=== PATIENT | female | born 1935 | race Caucasian/White ===

== ENCOUNTER 2019-07-31 10:50 | Inpatient (IN) | payer OTHER ==
[2019-07-31] MEDS ORDERED: NA CHLORIDE 0.9% 2,000 ML ONE (11:13)
[2019-07-31] MEDS ORDERED: CEFTRIAXONE/SWI 1gm 1 GM/10 ML SYR ONE (11:13)
[2019-07-31] MEDS ORDERED: ACETAMINOPHEN 500 MG TAB ONE (11:18)
[2019-07-31 11:27] LABS: Absolute Lymphocytes (CBC) 0.8 K/uL (0.7-4.9); Basophils % 0.4 % (0-1.3); Hematocrit 33.8 % (36.0-45.0); Lymphocytes % 4.2 % (15.3-44.8); MPV 9.3 fL (7.6-11.3); RBC Red Blood Cell Count 5.05 M/uL (3.86-4.86)
[2019-07-31 11:29] LABS: Protime INR 1.59
--- NOTE | 2019-07-31 11:42 | RAD REPORT ---
EXAM DESCRIPTION: Tonny Single View07/31/2019 11:34 am CLINICAL HISTORY: Fever COMPARISON: July 2018 FINDINGS: Lungs are hyperaerated The lungs appear clear of acute infiltrate. The heart is normal size IMPRESSION: COPD without visualization acute abnormality
[2019-07-31 11:43] LABS: ALT/SGPT 63 U/L (12-78); AST/SGOT 51 U/L (15-37); Albumin 3.4 g/dL (3.4-5.0); Alkaline Phosphatase 74 U/L (45-117); BUN Blood Urea Nitrogen 33 mg/dL (7-18); Bicarbonate 29 mmol/L (21-32); Bilirubin Direct 0.2 mg/dL (0-0.2); Bilirubin Total 0.6 mg/dL (0.2-1.0); Creatine Phosphokinase 246 U/L (26-192); Glucose Level 189 mg/dL (74-106); Lipase 81 U/L (73-393); Potassium 3.9 mmol/L (3.5-5.1); Protein, Total 8.7 g/dL (6.4-8.2); Sodium Level 138 mmol/L (136-145); Troponin (Emerg Dept Use Only) < 0.02 ng/mL (0.0-0.045)
--- OUTSIDE RECORDS SUMMARY | 2019-07-31 11:45 | XMS REPORT ---
:1935 Author Organization e[employer] Care Team Providers Name Role Phone Baca, Na Provider Role Unavailable Allergies No Known Allergies Problems Problem Type Condition Code Onset Dates Condition Status Problem GERD (gastroesophageal reflux K21.9 Active disease) Problem COPD (chronic obstructive J44.9 Active pulmonary disease) Problem Hypothyroidism E03.9 Active Problem Edema of left lower extremity R60.0 Active Problem Peripheral vascular insufficiency I73.9 Active Problem Senile cataract of right eye, H25.9 Active unspecified age-related cataract type Problem Supplemental oxygen dependent Z99.81 Active Problem Displaced fracture of left femoral S72.002A Active neck Problem 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 Active infection Problem Age related osteoporosis, M81.0 Active unspecified pathological fracture presence Assessment Anemia D64.9 Active Assessment Chronic a-fib I48.2 Active Problem Unsteady gait R26.81 Active Problem Chronic a-fib I48.2 Active Assessment Hypothyroidism E03.9 Active Problem Family history of breast cancer Z80.3 Active Problem Anemia D64.9 Active Medications No Known Medications Results No Known Results Summary Purpose eClinicalWorks Submission
[2019-07-31 12:18] LABS: Blood Morphology Comment NOTED (NOT SEEN); Platelet Estimate ADEQ
[2019-07-31 12:19] LABS: Anisocytosis 1+; Elliptocytes 1+; Hypochromasia 2+; Poikilocytosis 1+; Target Cells FEW; Teardrop Cell 1+
--- NOTE | 2019-07-31 13:05 | ER ---
Nurse's Notes [facility] Name: Demetrice Bedolla Age: 83 yrs Sex: Female : 1935 Arrival Date: 07/31/2019 Time: 10:53 Bed 19 Private MD: Nidhi Baca Diagnosis: Urosepsis, Fever, weakness Presentation: 07/31 10:57 Presenting complaint: Child states: generalized weakness, decreased appetite, fever sv Tmax 99.1, urinary symptoms started last week. Transition of care: patient was not received from another setting of care. Onset of symptoms was June 2019. Care prior to arrival: None. 10:57 Method Of Arrival: Wheelchair sv 10:57 Acuity: CHRIS 2 sv 11:01 Initial Sepsis Screen: Does the patient meet any 2 criteria? RR > 20 per min. Temp sv <36.0*C (96.8*F)) or > 38.3*C (100.9*F). HR > 90 bpm. Yes Does the patient have a suspected source of infection? Yes: Dysuria/Frequency/Urgency/UTI. 11:05 Risk Assessment: Do you want to hurt yourself or someone else? Patient reports no rb1 desire to harm self or others. Historical: - Allergies: 10:59 No Known Allergies; sv - Home Meds: 11:05 Hemocyte-Plus 106 mg iron- 1 mg Oral cap 1 cap once daily [Active]; levothyroxine 50 rb1 mcg tab 1 tab once daily [Active]; Symbicort 160-4.5 mcg/actuation inhalation HFAA 2 puffs 2 times per day [Active]; Vitamin D Oral [Active]; - PMHx: 10:59 COPD; Hypothyroidism; thalassemia; sv - PSHx: 11:05 None; rb1 - Immunization history:: Adult Immunizations up to date. - Social history:: Smoking status: Patient/guardian denies using tobacco. - Ebola Screening: : Patient negative for fever greater than or equal to 101.5 degrees Fahrenheit, and additional compatible Ebola Virus Disease symptoms. Screenin:05 Abuse screen: Denies threats or abuse. Nutritional screening: decreased appetite . rb1 Tuberculosis screening: No symptoms or risk factors identified. Fall Risk None identified. Assessment: 11:05 Reassessment: CODE SEPSIS CALLED. hb 11:05 General: Appears in no apparent distress. comfortable, unkempt, Behavior is calm, rb1 cooperative, Reports chills for fever for. Pain: Denies pain. Neuro: Level of Consciousness is awake, alert, obeys commands, Oriented to person, place, time, situation. Neuro: Reports weakness in generalized. Cardiovascular: Capillary refill < 3 seconds is brisk in bilateral fingers. Respiratory: Reports cough that is Airway is patent Respiratory effort is even, unlabored, Respiratory pattern is regular, symmetrical. GI: Reports diarrhea. : Reports burning with urination. EENT: Poor dentition noted. Derm: Skin is pink, warm \T\ dry. Musculoskeletal: Range of motion: intact in all extremities. 12:30 Reassessment: Patient appears in no apparent distress at this time. Patient and/or rb1 family updated on plan of care and expected duration. Pain level reassessed. Patient is alert, oriented x 3, equal unlabored respirations, skin warm/dry/pink. 13:30 Reassessment: Patient appears in no apparent distress at this time. No changes from [facility] previously documented assessment. 14:30 Reassessment: Patient appears in no apparent distress at this time. Patient and/or rb1 family updated on plan of care and expected duration. Pain level reassessed. Patient is alert, oriented x 3, equal unlabored respirations, skin warm/dry/pink. 15:30 Reassessment: Patient appears in no apparent distress at this time. Patient and/or rb1 family updated on plan of care and expected duration. Pain level reassessed. Patient is alert, oriented x 3, equal unlabored respirations, skin warm/dry/pink. 15:40 Reassessment: Tried to call report but the nurse was off the unit taking a pt. to the rb1 floor. 16:04 Reassessment: Called report to SANDOR Avalos. Information from the SBAR was given. All [facility] questions asked and answered. 16:30 Reassessment: Patient appears in no apparent distress at this time. No changes from [facility] previously documented assessment. 16:42 Reassessment: Dr. Youssef is at the pt. bedside. [facility] Vital Signs: 10:59 BP 131 / 61; Pulse 114; Resp 22; Temp 101.1(O); Pulse Ox 88% on 2 lpm NC; Weight 44.45 sv kg; Height 5 ft. 2 in. (157.48 cm); 12:32 BP 111 / 60; Pulse 128; Resp 26; Temp 99.0(O); Pulse Ox 96% on 2 lpm NC; Pain 0/10; rb1 13:30 BP 109 / 69; Pulse 130; Resp 23; Pulse Ox 94% on 2 lpm NC; Pain 0/10; rb1 14:30 BP 94 / 80; Pulse 98; Resp 21; Pulse Ox 97% on 2 lpm NC; rb1 15:30 BP 98 / 56; Pulse 110; Resp 20; Temp 98.6(TE); Pulse Ox 97% on 2 lpm NC; Pain 0/10; rb1 16:06 BP 100 / 67; Pulse 125; Resp 20; Temp 98.6(TE); Pulse Ox 97% on 2 lpm NC; Pain 0/10; rb1 10:59 Body Mass Index 17.92 (44.45 kg, 157.48 cm) sv Mark Coma Score: 11:30 Eye Response: spontaneous(4). Verbal Response: oriented(5). Motor Response: obeys rb1 commands(6). Total: 15. ED Course: 10:53 Patient arrived in ED. ag5 10:54 Nidhi Baca MD is Private Physician. ag5 10:58 Triage completed. sv 10:59 Arm band placed on. sv 11:04 Clif Naranjo MD is Attending Physician. kdr 11:05 Patient has correct armband on for positive identification. Placed in gown. Bed in low rb1 position. Call light in reach. Side rails up X 1. radiation monitor on. Pulse ox on. NIBP on. sheet. 11:10 Inserted saline lock: 18 gauge in right antecubital area, using aseptic technique. rb1 ,using aseptic technique. IV inserted by SANDOR Edouard Blood collected. 11:33 Chest Single View XRAY In Process Unspecified. EDMS 11:44 EKG done, by facility environmental technician. reviewed by Clif Naranjo MD. at1 11:56 Sybil Diamond, RN is Primary Nurse. rb1 13:02 Ilya Youssef DO is Hospitalizing Provider. kdr 13:26 Raul Colunga PA is PHCP. jr8 14:36 Urine Dipstick--Ancillary (enter results) Sent. mh5 14:36 Urine Culture Sent. mh5 16:53 No provider procedures requiring assistance completed. Patient admitted, IV remains in rb1 place. Administered Medications: 11:20 Drug: NS 0.9% (30 ml/kg) 30 ml/kg Route: IV; Rate: bolus; Site: right antecubital; rb1 12:42 Follow up: IV Status: Completed infusion [facility] 11:25 Drug: Rocephin - (cefTRIAXone) 1 grams Route: IVPB; Infused Over: 30 mins; Site: right rb1 antecubital; 11:55 Follow up: Response: No adverse reaction; IV Status: Completed infusion [facility] Point of Care Testing: Blood Glucose: 11:14 Blood Glucose: 184 mg/dL; [facility] Ranges: Outcome: 13:03 Decision to Hospitalize by Provider. [facility] 16:53 Admitted to ICU accompanied by nurse, accompanied by devin, family with patient, via [facility] stretcher, room 3, with oxygen, with chart, Report called to SANDOR Avalos 16:53 Condition: stable 16:53 Instructed on the need for admit. 16:56 Patient left the ED. [facility] Signatures: Dispatcher [employer] Kaylee Marie RN RN Clif Naranjo MD MD [facility] Raul Colunga PA PA jr8 Louise Cooley, telecommunications network planner EKG Tat1 Sybil Diamond RN RN [facility] Samantha Almonte RN RN hb Martinez, Maria 5 Caryl, Samuel 5 Corrections: (The following items were deleted from the chart) 10:59 10:57 Presenting complaint: Child states: generalized weakness, fever Tmax 99.1, sv urinary symptoms started last week. sv 11:01 10:57 Acuity: CHRIS 3 sv sv 11:01 10:59 44.45 kg; Height 5 ft. 2 in.; BMI: 17.9; sv sv 16:12 12:32 BP 111 / 60; Pulse 128bpm; Resp 26bpm; Pulse Ox 96% 2 lpm Nasal Cannula; Pain rb1 0; rb1
--- NOTE | 2019-07-31 13:05 | EDPHYS ---
Physician Documentation [facility] Name: Demetrice Bedolla Age: 83 yrs Sex: Female : 1935 Arrival Date: 07/31/2019 Time: 10:53 Bed 19 Private MD: Nidhi Baca ED Physician Clif Naranjo HPI: 07/31 13:48 This 83 yrs old Female presents to ER via Wheelchair with complaints of kdr General Weakness, Cough. 13:49 The patient has been generally weak and not feeling well for the past week. She has kdr also had mild discomfort with urination and slight cough but denies fever. Onset: The symptoms/episode began/occurred gradually, 1 week(s) ago. Severity of symptoms: At their worst the symptoms were mild moderate just prior to arrival, this morning, in the emergency department the symptoms are unchanged. The patient has not experienced similar symptoms in the past. The patient has not recently seen a physician. Historical: - Allergies: 10:59 No Known Allergies; sv - Home Meds: 11:05 Hemocyte-Plus 106 mg iron- 1 mg Oral cap 1 cap once daily [Active]; levothyroxine 50 rb1 mcg tab 1 tab once daily [Active]; Symbicort 160-4.5 mcg/actuation inhalation HFAA 2 puffs 2 times per day [Active]; Vitamin D Oral [Active]; - PMHx: 10:59 COPD; Hypothyroidism; thalassemia; sv - PSHx: 11:05 None; rb1 - Immunization history:: Adult Immunizations up to date. - Social history:: Smoking status: Patient/guardian denies using tobacco. - Ebola Screening: : Patient negative for fever greater than or equal to 101.5 degrees Fahrenheit, and additional compatible Ebola Virus Disease symptoms. ROS: 13:49 Constitutional: Negative for fever, chills, and weight loss, Eyes: Negative for injury, kdr pain, redness, and discharge, ENT: Negative for injury, pain, and discharge, Neck: Negative for injury, pain, and swelling, Cardiovascular: Negative for chest pain, palpitations, and edema, Respiratory: Negative for shortness of breath, cough, wheezing, and pleuritic chest pain, Abdomen/GI: Negative for abdominal pain, nausea, vomiting, diarrhea, and constipation, Back: Negative for injury and pain, : Negative for injury, bleeding, discharge, and swelling, MS/Extremity: Negative for injury and deformity, Skin: Negative for injury, rash, and discoloration, Neuro: Negative for headache, weakness, numbness, tingling, and seizure activity. Psych: Negative for depression, anxiety, suicide ideation, homicidal ideation, and hallucinations, Allergy/Immunology: Negative for hives, rash, and allergies, Endocrine: Negative for neck swelling, polydipsia, polyuria, polyphagia, and marked weight changes, Hematologic/Lymphatic: Negative for swollen nodes, abnormal bleeding, and unusual bruising. Exam: 13:49 Constitutional: This is a well developed, well nourished patient who is awake, alert, kdr and in no acute distress. Head/Face: Normocephalic, atraumatic. Eyes: Pupils equal round and reactive to light, extra-ocular motions intact. Lids and lashes normal. Conjunctiva and sclera are non-icteric and not injected. Cornea within normal limits. Periorbital areas with no swelling, redness, or edema. Neck: Trachea midline, no thyromegaly or masses palpated, and no cervical lymphadenopathy. Supple, full range of motion without nuchal rigidity, or vertebral point tenderness. No Meningismus. Chest/axilla: Normal chest wall appearance and motion. Nontender with no deformity. No lesions are appreciated. Cardiovascular: Regular rate and rhythm with a normal S1 and S2. No gallops, murmurs, or rubs. Normal PMI, no JVD. No pulse deficits. Respiratory: Lungs have equal breath sounds bilaterally, clear to auscultation and percussion. No rales, rhonchi or wheezes noted. No increased work of breathing, no retractions or nasal flaring. Abdomen/GI: Soft, non-tender, with normal bowel sounds. No distension or tympany. No guarding or rebound. No evidence of tenderness throughout. Back: No spinal tenderness. No costovertebral tenderness. Full range of motion. Skin: Warm, dry with normal turgor. Normal color with no rashes, no lesions, and no evidence of cellulitis. MS/ Extremity: Pulses equal, no cyanosis. Neurovascular intact. Full, normal range of motion. Neuro: Awake and alert, GCS 15, oriented to person, place, time, and situation. Cranial nerves II-XII grossly intact. Motor strength 5/5 in all extremities. Sensory grossly intact. Cerebellar exam normal. Normal gait. Psych: Awake, alert, with orientation to person, place and time. Behavior, mood, and affect are within normal limits. 13:49 ENT: External ear(s): are unremarkable, Ear canal(s): are normal, TM's: are normal, Nose: is normal. Vital Signs: 10:59 BP 131 / 61; Pulse 114; Resp 22; Temp 101.1(O); Pulse Ox 88% on 2 lpm NC; Weight 44.45 sv kg; Height 5 ft. 2 in. (157.48 cm); 12:32 BP 111 / 60; Pulse 128; Resp 26; Temp 99.0(O); Pulse Ox 96% on 2 lpm NC; Pain 0/10; rb1 13:30 BP 109 / 69; Pulse 130; Resp 23; Pulse Ox 94% on 2 lpm NC; Pain 0/10; rb1 14:30 BP 94 / 80; Pulse 98; Resp 21; Pulse Ox 97% on 2 lpm NC; rb1 15:30 BP 98 / 56; Pulse 110; Resp 20; Temp 98.6(TE); Pulse Ox 97% on 2 lpm NC; Pain 0/10; rb1 16:06 BP 100 / 67; Pulse 125; Resp 20; Temp 98.6(TE); Pulse Ox 97% on 2 lpm NC; Pain 0/10; rb1 10:59 Body Mass Index 17.92 (44.45 kg, 157.48 cm) sv Mark Coma Score: 11:30 Eye Response: spontaneous(4). Verbal Response: oriented(5). Motor Response: obeys rb1 commands(6). Total: 15. MDM: 13:03 Patient medically screened. kdr 13:49 Data reviewed: vital signs, nurses notes, old medical records, radiologic studies. kdr Counseling: I had a detailed discussion with the patient and/or guardian regarding: the historical points, exam findings, and any diagnostic results supporting the discharge/admit diagnosis, lab results, radiology results, the need for further work-up and treatment in the hospital. 07/31 10:54 Order name: Flu; Complete Time: 13:14 sv 07/31 10:54 Order name: Strep; Complete Time: 13:14 sv 07/31 11:05 Order name: Basic Metabolic Panel; Complete Time: 11:50 kdr 07/31 11:05 Order name: Blood Culture Adult (2) kdr 07/31 11:05 Order name: CBC with Diff; Complete Time: 12:35 kdr 07/31 11:05 Order name: Ckmb; Complete Time: 11:50 kdr 07/31 11:05 Order name: CPK; Complete Time: 11:50 kdr 07/31 11:05 Order name: Lactate; Complete Time: 11:50 kdr 07/31 11:05 Order name: LFT's; Complete Time: 11:50 kdr 07/31 11:05 Order name: Lipase; Complete Time: 11:50 kdr 07/31 11:05 Order name: Procalcitonin; Complete Time: 12:35 kdr 07/31 11:05 Order name: Protime (+inr); Complete Time: 11:50 kdr 07/31 11:05 Order name: Ptt, Activated; Complete Time: 11:50 kdr 07/31 11:05 Order name: Troponin (emerg Dept Use Only); Complete Time: 11:50 kdr 07/31 11:05 Order name: Urine Microscopic Only; Complete Time: 16:28 kdr 07/31 11:05 Order name: Chest Single View XRAY; Complete Time: 11:50 kdr 07/31 11:05 Order name: Accucheck; Complete Time: 11:19 kdr 07/31 11:05 Order name: Cardiac monitoring; Complete Time: 11:19 kdr 07/31 11:05 Order name: EKG - Nurse/Tech; Complete Time: 12:31 kdr 07/31 11:05 Order name: IV Saline Lock - Large Bore; Complete Time: 11:19 kdr 07/31 11:32 Order name: Glucose, Ancillary Testing; Complete Time: 11:50 EDMS 07/31 12:20 Order name: Manual Differential; Complete Time: 12:35 EDMS 07/31 12:47 Order name: Throat Culture EDMS 07/31 13:23 Order name: CT Abd/Pelvis - IV Contrast Only jr8 07/31 14:02 Order name: Urine Culture jr8 07/31 14:10 Order name: Urine Dipstick--Ancillary (enter results) em1 07/31 14:24 Order name: Urine Dipstick-Ancillary; Complete Time: 14:43 EDMS 07/31 14:38 Order name: CT; Complete Time: 14:43 [facility] 07/31 11:05 Order name: Labs collected and sent; Complete Time: 11:20 [facility] 07/31 11:05 Order name: O2 Per Protocol; Complete Time: 11:20 [facility] 07/31 11:05 Order name: O2 Sat Monitoring; Complete Time: 11:20 [facility] 07/31 11:05 Order name: Urine Dipstick-Ancillary (obtain specimen); Complete Time: 14:07 kdr Administered Medications: 11:20 Drug: NS 0.9% (30 ml/kg) 30 ml/kg Route: IV; Rate: bolus; Site: right antecubital; rb1 12:42 Follow up: IV Status: Completed infusion rb1 11:25 Drug: Rocephin - (cefTRIAXone) 1 grams Route: IVPB; Infused Over: 30 mins; Site: right rb1 antecubital; 11:55 Follow up: Response: No adverse reaction; IV Status: Completed infusion rb1 Point of Care Testing: Blood Glucose: 11:14 Blood Glucose: 184 mg/dL; rb1 Ranges: Critical Glucose Levels:Adult <50 mg/dl or >400 mg/dl <40 mg/dl or >180 mg/dl Disposition: 07/31/19 13:03 Hospitalization ordered by Ilya Youssef for Inpatient Admission. Preliminary diagnosis is Urosepsis, Fever, weakness. - Bed requested for Intensive Care Unit. - Status is Inpatient Admission. rb1 - Condition is Fair. - Problem is new. - Symptoms are unchanged. UTI on Admission? Yes Signatures: Dispatcher [employer] [facility] Kaylee Stewart RN RN sv Woody, Diana, RN RN dw Rittger, Kevin, MD MD [facility] Raul Colunga PA PA jr8 Sybil Diamond RN RN rb1 Corrections: (The following items were deleted from the chart) 14:49 13:03 Hospitalization Ordered by Ilya Youssef DO for Inpatient Admission. Preliminary diagnosis is Urosepsis, Fever, weakness. Bed requested for Telemetry/MedSurg (Inpatient). Status is Inpatient Admission. Condition is Fair. Problem is new. Symptoms are unchanged. UTI on Admission? Yes. kdr 14:49 14:49 07/31/2019 13:03 Hospitalization Ordered by Ilya Youssef DO for Inpatient dw Admission. Preliminary diagnosis is Urosepsis, Fever, weakness. Bed requested for Intensive Care Unit. Status is Inpatient Admission. Condition is Fair. Problem is new. Symptoms are unchanged. UTI on Admission? Yes. dw 15:21 13:22 Morin ordered. jr8 rb1 16:56 14:49 07/31/2019 13:03 Hospitalization Ordered by Ilya Youssef DO for Inpatient rb1 Admission. Preliminary diagnosis is Urosepsis, Fever, weakness. Bed requested for Intensive Care Unit. Status is Inpatient Admission. Condition is Fair. Problem is new. Symptoms are unchanged. UTI on Admission? Yes.
--- NOTE | 2019-07-31 13:37 | P.HP ---
Addendum entered and electronically signed by Eligio Colunga PA 07/31/19 14:44 : CT reports bilateral pyelonephritis which is most likely cause of her sepsis Original Note: Certification for Inpatient Patient admitted to: Inpatient With expected LOS: >2 Midnights Patient will require the following post-hospital care: Home Health Services Practitioner: I am a practitioner with admitting privileges, knowledge of patient current condition, hospital course, and medical plan of care. Services: Services provided to patient in accordance with Admission requirements found in Title 42 Section 412.3 of the Code of Federal Regulations <Eligio Colunga - Last Filed: 07/31/19 13:32> Patient History Date of Service: 07/31/19 Primary Care Provider: Dr. Baca Reason for admission: Severe Sepsis, COPD exacerbation, Dehydration History of Present Illness: This is a 83 y/o F patient that came to the ED today for evaluation of Dyspnea and fever. Patient with history of COPD. Did not know if she was getting pneumonia. Patient was evaluated in ED and found to have urosepsis. No pneumonia on CXR at this time. Patient after being evaluated by myself does have some lower abdominal pain. CT abd/pelvis with contrast has been ordered. Results pending at this time. Otherwise patient was started on sepsis protocol and has completed abx, blood cultures, and fluids. Patient has continued elevation in HR. Will be admitted to ICU overnight Home medications list reviewed: Yes - Past Medical/Surgical History Diabetic: No -: hypothyroidism -: COPD -: Thalassemia - Family History Mother -: Heart disease Sister -: Cancer - Social History Smoking Status: Former smoker Smoking therapy provided: No Alcohol use: No CD- Drugs: No Caffeine use: Yes Place of Residence: Home <Eligio Colunga - Last Filed: 07/31/19 13:32> Date of Service: 07/31/19 - Past Medical/Surgical History -: Hypothyroidism -: COPD -: Atrial fibrillation/chronic anti coagulation therapy -: Anemia of chronic disease -: Former smoker -: History of recurrent UTI Past Surgical History: Patient denies surgical history Psychosocial/ Personal History: Patient has a supporting family. Lives at home <Ilya Youssef - Last Filed: 07/31/19 17:53> Allergies No Known Allergies Allergy (Verified 01/02/20 17:19) Home Medications: Iron/FA/Vit B-Com W/C [Hemocyte Plus*] 1 tab PO DAILY 09/07/17 Levothyroxine Sodium 50 mcg PO DAILY 09/07/17 Cholecalciferol (Vitamin D3) [Vitamin D3] 1,000 unit PO DAILY 09/10/17 Albuterol Neb [Proventil 0.083% Neb Soln] 2.5 mg NEB [id number] PRN #60 amp Apixaban [Eliquis] 2.5 mg PO BID #60 tablet 09/17/17 Docusate [Colace Cap*] 100 mg PO BID #60 cap 09/17/17 Ipratropium Neb [Atrovent*] 0.5 mg NEB [id number] PRN #60 amp 09/17/17 Sotalol HCl [Betapace*] 40 mg PO BID 6AM 6PM #30 tab 09/17/17 Fluticasone/Umeclidin/Vilanter [Trelegy Ellipta 100-62.5-25] 1 puff IH DAILY 09/18 Review of Systems General: Fever, Chills Eyes: Unremarkable ENT: Unremarkable Respiratory: Cough, Shortness of Breath Cardiovascular: Palpitations Gastrointestinal: Abdominal Pain Genitourinary: As per HPI Musculoskeletal: Unremarkable Integumentary: Unremarkable Neurological: Unremarkable Lymphatics: Unremarkable <Eligio Colunga - Last Filed: 07/31/19 13:32> Physical Examination - Vital Signs Temperature: 101.1 F Blood Pressure: 131/61 Pulse: 130 Respirations: 26 Pulse Ox (%): 93 (NC 3lpm ) - Physical Exam General: Alert, In no apparent distress, Oriented x3 HEENT: PERRLA, Mucous membr. moist/pink, EOMI Neck: Supple, 2+ carotid pulse no bruit, JVD not distended, No Thyromegaly Respiratory: Crackles/rales (mild tachypnea present ), Expiratory wheezes Cardiovascular: Normal S1 S2, No gallops, No rubs, No murmurs, Irregular heart rate/rhythm (Tachycardic ) Capillary refill: <2 Seconds Gastrointestinal: Normal bowel sounds, Non-distended, No masses, No rebound, No guarding, Tenderness (lower abdomen ) Musculoskeletal: No swelling, No contractures, No erythema, No tenderness, No warmth Integumentary: No rashes, No breakdown, No significant lesion, No tenderness/ swelling, No erythema, No warmth, No cyanosis Neurological: Normal speech, Normal strength at 5/5 x4 extr, Sensation intact, Cranial nerves 3-12 intact, Normal reflexes 2+, Normal affect - Studies Laboratory Data (last 24 hrs) 07/31/19 11:11: PT 18.4 H, INR 1.59, APTT 32.4 07/31/19 11:11: WBC 20.3 H*, Hgb 10.6 L, Hct 33.8 L, Plt Count 212 07/31/19 11:11: Sodium 138, Potassium 3.9, BUN 33 H, Creatinine 1.03, Glucose 189 H, Total Bilirubin 0.6, AST 51 H, ALT 63, Alkaline Phosphatase 74, Lipase 81 Microbiology Data (last 24 hrs): 07/31/19 12:27 Nasopharnyx Influenza Type A Antigen Screen - Final 07/31/19 12:27 Nasopharnyx Influenza Type B Antigen Screen - Final 07/31/19 12:27 Throat Group A Streptococcus Rapid Screen - Final <Eligio Colunga - Last Filed: 07/31/19 13:32> - Studies Laboratory Data (last 24 hrs) 07/31/19 11:11: PT 18.4 H, INR 1.59, APTT 32.4 07/31/19 11:11: WBC 20.3 H*, Hgb 10.6 L, Hct 33.8 L, Plt Count 212 07/31/19 11:11: Sodium 138, Potassium 3.9, BUN 33 H, Creatinine 1.03, Glucose 189 H, Total Bilirubin 0.6, AST 51 H, ALT 63, Alkaline Phosphatase 74, Lipase 81 Microbiology Data (last 24 hrs): 07/31/19 12:27 Nasopharnyx Influenza Type A Antigen Screen - Final 07/31/19 12:27 Nasopharnyx Influenza Type B Antigen Screen - Final 07/31/19 12:27 Throat Group A Streptococcus Rapid Screen - Final <Ilya Youssef - Last Filed: 07/31/19 17:53> Assessment and Plan - Problems (Diagnosis) (1) Severe sepsis Current Visit: Yes Status: Acute (2) Dehydration fever Current Visit: Yes Status: Acute (3) COPD (chronic obstructive pulmonary disease) Onset Date: 09/10/17 Current Visit: No Status: Chronic Qualifiers: COPD type: chronic bronchitis Chronic bronchitis type: unspecified Qualified Code(s): J42 - Unspecified chronic bronchitis - Plan Patient will be admitted for sepsis. Patient will have continued breathing treatments for COPD along with steroids. Will remain on continuous oxygen as well. Patient had sepsis protocol initiated in ED. Will continue fluids and antibiotics. Labs will be monitored and trended for improvement. At this time when asked, patient does not want to be resuscitated if she were to stop breathing or her heart were to stop. Discharge Plan: Home Plan to discharge in: Greater than 2 days - Advance Directives Does patient have a Living Will: No Does patient have a Durable POA for Healthcare: No - Code Status/Comfort Care Code Status: Do Not Attempt Resuscitat Critical Care: No Time Spent Managing Pts Care (In Minutes): 45 <Eligio Colunga - Last Filed: 07/31/19 13:32> - Plan Impression: Fever secondary to bilateral pyelonephritis with sepsis Acute renal injury likely from dehydration COPD Atrial fibrillation on chronic anti coagulation therapy Anemia likely of chronic disease Hypothyroidism Plan: Fever secondary to bilateral pyelonephritis with sepsis: Patient admitted for further evaluation and treatment. Will continue with IV antibiotic therapy. Pharmacy to monitor and adjust. Await blood and urine culture results. Continue IV fluids. Will monitor closely. Patient will be kept in ICU for close monitoring. Will continue to reassess and check. If blood pressure remains low patient may require vasopressors. Continue sepsis protocol. Advanced directives address. Patient is do not resuscitate. Acute renal injury likely from dehydration: Continue IV fluids. COPD: Continue COPD medication. Maintain sats above 93%. Atrial fibrillation on chronic anti coagulation therapy: Restart home medications of sotalol and anti coagulation therapy Anemia likely of chronic disease: Will check iron B12 studies. Will monitor hemoglobin. Hypothyroidism: Check tsh. Will continue home medication - Code Status/Comfort Care Code Status Assessed: Yes Time Spent Managing Pts Care (In Minutes): 55 <Ilya Youssef - Last Filed: 07/31/19 17:53>
[2019-07-31 14:23] LABS: Urine Blood 2+ (NEG); Urine Glucose NEGATIVE (NEG); Urine Protein 2+ (NEG); Urine pH 5.5 (5.0-7.0)
--- NOTE | 2019-07-31 14:36 | RAD REPORT ---
EXAM DESCRIPTION: CT - Abdomen Pelvis W Contrast - 07/31/2019 2:11 pm CLINICAL HISTORY: sepsis;Abd painabdominal pain, sepsis COMPARISON: No comparisons TECHNIQUE: Biphasic, helical CT imaging of the abdomen and pelvis was performed following 100 ml non -ionic IV contrast. No oral contrast. All CT scans are performed using dose optimization technique as appropriate and may include automated exposure control or mA/KV adjustment according to patient size. FINDINGS: No suspicious findings in the lung bases. Prominent heterogeneity of enhanced is present in the right renal parenchyma. No abscess identified. Minimal areas of diminished or heterogeneous enhancement seen in the left renal parenchyma. Bladder i s mostly contracted which precludes accurate assessment. Assessment is further limited by left hip pr osthesis spray artifact. No hydronephrosis. No asymmetric or significantly delayed function is obstru cting calculus. The liver, spleen, pancreas and biliary tree show no suspicious findings. Multiple gallstones are pre sent. Gallbladder is partially contracted. No pericholecystic fluid. Duct stones can be occult on CT imaging. No adrenal abnormalities. No dilated bowel loops or bowel wall thickening. No uterine abnormality. No ovarian abnormality. No f ree air or pneumatosis. Trace free fluid in the cul de sac. No hernia, mass or bulky lymphadenopathy . Prominent bony degenerative changes are present. No pathologic bone process. No vascular acute finding. IMPRESSION: Prominent right-sided pyelonephritis and minimal left-sided pyelonephritis. No abscess o r surgically emergent finding. Bladder is contracted and limited in assessment due to spray artifact from left hip prosthesis. Cysti tis cannot be excluded. Multi stone cholelithiasis. Acute gallbladder process is doubtful.
[2019-07-31 14:44] LABS: Urine Bacteria <20 /HPF (<20); Urine Culture Reflex Order NOT NEEDED
[2019-07-31] MEDS ORDERED: ALBUTEROL 2.5 MG/3 ML NEB SOL NEB PRN (16:03)
[2019-07-31] MEDS ORDERED: ONDANSETRON 4 MG/2 ML VIAL IV PRN (16:03)
[2019-07-31] MEDS ORDERED: ACETAMINOPHEN 500 MG TAB PO PRN (16:03)
[2019-07-31] MEDS ORDERED: METHYLPREDNISOLONE 40 MG INJ IV SCH (17:00)
[2019-07-31] MEDS ORDERED: ENOXAPARIN 40 MG/0.4 ML SQ SCH (17:00)
[2019-07-31] MEDS: NA CHLORIDE 0.9% 1,000 ML IV SCH (17:01)
--- NOTE | 2019-07-31 17:56 | P.INFCA ---
Sepsis Focused Assessment - Focused Assessment Complete? Sepsis Focused Assessment Completed?: Yes - Sepsis Screen Result Severe Sepsis: Positive Septic Shock: Negative - Evaluation Current stage of sepsis: Severe sepsis - Vital Signs Reviewed: Yes Temperature: 98.6 F Heart rate: 125 Blood Pressure: 100/67 Respiratory Rate: 20 - Examination Date exam was performed: 07/31/19 Time exam was performed: 17:55 Heart: Tachycardia Lungs: Wheezes Peripheral pulses: 3+ Normal Peripheral pulse location: Radial Capillary refill: >2 Seconds Skin examination: Other (Dry skin)
[2019-07-31] MEDS: SOTALOL HCL 80 MG TAB PO SCH (18:00)
[2019-07-31] MEDS: FORMOTEROL FUMARATE 20 MCG/2 ML VIAL.NEB NEB SCH (20:00)
[2019-07-31] MEDS: CEFTRIAXONE/SWI 1gm 1 GM/10 ML SYR IVP SCH (20:49)
[2019-07-31] MEDS: predniSONE 10 MG TAB PO SCH (20:49)
[2019-07-31] MEDS: DOCUSATE NA 100 MG CAP PO SCH (20:49)
[2019-07-31] MEDS: APIXABAN 2.5 MG TABLET PO SCH (20:49)
[2019-08-01] MEDS: NA CHLORIDE 0.9% 1,000 ML IV SCH (02:57)
[2019-08-01] MEDS: LEVOTHYROXINE SOD 0.05 MG TABLET PO SCH (05:29)
[2019-08-01] MEDS: SOTALOL HCL 80 MG TAB PO SCH ×2 (05:29→18:03)
[2019-08-01 06:29] LABS: Absolute Lymphocytes (CBC) 0.3 K/uL (0.7-4.9); Basophils % 0.2 % (0-1.3); Hematocrit 28.1 % (36.0-45.0); Lymphocytes % 2.5 % (15.3-44.8); MPV 9.4 fL (7.6-11.3); RBC Red Blood Cell Count 4.14 M/uL (3.86-4.86)
[2019-08-01 06:54] LABS: BUN Blood Urea Nitrogen 23 mg/dL (7-18); Bicarbonate 27 mmol/L (21-32); Ferritin 6602.2 ng/mL (8-388); Glucose Level 144 mg/dL (74-106); NT PRO-BNP 2792 pg/mL (<450); Potassium 3.8 mmol/L (3.5-5.1); Sodium Level 145 mmol/L (136-145); Transferrin 103 mg/dL (200-360)
[2019-08-01] MEDS ORDERED: VANCOMYCIN 1.25 GM in NA CHLORIDE 0.9% 250 ML IVPB ONE ×2 (07:00→08:00)
[2019-08-01] MEDS: FORMOTEROL FUMARATE 20 MCG/2 ML VIAL.NEB NEB SCH (08:00)
[2019-08-01] MEDS: predniSONE 10 MG TAB PO SCH ×2 (08:27→21:25)
[2019-08-01] MEDS: DOCUSATE NA 100 MG CAP PO SCH ×2 (08:27→21:25)
[2019-08-01] MEDS: ASPIRIN EC 81 MG TAB PO SCH (08:27)
[2019-08-01] MEDS: FE SULF/FA/VIT B COMP & C TAB PO SCH (08:27)
[2019-08-01] MEDS: APIXABAN 2.5 MG TABLET PO SCH ×2 (08:27→21:25)
[2019-08-01] MEDS: VITAMIN D 1000 UNIT TAB PO SCH (08:50)
[2019-08-01] MEDS: CEFTRIAXONE/SWI 1gm 1 GM/10 ML SYR IVP SCH ×2 (08:50→21:25)
[2019-08-01] MEDS ORDERED: HOME MED 1 EA UNK (Cholecalciferol (Vitamin D3) [Vitamin D3] 1,000 UNIT) PO SCH (09:00)
[2019-08-01] MEDS: IPRATROPIUM BROM 0.5MG/2.5ML NEB PRN (09:05)
[2019-08-01] MEDS: ARFORMOTEROL TARTRATE 15 MCG/2 ML VIAL.NEB IH SCH ×2 (09:05→20:25)
--- NOTE | 2019-08-01 09:22 | P.PN ---
Subjective Date of Service: 08/01/19 Primary Care Provider: Dr. Baca Chief Complaint: Severe Sepsis, COPD exacerbation, Dehydration Subjective: Other (Patient stable this time. Patient still tachycardic. Blood pressure stable. Patient alert. Slightly improved.) Physical Examination - Vital Signs Temperature: 97.4 F Blood Pressure: 91/53 Pulse: 121 Respirations: 20 Pulse Ox (%): 98 - Physical Exam General: Alert, In no apparent distress, Oriented x3, Cooperative HEENT: Atraumatic Neck: Supple Respiratory: Clear to auscultation bilaterally, Normal air movement Cardiovascular: Other (Sinus tachycardia) Gastrointestinal: Normal bowel sounds, Soft and benign, Non-distended Musculoskeletal: No erythema, No tenderness, No warmth Integumentary: No tenderness/swelling, No erythema, No warmth, No cyanosis Neurological: Normal speech, Normal strength at 5/5 x4 extr, Normal tone - Studies Laboratory Data (last 24 hrs) 07/31/19 11:11: PT 18.4 H, INR 1.59, APTT 32.4 07/31/19 11:11: WBC 20.3 H*, Hgb 10.6 L, Hct 33.8 L, Plt Count 212 07/31/19 11:11: Sodium 138, Potassium 3.9, BUN 33 H, Creatinine 1.03, Glucose 189 H, Total Bilirubin 0.6, AST 51 H, ALT 63, Alkaline Phosphatase 74, Lipase 81 Microbiology Data (last 24 hrs): 07/31/19 11:11 Blood - Blood Gram Stain - Final 07/31/19 12:27 Nasopharnyx Influenza Type A Antigen Screen - Final 07/31/19 12:27 Nasopharnyx Influenza Type B Antigen Screen - Final 07/31/19 12:27 Throat Group A Streptococcus Rapid Screen - Final Medications List Reviewed: Yes Assessment & Plan Discharge Plan: Home Plan to discharge in: Greater than 2 days - Code Status/Comfort Care Code Status Assessed: Yes (Patient is DNR) Physician Review Additional Text: Impression: Fever secondary to bilateral pyelonephritis with sepsis and bacteremia Acute renal injury likely from dehydration COPD Atrial fibrillation on chronic anti coagulation therapy Anemia likely of chronic disease Hypothyroidism Plan: Fever secondary to bilateral pyelonephritis with sepsis and bacteremia: Patient stable this time. Blood cultures positive for gram-negative rods. Continue IV antibiotic therapy. Pharmacy to monitor and adjust. Still slightly hypotensive and tachycardic. Will increase IV fluids and make adjustments. Will check echocardiogram and chest x-ray today. Advanced directives were addressed yesterday. Patient is do not resuscitate. Continue to monitor closely. Acute renal injury likely from dehydration: IV fluids adjusted. Electrolyte protocol in place. Renal function improved. COPD: Continue COPD medication. Maintain sats above 93%. Atrial fibrillation on chronic anti coagulation therapy: Home medications of sotalol and chronic anti coagulation therapy restarted. Hold sotalol if blood pressure less than 110 systolic Anemia likely of chronic disease: Continue to monitor closely. Recheck hemoglobin later today. Patient may require transfusion if hemoglobin continues to drop. Hypothyroidism: Continue medication. Time Spent Managing Pts Care (In Minutes): 55
[2019-08-01] MEDS: NACHLORIDE 0.45% 1,000 ML IV SCH ×2 (09:34→18:06)
[2019-08-01] MEDS ORDERED: NACHLORIDE 0.45% 1,000 ML IV SCH (10:00)
--- NOTE | 2019-08-01 10:57 | RAD REPORT ---
EXAM DESCRIPTION: [place] Single View08/01/2019 10:35 am CLINICAL HISTORY: Chest pain COMPARISON: July 31, 2019 FINDINGS: The lungs appear clear of acute infiltrate. The heart is mildly enlarged. Upper lobe vessels are prominent indicative of pulmonary venous hypertension
--- NOTE | 2019-08-01 13:50 | EKG ---
Test Date: 2019-07-31 Test Time: 11:35:48 [employer] Management Keyholder: DORITA MEASUREMENT RESULTS: Intervals: Rate: 97 VA: 124 QRSD: 86 QT: 348 QTc: 441 [place]: P: 93 VA: 124 QRS: 81 T: 79 INTERPRETIVE STATEMENTS: Normal sinus rhythm Normal ECG Compared to ECG 09/12/2017 06:58:02 Atrial fibrillation no longer present Electronically Signed On 08-01-19 13:47:17 ELECT[employer]IC [employer]LE [employer] OPERATOR by Daniel Pollock
--- NOTE | 2019-08-01 14:21 | ECHO ---
HEIGHT: 5 ft 2 in WEIGHT: 106 lb 6 oz DATE OF STUDY: 08/01/[address]: Celine Wei MD 2-DIMENSIONAL: YES M.MODE: YES DOPPLER: YES COLOR FLOW: YES TDS: PORTABLE: DEFINITY: BUBBLE STUDY: DIAGNOSIS: TACHYCARDIA/ ARRHYTHMIA CARDIAC HISTORY: CATHERIZATION: NO SURGERY: NO PROSTHETIC VALVE: NO PACEMAKER: NO MEASUREMENTS (cm) DIASTOLIC (NORMALS) SYSTOLIC (NORMALS) IVSd 0.8 (0.6-1.2) LA Diam 3.5 (1.9-4.0) LVEF 72% LVIDd 4.1 (3.5-5.7) LVIDs 2.4 (2.0-3.5) %FS 41% LVPWd 1.0 (0.6-1.2) Ao Diam 2.8 (2.0-3.7) 2 DIMENSIONAL ASSESSMENT: RIGHT ATRIUM: NORMAL LEFT ATRIUM: NORMAL RIGHT VENTRICLE: NORMAL LEFT VENTRICLE: NORMAL TRICUSPID VALVE: NORMAL MITRAL VALVE: NORMAL PULMONIC VALVE: NORMAL AORTIC VALVE: SCLEROSIS PERICARDIAL EFFUSION: NONE AORTIC ROOT: NORMAL LEFT VENTRICULAR WALL MOTION: NORMAL DOPPLER/COLOR FLOW: MILD TRICUSPID REGURGITATION MODERATE PULMONARY HYPERTENSION. MILD MITRAL REGURGITATION. COMMENTS: NORMAL LEFT VENTRICULAR AND FUNCTION. MODERATE PULMONARY HYPERTENSION RIGHT VENTRICULAR SYSTOLIC PRESSURE 51 mmHg. AORTIC SCLEROSIS NO STENOSIS. TECHNOLOGIST: KEITH GALLEGO
[2019-08-02] MEDS: NACHLORIDE 0.45% 1,000 ML IV SCH (02:46)
[2019-08-02 05:18] LABS: Absolute Lymphocytes (CBC) 1.3 K/uL (0.7-4.9); Basophils % 0.1 % (0-1.3); Hematocrit 29.4 % (36.0-45.0); Lymphocytes % 9.5 % (15.3-44.8); MPV 9.2 fL (7.6-11.3)
[2019-08-02] MEDS: SOTALOL HCL 80 MG TAB PO SCH ×2 (06:06→17:57)
[2019-08-02] MEDS: LEVOTHYROXINE SOD 0.05 MG TABLET PO SCH (06:06)
[2019-08-02 06:08] LABS: BUN Blood Urea Nitrogen 23 mg/dL (7-18); Bicarbonate 26 mmol/L (21-32); Glucose Level 144 mg/dL (74-106); Potassium 4.4 mmol/L (3.5-5.1); Sodium Level 141 mmol/L (136-145)
[2019-08-02] MEDS ORDERED: NACHLORIDE 0.45% 1,000 ML IV SCH (08:00)
[2019-08-02] MEDS: IPRATROPIUM BROM 0.5MG/2.5ML NEB PRN ×2 (09:05→22:10)
[2019-08-02] MEDS: ARFORMOTEROL TARTRATE 15 MCG/2 ML VIAL.NEB IH SCH ×2 (09:05→22:10)
[2019-08-02] MEDS: predniSONE 10 MG TAB PO SCH ×2 (09:17→20:12)
[2019-08-02] MEDS: FE SULF/FA/VIT B COMP & C TAB PO SCH (09:17)
[2019-08-02] MEDS: VITAMIN D 1000 UNIT TAB PO SCH (09:17)
[2019-08-02] MEDS: APIXABAN 2.5 MG TABLET PO SCH ×2 (09:17→20:12)
[2019-08-02] MEDS: ASPIRIN EC 81 MG TAB PO SCH (09:17)
[2019-08-02] MEDS: CEFTRIAXONE/SWI 1gm 1 GM/10 ML SYR IVP SCH (09:17)
[2019-08-02] MEDS: DOCUSATE NA 100 MG CAP PO SCH ×2 (09:17→20:12)
[2019-08-02] MEDS: FUROSEMIDE 40 MG/4 ML VIAL IV SCH ×2 (09:40→17:56)
[2019-08-02] MEDS ORDERED: LORAZEPAM 0.5 MG TABLET PO PRN (09:41)
--- NOTE | 2019-08-02 10:42 | RAD REPORT ---
EXAM DESCRIPTION: RAD - Chest Single View - 08/02/2019 10:19 am CLINICAL HISTORY: Hypoxia, wheezing, shortness of breath COMPARISON: August 01 TECHNIQUE: AP portable chest image was obtained 1016 hours . FINDINGS: Chronic interstitial lung disease is present. No focal mass or consolidation. Lung marking s are more prominent in the right base. Right base pneumonia would be a consideration. This is not a dense consolidation. Heart and vasculature are normal. No pneumothorax. Minimal right pleural effusion is suspected. No a cute bony abnormality seen. No acute aortic findings suspected. IMPRESSION: Minimal right pleural effusion and right base interstitial infiltrate superimposed on ch ronic interstitial lung disease.
[2019-08-02 10:56] LABS: Arterial Blood Carboxyhemoglob 1.8 % (0-1.5); Blood Gas Oxyhemoglobin 96.5 % (94-97); Blood O2 Saturation 99.2 % (92-98.5)
--- NOTE | 2019-08-02 13:34 | P.PN ---
Subjective Date of Service: 08/02/19 Primary Care Provider: Dr. Baca Chief Complaint: Severe Sepsis, COPD exacerbation, Dehydration Subjective: Other (Patient with slight confusion today. Slight overload with fluid noted.) Physical Examination - Vital Signs Temperature: 97.1 F Blood Pressure: 110/58 Pulse: 121 Respirations: 26 Pulse Ox (%): 97 - Physical Exam General: Alert, Confused HEENT: Atraumatic Neck: Supple Respiratory: Diminished (Bilateral) Cardiovascular: Abnormal pulses (Sinus tachycardia) Gastrointestinal: Normal bowel sounds, Soft and benign, Non-distended, No masses , No rebound, No guarding Musculoskeletal: No tenderness, No warmth - Studies Microbiology Data (last 24 hrs): 07/31/19 11:11 Blood - Blood Gram Stain - Final 07/31/19 12:27 Throat Culture & Sensitivity - Final NORMAL UPPER RESPIRATORY OMAYRA GROWN. Medications List Reviewed: Yes Assessment & Plan Discharge Plan: Home Plan to discharge in: 72 Hours Physician Review Additional Text: Impression: Fever secondary to bilateral pyelonephritis with sepsis and bacteremia with culture positive for Klebsiella Shortness of breast secondary to acute on chronic diastolic CHF with pulmonary hypertension Acute renal injury likely from dehydration COPD Atrial fibrillation on chronic anti coagulation therapy Anemia likely of chronic disease Hypothyroidism Plan: Fever secondary to bilateral pyelonephritis with sepsis and bacteremia with culture positive for Klebsiella: Will change IV antibiotic therapy to Zosyn. Possible pleural effusion with pneumonia suspected. Continue IV antibiotic therapy. Also suspect underlying acute on chronic diastolic CHF with noted pulmonary hypertension. Will discontinue IV fluids. IV Lasix given. Will consult pulmonology to further evaluate. Shortness of breath secondary to acute on chronic diastolic CHF with pulmonary hypertension: Echocardiogram reviewed. Dc IV fluids. Lasix IV given, continue diuresis. Recheck ABG later today. Consult pulmonology to further evaluate. Acute renal injury likely from dehydration: Discontinue IV fluids. COPD: Continue COPD medication. Maintain sats above 93%. Atrial fibrillation on chronic anti coagulation therapy: Home medications of sotalol and chronic anti coagulation therapy restarted. Hold sotalol if blood pressure less than 110 systolic Anemia likely of chronic disease: Continue to monitor closely. Recheck hemoglobin later today. Patient may require transfusion if hemoglobin continues to drop. Hypothyroidism: Continue medication. Time Spent Managing Pts Care (In Minutes): 55
[2019-08-02] MEDS: PIPER/TAZO/NS 3.375gm 3.375 GM/100 ML BAG IVPB SCH (15:57)
[2019-08-02] MEDS ORDERED: VANCOMYCIN/NS 1 gm 1 GM/250 ML BAG IVPB SCH (19:00)
[2019-08-03] MEDS: PIPER/TAZO/NS 3.375gm 3.375 GM/100 ML BAG IVPB SCH ×4 (00:23→16:30)
[2019-08-03 05:29] LABS: Absolute Lymphocytes (CBC) 0.5 K/uL (0.7-4.9); Basophils % 0.2 % (0-1.3); Hematocrit 29.9 % (36.0-45.0); Lymphocytes % 3.2 % (15.3-44.8); RBC Red Blood Cell Count 4.52 M/uL (3.86-4.86)
[2019-08-03] MEDS: LEVOTHYROXINE SOD 0.05 MG TABLET PO SCH (05:54)
[2019-08-03] MEDS: SOTALOL HCL 80 MG TAB PO SCH ×2 (05:54→17:03)
[2019-08-03 06:04] LABS: Magnesium 1.8 mg/dL (1.8-2.4)
[2019-08-03 06:08] VITALS: BMI 19.2
[2019-08-03 06:09] LABS: Potassium 2.9 mmol/L (3.5-5.1)
[2019-08-03] MEDS ORDERED: VANCOMYCIN 750 MG in NA CHLORIDE 0.9% 150 ML IVPB ONE (07:30)
[2019-08-03] MEDS ORDERED: NA CHLORIDE 0.9% 250 ML ONE (07:54)
[2019-08-03] MEDS: KCL 20 MEQ/100 mL IVPB 20 MEQ/100 ML BAG IV SCH ×2 (07:58→09:30)
[2019-08-03] MEDS ORDERED: MAGNESIUM SULFATE 1 gm IVPB 1 GM/100 ML BAG IV ONE (08:00)
[2019-08-03] MEDS: ARFORMOTEROL TARTRATE 15 MCG/2 ML VIAL.NEB IH SCH ×2 (08:33→19:45)
[2019-08-03] MEDS: IPRATROPIUM BROM 0.5MG/2.5ML NEB PRN (08:33)
[2019-08-03] MEDS: predniSONE 10 MG TAB PO SCH ×2 (09:02→22:03)
[2019-08-03] MEDS: DOCUSATE NA 100 MG CAP PO SCH ×2 (09:02→22:03)
[2019-08-03] MEDS: ASPIRIN EC 81 MG TAB PO SCH (09:02)
[2019-08-03] MEDS: VITAMIN D 1000 UNIT TAB PO SCH (09:02)
[2019-08-03] MEDS: FUROSEMIDE 40 MG/4 ML VIAL IV SCH (09:03)
[2019-08-03] MEDS: APIXABAN 2.5 MG TABLET PO SCH ×2 (09:03→22:03)
[2019-08-03] MEDS: FE SULF/FA/VIT B COMP & C TAB PO SCH (09:03)
--- NOTE | 2019-08-03 10:09 | P.CNS ---
Date of Consult: 08/03/19 Primary Care Provider: Dr. Baca Chief Complaint: Severe Sepsis, COPD exacerbation, Dehydration History of Present Illness: Patient is 83 years of age with a history of COPD poor historian has been sick for about 3 weeks more short of breath has some little fever history of anemia urinary tract symptoms admitted with hypoxic hypercapnic respiratory failure is doing much better blood cultures positive for Klebsiella is very hypercapnic abnormal x-ray doing much better as on oxygen compliant with it inhalers Allergies No Known Allergies Allergy (Verified 07/31/19 17:19) Home Medications: Iron/FA/Vit B-Com W/C [Hemocyte Plus*] 1 tab PO DAILY 09/07/17 Levothyroxine Sodium 50 mcg PO DAILY 09/07/17 Cholecalciferol (Vitamin D3) [Vitamin D3] 1,000 unit PO DAILY 09/10/17 Albuterol Neb [Proventil 0.083% Neb Soln] 2.5 mg NEB [id number] PRN #60 amp Apixaban [Eliquis] 2.5 mg PO BID #60 tablet 09/17/17 Docusate [Colace Cap*] 100 mg PO BID #60 cap 09/17/17 Ipratropium Neb [Atrovent*] 0.5 mg NEB [id number] PRN #60 amp 09/17/17 Sotalol HCl [Betapace*] 40 mg PO BID 6AM 6PM #30 tab 09/17/17 Alendronate Sodium 70 mg PO EVERY 7TH DAY 07/31/19 Fluticasone/Umeclidin/Vilanter [Trelegy Ellipta 100-62.5-25] 1 puff IH DAILY 09/18 - Past Medical/Surgical History Diabetic: No -: Hypothyroidism -: COPD -: Thalassemia -: Atrial fibrillation/chronic anti coagulation therapy -: Anemia of chronic disease -: Former smoker -: History of recurrent UTI Psychosocial/ Personal History: Patient has a supporting family. Lives at home - Family History Mother Medical History: Heart disease Sister Medical History: Cancer - Social History Alcohol use: No CD- Drugs: No Caffeine use: Yes Place of Residence: Home Review of Systems 10-point ROS is otherwise unremarkable General: Weakness Respiratory: Shortness of Breath Genitourinary: As per HPI Physical Examination Temp Pulse Resp BP Pulse Ox 97.9 F 115 H 24 H 110/97 H 100 08/03/19 08:00 08/03/19 09:03 08/03/19 08:00 08/03/19 09:03 08/03/19 08:00 General: Alert, In no apparent distress, Oriented x3 HEENT: Atraumatic Neck: Supple Respiratory: Diminished Cardiovascular: No edema, Regular rate/rhythm, Normal S1 S2 Gastrointestinal: Normal bowel sounds, Soft and benign Musculoskeletal: No clubbing, No swelling - Problems (1) Respiratory failure Current Visit: Yes Status: Acute Plan: Patient is [age] years of age with a history of severe COPD admitted with hypoxemia hypercapnia possible pneumonia on the right side blood cultures positive for Klebsiella possible urinary tract infection white count is declining she has been sick for about 3 weeks continue with IV antibiotics and did pro calcitonin is normal then can change to p.o. last echocardiogram was normal Dc Lasix patient has AFib on anticoagulants oxygenation are satisfactory when scheduled q.6 albuterol p.r.n. rate control transfer to the floor Qualifiers: Respiratory failure complication: hypoxia and hypercapnia
[2019-08-03] MEDS ORDERED: NA CHLORIDE 0.9% 500 ML with POTASSIUM CL 40 MEQ IV SCH ×2 (11:00)
--- NOTE | 2019-08-03 11:08 | P.PN ---
Subjective Date of Service: 08/03/19 Primary Care Provider: Dr. Baca Chief Complaint: Severe Sepsis, COPD exacerbation, Dehydration Subjective: Other (Patient much better today.) Physical Examination - Vital Signs Temperature: 97.9 F Blood Pressure: 110/97 Pulse: 115 Respirations: 24 Pulse Ox (%): 100 - Physical Exam General: Alert, In no apparent distress, Oriented x3, Cooperative HEENT: Atraumatic Neck: Supple Respiratory: Crackles/rales, Other (Better air movement bilateral) Cardiovascular: Other (Sinus tachycardia) Gastrointestinal: Normal bowel sounds, Soft and benign, Non-distended Integumentary: No tenderness/swelling, No erythema, No warmth, No cyanosis Neurological: Normal speech, Normal strength at 5/5 x4 extr, Normal tone - Studies Microbiology Data (last 24 hrs): 07/31/19 11:11 Blood - Blood Aerobic Blood Culture - Final Klebsiella Pneumoniae 07/31/19 11:11 Blood - Blood Gram Stain - Final 07/31/19 11:11 Blood - Blood Anaerobic Blood Culture - Final Klebsiella Pneumoniae 07/31/19 11:11 Blood - Blood Gram Stain - Final 07/31/19 12:27 Throat Culture & Sensitivity - Final NORMAL UPPER RESPIRATORY OMAYRA GROWN. Medications List Reviewed: Yes Assessment & Plan Discharge Plan: Care Home Plan to discharge in: 48 Hours Physician Review Additional Text: Impression: Fever secondary to bilateral pyelonephritis with sepsis and bacteremia with culture positive for Klebsiella Acute on chronic respiratory failure with hypoxia secondary to acute on chronic diastolic CHF with pulmonary hypertension complicated with possible right-sided pneumonia and COPD exacerbation Acute renal injury likely from dehydration Atrial fibrillation on chronic anti coagulation therapy Anemia likely of chronic disease Hypothyroidism Plan: Fever secondary to bilateral pyelonephritis with sepsis and bacteremia with culture positive for Klebsiella: Patient now on IV Zosyn. Patient received IV Lasix and IV Zosyn yesterday due to acute on chronic respiratory failure related to acute on chronic diastolic CHF with pulmonary hypertension and possible pneumonia. Patient has improved. Continue monitor closely. Will get physical therapy to assess ambulation once on the floor. Patient will require 2 weeks of antibiotic therapy at discharge. Anticipate possible discharge in the next 1-2 days back to the retirement once clinically improved. I will turn the service over to the hospitalist team tomorrow. I will go the plan of care with him. Acute on chronic respiratory failure with hypoxia secondary to acute on chronic diastolic CHF with pulmonary hypertension complicated with possible right-sided pneumonia and COPD exacerbation: Echocardiogram reviewed. Patient received IV Lasix yesterday. This has improved. Will hold IV Lasix today. Continue antibiotic therapy. Await further recommendations from pulmonology. Continue to treat COPD. Acute renal injury likely from dehydration: Discontinue IV fluids. COPD: Continue COPD medication. Maintain sats above 93%. Atrial fibrillation on chronic anti coagulation therapy: Home medications of sotalol and chronic anti coagulation therapy have been restarted. Hold sotalol if blood pressure less than 110 systolic Anemia likely of chronic disease: Continue to monitor closely. Recheck hemoglobin later today. Patient may require transfusion if hemoglobin continues to drop. Hypothyroidism: Continue medication. Time Spent Managing Pts Care (In Minutes): 55
[2019-08-03] MEDS ORDERED: POTASSIUM 25 MEQ EFFERV TAB PO ONE ×2 (12:00→14:00)
--- NOTE | 2019-08-03 12:46 | EKG ---
Test Date: 2019-08-03 Test Time: 05:23:48 Explosion Welder: RT Jerome MEASUREMENT RESULTS: Intervals: Rate: 134 ND: QRSD: 86 QT: 308 QTc: 459 [place]: P: ND: QRS: 85 T: 73 INTERPRETIVE STATEMENTS: Atrial fibrillation with rapid ventricular response Nonspecific ST abnormality, probably digitalis effect Abnormal ECG Compared to ECG 07/31/2019 11:35:48 ST (T wave) deviation now present Sinus rhythm no longer present Electronically Signed On 08-03-19 12:46:08 AGRIBUSINESS PROFESSOR by Daniel Pollock
[2019-08-03] MEDS: IPRATROPIUM BROM 0.5MG/2.5ML NEB SCH ×2 (14:10→19:45)
[2019-08-04] MEDS: PIPER/TAZO/NS 3.375gm 3.375 GM/100 ML BAG IVPB SCH ×2 (00:55→10:12)
[2019-08-04] MEDS: IPRATROPIUM BROM 0.5MG/2.5ML NEB SCH ×2 (02:00→07:48)
[2019-08-04 04:36] LABS: Magnesium 1.9 mg/dL (1.8-2.4)
[2019-08-04 04:40] LABS: Potassium 2.9 mmol/L (3.5-5.1)
[2019-08-04] MEDS ORDERED: NA CHLORIDE 0.9% 500 ML ONE (06:00)
[2019-08-04] MEDS: SOTALOL HCL 80 MG TAB PO SCH ×2 (06:03→18:27)
[2019-08-04] MEDS: KCL 20 MEQ/100 mL IVPB 20 MEQ/100 ML BAG IV SCH ×3 (06:03→10:15)
[2019-08-04] MEDS: LEVOTHYROXINE SOD 0.05 MG TABLET PO SCH (06:03)
[2019-08-04] MEDS: ARFORMOTEROL TARTRATE 15 MCG/2 ML VIAL.NEB IH SCH (07:48)
[2019-08-04 08:32] VITALS: TEMP 97.6
[2019-08-04] MEDS: ASPIRIN EC 81 MG TAB PO SCH (10:13)
[2019-08-04] MEDS: predniSONE 10 MG TAB PO SCH (10:13)
[2019-08-04] MEDS: VITAMIN D 1000 UNIT TAB PO SCH (10:13)
[2019-08-04] MEDS: APIXABAN 2.5 MG TABLET PO SCH (10:13)
[2019-08-04] MEDS: DOCUSATE NA 100 MG CAP PO SCH (10:13)
[2019-08-04] MEDS: FE SULF/FA/VIT B COMP & C TAB PO SCH (10:13)
[2019-08-04] MEDS ORDERED: LEVALBUTEROL 0.63 MG/3 ML NEB NEB PRN (12:16)
[2019-08-04 12:19] VITALS: BP 108/62
[2019-08-04] MEDS ORDERED: IPRATROPIUM BROM 0.5MG/2.5ML NEB PRN (12:20)
--- NOTE | 2019-08-04 12:24 | P.PN ---
Subjective Date of Service: 08/04/19 Primary Care Provider: Dr. Baca Chief Complaint: Severe Sepsis, COPD exacerbation, Dehydration Subjective: Other (Patient feels improved.) Physical Examination - Vital Signs Temperature: 97.6 F Blood Pressure: 108/62 Pulse: 90 Respirations: 20 Pulse Ox (%): 92 - Physical Exam General: Alert, In no apparent distress HEENT: Atraumatic Neck: Supple Respiratory: Clear to auscultation bilaterally Cardiovascular: Regular rate/rhythm Gastrointestinal: Normal bowel sounds, Soft and benign, Non-distended Integumentary: No tenderness/swelling, No erythema, No warmth, No cyanosis Neurological: Normal speech, Normal strength at 5/5 x4 extr, Normal tone, Normal affect - Studies Microbiology Data (last 24 hrs): 07/31/19 11:11 Blood - Blood Aerobic Blood Culture - Final Klebsiella Pneumoniae 07/31/19 11:11 Blood - Blood Gram Stain - Final 07/31/19 11:11 Blood - Blood Anaerobic Blood Culture - Final Klebsiella Pneumoniae 07/31/19 11:11 Blood - Blood Gram Stain - Final Medications List Reviewed: Yes Assessment & Plan Discharge Plan: Home (With home health/physical therapy) Plan to discharge in: 24 Hours Physician Review Additional Text: Impression: Fever secondary to bilateral pyelonephritis with sepsis and bacteremia with culture positive for Klebsiella Acute on chronic respiratory failure with hypoxia secondary to acute on chronic diastolic CHF with pulmonary hypertension complicated with possible right-sided pneumonia and COPD exacerbation Acute renal injury likely from dehydration Atrial fibrillation on chronic anti coagulation therapy Anemia likely of chronic disease Hypothyroidism Plan: Fever secondary to bilateral pyelonephritis with sepsis and bacteremia with culture positive for Klebsiella: Patient remains on IV Zosyn. Patient appears improved. Acute on chronic diastolic CHF with pulmonary hypertension and possible pneumonia stable. Patient has home oxygen. Patient desires to go home. Will have physical therapy assess ambulation 1st today. If clinically stable will consider discharge as early as today. If physical therapy recommends skilled placement then will need to consider this. Patient will require 2 weeks of antibiotic therapy at discharge. I will turn the service over to the hospitalist team tomorrow. I will go the plan of care with him. Acute on chronic respiratory failure with hypoxia secondary to acute on chronic diastolic CHF with pulmonary hypertension complicated with possible right-sided pneumonia and COPD exacerbation: Echocardiogram reviewed. Will continue to monitor closely. Pulmonology on board. Patient received IV Lasix the other day. Acute renal injury likely from dehydration: Encourage oral intake.. COPD: Continue COPD medication. Maintain sats above 93%. Atrial fibrillation on chronic anti coagulation therapy: Home medications of sotalol and chronic anti coagulation therapy have been restarted. Hold sotalol if blood pressure less than 110 systolic Anemia likely of chronic disease: Continue to monitor closely. Recheck hemoglobin later today. Patient may require transfusion if hemoglobin continues to drop. Hypothyroidism: Continue medication. Time Spent Managing Pts Care (In Minutes): 55
[2019-08-04 12:26] VITALS: O2SAT 95
--- NOTE | 2019-08-04 13:16 | RAD REPORT ---
EXAM DESCRIPTION: RAD - Chest Pa And Lat (2 Views) - 08/04/2019 1:09 pm CLINICAL HISTORY: follow up CHF, evaluate for pneumonia Chest pain. COMPARISON: Chest Single View dated 08/02/2019; Chest Single View dated 08/01/2019; Chest Single View da jessica 07/31/2019; Chest Pa And Lat (2 Views) dated 08/20/2018 FINDINGS: COPD is present. Poorly defined right basilar lung opacity with small right pleural effusi on appears improved since the comparative study. The heart is mildly enlarged. No displaced fractures . IMPRESSION: COPD with improvement in right basilar lung aeration since comparative study.
--- NOTE | 2019-08-04 14:45 | P.DS ---
Admission Date: 07/31/19 Discharge Date: 08/04/19 Primary Care Provider: Dr. Baca Disposition: ROUTINE DISCHARGE Discharge Condition: GOOD Reason for Admission: Severe Sepsis, COPD exacerbation, Dehydration Consultations: Pulmonary-Dr. Madrigal Procedures: CT scan: Bilateral pyelonephritis, no abscess. ECHO: Normal EF. Moderate pulmonary HTN. Medical problem list: Fever secondary to bilateral pyelonephritis with sepsis and bacteremia with culture positive for klebsiella Acute on chronic respiratory failure with hypoxia secondary to acute on chronic diastolic CHF with moderate pulmomary HTN Acute renal injury related to dehydration COPD Atrial fibrillation on chronic anticoagulation Anemia of chronic disease Hypothyroidism Brief History of Present Illness: 83 yo CF with multiple medical issues presented with fever. She was found to have pyelonephritis and sepsis. She was admitted for treatment. Hospital Course: Patient presented with fever secondary bilateral pyelonephritis and sepsis. She was admitted for treatment. She received IV fluids and antibiotic with improvement. She had positive blood cultures for klebsiella. At discharge she is much better. She will need Augmentin 500 mg one pill twice daily for 14 days. Recommend follow up with her PCP in 1-2 weeks to follow up this hospitalization. Recommend recheck urine culture after treatment to monitor resolution. Recommend to follow up with Urology to further address. Patient declined home health with PT. Patient developed acute respiratory failure with hypoxia related to acute on chronic diastolif CHF. ECHO showed normal EF with moderate pulmonary HTN. Fluids were stopped and she required diuretics. Patient improved. She will continue with 1500 cc per day fluid restriction at home. Continue with Lasix 20 mg daily as needed for edema/SOB. Recommend to monitor weight daily. Recommend follow up with Pulmonary to further address in 1-2 weeks. Patient with COPD. She may continue with her COPD medication-Trelegy/Atrovent/ Albuterol and home oxygen at discharge. She will need to follow up with Pulmonary to further monitor and address. Pulmonary recommend Prednisone 10 mg daily for 5 days. Patient with atrial fibrillation on chronic anticoagulation. This has been stable. Will continue with her home meds-Sotalol 40 mg one pill BID and Eliquis 2.5 mg one pill BID. Recommend follow up with Cardiology as directed. Patient with Hypothyroidism. She will continue with her med-Levothyrozine daily. Patient with anemia of chronic disease. She may follow up with her PCP to monitor. She may continue with iron supplementation. Vital Signs/Physical Exam: Temp Pulse Resp BP Pulse Ox 97.6 F 90 20 108/62 92 08/04/19 12:24 08/04/19 12:24 08/04/19 12:24 08/04/19 12:24 08/04/19 12:24 General: Alert, In no apparent distress, Oriented x3, Cooperative HEENT: Atraumatic Neck: Supple Respiratory: Clear to auscultation bilaterally, Normal air movement Cardiovascular: Normal pulses, Regular rate/rhythm Gastrointestinal: Normal bowel sounds, Soft and benign, Non-distended, No tenderness, No masses, No rebound, No guarding Integumentary: No tenderness/swelling, No erythema, No warmth Neurological: Normal speech, Normal strength at 5/5 x4 extr, Normal tone, Normal affect Laboratory Data at Discharge: WBC 14.9 K/uL (4.3-10.9) H 08/03/19 05:00 Hgb 9.2 g/dL (12.0-15.0) L 08/03/19 05:00 Hct 29.9 % (36.0-45.0) L 08/03/19 05:00 Plt Count 244 K/uL (152-406) 08/03/19 05:00 PT 18.4 SECONDS (9.5-12.5) H 07/31/19 11:11 INR 1.59 07/31/19 11:11 APTT 32.4 SECONDS (24.3-36.9) 07/31/19 11:11 Sodium 141 mmol/L (136-145) 08/04/19 03:38 Potassium 2.9 mmol/L (3.5-5.1) L* 08/04/19 03:38 BUN 19 mg/dL (7-18) H 08/04/19 03:38 Creatinine 0.66 mg/dL (0.55-1.3) 08/04/19 03:38 Glucose 140 mg/dL (74-106) H 08/04/19 03:38 Magnesium 1.9 mg/dL (1.8-2.4) 08/04/19 03:38 Total Bilirubin 0.6 mg/dL (0.2-1.0) 07/31/19 11:11 AST 51 U/L (15-37) H 07/31/19 11:11 ALT 63 U/L (12-78) 07/31/19 11:11 Alkaline Phosphatase 74 U/L (45-117) 07/31/19 11:11 Lipase 81 U/L (73-393) 07/31/19 11:11 Home Medications: Iron/FA/Vit B-Com W/C [Hemocyte Plus*] 1 tab PO DAILY 09/07/17 Levothyroxine Sodium 50 mcg PO DAILY 09/07/17 Cholecalciferol (Vitamin D3) [Vitamin D3] 1,000 unit PO DAILY 09/10/17 Albuterol Neb [Proventil 0.083% Neb Soln] 2.5 mg NEB [id number] PRN #60 amp Apixaban [Eliquis *] 2.5 mg PO BID #60 tablet 09/17/17 Docusate [Colace Cap*] 100 mg PO BID #60 cap 09/17/17 Ipratropium Neb [Atrovent*] 0.5 mg NEB [id number] PRN #60 amp 09/17/17 Sotalol HCl [Betapace*] 40 mg PO BID 6AM 6PM #30 tab 09/17/17 Alendronate Sodium 70 mg PO EVERY 7TH DAY 07/31/19 Fluticasone/Umeclidin/Vilanter [Trelegy Ellipta 100-62.5-25] 1 puff IH DAILY 09/18 Amoxicillin/Potassium Clav [Augmentin 500-125 Tablet] 1 each PO BID #28 tablet 08/04/19 Furosemide [Lasix] 20 mg PO DAILY PRN #30 tab 08/04/19 predniSONE [Deltasone*] 10 mg PO DAILY #5 tab 08/04/19 New Medications: Amoxicillin/Potassium Clav [Augmentin 500-125 Tablet] 1 each PO BID #28 tablet Furosemide [Lasix] 20 mg PO DAILY PRN #30 tab PRN Reason: Shortness Of Breath predniSONE [Deltasone*] 10 mg PO DAILY #5 tab Patient Discharge Instructions: Patient presented with fever secondary bilateral pyelonephritis and sepsis. She was admitted for treatment. She received IV fluids and antibiotic with improvement. She had positive blood cultures for klebsiella. At discharge she is much better. She will need Augmentin 500 mg one pill twice daily for 14 days. Recommend follow up with her PCP in 1-2 weeks to follow up this hospitalization. Recommend recheck urine culture after treatment to monitor resolution. Recommend to follow up with Urology to further address. Patient developed acute respiratory failure with hypoxia related to acute on chronic diastolif CHF. ECHO showed normal EF with moderate pulmonary HTN. Fluids were stopped and she required diuretics. Patient improved. She will continue with 1500 cc per day fluid restriction at home. Continue with Lasix 20 mg daily as needed for SOB/edema. Recommend follow up with Pulmonary to further address in 1-2 weeks. Patient with COPD. She may continue with her COPD medication-Trelegy/Albuterol/Atrovent and home oxygen at discharge. She will need to follow up with Pulmonary to further monitor and address. Pulmonary also recommended Prednisone 10 mg for 5 days. Patient with atrial fibrillation on chronic anticoagulation. This has been stable. Will continue with her home meds Sotalol 40 mg one pill twice daily and Eliquis 2.5 one pill twice daily. Patient with Hypothyroidism. She will continue with her med. Patient with anemia of chronic disease. She may follow up with her PCP to monitor. She may continue with Iron supplementation. Diet: AHA Activity: Fall precautions Time spent managing pt's care (in minutes): 55
[2019-08-04] MEDS ORDERED: ENSURE ENLIVE 237 ML CAN PO SCH (21:00)
== END 2019-08-04 18:49 | disposition home health service (06) | DRG 871 ==
LOC: ER 10:50 → ERHOLD 13:24 → 3RD-ICU 16:05 → 4TH 08-03 16:07
PROVIDERS: ADMIT Family Medicine; ATTEND Internal Medicine
DX: A41.59 Other Gram-negative sepsis (principal); J96.21 Acute and chronic respiratory failure with hypoxia; I50.33 Acute on chronic diastolic (congestive) heart failure; N10 Acute pyelonephritis; N17.9 Acute kidney failure, unspecified; I48.20 Chronic atrial fibrillation, unspecified; J44.1 Chronic obstructive pulmonary disease with (acute) exacerbation; R65.20 Severe sepsis without septic shock; I27.20 Pulmonary hypertension, unspecified; E03.9 Hypothyroidism, unspecified; D63.8 Anemia in other chronic diseases classified elsewhere; Z79.01 Long term (current) use of anticoagulants
CPT/HCPCS: 36415; 71045; 71046; 74177; 80048; 80076; 81003; 81015; 82550; 82553; 82607; 82728; 82805; 82947; 83540; 83605; 83690; 83735; 83880; 84132; 84145; 84439; 84443; 84466; 84484; 85025; 85610; 85730; 87040; 87070; 87077; 87081; 87086; 87088; 87186; 87205; 87804; 93005; 93306; 94640; 94660; 94760; 96365; 97116; 97161; 97530; 99285; J0696; J1650; J1940; J2543; J2920; J3475; J7030; J7040; J7512; J7605; Q9967

== ENCOUNTER 2019-12-12 11:42 | Inpatient (IN) | payer OTHER ==
--- OUTSIDE RECORDS SUMMARY | 2019-12-12 12:35 | XMS REPORT ---
:1935 Author Organization [facility] t Address [address] [place] [address] Care Team Providers Name Role Phone Unavailable Unavailable Unavailable Problems Condition Condition Condition Status Onset Resolution Last Treating Co mments Source Name Details Category Date Date Treatment Clinician Date Displaced Displaced Problem Active [facility] fracture fracture [facility] of left of left [facility] femoral femoral [facility] Age Age Problem Active [facility] related related [facility] - osteoporos osteoporos Me moria is, is, l unspecifie unspecifie Ou tpati d d ent pathologic pathologic Cl inics al al fracture fracture presence presence Supplement Supplement Problem Active [facility] al oxygen al oxygen [facility] - dependent dependent Rasta samuel l [facility] Hypothyroi Hypothyroi Problem Active [facility] dism dism [facility] GERD GERD Problem Active [facility] (gastroeso (gastroeso Teresa kes - phageal phageal Memoria reflux reflux l disease) disease) Outpat i ent Clinics COPD COPD Problem Active [facility] (chronic (chronic [facility] - obstructiv obstructiv Me moria e e l pulmonary pulmonary Outp ati disease) disease) ent Clinics Chronic Chronic Problem Active [facility] a-fib a-fib [facility] Unsteady Unsteady Problem Active [facility] Anemia Anemia Problem Active [facility] Family Family Problem Active [facility] history of history of Teresa kes - breast breast Memoria cancer cancer l [facility] Peripheral Peripheral Problem Active [facility] vascular vascular [facility] - insufficie insufficie Me moria ncy ncy l [facility] Edema of Edema of Problem Active [facility] left lower left lower Teresa kes - extremity extremity Rasta samuel l [facility] COPD with COPD with Problem Active [facility] lower lower [facility] - respirator respirator Me moria y y l infection infection Outp ati ent Clinics Senile Senile Problem Active [facility] cataract cataract [facility] - of right of right Memori a eye, eye, l unspecifie unspecifie Ou tpati d d ent age-relate age-relate Cl inics d cataract d cataract type type Chronic Chronic Problem Active [facility] diastolic diastolic [facility] - heart heart Memoria failure failure l [facility] Allergies, Adverse Reactions, Alerts This patient has no known allergies or adverse reactions. Medications Ordered Filled Start Stop Current Ordering Indication Dosage Frequency Signature Comments Components Source Medication Medication Date Date Medication? Clinician (SIG) Name Name Oxygen Oxygen 2031- Yes Na Baca [address] [facility] concentrato concentrato 3-24 03-21 [facility] - r r 00:00: 00:00 Memoria 00 :00 l [facility] Tobramycin Tobramycin Yes Na Baca [address] [facility] 3-19 into [facility] - 00:00: affected [facility]oria 00 eye l [facility] Levothyroxi Levothyroxi Yes Na Baca [address] [facility] ne Sodium ne Sodium on an [facility] s - empty [facility]oria stomach [facility] Levaquin Levaquin Yes Na Baca [address] [facility] Vitamin D3 Vitamin D3 Yes Na Baca [address] [facility] Fosamax Fosamax Yes Na Baca [address] [facility] Sotalol HCl Sotalol HCl Yes Na Baca 0.[address] [facility] Eliquis Eliquis Yes Na Baca TAKE [address] [facility] TABLET BY [facility] - MOUTH Memoria TWICE A l DAY [facility] Hemocyte Hemocyte Yes Na Baca TAKE ONE [facility] Plus Plus CAPSULE BY [facility] - MOUTH Memoria DAILY l [facility] Hemocyte Hemocyte Yes Na Baca [address] [facility] Plus Plus [facility] Furosemide Furosemide Yes Na Baca [address] [facility] Immunizations Ordered Filled Immunization Date Status Comments [facility] e Immunization Name Name FluAD FluAD 2019-05-[address] [facility] - 00:[facility]00 [facility] FluAD FluAD 2018-04-[address] [facility] kes - 00:00:00 [facility] Outpatient Clin[facility] Procedures This patient has no known procedures. Encounters Start End Encounter Admission Attending Care Care Encounter Source Date/Time Date/Time Type Type Clinicians Facility Department ID 2019-12-11 2019-12-11 [facility] [id number] [facility] 11[facility]52[facility]00 11[facility]52[facility] Medicine l Medicine Outpati ent Clinics 2019-11-17 2019-11-17 [facility] [id number] [facility] 10:30:00 10:30:[address] [facility] Medicine l Medicine Outpati ent Clinics 2019-11-13 2019-11-13 [facility] [id number] 14:34:00 14:34:[address] [facility] l Medicine Outpati ent Clinics 2019-10-15 2019-10-15 [facility] [id number] [address] 09:31:00 09:31:[address] [facility] Medicine l Medicine Outpati ent Clinics 2019-10-07 2019-10-07 [facility] [id number] [facility] 16:53:00 16:53:[address] [facility] l Medicine Outpati ent Clinics 2019-09-24 2019-09-24 [facility] [id number] [address] 10:55:00 10:55:[address] [facility] Medicine l Medicine Outpati ent Clinics 2019-09-10 2019-09-10 [facility] [id number] [address] 10:20:00 10:20:[address] [facility] Medicine l Medicine Outpati ent Clinics 2019-09-05 2019-09-05 [facility] [id number] [address] 06:36:00 06:36:[address] [facility] Medicine l Medicine Outpati ent Clinics 2019-08-26 2019-08-26 [facility] [id number] 17:28:00 17:28:00 t OFERTALDIA [facility] l Medicine Outpati ent Clinics 2019-08-20 2019-08-20 [facility] [id number] [address] 11:20:00 11:20:[address] Luke s - Drive [facility] Medicine l Medicine Outpati ent Clinics 2019-08-05 2019-08-05 [facility] [id number] [address] 10:32:00 10:32:00 t [place] Ell[place] [employer] - Drive [facility] Medicine l Medicine Outpati ent Clinics 2019-08-04 2019-08-04 [facility] [id number] 08[facility]48:00 08:48:00 t [place] [employer] - Drive [facility] l Medicine Outpati ent Clinics 2019-07-31 2019-07-31 [facility] [id number] 08:37:00 08:37:00 t [place] Ell[place] [employer] - Drive [facility] l Medicine Outpati ent Clinics 2019-05-22 2019-05-22 [facility] [id number] [address] 16:07:00 16:07:00 t [place] Ell[employer]lie [employer] s - Drive [facility] Medicine l Medicine Outpati ent Clinics 2019-05-02 2019-05-02 [facility] [id number] [address] 15:00:00 15:00:00 t [place] [employer] - Drive [facility] Medicine l Medicine Outpati ent Clinics 2019-02-11 2019-02-11 [facility] [id number] 14:00:00 14:00:00 t [place] [employer] - Drive [facility] Medicine l Medicine Outpati ent Clinics 2019-01-14 2019-01-14 [facility] [id number] 13:20:00 13:20:00 t [place] [employer] - Drive [facility] Medicine l Medicine Outpati ent Clinics 2018-10-15 2018-10-15 [facility] [id number] 11:15:00 11:15:00 t [place] Ell[place] [employer] - Drive [facility] Medicine l Medicine Outpati ent Clinics 2018-10-10 2018-10-10 [facility] [id number] 10:28:00 10:28:00 t [place] [employer] Luke s - Drive [facility] Medicine l Medicine Outpati ent Clinics 2018-09-17 2018-09-17 [facility] [id number] 10:32:00 10:32:[address] [employer] - Drive [facility] Medicine l Medicine Outpati ent Clinics 2018-08-20 2018-08-20 [facility] [id number] 14:00:00 14:00:00 t [place] Ell[place] [employer] - Drive [facility] Medicine l Medicine Outpati ent Clinics 2018-08-14 2018-08-14 [facility] [id number] 10:31:00 10:31:00 t [place] Ell[employer] [employer] s - Drive [facility] l Medicine Outpati ent Clinics 2018-07-29 2018-07-29 [facility] [id number] 09:56:00 09:56:00 t [place] Ell[place] [employer] - Drive [facility] Medicine Medicine Outpati ent Clinics 2018-07-18 2018-07-18 [facility] [id number] [facility] 17:01:00 17:01:00 t [place] Ell[employer] [employer] - Drive [facility] Medicine l Medicine Outpati ent Clinics 2018-07-16 2018-07-16 [facility] [id number] [facility] 15:43:00 15:43:00 t [place] Ell[employer] [employer] - Drive [facility] Medicine Medicine Outpati ent Clinics 2018-07-16 2018-07-16 [facility] [id number] 12:00:00 12:00:00 t [place] [employer] [employer] - Drive [facility] Medicine l Medicine Outpati ent Clinics 2018-07-16 2018-07-16 [facility] [id number] 11:10:00 11:10:00 t [place] Ell[employer] [employer] - Drive [facility] l Medicine Outpati ent Clinics 2018-04-30 2018-04-30 [facility] [id number] 14[facility]45:00 14:45:00 t [place] Ell[employer] [employer] - Drive [facility] Medicine Medicine Outpati ent Clinics 2018-01-16 2018-01-16 [facility] [id number] [facility] 15:00:00 15:00:00 t [employer] [facility] Family Medicine Medicine Outpati ent Clinics Results This patient has no known results.
--- OUTSIDE RECORDS SUMMARY | 2019-12-12 12:36 | XMS REPORT ---
:1935 Author Organization [employer] Care Team Providers Name Role Phone Baca, Na Provider Role Unavailable Allergies No Known Allergies Problems Problem Type Condition Code Onset Dates Condition Statu s Problem GERD (gastroesophageal reflux K21.9 Active disease) Problem COPD (chronic obstructive J44.9 Ac tive pulmonary disease) Problem Hypothyroidism E03.9 Active Problem Unsteady gait R26.81 Active Problem Chronic a-fib I48.2 Active Problem Family history of breast cancer Z80.3 Active Problem Anemia D64.9 Active Problem Edema of left lower extremity R60.0 Active Problem Peripheral vascular insufficiency I73.9 Active Problem Senile cataract of right eye, H25.9 Active unspecified age-related cataract type Problem Supplemental oxygen dependent Z99.81 Active Problem Displaced fracture of left femoral S72.002A Active neck Problem 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 Active infection Problem Age related osteoporosis, M81.0 Ac tive unspecified pathological fracture presence Medications No Known Medications Results No Known Results Summary Purpose eClinicalWorks Submission
--- OUTSIDE RECORDS SUMMARY | 2019-12-12 12:36 | XMS REPORT ---
:1935 Author Organization [employer] Care Team Providers Name Role Phone Baca, Na Provider Role Unavailable Allergies No Known Allergies Problems Problem Type Condition Code Onset Dates Condition Statu s Problem Hypothyroidism E03.9 Active Problem Age related osteoporosis, M81.0 Ac tive unspecified pathological fracture presence Problem COPD (chronic obstructive J44.9 Ac tive pulmonary disease) Problem Senile cataract of right eye, H25.9 Active unspecified age-related cataract type Problem Edema of left lower extremity R60.0 Active Problem Chronic diastolic heart failure I50.32 Active Problem Supplemental oxygen dependent Z99.81 Active Problem Displaced fracture of left femoral S72.002A Active neck Problem Peripheral vascular insufficiency I73.9 Active Problem 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
--- OUTSIDE RECORDS SUMMARY | 2019-12-12 12:36 | XMS REPORT ---
[...] Medications Medication Code System Code Instructions Start Date End Date Status Dosage Bactrim DS [facility] 16261837221 800-160 MG Orally Sep 05, Sep 15, Active 1 tablet Twice a day 2019 2019 Results No Known Results Summary Purpose eClinicalWorks Submission
--- OUTSIDE RECORDS SUMMARY | 2019-12-12 12:36 | XMS REPORT ---
[...] M81.0 Ac tive unspecified pathological fracture presence Assessment Anemia D64.9 Active Assessment Chronic a-fib I48.2 Active Problem Unsteady gait R26.81 Active Problem Chronic a-fib I48.2 Active Assessment Hypothyroidism E03.9 Active Problem Family history of breast cancer Z80.3 Active Problem Anemia D64.9 Active Medications No Known Medications Results No Known Results Summary Purpose eClinicalWorks Submission
--- OUTSIDE RECORDS SUMMARY | 2019-12-12 12:37 | XMS REPORT ---
[...] GERD (gastroesophageal reflux K21.9 Active disease) Medications No Known Medications Results No Known Results Summary Purpose eClinicalWorks Submission
--- OUTSIDE RECORDS SUMMARY | 2019-12-12 12:37 | XMS REPORT ---
:1935 Author Organization [employer]Works Care Team Providers Name Role Phone Baca, Na Provider Role Unavailable Allergies, Adverse Reactions, Alerts Substance Reaction Event Type N.K.D.A. Info Not Available Non Drug Allergy Problems Problem Type Condition Code Onset Dates Condition Statu s Assessment Chronic diastolic heart failure I50.32 Active Assessment Pyelonephritis N12 Active Problem Anemia D64.9 Active Assessment Recurrent UTI N39.0 Active Problem GERD (gastroesophageal reflux K21.9 Active disease) Assessment Unsteady gait R26.81 Active Problem Hypothyroidism E03.9 Active Problem Age related osteoporosis, M81.0 Ac tive unspecified pathological fracture presence Problem COPD (chronic obstructive J44.9 Ac tive pulmonary disease) Problem Senile cataract of right eye, H25.9 Active unspecified age-related cataract type Problem Edema of left lower extremity R60.0 Active Assessment Chronic a-fib I48.2 Active Assessment Edema of left lower extremity R60.0 Active Problem Chronic diastolic heart failure I50.32 Active Assessment Supplemental oxygen dependent Z99.81 Active Problem Supplemental oxygen dependent Z99.81 Active Problem Displaced fracture of left femoral S72.002A Active neck Problem Peripheral vascular insufficiency I73.9 Active Problem 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 Active infection Assessment Blood bacterial culture positive R78.81 Active Assessment Age related osteoporosis, M81.0 Ac tive unspecified pathological fracture presence Assessment Anemia D64.9 Active Assessment Hypothyroidism E03.9 Active Problem Chronic a-fib I48.2 Active Problem Family history of breast cancer Z80.3 Active Problem Unsteady gait R26.81 Active Medications Medication Code Code Instructions Start End Status Dosage System Date Date Hemocyte Plus [facility] [address]-97 - Orally once a Acti ve 1 tablet day Sotalol HCl [facility] 24964484754 80 MG Oral twice Active 0.5 tablet a day Levothyroxine [facility] 47736895774 88 MCG Orally Active 1 tablet Sodium Once a day on an empty stomach in the morning Vitamin D3 [facility] 16953590659 1000 UNIT Orally Active 1 capsule Once a day Fosamax ND 06965845161 70 MG Orally Active 1 table t once a week Eliquis ND 41034928621 2.5 MG Active TAKE 1 TABLET BY MOUTH TWICE A DAY Levaquin NDC 91939762566 500 MG Orally Aug 20Jul Active 1 tab let Once a day 2019 Fosamax ND 89686067258 70 MG Orally Active 1 table t once a week Eliquis 2.5 mg NDC 68029321728 2.5 mg by mouth Activ e one twice daily Furosemide NDC 21948743987 20 MG Orally Active 1 ta blet Once a day and may increase to twice daily x approiximatly 3-7 days if increased swelling Tobramycin ND 05667383608 0.3 % Ophthalmic March Active 1 drop every 4 hrs , into 2018 affected eye Levaquin NDC 69223541248 500 MG Orally Active 1 tab let Once a day Hemocyte Plus [facility] 61997225368 106-1 MG Active TAKE ONE CAPSULE BY MOUTH DAILY Levothyroxine ND 75270065872 88 MCG Orally Active 1 tablet Sodium Once a day on an empty stomach in the morning Results Name Result Date Reference Range Unit Abnormali ty Flag URINALYSIS AUTO W/O SCOPE (89906) ----ARGELIA 1+ 20190820 ----NIT neg [id number] ----PROTEIN 1+ 20190820 ----pH 6.0 20190820 ----GLUCOSE neg [id number] ----KETONES neg [id number] ----SPECIFIC 1.020 20190820 GRAVITY ----BLO 2+ [id number] Urine Culture,Comprehen josse ----Result 1 Staphylococcus aureus [id number] A ----Urine Final report [id number] A Culture,Comprehen eunice Summary Purpose eClinicalWorks Submission
--- OUTSIDE RECORDS SUMMARY | 2019-12-12 12:37 | XMS REPORT ---
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 Active infection Assessment Anemia D64.9 Active Assessment Hypothyroidism E03.9 Active Assessment Unsteady gait R26.81 Active Assessment Supplemental oxygen dependent Z99.81 Active Problem Chronic a-fib I48.2 Active Problem Family history of breast cancer Z80.3 Active Problem Anemia D64.9 Active Assessment Abnormal urine R82.90 Active Problem Unsteady gait R26.81 Active Problem GERD (gastroesophageal reflux K21.9 Active disease) Medications Medication Code Code Instructions Start End Status Dosage System Date Date Fosamax [facility] 29771340335 70 MG Orally Active 1 table t once a week Levothyroxine [facility] 66777220469 88 MCG Orally Active 1 tablet Sodium Once a day on an empty stomach in the morning Levaquin [facility] 62708083390 500 MG Orally Active 1 tab let Once a day Vitamin D3 [facility] 91519646543 1000 UNIT Orally Active 1 capsule Once a day Fosamax [facility] 01658610088 70 MG Orally Active 1 table t once a week Sotalol HCl [facility] 48225004079 80 MG Oral twice Active 0.5 tablet a day Eliquis 2.5 mg ND 85139961490 2.5 mg by mouth Activ e one twice daily Eliquis [facility] 45671440158 2.5 MG Active TAKE 1 TABLET BY MOUTH TWICE A DAY Furosemide ND 51167800024 20 MG Orally Active 1 ta blet Once a day and may increase to twice daily x approiximatly 3-7 days if increased swelling Bactrim DS [facility] 45115926059 800-160 MG Sep 05, Aug Active 1 tabl et Orally Twice a 2019, day 2019 Levothyroxine [facility] 99731819041 88 MCG Orally Active 1 tablet Sodium Once a day on an empty stomach in the morning Hemocyte Plus [facility] 18977425801 106-1 MG Active TAKE ONE CAPSULE BY MOUTH DAILY Tobramycin [facility] 37630226675 0.3 % Ophthalmic March Active 1 drop every 4 hrs , into 2018 affected eye Hemocyte Plus [facility] [address]-30 - Orally once a Acti ve 1 tablet day Results Name Result Date Reference Range Unit Abnormali ty Flag URINALYSIS AUTO W/O SCOPE (77023) ----ARGELIA trace [id number] ----NIT neg [id number] ----PROTEIN neg [id number] ----pH 7.0 20190910 ----GLUCOSE neg 20190910 ----KETONES neg [id number] ----SPECIFIC GRAVITY 1.015 [id number] ----BLO trace-lysed [id number] Urine Culture,Comprehensive ----Urine Final report [id number] Culture,Comprehensive Summary Purpose eClinicalWorks Submission
--- OUTSIDE RECORDS SUMMARY | 2019-12-12 12:37 | XMS REPORT ---
[...] Instructions Start Date End Date Status Dosage Oxygen NDC 0 n/s nasal cannula October 20, October 17, Active 2 LMP concentrator daily as needed 2019 2031 Results No Known Results Summary Purpose eClinicalWorks Submission
--- OUTSIDE RECORDS SUMMARY | 2019-12-12 12:38 | XMS REPORT ---
[...] Active infection Assessment Anemia D64.9 Active Assessment COPD (chronic obstructive J44.9 Ac tive pulmonary disease) Assessment Supplemental oxygen dependent Z99.81 Active Assessment Chronic a-fib I48.2 Active Problem Chronic a-fib I48.2 Active Problem Family history of breast cancer Z80.3 Active Problem Anemia D64.9 Active Problem Unsteady gait R26.81 Active Problem GERD (gastroesophageal reflux K21.9 Active disease) Medications Medication Code Code Instructions Start End Status Dosage System Date Date Eliquis 2.5 mg ND 03681865711 2.5 mg by mouth Activ e one twice daily Hemocyte Plus [facility] [address]-66 - Orally once a Acti ve 1 tablet day Oxygen NDC 0 n/s nasal September Active 2 LMP concentrator cannula daily , as needed 2019 2031 Sotalol HCl ND 34121977685 80 MG Oral Active 0.5 t ablet twice a day Hemocyte Plus ND 92879690649 106-1 MG Active TAKE ONE CAPSULE BY MOUTH DAILY Furosemide NDC 73513056585 20 MG Orally Active 1 ta blet Once a day and may increase to twice daily x approiximatly 3-7 days if increased swelling Vitamin D3 [facility] 82623404371 1000 UNIT Active 1 capsu le Orally Once a day Fosamax [facility] 90704013173 70 MG Orally Active 1 table t once a week Eliquis [facility] 46133271435 2.5 MG Active TAKE 1 TABLET BY MOUTH TWICE A DAY Levothyroxine [facility] 97296180523 88 MCG Orally Active 1 tablet Sodium Once a day on an empty stomach in the morning Tobramycin [facility] 49721507194 0.3 % September Active 1 drop Ophthalmic 19, into every 4 hrs 2019 affected eye Levaquin [facility] 51861069058 500 MG Orally Active 1 tab let Once a day Results No Known Results Summary Purpose eClinicalWorks Submission
[2019-12-12 12:59] LABS: Absolute Lymphocytes (CBC) 1.3 K/uL (0.7-4.9); Basophils % 0.5 % (0-1.3); Hematocrit 29.8 % (36.0-45.0); Lymphocytes % 10.4 % (15.3-44.8); MPV 8.6 fL (7.6-11.3); RBC Red Blood Cell Count 4.52 M/uL (3.86-4.86)
[2019-12-12] MEDS ORDERED: CEFTRIAXONE/SWI 1gm 1 GM/10 ML SYR ONE (13:00)
[2019-12-12] MEDS ORDERED: NA CHLORIDE 0.9% 1,000 ML ONE ×2 (13:00→14:48)
[2019-12-12 13:12] LABS: ALT/SGPT 31 U/L (12-78); AST/SGOT 24 U/L (15-37); Albumin 3.3 g/dL (3.4-5.0); Alkaline Phosphatase 55 U/L (45-117); BUN Blood Urea Nitrogen 17 mg/dL (7-18); Bicarbonate 29 mmol/L (21-32); Bilirubin Direct 0.2 mg/dL (0-0.2); Bilirubin Total 0.6 mg/dL (0.2-1.0); Glucose Level 115 mg/dL (74-106); Lipase 81 U/L (73-393); Potassium 3.8 mmol/L (3.5-5.1); Protein, Total 8.4 g/dL (6.4-8.2); Sodium Level 135 mmol/L (136-145)
[2019-12-12] MEDS ORDERED: ONDANSETRON 4 MG/2 ML VIAL ONE (13:15)
[2019-12-12] MEDS ORDERED: LORazepam 2 MG/ML VIAL ONE (13:15)
[2019-12-12] MEDS ORDERED: MORPHINE 2 MG/ML SYR ONE (13:15)
[2019-12-12 13:24] LABS: Anisocytosis 1+; Blood Morphology Comment NOTED (NOT SEEN); Platelet Estimate ADEQ; Poikilocytosis 1+; Urine White Blood Cell Casts OK
[2019-12-12 13:29] LABS: Urine Appearance TURBID; Urine Bilirubin NEGATIVE (NEG); Urine Blood 3+ (NEG); Urine Color DK YELLOW; Urine Glucose NEGATIVE (NEG); Urine Protein 2+ (NEG)
[2019-12-12 13:59] LABS: Urine Microscopic Reflex ORDER UMIC
[2019-12-12 14:00] LABS: Urine Bacteria LOADED /HPF (<20); Urine Culture Reflex Order NOT NEEDED
--- NOTE | 2019-12-12 14:24 | RAD REPORT ---
EXAM DESCRIPTION: RAD - Chest Single View - 12/12/2019 2:18 pm CLINICAL HISTORY: CONGESTION Chest pain. COMPARISON: Chest Pa And Lat (2 Views) dated 08/04/2019; Chest Single View dated 08/02/2019; Chest Singl e View dated 08/01/2019; Chest Single View dated 07/31/2019 FINDINGS: Portable technique limits examination quality. Emphysematous changes are present throughout the lungs. Linear opacities in both lung bases are noted likely representing atelectasis. The heart is mildly prominent in size. No displaced fractures.
--- NOTE | 2019-12-12 15:50 | ER ---
Nurse's Notes [facility] Name: Demetrice Bedolla Age: 84 yrs Sex: Female : 1935 Arrival Date: 12/12/2019 Time: 11:46 Bed 6 Private MD: Diagnosis: Cystitis, unspecified without hematuria;Sepsis due to other Gram-negative organisms Presentation: 12/11 12:07 Chief complaint: Patient states: Urinary frequency/urgency x 2 days, went to PCP and jl7 they tested her urine and sent her here. Pt wears home O2, 2 lpm NC. PCP also tested for COVID-19, pt denies any symptoms and reports that PCP said she doesn't have COVID but they had to test her. Coronavirus screen: Proceed with normal triage. Patient denies a cough. Patient denies shortness of breath or difficulty breathing. Patient denies measured and/or subjective temperature greater than 100.4F prior to today's visit. Patient denies travel on a cruise ship or to a country the [facility] currently lists as an affected area. Patient denies contact with known and/or suspected case of COVID-19. Ebola Screen: No symptoms or risks identified at this time. Initial Sepsis Screen: Does the patient meet any 2 criteria? RR > 20 per min. HR > 90 bpm. No. Patient's initial sepsis screen is negative. Does the patient have a suspected source of infection? Yes: Dysuria/Frequency/Urgency/UTI. Risk Assessment: Do you want to hurt yourself or someone else? Patient reports no desire to harm self or others. Onset of symptoms was December 10, 2019. Care prior to arrival: None. 12:07 Method Of Arrival: Ambulatory jl7 12:07 Acuity: CHRIS 3 jl7 Triage Assessment: 12:15 General: Appears in no apparent distress. uncomfortable, Behavior is calm, cooperative, jl7 appropriate for age. Pain: Denies pain. Neuro: Level of Consciousness is awake, alert, obeys commands, Oriented to person, place, time, situation. Cardiovascular: Patient's skin is warm and dry. Rhythm is sinus tachycardia. Respiratory: Airway is patent Respiratory effort is even, labored, Respiratory pattern is symmetrical, tachypnea. : Reports urgency, urinary frequency, Denies burning with urination, pain with urination. Derm: Skin is pink, warm \\T\\ dry. Historical: - Allergies: 12:15 No Known Allergies; jl7 - Home Meds: 12:15 Hemocyte-Plus 106 mg iron- 1 mg Oral cap 1 cap once daily [Active]; levothyroxine 50 jl7 mcg tab 1 tab once daily [Active]; Symbicort 160-4.5 mcg/actuation inhalation HFAA 2 puffs 2 times per day [Active]; Vitamin D Oral [Active]; - PMHx: 12:15 COPD; Hypothyroidism; thalassemia; jl7 - PSHx: 12:15 None; jl7 - Immunization history:: Adult Immunizations up to date. - Social history:: Smoking status: Patient denies any tobacco usage or history of. Patient/guardian denies using alcohol, street drugs, The patient lives with family. - Family history:: not pertinent. Screenin:50 Abuse screen: Denies threats or abuse. Denies injuries from another. Nutritional jl7 screening: No deficits noted. Tuberculosis screening: No symptoms or risk factors identified. Fall Risk IV access (20 points). Total Martin Fall Scale indicates No Risk (0-24 pts). Assessment: 12:15 General: See triage assessment. jl7 12:30 Reassessment: Pt's HR 147, pt denies shortness of breath, denies chest pain, EKG done a jl7 showed to ERD. 13:15 Reassessment: Transported pt to bathroom via wheelchair without oxygen, pt states "I jl7 can go without oxygen for 3-4 hours normally." Transported pt back to room, pt appeared short of breath and O2 sats were 74%, placed O2 back on pt and notified ERD. O2 sats back up to 99%. Pt states "I'm just anxious from all this having to come to the ER." VO to administer 1 mg Ativan IVP. 14:15 Reassessment: Pt laying in bed with eyes closed, respirations even and unlabored, HR jl7 93, O2 100%, no distress noted. 15:30 Reassessment: ERD at bedside discussing results and POC, pt verbalizes understanding. jl7 15:30 Reassessment: Assisted patient to bedside commode. Pt denies shortness of breath. ss Voided x 1. Pt now back in bed on monitor. HR remains at 147. Dr. Rodriguez notified and is now at bedside reassessing patient. Vital Signs: 12:07 BP 115 / 68; Pulse 140; Resp 23; Temp 99.4; Pulse Ox 100% ; Pain 0/10; jl7 12:15 Weight 43.09 kg (R); jl7 12:30 BP 116 / 91; Pulse 124; Resp 26 S; Pulse Ox 99% on 2 lpm NC; jl7 13:00 BP 127 / 78; Pulse 136; Resp 28 S; Pulse Ox 74% on R/A; jl7 13:30 BP 100 / 58; Pulse 102; Resp 24 S; Pulse Ox 100% on 2 lpm NC; jl7 14:00 BP 90 / 52; Pulse 91; Resp 22; Pulse Ox 100% ; jl7 14:30 BP 95 / 52; Pulse 93; Resp 22; Pulse Ox 97% ; jl7 15:00 BP 114 / 59; Pulse 145; Resp 27 S; Pulse Ox 100% on 2 lpm NC; jl7 15:35 BP 109 / 72; Pulse 100; Resp 22; Pulse Ox 100% ; jl7 ED Course: 11:46 Patient arrived in ED. as 11:47 Emily Sarah, SANDOR is Primary Nurse. jl7 11:49 Celine Rodriguez MD is Attending Physician. ma2 11:50 Patient has correct armband on for positive identification. Placed in gown. Bed in low jl7 position. Call light in reach. Side rails up X2. awake overnight monitor on. Pulse ox on. NIBP on. Warm blanket given. 12:14 Triage completed. jl7 12:15 Arm band placed on right wrist. jl7 12:43 Inserted saline lock: 20 gauge in right hand, using aseptic technique. Blood collected. jl7 12:50 Initial lab(s) drawn, by va, sent to lab. First set of blood cultures drawn by me. jl7 12:50 Second set of blood cultures drawn by va, Urine collected: clean catch specimen, cloudy.jl7 14:18 Chest Single View XRAY In Process Unspecified. EDMS 15:48 Prince Berman MD is Hospitalizing Provider. ma2 16:57 No provider procedures requiring assistance completed. Patient admitted, IV remains in jl7 place. intact, No redness/swelling at site. Administered Medications: 13:18 Drug: Zofran (Ondansetron) 4 mg Route: IVP; Site: right hand; jl7 15:48 Follow up: Response: No adverse reaction jl7 13:20 Drug: morphine 2 mg Route: IVP; Site: right hand; jl7 13:40 Follow up: Response: No adverse reaction jl7 13:28 Drug: Ativan 1 mg Route: IVP; Site: right hand; jl7 13:45 Follow up: Response: No adverse reaction; Anxiety decreased jl7 13:30 Drug: NS 0.9% 1000 ml Route: IV; Rate: 1 bolus; Site: right hand; jl7 14:30 Follow up: Response: No adverse reaction; IV Status: Completed infusion; IV Intake: jl7 1000ml 13:30 Drug: Rocephin 1 grams Route: IV; Rate: calculated rate; Site: right hand; jl7 13:33 Follow up: Response: No adverse reaction; IV Status: Completed infusion jl7 14:45 Drug: NS 0.9% 1000 ml Route: IV; Rate: 1 bolus; Site: right hand; jl7 15:19 Not Given (Physician Discretion): morphine 4 mg IVP once; RASS on ADMIN: Combtv4, Very jl7 Agttd3, Agttd2, Rstlss1, AlertClm0, Drwsy-1, Lt Sdtn-2, Mod Sdtn-3, Dp Sdtn-4, UnArsble-5 Intake: 14:30 IV: 1000ml; Total: 1000ml. jl7 Outcome: 15:49 Decision to Hospitalize by Provider. ma2 16:57 Admitted to Tele accompanied by tech, via stretcher, room 225, with oxygen, with chart, jl7 Report called to DONNE[address] Lane 16:57 Condition: stable 16:57 Discharge instructions given to patient, Instructed on the need for admit, Demonstrated understanding of instructions. 17:32 Patient left the ED. bp Signatures: Dispatcher [employer] Lauren Tellez Shelby, RN RN Emily Colby RN RN jl7 Steven Shaffer RN RN bp Alzahri, Mohammad, MD MD ma2
--- NOTE | 2019-12-12 15:50 | EDPHYS ---
Physician Documentation [facility] Name: Demetrice Bedolla Age: 84 yrs Sex: Female : 1935 Arrival Date: 12/12/2019 Time: 11:46 Bed 6 Private MD: ED Physician Celine Rodriguez HPI: 12/11 12:39 This 84 yrs old Female presents to ER via Ambulatory with complaints of ma2 Urinary Problem. 12:39 Onset: The symptoms/episode began/occurred gradually, 1 day(s) ago. Associated signs ma2 and symptoms: Pertinent positives: dysuria, Pertinent negatives: diarrhea, dysuria, hematuria, nausea, urinary frequency, vaginal bleeding. Severity of symptoms: At their worst the symptoms were moderate, in the emergency department the symptoms are unchanged. The patient has not experienced similar symptoms in the past. Historical: - Allergies: 12:15 No Known Allergies; jl7 - Home Meds: 12:15 Hemocyte-Plus 106 mg iron- 1 mg Oral cap 1 cap once daily [Active]; levothyroxine 50 jl7 mcg tab 1 tab once daily [Active]; Symbicort 160-4.5 mcg/actuation inhalation HFAA 2 puffs 2 times per day [Active]; Vitamin D Oral [Active]; - PMHx: 12:15 COPD; Hypothyroidism; thalassemia; jl7 - PSHx: 12:15 None; jl7 - Immunization history:: Adult Immunizations up to date. - Social history:: Smoking status: Patient denies any tobacco usage or history of. Patient/guardian denies using alcohol, street drugs, The patient lives with family. - Family history:: not pertinent. ROS: 12:39 Negative for urinary frequency, hematuria, burning with urination. ma2 12:39 Constitutional: Negative for fever, chills, and weight loss. 12:39 All other systems are negative. Exam: 12:39 Constitutional: This is a well developed, well nourished patient who is awake, alert, ma2 and in no acute distress. Head/Face: Normocephalic, atraumatic. Eyes: Pupils equal round and reactive to light, extra-ocular motions intact. Lids and lashes normal. Conjunctiva and sclera are non-icteric and not injected. Cornea within normal limits. Periorbital areas with no swelling, redness, or edema. ENT: Nares patent. No nasal discharge, no septal abnormalities noted. Tympanic membranes are normal and external auditory canals are clear. Oropharynx with no redness, swelling, or masses, exudates, or evidence of obstruction, uvula midline. Mucous membranes moist. Neck: Trachea midline, no thyromegaly or masses palpated, and no cervical lymphadenopathy. Supple, full range of motion without nuchal rigidity, or vertebral point tenderness. No Meningismus. Chest/axilla: Normal chest wall appearance and motion. Nontender with no deformity. No lesions are appreciated. Cardiovascular: Regular rate and rhythm with a normal S1 and S2. No gallops, murmurs, or rubs. Normal PMI, no JVD. No pulse deficits. Respiratory: Lungs have equal breath sounds bilaterally, clear to auscultation and percussion. No rales, rhonchi or wheezes noted. No increased work of breathing, no retractions or nasal flaring. Abdomen/GI: Soft, non-tender, with normal bowel sounds. No distension or tympany. No guarding or rebound. No evidence of tenderness throughout. Back: No spinal tenderness. No costovertebral tenderness. Full range of motion. Skin: Warm, dry with normal turgor. Normal color with no rashes, no lesions, and no evidence of cellulitis. MS/ Extremity: Pulses equal, no cyanosis. Neurovascular intact. Full, normal range of motion. Neuro: Awake and alert, GCS 15, oriented to person, place, time, and situation. Cranial nerves II-XII grossly intact. Motor strength 5/5 in all extremities. Sensory grossly intact. Cerebellar exam normal. Normal gait. Psych: Awake, alert, with orientation to person, place and time. Behavior, mood, and affect are within normal limits. Vital Signs: 12:07 BP 115 / 68; Pulse 140; Resp 23; Temp 99.4; Pulse Ox 100% ; Pain 0/10; jl7 12:15 Weight 43.09 kg (R); 7 12:30 BP 116 / 91; Pulse 124; Resp 26 S; Pulse Ox 99% on 2 lpm NC; 7 13:00 BP 127 / 78; Pulse 136; Resp 28 S; Pulse Ox 74% on R/A; 13:30 BP 100 / 58; Pulse 102; Resp 24 S; Pulse Ox 100% on 2 lpm NC; 7 14:00 BP 90 / 52; Pulse 91; Resp 22; Pulse Ox 100% ; 7 14:30 BP 95 / 52; Pulse 93; Resp 22; Pulse Ox 97% ; jl7 15:00 BP 114 / 59; Pulse 145; Resp 27 S; Pulse Ox 100% on 2 lpm NC; 7 15:35 BP 109 / 72; Pulse 100; Resp 22; Pulse Ox 100% ; 7 MDM: 11:49 Patient medically screened. ms2 12:39 Data reviewed: vital signs, nurses notes. Counseling: I had a detailed discussion with ma the patient and/or guardian regarding: the historical points, exam findings, and any diagnostic results supporting the discharge/admit diagnosis, the presence of at least one elevated blood pressure reading (>120/80) during this emergency department visit, the need for outpatient follow up. Response to treatment: the patient's symptoms have markedly improved after treatment. 15:46 Differential diagnosis: uterine fibroids, urinary tract infection, vaginosis. [facility] 15:46 Post IV fluid administration reassessment for Sepsis: Sepsis focused reassessment [facility] complete. Focused assessment performed: December 12, 2019 at 15:47 Heart: Regular rate/rhythm. Capillary refill examination performed. Capillary refill noted to be brisk. Peripheral pulse evaluation performed. Radial Peripheral pulses noted to be 3+ normal. Skin examination performed. Current patient vital signs reviewed: Yes. Passive leg raise examination performed. Neuro: Patient's neurological exam has improved from previous exam. Cardio: Cardiovascular exam improved from previous exam. Heart rate and blood pressure have improved. Respiratory: Respiratory exam improved from previous exam. 12/11 12:27 Order name: Basic Metabolic Panel; Complete Time: 14:32 [facility] 12/11 12:27 Order name: CBC with Diff; Complete Time: 14:32 [facility] 12/11 12:27 Order name: Hepatic Function; Complete Time: 14:32 [facility] 12/11 12:27 Order name: Lipase; Complete Time: 14:32 [facility] 12/11 12:27 Order name: Blood Culture Adult (2) [facility] 12/11 12:28 Order name: Lactate; Complete Time: 14:32 [facility] 12/11 13:05 Order name: Chest Single View XRAY; Complete Time: 14:32 [facility] 12/11 13:10 Order name: UA; Complete Time: 14:32 jl7 12/11 13:10 Order name: Urine Microscopic Only; Complete Time: 14:32 jl7 12/11 13:24 Order name: CBC Smear Scan; Complete Time: 14:32 EDMS 12/11 12:27 Order name: IV Saline Lock; Complete Time: 15:18 ma2 12/11 12:27 Order name: Labs collected and sent; Complete Time: 15:18 ma2 12/11 12:27 Order name: Urine Dipstick-Ancillary (obtain specimen); Complete Time: 15:18 ma2 Administered Medications: 13:18 Drug: Zofran (Ondansetron) 4 mg Route: IVP; Site: right hand; jl7 15:48 Follow up: Response: No adverse reaction jl7 13:20 Drug: morphine 2 mg Route: IVP; Site: right hand; jl7 13:40 Follow up: Response: No adverse reaction jl7 13:28 Drug: Ativan 1 mg Route: IVP; Site: right hand; jl7 13:45 Follow up: Response: No adverse reaction; Anxiety decreased jl7 13:30 Drug: NS 0.9% 1000 ml Route: IV; Rate: 1 bolus; Site: right hand; jl7 14:30 Follow up: Response: No adverse reaction; IV Status: Completed infusion; IV Intake: [facility] 1000ml 13:30 Drug: Rocephin 1 grams Route: IV; Rate: calculated rate; Site: right hand; jl7 13:33 Follow up: Response: No adverse reaction; IV Status: Completed infusion jl7 14:45 Drug: NS 0.9% 1000 ml Route: IV; Rate: 1 bolus; Site: right hand; jl7 15:19 Not Given (Physician Discretion): morphine 4 mg IVP once; RASS on ADMIN: Combtv4, Very jl7 Agttd3, Agttd2, Rstlss1, AlertClm0, Drwsy-1, Lt Sdtn-2, Mod Sdtn-3, Dp Sdtn-4, UnArsble-5 Disposition: 12/12/19 15:49 Hospitalization ordered by Prince Antonella for Inpatient Admission. Preliminary diagnosis are Cystitis, unspecified without hematuria, Sepsis due to other Gram-negative organisms. - Bed requested for Telemetry/MedSurg (Inpatient). - Status is Inpatient Admission. bp - Condition is Stable. - Problem is new. - Symptoms have improved. Critical care time excluding procedures: 16:26 Critical care time: Bedside Care: 20 minutes, Consultation: 10 minutes, Family ma2 Intervention: 5 minutes. Total time: 35 minutes Signatures: Dispatcher [employer] EDMS Emily Sarah RN RN jl7 Steven Shaffer RN RN bp Celine Rodriguez MD MD ma2 Jeff Abraham tt3 Corrections: (The following items were deleted from the chart) 14:07 14:01 Urine Microscopic Only ordered. EDMI EDMI 16:03 15:49 Hospitalization Ordered by Prince Antonella ELIZABETH for Inpatient Admission. Preliminary tt3 diagnosis is Cystitis, unspecified without hematuria; Sepsis due to other Gram-negative organisms. Bed requested for Telemetry/MedSurg (Inpatient). Status is Inpatient Admission. Condition is Stable. Problem is new. Symptoms have improved. ma2 17:32 16:03 12/12/2019 15:49 Hospitalization Ordered by Prince Antonella ELIZABETH for Inpatient bp Admission. Preliminary diagnosis is Cystitis, unspecified without hematuria; Sepsis due to other Gram-negative organisms. Bed requested for Telemetry/MedSurg (Inpatient). Status is Inpatient Admission. Condition is Stable. Problem is new. Symptoms have improved. tt3
--- NOTE | 2019-12-12 16:19 | P.HP ---
Certification for Inpatient Patient admitted to: Inpatient With expected LOS: >2 Midnights Practitioner: I am a practitioner with admitting privileges, knowledge of patient current condition, hospital course, and medical plan of care. Services: Services provided to patient in accordance with Admission requirements found in Title 42 Section 412.3 of the Code of Federal Regulations Patient History Date of Service: 12/14/19 Reason for admission: UTI History of Present Illness: Patient is a 84-year-old female with a past medical history of vitamin-D deficiency it and emphysema who present to the ER complaining of dysuria for some time. Patient is a poor historian by was able to status symptoms above. She denies any recent fever but endorses chills. She has been having poor oral intake. Denies any vomiting. Other negative symptoms include lack of GI bleeding. Allergies No Known Allergies Allergy (Verified 12/12/19 16:49) Home Medications: Iron/FA/Vit B-Com W/C [Hemocyte Plus*] 1 tab PO DAILY 09/07/17 Levothyroxine Sodium 88 mcg PO DAILY 09/07/17 Apixaban [Eliquis *] 2.5 mg PO BID #60 tablet 09/17/17 Sotalol HCl [Betapace*] 40 mg PO BID 6AM 6PM #30 tab 09/17/17 Alendronate Sodium 70 mg PO EVERY 7TH DAY 07/31/19 Fluticasone/Umeclidin/Vilanter [Trelegy Ellipta 100-62.5-25] 1 puff IH DAILY 0 07/31/19 Furosemide [Lasix] 20 mg PO DAILY PRN #30 tab 08/04/19 - Past Medical/Surgical History Diabetic: No -: Hypothyroidism -: COPD -: Thalassemia -: Atrial fibrillation/chronic anti coagulation therapy -: Anemia of chronic disease -: Former smoker -: History of recurrent UTI Psychosocial/ Personal History: Patient has a supporting family. Lives at home - Family History Mother -: Heart disease Sister -: Cancer - Social History Alcohol use: No CD- Drugs: No Caffeine use: Yes Physical Examination - Physical Exam General: Alert, In no apparent distress, Cachectic HEENT: Atraumatic, Normocephalic, EOMI Neck: Supple, JVD not distended Respiratory: Clear to auscultation bilaterally, Normal air movement Cardiovascular: No edema, Normal pulses, Other (Tachycardic) Gastrointestinal: Normal bowel sounds, Soft and benign, Non-distended Musculoskeletal: No clubbing, No swelling, No contractures, No erythema, No tenderness, No warmth Integumentary: No rashes, No breakdown, Other (pale) - Studies Laboratory Data (last 24 hrs) 12/12/19 12:50: WBC 12.2 H, Hgb 9.4 L, Hct 29.8 L, Plt Count 184 12/12/19 12:50: Sodium 135 L, Potassium 3.8, BUN 17, Creatinine 0.62, Glucose 115 H, Total Bilirubin 0.6, AST 24, ALT 31, Alkaline Phosphatase 55, Lipase 81 Assessment and Plan - Problems (Diagnosis) (1) UTI (urinary tract infection) Current Visit: Yes Status: Acute (2) Atrial fibrillation Current Visit: Yes Status: Acute (3) Narrow complex tachycardia Current Visit: Yes Status: Acute (4) COPD (chronic obstructive pulmonary disease) Onset Date: 09/10/17 Current Visit: No Status: Chronic Qualifiers: (5) Hypothyroidism Onset Date: 09/10/17 Current Visit: No Status: Chronic Qualifiers: - Plan Assessment Patient is a 84-year-old female with possible dementia, hypothyroidism, atrial fibrillation and COPD who presented the ER with ongoing symptoms of dysuria. Was found to have UTI as per UA and received 1 dose of ceftriaxone. Her ER course was marked by seaview narrow complex tachycardia. She has been given 2 L of fluid. Sepsis UTI Narrow complex tachycardia COPD Atrial fibrillation Possible dementia Plan: Admit to ICU Start lactated Ringer infusion at 100 cc/hour Will place patient on digoxin injections if tachycardia persists Follow-up blood and urine cultures Continue ceftriaxone. Will check for TSH, ORDER an ECHO - Advance Directives Does patient have a Living Will: No Does patient have a Durable POA for Healthcare: No
[2019-12-12] MEDS: Ringers Lactate 1,000 ML IV SCH (17:25)
[2019-12-12] MEDS: ACETAMINOPHEN 325 MG TABLET PO PRN (23:17)
[2019-12-13] MEDS: Ringers Lactate 1,000 ML IV SCH ×4 (01:59→23:03)
[2019-12-13 05:08] LABS: Absolute Lymphocytes (CBC) 1.3 K/uL (0.7-4.9); Basophils % 0.3 % (0-1.3); Hematocrit 25.4 % (36.0-45.0); Lymphocytes % 11.3 % (15.3-44.8); MPV 8.7 fL (7.6-11.3); RBC Red Blood Cell Count 3.75 M/uL (3.86-4.86)
[2019-12-13 05:22] LABS: BUN Blood Urea Nitrogen 16 mg/dL (7-18); Bicarbonate 30 mmol/L (21-32); Glucose Level 110 mg/dL (74-106); Potassium 3.8 mmol/L (3.5-5.1); Sodium Level 142 mmol/L (136-145)
[2019-12-13] MEDS ORDERED: Ringers Lactate 1,000 ML IV ONE (07:13)
[2019-12-13] MEDS: SOTALOL HCL 80 MG TAB PO SCH ×2 (08:36→17:02)
[2019-12-13] MEDS: FE SULF/FA/VIT B COMP & C TAB PO SCH (08:36)
[2019-12-13] MEDS: APIXABAN 2.5 MG TABLET PO SCH ×2 (08:36→20:48)
[2019-12-13] MEDS: HOME MED 1 EA UNK (Fluticasone/Umeclidin/Vilanter [Trelegy Ellipta 100-62.5-25] 1 PUFF) IH SCH (08:52)
[2019-12-13] MEDS ORDERED: CEFTRIAXONE/SWI 1gm 1 GM/10 ML SYR IVP SCH (09:00)
--- NOTE | 2019-12-13 11:23 | P.PN ---
Subjective Date of Service: 12/13/19 Chief Complaint: UTI Subjective: Improving (Patient is doing better but she is still tachycardic. EKG is showing sinus tachycardic. She received a 1 L bolus of LR.) Physical Examination - Vital Signs Temperature: 98.2 F Blood Pressure: 103/65 Pulse: 123 Respirations: 92 Pulse Ox (%): 21 - Physical Exam General: Alert, Cooperative, Demented, Confused HEENT: Atraumatic, Normocephalic, EOMI Neck: Supple Respiratory: Clear to auscultation bilaterally, Normal air movement Cardiovascular: No edema, Normal pulses, Normal S1 S2, Other (TACHYCARDIC) Gastrointestinal: Normal bowel sounds, Soft and benign, Non-distended Musculoskeletal: No clubbing, No swelling, No contractures, No erythema, No tenderness, No warmth Integumentary: No rashes, No breakdown, No significant lesion, No tenderness/swelling, No erythema, No warmth, No cyanosis Neurological: Normal speech, Sensation intact, Normal affect, Dementia - Studies Laboratory Data (last 24 hrs) 12/12/19 12:50: WBC 12.2 H, Hgb 9.4 L, Hct 29.8 L, Plt Count 184 12/12/19 12:50: Sodium 135 L, Potassium 3.8, BUN 17, Creatinine 0.62, Glucose 115 H, Total Bilirubin 0.6, AST 24, ALT 31, Alkaline Phosphatase 55, Lipase 81 Assessment & Plan - Problems (Diagnosis) (1) UTI (urinary tract infection) Current Visit: Yes Status: Acute (2) Atrial fibrillation Current Visit: Yes Status: Acute (3) Narrow complex tachycardia Current Visit: Yes Status: Acute (4) COPD (chronic obstructive pulmonary disease) Onset Date: 09/10/17 Current Visit: No Status: Chronic Qualifiers: (5) Hypothyroidism Onset Date: 09/10/17 Current Visit: No Status: Chronic Qualifiers: Physician Review Additional Text: Assessment Patient is a 84 year old female currently admitted with sepsis secondary to UTI. She was transferred to the ICU for severe tachycardia that persisted despite IVF challenge. EKG showing sinus tachycardia. TSH WNL Sepsis UTI Sinus tachycardia Anemia Dementia PLAN: Continue ICU stay Monitor H/H and transfuse if Hb < 7 Trend troponin Follow up ECHO Continue ceftriaxone Follow up urine
[2019-12-13] MEDS ORDERED: Meropenem 1000 MG/VIAL IV SCH (11:26)
[2019-12-13] MEDS: Meropenem 1,000 MG in NA CHLORIDE 0.9% 100 ML IV SCH (13:08)
[2019-12-13] MEDS: PHENAZOPYRIDINE 100MG TAB PO SCH ×3 (13:08→20:48)
[2019-12-13] MEDS: METOPROLOL TARTRATE 5 MG/5 ML INJ IV PRN (15:15)
[2019-12-13 15:22] LABS: Magnesium 1.6 mg/dL (1.8-2.4)
[2019-12-13] MEDS ORDERED: DIGOXIN 0.25 MG/ML AMP IV ONE (16:23)
[2019-12-13] MEDS ORDERED: Ringers Lactate 500 ML IV ONE (16:24)
[2019-12-13] MEDS ORDERED: METOPROLOL TARTRATE 5 MG/5 ML INJ IV STA (17:45)
--- NOTE | 2019-12-13 18:59 | RAD REPORT ---
EXAM DESCRIPTION: CT - Chest For Pe Angio - 12/13/2019 6:41 pm CLINICAL HISTORY: continued hypoxia, worsening leukocytosis COMPARISON: Chest For Pe Angio dated 09/12/2017; Chest Single View dated 12/12/2019 Villareal of the esophagus appear prominent in the mid and distal portions. TECHNIQUE: Dynamically enhanced 3 mm thick images of the chest were obtained during administration o f approximately 150mL Isovue 370 IV contrast. Coronal and oblique MIP reconstruction images were gene rated and reviewed. Exam utilizes a protocol to evaluate the pulmonary arterial tree. All CT scans are performed using dose optimization technique as appropriate and may include automated exposure control or mA/KV adjustment according to patient size. FINDINGS: No pulmonary emboli are identified. Pulmonary arteries are borderline enlarged. The aorta as imaged shows no acute or suspicious finding. No pericardial thickening or effusion. Partial atelectasis present in each lower lobe with small bilateral pleural effusions. Interstitial p attern is prominent. This could be baseline fibrosis, edema, infiltrate or a combination. Pattern is only slightly more prominent than 2018. No pneumothorax. No pleural based mass. No mediastinal or hilar suspicious masses. No chest wall masses or abnormal axillary lymphadenopathy. Mid and distal esophagus shows prominent circumferential villareal. No focal or asymmetric mass identifi ed. IMPRESSION: No pulmonary emboli identified. Small bilateral pleural effusions with bilateral partial atelectasis of each lower lobe. Prominent interstitial pattern similar or slightly worse than the 2018 CT study. This could be progre ssive fibrosis, interstitial edema/infiltrate or a combination. Prominent circumferential villareal of the mid and distal thoracic esophagus. No focal mass is evident. E sophagitis is possible. CT sensitivity is limited.
[2019-12-13] MEDS ORDERED: METOPROLOL TARTRATE 5 MG/5 ML INJ IV ONE (19:00)
[2019-12-14] MEDS: Meropenem 1,000 MG in NA CHLORIDE 0.9% 100 ML IV SCH ×3 (00:14→18:18)
[2019-12-14 05:05] LABS: Absolute Lymphocytes (CBC) 1.6 K/uL (0.7-4.9); Basophils % 0.1 % (0-1.3); Hematocrit 29.1 % (36.0-45.0); Lymphocytes % 8.6 % (15.3-44.8); MPV 8.5 fL (7.6-11.3); RBC Red Blood Cell Count 4.21 M/uL (3.86-4.86)
[2019-12-14 05:19] LABS: BUN Blood Urea Nitrogen 21 mg/dL (7-18); Bicarbonate 30 mmol/L (21-32); Glucose Level 136 mg/dL (74-106); Magnesium 1.9 mg/dL (1.8-2.4); Potassium 4.4 mmol/L (3.5-5.1); Sodium Level 141 mmol/L (136-145)
[2019-12-14] MEDS: SOTALOL HCL 80 MG TAB PO SCH (05:24)
[2019-12-14] MEDS: LEVOTHYROXINE SOD 0.088 MG TAB PO SCH (05:24)
[2019-12-14] MEDS ORDERED: propofoL 1,000 MG/100 ML VIAL IV ONE (07:10)
[2019-12-14] MEDS ORDERED: MIDAZOLAM HCL 2 MG/2 ML INJ ONE (07:10)
[2019-12-14] MEDS ORDERED: NA CHLORIDE 0.9% 1,000 ML ONE (07:12)
--- NOTE | 2019-12-14 07:13 | EKG ---
Test Date: 2019-12-12 Test Time: 12:29:41 Assistant Purchasing Manager: HALI MEASUREMENT RESULTS: Intervals: Rate: 145 AR: 94 QRSD: 96 QT: 314 QTc: 487 [place]: P: 82 AR: 94 QRS: 83 T: 78 INTERPRETIVE STATEMENTS: Sinus tachycardia with short AR with fusion complexes Otherwise normal ECG Compared to ECG 12/12/2019 12:22:43 Fusion complex(es) now present Short AR interval now present Ventricular premature complex(es) no longer present Electronically Signed On 12-14-19 07:11:22 CDT by Daniel Pollock
--- NOTE | 2019-12-14 07:13 | EKG ---
Test Date: 2019-12-12 Test Time: 12:22:43 Teacher Ballet: HALI MEASUREMENT RESULTS: Intervals: Rate: 108 VA: 124 QRSD: 68 QT: 316 QTc: 423 [place]: P: 78 VA: 124 QRS: 81 T: 72 INTERPRETIVE STATEMENTS: Sinus tachycardia with frequent premature ventricular complexes Otherwise normal ECG Compared to ECG 08/03/2019 05:23:48 Ventricular premature complex(es) now present Atrial fibrillation no longer present ST (T wave) deviation no longer present Electronically Signed On 12-14-19 07:11:24 CDT by Daniel Pollock
[2019-12-14] MEDS ORDERED: propofoL 1,000 MG/100 ML VIAL IV PRN (07:20)
[2019-12-14] MEDS ORDERED: Ringers Lactate 500 ML IV ONE (07:35)
[2019-12-14 07:51] LABS: Platelet Estimate ADEQ
[2019-12-14 07:52] LABS: Anisocytosis 1+; Basophilic Stippling 1+; Blood Morphology Comment NOTED (NOT SEEN); Hypochromasia 1+; Ovalocytes 1+; Teardrop Cell 1+
[2019-12-14] MEDS ORDERED: NOREPINEPHRINE 4 MG in D5W 250 ML IV PRN (07:57)
[2019-12-14] MEDS ORDERED: NA CHLORIDE 0.9% 500 ML ONE (08:02)
[2019-12-14 08:04] LABS: Absolute Lymphocytes (CBC) 1.8 K/uL (0.7-4.9); Basophils % 0.1 % (0-1.3); Lymphocytes % 8.7 % (15.3-44.8); MPV 8.8 fL (7.6-11.3); Protime INR 1.3; RBC Red Blood Cell Count 4.11 M/uL (3.86-4.86)
[2019-12-14 08:09] LABS: Phosphorus 5.4 mg/dL (2.5-4.9); Potassium 4.2 mmol/L (3.5-5.1)
[2019-12-14] MEDS ORDERED: ALBUMIN HUM 5% 500 ML IV SCH (09:00)
[2019-12-14] MEDS: Ringers Lactate 1,000 ML IV SCH ×2 (09:00→17:00)
[2019-12-14] MEDS ORDERED: FAMOTIDINE 20 MG/2 ML VIAL IV SCH (09:00)
[2019-12-14] MEDS: HOME MED 1 EA UNK (Fluticasone/Umeclidin/Vilanter [Trelegy Ellipta 100-62.5-25] 1 PUFF) IH SCH (09:00)
[2019-12-14] MEDS: FE SULF/FA/VIT B COMP & C TAB PO SCH (09:00)
[2019-12-14] MEDS: PHENAZOPYRIDINE 100MG TAB PO SCH ×2 (09:00→13:15)
[2019-12-14] MEDS ORDERED: ALBUMIN HUM 5% 250 ML IV PRN (09:10)
[2019-12-14 09:25] LABS: Arterial Blood Carboxyhemoglob 1.5 % (0-1.5); Blood Gas Oxyhemoglobin 79.8 % (94-97); Blood O2 Saturation 82.2 % (92-98.5)
--- NOTE | 2019-12-14 09:25 | RAD REPORT ---
EXAM DESCRIPTION: Tonny Single View12/14/2019 8:37 am CLINICAL HISTORY: Shortness of breath. Device placement. Endotracheal tube placement COMPARISON: October 12 FINDINGS: Endotracheal tube is been inserted with its tip 4 centimeters above the ollie. Nasogastr ic tube has been placed into the stomach. Small bilateral pleural effusions. Left basilar infiltrate Mild to moderate bilateral interstitial lung opacities. Lungs are hyperaerated. Heart remains enlarge d IMPRESSION: Endotracheal tube with its tip 4 centimeters above the ollie Left basilar opacity pneumonia or atelectasis Mild to moderate bilateral interstitial opacities probably interstitial pulmonary edema superimposed over chronic changes
[2019-12-14] MEDS: LORazepam 2 MG/ML VIAL IV PRN ×2 (09:52→18:18)
--- NOTE | 2019-12-14 10:24 | P.PN ---
Subjective Date of Service: 12/14/19 Chief Complaint: UTI Subjective: Other (Patient went into cardiac arrest. PEA was the suspected underlying rhythm. As per RN, she had just received her dose of am sotalol when she suddently became bradycardic into the 40's. Her vitals were stable prior to medication administration. She received 2 doses of epinephrine during CPR before ROSC was achieved. She is currently intubated and on norepinephrine for persistent hypotension.) Physical Examination - Vital Signs Temperature: 99.8 F Blood Pressure: 115/61 Pulse: 112 Respirations: 22 Pulse Ox (%): 92 - Physical Exam General: Cachectic, Other (intubated) HEENT: Atraumatic, Normocephalic, PERRLA Respiratory: Clear to auscultation bilaterally, Normal air movement Cardiovascular: Normal S1 S2, Other (tachycardic), Irregular heart rate/rhythm Gastrointestinal: Normal bowel sounds, Soft and benign, Non-distended Musculoskeletal: No clubbing, No swelling, No contractures, No erythema, No tenderness, No warmth Integumentary: No rashes, No breakdown, No significant lesion, No tenderness/swelling, No erythema, No warmth, No cyanosis Neurological: Other (intubated) Urinary: Morin catheter Assessment & Plan - Problems (Diagnosis) (1) UTI (urinary tract infection) Current Visit: Yes Status: Acute (2) Atrial fibrillation Current Visit: Yes Status: Acute (3) Narrow complex tachycardia Current Visit: Yes Status: Acute (4) COPD (chronic obstructive pulmonary disease) Onset Date: 09/10/17 Current Visit: No Status: Chronic Qualifiers: (5) Hypothyroidism Onset Date: 09/10/17 Current Visit: No Status: Chronic Qualifiers: (6) Cardiac arrest Current Visit: Yes Status: Acute (7) Septic shock Current Visit: Yes Status: Acute Physician Review Additional Text: Assessment Patient is a 84 year old female currently admitted with sepsis secondary to UTI. She was transferred to the ICU for severe tachycardia that persisted despite IVF challenge. EKG showing sinus tachycardia. TSH WNL. She went into cardiac arrest secondary to PEA on 12/13. ROSC achieved after CPR, 2 epi given. She is currently intubated. She is also getting fluid challenge for lactic acidosis, LA: 4.1. Beside echo w/o signs of pericardial effusion. Received volume challenge with 500 cc of LR this morning. Post intubation ABG with evidence of severe hypoxemic and hypercapneic respiratory failure. Cardiac arrest Septic shock Lactic acidosis UTI Sinus tachycardia Anemia Dementia PLAN: Initiate target temperature mgmt with goal of 36 degrees celsium. OK to use cooling blanket or ice pack Check temperature at least q2 hours PRN tylenol for fever Continue ICU stay while on mechanical ventilator PPI for stress ppx ABG and CXR reviewed Use albumin IV for volume challenge due to pulmonary edema on CXR Improved blood gas post vent setting modifications: 7.25/56/68/24 . Wean off FiO2 as tolerated Cardiology consulted Monitor H/H and transfuse if Hb < 8 Follow up formal 2-D ECHO, which will be performed tomorrow Add vancomycin Continue meropenem Follow up urine and blood cultures
[2019-12-14 11:27] LABS: Arterial Blood Carboxyhemoglob 1.3 % (0-1.5); Blood Gas Oxyhemoglobin 91.3 % (94-97); Blood O2 Saturation 93.8 % (92-98.5)
[2019-12-14] MEDS: SODIUM CHLORIDE 0.9% 10ML INJ IV PRN (11:47)
[2019-12-14] MEDS: PANTOPRAZOLE 40 MG INJ IVP SCH (11:47)
[2019-12-14] MEDS: VANCOMYCIN/NS 1 gm 1 GM/250 ML BAG IV SCH (11:48)
[2019-12-14 11:51] LABS: Absolute Lymphocytes (CBC) 0.7 K/uL (0.7-4.9); Basophils % 0.2 % (0-1.3); Lymphocytes % 3.6 % (15.3-44.8); MPV 8.7 fL (7.6-11.3); RBC Red Blood Cell Count 3.37 M/uL (3.86-4.86)
--- NOTE | 2019-12-14 12:09 | CON ---
Date of Consultation: 12/14/2019 Patient was admitted to Dr. Berman on 12/12/2019. I saw the patient on 12/14/2019. Reason For Consultation: Cardiac arrest. History Of Present Illness: Ms. Bedolla is an 84-year-old woman, has had a history of chronic atria l fibrillation that is paroxysmal, for which she takes sotalol and Eliquis. She has a history of [employer] D, on Symbicort. She takes Lasix and Synthroid for hypothyroidism. Also has a history of thalassemi a, came in with UTI, sepsis on 12/12/2019. Has been having sinus tachycardia all along, but yesterda y she had an episode of the atrial fibrillation, received 1 dose of digoxin. This morning, she recei kierra the sotalol. Slightly after that, she became bradycardic, asystolic, requiring CPR, intubation. She is back in sinus tachycardia and hypertensive. No chest pain reported prior to the episode. Past Medical History: As stated above. Allergies: NONE. Review of Systems: Negative. Social History: Negative. Family History: Negative. Medications: Listed earlier. Physical Examination: General: She is now intubated, slightly hypertensive, sinus tachycardia. Afebrile. HEENT: Negative. Neck: Supple with no bruit. Chest: Clear. Cardiac: Revealed sinus tachycardia. No murmurs, gallops, or rubs. Abdomen: Benign. Extremities: Revealed no clubbing, cyanosis, or edema. Diagnostic Data: Her hemoglobin was 8.8, white count was 18,000. CT angiogram of the chest was nega tive for pulmonary embolus, but she has chronic interstitial lung disease. Echocardiogram in 2019 in July showed a moderate pulmonary hypertension with normal ejection fraction. Impression And Plan: Status post cardiac arrest secondary to asystole and bradycardia. I would defi nitely stop the sotalol, stop digoxin and put her on Lovenox. Continue her antibiotics, get an echoc ardiogram in the morning. We can treat her sinus tachycardia with p.r.n. beta blockers intravenous, but I would definitely not put her on amiodarone for now. Using amiodarone after sotalol, the same d ay may put her at risk of prolonging her QT syndrome and making her go into torsade. If she does go back into atrial fibrillation, I would stick with digoxin intravenous as well as beta august as need ed. The case was discussed with Dr. Berman. I will continue to follow the patient along. KIRILL/YVETTE Voice ID: [id number] Report ID: [id number]
[2019-12-14] MEDS: APIXABAN 2.5 MG TABLET PO SCH ×2 (12:20→20:54)
[2019-12-14] MEDS ORDERED: NA CHLORIDE 0.9% 250 ML ONE (13:36)
[2019-12-14 14:25] LABS: C.diff Antigen/Toxin Ag neg : Tox neg (NEG : NEG)
[2019-12-14] MEDS: MIDAZOLAM HCL 2 MG/2 ML INJ IV PRN (14:58)
--- NOTE | 2019-12-14 19:23 | RAD REPORT ---
EXAM DESCRIPTION: Tonny Single View12/14/2019 7:05 pm CLINICAL HISTORY: Shortness of breath COMPARISON: December 13 FINDINGS: Since an earlier film on the same date there has been mild improvement in the bilateral p ulmonary opacities probably pulmonary edema No other change noted
[2019-12-14 20:07] LABS: Hematocrit 26.6 % (36.0-45.0)
[2019-12-14] MEDS: FENTANYL CITR 100 MCG/2 ML IV PRN (21:15)
[2019-12-15] MEDS: Meropenem 1,000 MG in NA CHLORIDE 0.9% 100 ML IV SCH ×2 (00:05→09:00)
[2019-12-15] MEDS: METHYLPREDNISOLONE 125 MG INJ IV SCH ×5 (00:05→23:54)
[2019-12-15] MEDS: LORazepam 2 MG/ML VIAL IV PRN ×5 (00:05→15:02)
[2019-12-15] MEDS: Ringers Lactate 1,000 ML IV SCH (01:00)
[2019-12-15] MEDS: IPRATROPIUM BROM 0.5MG/2.5ML NEB SCH ×4 (01:50→20:00)
[2019-12-15] MEDS: ALBUTEROL 2.5 MG/3 ML NEB SOL NEB SCH ×4 (01:50→20:00)
[2019-12-15] MEDS: FENTANYL CITR 100 MCG/2 ML IV PRN ×5 (05:11→23:54)
[2019-12-15] MEDS: LEVOTHYROXINE SOD 0.088 MG TAB PO SCH (05:34)
[2019-12-15 05:41] LABS: Arterial Blood Carboxyhemoglob 1.4 % (0-1.5); Blood Gas Oxyhemoglobin 91.2 % (94-97); Blood O2 Saturation 93.7 % (92-98.5)
[2019-12-15 05:53] LABS: BUN Blood Urea Nitrogen 17 mg/dL (7-18); Bicarbonate 25 mmol/L (21-32); Glucose Level 122 mg/dL (74-106); Magnesium 1.7 mg/dL (1.8-2.4); Phosphorus 1.4 mg/dL (2.5-4.9); Potassium 3.4 mmol/L (3.5-5.1); Sodium Level 144 mmol/L (136-145)
[2019-12-15 06:10] LABS: Absolute Lymphocytes (CBC) 0.8 K/uL (0.7-4.9); Hematocrit 28.1 % (36.0-45.0); Lymphocytes % 6.5 % (15.3-44.8); MPV 8.8 fL (7.6-11.3); RBC Red Blood Cell Count 3.92 M/uL (3.86-4.86)
[2019-12-15] MEDS ORDERED: MAGNESIUM SULFATE 1 gm IVPB 1 GM/100 ML BAG IV ONE (07:00)
--- NOTE | 2019-12-15 07:29 | RAD REPORT ---
EXAM DESCRIPTION: RAD - Chest Single View - 12/15/2019 5:18 am CLINICAL HISTORY: follow up intubation, cardiac arrest COMPARISON: Portable December 13, CT chest December 12 TECHNIQUE: AP portable chest image was obtained 12/15/2019 5:18 am . FINDINGS: Endotracheal tube remains in place with tip top of the aortic arch well above the ollie. NG tube extends below the diaphragm. No new tube or line identified. Extensive interstitial fibrotic pattern again noted. Bilateral pleural effusions present. Respiratory motion limits lung base assessment. No gross change from the prior study. Heart size remains normal range. No change in the central pulmonary vasculature. No pneumothorax. No acute bony abnormality seen. No acute aortic findings suspected. IMPRESSION: Stable appearance to the lung parenchyma. Bilateral pleural effusions are still evident. Extensive baseline interstitial lung disease.
[2019-12-15] MEDS ORDERED: POTASSIUM PHOS IN 0.9 % NACL 15 MMOL/250 ML BAG IV ONE (08:00)
[2019-12-15] MEDS ORDERED: POTASSIUM 25 MEQ EFFERV TAB PO ONE (08:00)
[2019-12-15] MEDS: PANTOPRAZOLE 40 MG INJ IVP SCH (09:03)
--- NOTE | 2019-12-15 09:20 | PN ---
Date of Progress Note: 12/15/2019 Subjective: Ms. Bedolla was admitted for sepsis. Yesterday, she had a cardiac arrest secondary to bradycardia and asystole. She had been on sotalol. This was discontinued. treating inte rmittently with IV beta-august when her blood pressure tolerates it, but she remains in sinus rhythm now. No PVCs. No atrial fibrillation. No ventricular tachycardia atrial fibrillation. She has COPD. She has thalassemia. She has hypothyroidism. She remains on antibiotics for sepsis. She should be on Lovenox. Echocardiogram is pending today to see what that shows before making any further decisions. I would definitely avoid sotalol and/or amiodarone at this point. KIRILL/YVETTE Voice ID: [id number] Report ID: [id number]
[2019-12-15] MEDS: FE SULF/FA/VIT B COMP & C TAB PO SCH (09:21)
--- NOTE | 2019-12-15 11:47 | P.PN ---
Subjective Date of Service: 12/15/19 Chief Complaint: UTI Subjective: No new changes (Patient is intubated) <JaidenLogan Last Filed: 12/15/19 11:38> Date of Service: 12/15/19 Subjective: Other (Patient currently intubated at this time.) <Khoa Youssefand - Last Filed: 12/15/19 15:40> Review of Systems is unable to be obtained (Patient is intubated) <JaidenLogan Last Filed: 12/15/19 11:38> Physical Examination - Vital Signs Temperature: 97.3 F Blood Pressure: 138/57 Pulse: 109 Respirations: 20 Pulse Ox (%): 100 - Physical Exam General: Unresponsive HEENT: Atraumatic, Normocephalic Neck: JVD not distended Respiratory: Clear to auscultation bilaterally, Normal air movement Cardiovascular: No edema Capillary refill: <2 Seconds Gastrointestinal: Normal bowel sounds Musculoskeletal: No clubbing Integumentary: No rashes <JaidenLogan Last Filed: 12/15/19 11:38> - Physical Exam General: Other (Patient intubated. Minimal response to pain. Patient had been given medication for sedation.) Cardiovascular: Normal pulses, Regular rate/rhythm Gastrointestinal: No guarding Neurological: Other (Patient intubated. Patient seen and examined with nurse practitioner.) <Khoa Youssefand - Last Filed: 12/15/19 15:40> Assessment & Plan Discharge Plan: [facility] (long term facility) Plan to discharge in: 48 Hours - Code Status/Comfort Care Code Status Assessed: Yes (Patient is full code) Physician Review Additional Text: Assessment Cardiac arrest likely secondary to bradycardia Septic shock secondary to urinary tract infection Sinus tachycardia Anemia Dementia PLAN: Cardiac arrest likely secondary to bradycardia- patient remains intubated on mechanical ventilation at this time. Patient on mild sedation but is responsive to pain. Blood pressure now stable without the use of pressors. Will continue to monitor patient closely, appreciate input from cardiology and pulmonology. Anticipate transfer to half-way facility for further management. Septic shock secondary to urinary tract infection- await final report from blood cultures. Repeat CBC tomorrow morning. Continue IV antibiotics at this time. Lactic acidosis improved after fluid challenge yesterday. Will continue to monitor blood pressure closely. Sinus tachycardia- patient now at a rate around 109. Blood pressure stable. Will continue to monitor. Appreciate cardiology input, will provide IV p.r.n. beta-blockers as needed and keep patient on telemetry. Anemia- patient has received blood transfusion. Hemoglobin has improved. Will continue to monitor H&H. Dementia- will evaluate for the use of any daily medications and continue when appropriate. Critical Care: Yes Time Spent Managing Pts Care (In Minutes): 55 <Logan Hwang - Last Filed: 12/15/19 11:38> Discharge Plan: Other (long term facility) Plan to discharge in: Greater than 2 days Physician Review Additional Text: Patient has done well. Case discussed with pulmonology. Pulmonology has made adjustments to his antibiotics. Pulmonology plans to wean off ventilator over the next day. Await urine and blood cultures. Patient had cardiac arrest with bradycardia and PA. This may be related to medication-sotalol. Case discussed with cardiology. No plan to restart sotalol or amiodarone as an option. Blood pressure stable off Levophed. IV fluids adjusted by pulmonology. Continue to monitor closely. Await progress. Case discussed with brother. Impression: Acute respiratory failure status post CPR related to PEA/bradycardia likely related to medication-sotalol, suspect underlying acute on chronic diastolic CHF Septic shock secondary to UTI Acute on chronic anemia Dementia <Ilya Youssef - Last Filed: 12/15/19 15:40>
[2019-12-15] MEDS: VANCOMYCIN/NS 1 gm 1 GM/250 ML BAG IV SCH (12:00)
[2019-12-15] MEDS: FUROSEMIDE 20 MG/ 2ML VIAL IV SCH ×2 (12:48→18:05)
--- NOTE | 2019-12-15 12:48 | P.CNS ---
Date of Consult: 12/15/19 Reason for Consult: Respiratory failure Chief Complaint: UTI History of Present Illness: Patient is 84 years of age admitted with a urinary tract infection then developed cardiac arrest is currently on a ventilator he does respond to pain and high concentrations of oxygen that will be weaned is no evidence of thromboembolism no evidence of any sepsis Allergies No Known Allergies Allergy (Verified 12/12/19 16:49) Home Medications: Iron/FA/Vit B-Com W/C [Hemocyte Plus*] 1 tab PO DAILY 09/07/17 Levothyroxine Sodium 88 mcg PO DAILY 09/07/17 Apixaban [Eliquis *] 2.5 mg PO BID #60 tablet 09/17/17 Sotalol HCl [Betapace*] 40 mg PO BID 6AM 6PM #30 tab 09/17/17 Alendronate Sodium 70 mg PO EVERY 7TH DAY 07/31/19 Fluticasone/Umeclidin/Vilanter [Trelegy Ellipta 100-62.5-25] 1 puff IH DAILY 07/31/19 Furosemide [Lasix] 20 mg PO DAILY PRN #30 tab 08/04/19 - Past Medical/Surgical History Diabetic: No -: Hypothyroidism -: COPD -: Thalassemia -: Atrial fibrillation/chronic anti coagulation therapy -: Anemia of chronic disease -: Former smoker -: History of recurrent UTI Psychosocial/ Personal History: Patient has a supporting family. Lives at home - Family History Mother Medical History: Heart disease Sister Medical History: Cancer - Social History Alcohol use: No CD- Drugs: No Caffeine use: Yes Review of Systems is unable to be obtained Physical Examination Temp Pulse Resp BP Pulse Ox 97.3 F 109 H 20 138/57 L 100 12/15/19 11:47 12/15/19 11:47 12/15/19 11:47 12/15/19 11:47 12/15/19 11:47 General: Unresponsive Respiratory: Clear to auscultation bilaterally Cardiovascular: No edema, Normal S1 S2 - Problems (1) Respiratory failure Current Visit: Yes Status: Acute Plan: Patient is 84 years of age admitted with possible urosepsis altered mental status and slight fever developed cardiac arrest here in the hospital currently stable white count is declining cultures are negative she has some mild microcytic anemia an history of thalassemia chest x-ray shows some patchy infiltrate will trying to wean her oxygen level down she does respond to deep pain painful stimulus vital signs stable afebrile patient probably developed pulmonary edema and BNP is elevated CT angiogram does not show any evidence of pulmonary embolism she has COPD changes given some Lasix Dc vancomycin and meropenem sputum cultures patient was on Eliquis patient is on trilogy at home Qualifiers: Chronicity: acute
[2019-12-15 12:51] LABS: Hematocrit 27.6 % (36.0-45.0)
[2019-12-15] MEDS: HALOPERIDOL LACT 5 MG/ML INJ IV PRN ×2 (14:16→18:14)
[2019-12-15] MEDS: APIXABAN 2.5 MG TABLET PO SCH ×2 (14:51→22:02)
[2019-12-15] MEDS: MIDAZOLAM HCL 2 MG/2 ML INJ IV PRN (15:16)
[2019-12-15] MEDS: METOPROLOL TARTRATE 5 MG/5 ML INJ IV PRN ×2 (15:27→19:59)
[2019-12-15] MEDS ORDERED: NA CHLORIDE 0.9% 500 ML ONE (19:27)
[2019-12-15] MEDS ORDERED: METOPROLOL TARTRATE 5 MG/5 ML INJ IV STA (20:20)
[2019-12-15] MEDS ORDERED: DIGOXIN 0.25 MG/ML AMP IV ONE (21:25)
[2019-12-15] MEDS ORDERED: NA CHLORIDE 0.9% 250 ML IV ONE (21:25)
[2019-12-16] MEDS: METOPROLOL TARTRATE 5 MG/5 ML INJ IV PRN (01:46)
[2019-12-16] MEDS: LORazepam 2 MG/ML VIAL IV PRN ×4 (01:56→18:01)
[2019-12-16] MEDS: ALBUTEROL 2.5 MG/3 ML NEB SOL NEB SCH ×4 (02:00→19:32)
[2019-12-16] MEDS: IPRATROPIUM BROM 0.5MG/2.5ML NEB SCH ×4 (02:00→19:32)
[2019-12-16] MEDS: FENTANYL CITR 100 MCG/2 ML IV PRN ×4 (05:17→19:00)
[2019-12-16 05:22] LABS: Absolute Lymphocytes (CBC) 0.6 K/uL (0.7-4.9); Lymphocytes % 6.4 % (15.3-44.8); MPV 8.7 fL (7.6-11.3); RBC Red Blood Cell Count 4.09 M/uL (3.86-4.86)
[2019-12-16 05:42] LABS: Arterial Blood Carboxyhemoglob 1.5 % (0-1.5); Blood Gas Oxyhemoglobin 89.9 % (94-97); Blood O2 Saturation 92.3 % (92-98.5)
[2019-12-16 05:49] LABS: Magnesium 1.7 mg/dL (1.8-2.4)
[2019-12-16] MEDS: LEVOTHYROXINE SOD 0.088 MG TAB PO SCH (06:39)
[2019-12-16] MEDS: METHYLPREDNISOLONE 125 MG INJ IV SCH (06:40)
[2019-12-16] MEDS ORDERED: MAGNESIUM SULFATE 1 gm IVPB 1 GM/100 ML BAG IV ONE (07:14)
[2019-12-16] MEDS ORDERED: POTASSIUM PHOS IN 0.9 % NACL 15 MMOL/250 ML BAG IV ONE ×2 (07:17→18:00)
--- NOTE | 2019-12-16 07:34 | RAD REPORT ---
EXAM DESCRIPTION: ISABELRafaelat Single View12/16/2019 7:08 am CLINICAL HISTORY: Shortness of breath COMPARISON: December 14 FINDINGS: Overall no significant change in the bilateral pulmonary opacities and small pleural effus ions. Endotracheal nasogastric tubes remain in good position
--- NOTE | 2019-12-16 08:22 | P.PN ---
Subjective Date of Service: 12/16/19 Chief Complaint: Respiratory failure Subjective: Improving (Patient is currently stable minimally responsive) Review of Systems is unable to be obtained Physical Examination - Vital Signs Temperature: 98.2 F Blood Pressure: 133/63 Pulse: 124 Respirations: 17 Pulse Ox (%): 98 - Physical Exam General: Unresponsive Respiratory: Clear to auscultation bilaterally Cardiovascular: No edema, Regular rate/rhythm Assessment & Plan - Problems (Diagnosis) (1) Respiratory failure Current Visit: Yes Status: Acute Plan: Patient is currently stable will plan to wean and extubate today chest x-ray seems to have improved patient has significant diuresis yesterday his no evidence of sepsis she is a little alkalotic and hypokalemic reduce the dose of Solu-Medrol evidence of sepsis chest x-ray shows interstitial changes patient has a history of severe COPD Qualifiers: Chronicity: acute Physician Review Additional Text: Patient has done well. Case discussed with pulmonology. Pulmonology has made adjustments to his antibiotics. Pulmonology plans to wean off ventilator over the next day. Await urine and blood cultures. Patient had cardiac arrest with bradycardia and PA. This may be related to medication-sotalol. Case discussed with cardiology. No plan to restart sotalol or amiodarone as an option. Blood pressure stable off Levophed. IV fluids adjusted by pulmonology. Continue to monitor closely. Await progress. Case discussed with brother. Impression: Acute respiratory failure status post CPR related to PEA/bradycardia likely related to medication-sotalol, suspect underlying acute on chronic diastolic CHF Septic shock secondary to UTI Acute on chronic anemia Dementia
[2019-12-16] MEDS ORDERED: POTASSIUM 25 MEQ EFFERV TAB PO ONE (09:01)
--- NOTE | 2019-12-16 09:02 | ECHO ---
HEIGHT: 5 ft 2 in WEIGHT: 113 lb 4.8 oz DATE OF STUDY: 12/15/[address]: Prince Amol Berman MD 2-DIMENSIONAL: YES M.MODE: YES DOPPLER: YES COLOR FLOW: YES TDS: PORTABLE: YES DEFINITY: BUBBLE STUDY: DIAGNOSIS: TACHYCARDIA CARDIAC HISTORY: CATHERIZATION: NO SURGERY: NO PROSTHETIC VALVE: NO PACEMAKER: NO MEASUREMENTS (cm) DIASTOLIC (NORMALS) SYSTOLIC (NORMALS) IVSd 0.8 (0.6-1.2) LA Diam 2.9 (1.9-4.0) LVEF 63% LVIDd 3.9 (3.5-5.7) LVIDs 2.6 (2.0-3.5) %FS 33% LVPWd 1.0 (0.6-1.2) Ao Diam 2.7 (2.0-3.7) 2 DIMENSIONAL ASSESSMENT: RIGHT ATRIUM: NORMAL LEFT ATRIUM: NORMAL RIGHT VENTRICLE: NORMAL LEFT VENTRICLE: NORMAL TRICUSPID VALVE: NORMAL MITRAL VALVE: MITRAL ANNULAR CALCIFICATION PULMONIC VALVE: NORMAL AORTIC VALVE: SCLEROSIS PERICARDIAL EFFUSION: NONE AORTIC ROOT: NORMAL LEFT VENTRICULAR WALL MOTION: DOPPLER/COLOR FLOW: NORMAL COMMENTS: NORMAL LEFT VENTRICULAR SIZE AND FUNCTION. MITRAL ANNULAR CALCIFICATION. AORTIC SCLEROSIS. NO EFFUSION. TECHNOLOGIST: LILA SPRAGUE
[2019-12-16] MEDS: FUROSEMIDE 20 MG/ 2ML VIAL IV SCH (09:45)
[2019-12-16] MEDS: FE SULF/FA/VIT B COMP & C TAB PO SCH (10:00)
[2019-12-16] MEDS: METHYLPREDNISOLONE 40 MG INJ IV SCH ×2 (10:00→17:00)
--- NOTE | 2019-12-16 10:48 | EKG ---
Test Date: 2019-12-14 Test Time: 07:40:50 Nailhead Puncher: ELVIS MEASUREMENT RESULTS: Intervals: Rate: 96 LA: 132 QRSD: 74 QT: 360 QTc: 454 [place]: P: 100 LA: 132 QRS: 88 T: 82 INTERPRETIVE STATEMENTS: Sinus rhythm with occasional premature ventricular complexes Low voltage QRS Nonspecific ST abnormality Abnormal ECG Compared to ECG 12/13/2019 16:07:06 Ventricular premature complex(es) now present Low QRS voltage now present Atrial fibrillation no longer present ST (T wave) deviation still present Electronically Signed On 12-16-19 10:47:23 CDT by Daniel Pollock
--- NOTE | 2019-12-16 10:48 | EKG ---
Test Date: 2019-12-13 Test Time: 16:07:06 Supervisor Residential: EC MEASUREMENT RESULTS: Intervals: Rate: 148 IN: QRSD: 74 QT: 296 QTc: 464 [place]: P: IN: QRS: 80 T: 41 INTERPRETIVE STATEMENTS: Atrial fibrillation with rapid ventricular response Nonspecific ST abnormality, probably digitalis effect Abnormal ECG Compared to ECG 12/13/2019 10:29:15 ST (T wave) deviation now present Sinus tachycardia no longer present Fusion complex(es) no longer present Ventricular premature complex(es) no longer present Electronically Signed On 12-16-19 10:47:25 CDT by Daniel Pollock
--- NOTE | 2019-12-16 10:48 | EKG ---
Test Date: 2019-12-13 Test Time: 10:29:15 Drug And Alcohol Counselor: ELVIS MEASUREMENT RESULTS: Intervals: Rate: 109 CO: 122 QRSD: 76 QT: 332 QTc: 447 [place]: P: 84 CO: 122 QRS: 82 T: 61 INTERPRETIVE STATEMENTS: Sinus tachycardia with occasional premature ventricular complexes and fusion complexes Otherwise normal ECG Compared to ECG 12/12/2019 12:29:41 Ventricular premature complex(es) now present Short CO interval no longer present Electronically Signed On 12-16-19 10:47:28 CDT by Daneil Pollock
[2019-12-16] MEDS: APIXABAN 2.5 MG TABLET PO SCH ×2 (11:16→21:11)
[2019-12-16] MEDS: MIDAZOLAM HCL 2 MG/2 ML INJ IV PRN ×2 (11:31→22:42)
[2019-12-16] MEDS ORDERED: NA CHLORIDE 0.9% 1,000 ML ONE (14:31)
[2019-12-16 15:45] LABS: Phosphorus 1.7 mg/dL (2.5-4.9); Potassium 3.1 mmol/L (3.5-5.1)
--- NOTE | 2019-12-16 16:08 | P.PN ---
Subjective Date of Service: 12/16/19 Chief Complaint: Respiratory failure Subjective: Other (Patient remains intubated.) Physical Examination - Vital Signs Temperature: 99.3 F Blood Pressure: 157/75 Pulse: 134 Respirations: 28 Pulse Ox (%): 92 - Physical Exam General: Other (Patient intubated. Some response to pain) Respiratory: Clear to auscultation bilaterally, Normal air movement Cardiovascular: Normal pulses, Regular rate/rhythm Integumentary: No warmth, No cyanosis - Studies Medications List Reviewed: Yes Assessment & Plan Discharge Plan: Other (senior living facility) Plan to discharge in: Greater than 2 days Physician Review Additional Text: Impression: Acute respiratory failure status post CPR related to PEA/bradycardia likely related to medication-sotalol, suspect underlying acute on chronic diastolic CHF Septic shock secondary to UTI Acute on chronic anemia Dementia Plan: Case discussed with pulmonology. Will continue to wean off ventilator. Pulmonology plans to wean off today. Will continue to monitor closely. Case discussed with family. Will continue antibiotic therapy. Await further recommendations from pulmonology. Patient with underlying dementia. Continue to replace electrolytes. Will monitor hemoglobin. Time Spent Managing Pts Care (In Minutes): 55
[2019-12-16] MEDS: CEFTRIAXONE/SWI 1gm 1 GM/10 ML SYR IVP SCH (17:59)
[2019-12-16] MEDS: KCL 20 MEQ/100 mL IVPB 20 MEQ/100 ML BAG IV SCH ×2 (18:01→21:10)
[2019-12-16] MEDS ORDERED: EPINEPHrine 1 MG/10 ML SYR IV ONE (18:20)
--- NOTE | 2019-12-16 23:24 | PN ---
Date of Progress Note: 12/16/2019 Ms. Bedolla has been in the hospital for a few days. She got admitted on 12/12/2019 with urosepsis. Had a cardiac arrest when she was on sotalol. This was stopped. She has since been intubated. Clovis kwong continues to have paroxysmal atrial fibrillation that has been treated intermittently with IV beta- blockers. When I saw her, she was in sinus tachycardia. Her temperature today is 99.3. Her blood p ressure is 157/55. Pulmonology is following. We are trying to continue to wean her off the ventilat or. Her case was discussed with the family. Antibiotics have been continued. [facility]12/2019, showed normal ejection fraction with aortic sclerosis and no effusion. Her CT angiogram did not show any evidence of pulmonary embolism. Although, I think she should be ba ck on Eliquis once she is extubated. I will continue to follow her. KIRILL/YVETTE Voice ID: [id number] Report ID: [id number]
[2019-12-17] MEDS: METHYLPREDNISOLONE 40 MG INJ IV SCH ×3 (00:20→16:01)
[2019-12-17] MEDS: ALBUTEROL 2.5 MG/3 ML NEB SOL NEB SCH ×4 (01:35→20:15)
[2019-12-17] MEDS: IPRATROPIUM BROM 0.5MG/2.5ML NEB SCH ×4 (01:35→20:15)
[2019-12-17] MEDS: FENTANYL CITR 100 MCG/2 ML IV PRN ×2 (05:14→20:56)
[2019-12-17 05:44] LABS: Absolute Lymphocytes (CBC) 0.4 K/uL (0.7-4.9); Basophils % 0.1 % (0-1.3); Hematocrit 24.9 % (36.0-45.0); Lymphocytes % 3.9 % (15.3-44.8); MPV 8.4 fL (7.6-11.3); RBC Red Blood Cell Count 3.59 M/uL (3.86-4.86)
[2019-12-17 06:06] LABS: BUN Blood Urea Nitrogen 15 mg/dL (7-18); Bicarbonate 36 mmol/L (21-32); Glucose Level 161 mg/dL (74-106); Magnesium 1.9 mg/dL (1.8-2.4); Potassium 3.4 mmol/L (3.5-5.1); Sodium Level 143 mmol/L (136-145)
[2019-12-17] MEDS ORDERED: POTASSIUM PHOS IN 0.9 % NACL 15 MMOL/250 ML BAG IV ONE (06:33)
[2019-12-17] MEDS: LEVOTHYROXINE SOD 0.088 MG TAB PO SCH (06:42)
--- NOTE | 2019-12-17 08:31 | RAD REPORT ---
EXAM DESCRIPTION: RAD - Chest Single View - 12/17/2019 6:21 am CLINICAL HISTORY: follow up SOB Chest pain. COMPARISON: Chest Single View dated 12/16/2019; Chest Single View dated 12/15/2019; Chest Single View dated 12/14/2019; Chest Single View dated 12/14/2019 FINDINGS: Portable technique limits examination quality. Tip of the endotracheal tube is above the ollie. Enteric tube descends in the stomach. Bilateral pul monary opacities are noted with trace pleural effusions, slightly worse than on the comparative study . Heart size is upper limit of normal. IMPRESSION: Mild worsening in lung aeration seen since the comparative examination.
[2019-12-17 08:54] LABS: Anisocytosis 1+; Blood Morphology Comment NOTED (NOT SEEN); Hypochromasia 1+; Ovalocytes 1+; Platelet Estimate ADEQ; Teardrop Cell 1+
[2019-12-17] MEDS: LORazepam 2 MG/ML VIAL IV PRN ×4 (09:01→22:33)
[2019-12-17] MEDS: FUROSEMIDE 20 MG/ 2ML VIAL IV SCH (09:43)
[2019-12-17] MEDS: CEFTRIAXONE/SWI 1gm 1 GM/10 ML SYR IVP SCH (09:49)
[2019-12-17] MEDS: MIDAZOLAM HCL 2 MG/2 ML INJ IV PRN ×2 (09:54→23:30)
[2019-12-17] MEDS: KCL 20 MEQ/100 mL IVPB 20 MEQ/100 ML BAG IV SCH ×2 (11:08→13:28)
[2019-12-17] MEDS: FE SULF/FA/VIT B COMP & C TAB PO SCH (11:08)
[2019-12-17] MEDS: APIXABAN 2.5 MG TABLET PO SCH ×2 (11:08→20:56)
--- NOTE | 2019-12-17 13:43 | P.PN ---
Subjective Date of Service: 12/17/19 Chief Complaint: Respiratory failure Subjective: Other (patient is intubated) Physical Examination - Vital Signs Temperature: 98.1 F Blood Pressure: 151/66 Pulse: 104 Respirations: 23 Pulse Ox (%): 96 - Physical Exam General: Other (patient is intubated. Some agitation with pain) Neck: Supple Respiratory: Crackles/rales (Some crackles to the bases) Cardiovascular: Abnormal pulses (Mild sinus tachycardia) Gastrointestinal: Normal bowel sounds, Soft and benign, Non-distended Neurological: Other (Patient intubated) - Studies Microbiology Data (last 24 hrs): 12/12/19 12:50 Blood - Blood Aerobic Blood Culture - Final No growth in 5 days. 12/12/19 12:50 Blood - Blood Anaerobic Blood Culture - Final No growth in 5 days. 12/12/19 12:43 Blood - Blood Aerobic Blood Culture - Final No growth in 5 days. 12/12/19 12:43 Blood - Blood Anaerobic Blood Culture - Final No growth in 5 days. Medications List Reviewed: Yes Assessment & Plan Discharge Plan: Other (Suspect will need skilled placement) Plan to discharge in: Greater than 2 days Physician Review Additional Text: Impression: Acute respiratory failure status post CPR related to PEA/bradycardia likely related to medication-sotalol, suspect underlying acute on chronic diastolic CHF Septic shock secondary to UTI Acute on chronic anemia Dementia Plan: Acute respiratory failure status post CPR related to PEA/bradycardia likely related to medication-sotalol, suspect underlying acute on chronic diastolic CHF: Patient remains intubated at this time. Pulmonology to further wean off. Continue diuresis. Will monitor chest x-ray. Sotalol has been discontinued as recommended by Cardiology. Continue with metoprolol IV as needed. Patient on chronic anti coagulation therapy-Eliquis. Spoke with family concerning medical issues. Await further recommendations from pulmonology. Patient will likely require skilled placement at discharge. If her condition continues to be unchanged will need to consider long-term acute care facility placement. Septic shock secondary to UTI: Overall this is improved. Will recheck urine culture at this time. Continue Rocephin. Original urine culture from the ER was abnormal but unfortunately was not collected for culture. Acute on chronic anemia: Will continue to monitor closely. Dementia: Overall stable. Will monitor closely. Time Spent Managing Pts Care (In Minutes): 55
[2019-12-17] MEDS: ARFORMOTEROL TARTRATE 15 MCG/2 ML VIAL.NEB NEB SCH ×2 (16:39→20:15)
--- NOTE | 2019-12-17 16:40 | P.PN ---
Subjective Date of Service: 12/17/19 (Hospitalist) Chief Complaint: Respiratory failure No change patient did not tolerate weaning trial today became very agitated Review of Systems is unable to be obtained Physical Examination - Vital Signs Temperature: 97.8 F Blood Pressure: 137/62 Pulse: 95 Respirations: 15 Pulse Ox (%): 94 - Physical Exam General: Unresponsive Respiratory: Clear to auscultation bilaterally, Diminished Cardiovascular: No edema, Regular rate/rhythm - Studies Microbiology Data (last 24 hrs): 12/12/19 12:50 Blood - Blood Aerobic Blood Culture - Final No growth in 5 days. 12/12/19 12:50 Blood - Blood Anaerobic Blood Culture - Final No growth in 5 days. 12/12/19 12:43 Blood - Blood Aerobic Blood Culture - Final No growth in 5 days. 12/12/19 12:43 Blood - Blood Anaerobic Blood Culture - Final No growth in 5 days. Medications List Reviewed: Yes Assessment & Plan - Problems (Diagnosis) (1) Respiratory failure Current Visit: Yes Status: Acute Plan: Patient admitted with respiratory failure failed spontaneous breathing trial will had nebulize Brovana continue with ipratropium chemistries reviewed echocardiogram is normal patient has a mild microcytic anemia chest x-rays clear Dc daily EKG patient's cultures all negative patient is in negative fluid balance no evidence of sepsis Qualifiers: Chronicity: acute on chronic
--- NOTE | 2019-12-17 17:18 | PN ---
Date of Progress Note: 12/17/2019 Ms. Bedolla remains intubated. Her heart rhythm today is sinus rhythm with occasional PACs, rate of about 90. The patient has still been treated with urosepsis. She has COPD, which is making it diff icult to extubate. Yesterday during extubation at 10, she got tachycardic and dyspneic. She was giv en Lasix IV by Dr. Madrigal's, which I agree on. She is known to have a normal ejection fraction, bu t I am sure she has some diastolic dysfunction. Not a good candidate for amiodarone. She had a leroy re reaction to sotalol with cardiac arrest from it. I would continue beta-blockers IV on an as-neede d basis, maybe digoxin as well on an as-needed basis. She used to be on Eliquis. We need to restart that when she is extubated. Continue present regimen. Continue to follow along with Dr. Madrigal. KIRILL/YVETTE Voice ID: [id number] Report ID: [id number]
[2019-12-17] MEDS ORDERED: KCL 20 MEQ/100 mL IVPB 20 MEQ/100 ML BAG IV SCH (23:00)
[2019-12-18] MEDS: METHYLPREDNISOLONE 40 MG INJ IV SCH ×3 (00:32→17:03)
[2019-12-18] MEDS: ALBUTEROL 2.5 MG/3 ML NEB SOL NEB SCH ×4 (01:15→20:05)
[2019-12-18] MEDS: IPRATROPIUM BROM 0.5MG/2.5ML NEB SCH ×4 (01:15→20:05)
[2019-12-18] MEDS: LORazepam 2 MG/ML VIAL IV PRN (03:38)
[2019-12-18] MEDS: FENTANYL CITR 100 MCG/2 ML IV PRN (04:17)
[2019-12-18 05:09] LABS: Hematocrit 25.9 % (36.0-45.0); Lymphocytes % 10.4 % (15.3-44.8); MPV 7.7 fL (7.6-11.3); RBC Red Blood Cell Count 3.73 M/uL (3.86-4.86)
[2019-12-18 05:27] LABS: BUN Blood Urea Nitrogen 16 mg/dL (7-18); Bicarbonate 32 mmol/L (21-32); Glucose Level 181 mg/dL (74-106); Magnesium 1.8 mg/dL (1.8-2.4); Phosphorus 1.9 mg/dL (2.5-4.9); Potassium 3.4 mmol/L (3.5-5.1); Sodium Level 141 mmol/L (136-145)
[2019-12-18] MEDS: LEVOTHYROXINE SOD 0.088 MG TAB PO SCH (06:18)
--- NOTE | 2019-12-18 06:32 | EKG ---
Test Date: 2019-12-15 Test Time: 19:56:05 Packager: RT MEASUREMENT RESULTS: Intervals: Rate: 165 UT: QRSD: 78 QT: 290 QTc: 480 [place]: P: UT: QRS: 76 T: -65 INTERPRETIVE STATEMENTS: Supraventricular tachycardia ST & T wave abnormality, consider inferior ischemia Abnormal ECG Compared to ECG 12/14/2019 07:40:50 Possible ischemia now present Sinus rhythm no longer present Ventricular premature complex(es) no longer present ST (T wave) deviation still present Electronically Signed On 12-18-19 06:30:40 CDT by Daniel Pollock
[2019-12-18] MEDS ORDERED: MAGNESIUM SULFATE 1 gm IVPB 1 GM/100 ML BAG IV ONE (06:34)
[2019-12-18] MEDS: ARFORMOTEROL TARTRATE 15 MCG/2 ML VIAL.NEB NEB SCH ×2 (07:42→20:05)
--- NOTE | 2019-12-18 08:25 | P.PN ---
Subjective Date of Service: 12/18/19 Chief Complaint: Respiratory failure No change failed weaning trial yesterday still little agitated patient has severe COPD Review of Systems is unable to be obtained Physical Examination - Vital Signs Temperature: 98.3 F Blood Pressure: 114/61 Pulse: 88 Respirations: 16 Pulse Ox (%): 96 - Physical Exam General: Unresponsive Respiratory: Clear to auscultation bilaterally, Diminished Cardiovascular: No edema, Regular rate/rhythm, Normal S1 S2 Gastrointestinal: Normal bowel sounds, Soft and benign Musculoskeletal: No clubbing, No swelling Integumentary: No breakdown - Studies Microbiology Data (last 24 hrs): 12/12/19 12:50 Blood - Blood Aerobic Blood Culture - Final No growth in 5 days. 12/12/19 12:50 Blood - Blood Anaerobic Blood Culture - Final No growth in 5 days. 12/12/19 12:43 Blood - Blood Aerobic Blood Culture - Final No growth in 5 days. 12/12/19 12:43 Blood - Blood Anaerobic Blood Culture - Final No growth in 5 days. Medications List Reviewed: Yes Assessment & Plan - Problems (Diagnosis) (1) Respiratory failure Current Visit: Yes Status: Acute Plan: Patient admitted with respiratory failure will plan to wean and extubate today reduce dose of Solu-Medrol may be causing agitation continue with bronchodilators patient is hypokalemic Qualifiers: Chronicity: acute on chronic Physician Review Additional Text: Impression: Acute respiratory failure status post CPR related to PEA/bradycardia likely related to medication-sotalol, suspect underlying acute on chronic diastolic CHF Septic shock secondary to UTI Acute on chronic anemia Dementia Plan: Acute respiratory failure status post CPR related to PEA/bradycardia likely related to medication-sotalol, suspect underlying acute on chronic diastolic CHF: Patient remains intubated at this time. Pulmonology to further wean off. Continue diuresis. Will monitor chest x-ray. Sotalol has been discontinued as recommended by Cardiology. Continue with metoprolol IV as needed. Patient on chronic anti coagulation therapy-Eliquis. Spoke with family concerning medical issues. Await further recommendations from pulmonology. Patient will likely require skilled placement at discharge. If her condition continues to be unchanged will need to consider long-term acute care facility placement. Septic shock secondary to UTI: Overall this is improved. Will recheck urine culture at this time. Continue Rocephin. Original urine culture from the ER was abnormal but unfortunately was not collected for culture. Acute on chronic anemia: Will continue to monitor closely. Dementia: Overall stable. Will monitor closely.
[2019-12-18] MEDS: APIXABAN 2.5 MG TABLET PO SCH ×2 (08:50→20:18)
[2019-12-18] MEDS: POTASSIUM 25 MEQ EFFERV TAB PO SCH (08:50)
[2019-12-18] MEDS: FUROSEMIDE 20 MG/ 2ML VIAL IV SCH (08:50)
[2019-12-18] MEDS: FE SULF/FA/VIT B COMP & C TAB PO SCH (08:50)
[2019-12-18] MEDS: KCL 20 MEQ/100 mL IVPB 20 MEQ/100 ML BAG IV SCH ×2 (09:11→15:30)
[2019-12-18] MEDS ORDERED: POTASSIUM PHOS IN 0.9 % NACL 15 MMOL/250 ML BAG IV ONE (10:00)
--- NOTE | 2019-12-18 12:47 | PN ---
Date of Progress Note: 12/18/2019 I have been following Ms. Bedolla for few days right now for multiple problems. She has chronic atr ial fibrillation. She has thalassemia, hypothyroidism, and COPD. Came in initially with sepsis, yisel dinh her recent blood cultures are negative. She is on steroid. She is receiving IV beta-blockers p.r.n. tachycardia. She is on inhalers, Eliquis, antibiotics, and Lasix. She is actually doing pret ty well from a cardiovascular standpoint. She remains in sinus rhythm. Her blood pressure is 164/61 . Last creatinine is 0.49, hemoglobin 8.5, potassium of 3.4. Her O2 saturation 98%. She remains in tubated. Her biggest issue with her now is altered mental status and failure to extubate because of agitation. She has had a normal echocardiogram recently. I agree with her present regimen from a ca rdiac standpoint as far as Eliquis is concerned and IV beta-blockers as needed. We will continue att empt for sedation. We would be great if we can wean her off some of her sedatives. For now, I will sign off Ms. Bedolla' case and be available for questions if the need arises. I think maybe a trach eostomy should be considered as well as long-term acute care. I will leave that up to the admitting physician and Dr. Madrigal. KIRILL/YVETTE Voice ID: [id number] Report ID: [id number]
[2019-12-18] MEDS: CEFTRIAXONE/SWI 1gm 1 GM/10 ML SYR IVP SCH (13:16)
[2019-12-18 16:32] LABS: Arterial Blood Carboxyhemoglob 1.3 % (0-1.5); Blood Gas Oxyhemoglobin 87.3 % (94-97); Blood O2 Saturation 89.4 % (92-98.5)
--- NOTE | 2019-12-18 16:49 | P.PN ---
Subjective Date of Service: 12/18/19 Chief Complaint: Respiratory failure Subjective: Other (patient is intubated) Physical Examination - Vital Signs Temperature: 98.3 F Blood Pressure: 140/67 Pulse: 126 Respirations: 36 Pulse Ox (%): 96 - Physical Exam General: Other (Patient intubated. She was more alert today.) Neck: Supple Respiratory: Clear to auscultation bilaterally, Normal air movement Cardiovascular: Abnormal pulses (Sinus tachycardia) - Studies Microbiology Data (last 24 hrs): 12/12/19 12:50 Blood - Blood Aerobic Blood Culture - Final No growth in 5 days. 12/12/19 12:50 Blood - Blood Anaerobic Blood Culture - Final No growth in 5 days. 12/12/19 12:43 Blood - Blood Aerobic Blood Culture - Final No growth in 5 days. 12/12/19 12:43 Blood - Blood Anaerobic Blood Culture - Final No growth in 5 days. Medications List Reviewed: Yes Assessment & Plan Discharge Plan: Other (intermediate facility) Plan to discharge in: Greater than 2 days Physician Review Additional Text: Impression: Acute respiratory failure status post CPR related to PEA/bradycardia likely related to medication-sotalol, suspect underlying acute on chronic diastolic CHF with possible COPD exacerbation Septic shock secondary to UTI Acute on chronic anemia Dementia Plan: Acute respiratory failure status post CPR related to PEA/bradycardia likely related to medication-sotalol, suspect underlying acute on chronic diastolic CHF with possible COPD exacerbation: Spoke with pulmonology today. Pulmonology plans to extubate later today. Patient continues with IV steroids. Patient will likely require BiPAP. Continue diuresis with Lasix. Will monitor chest x-ray. Sotalol has been discontinued as recommended by Cardiology. Continue with metoprolol IV as needed. Patient on chronic anti coagulation therapy- Eliquis. Spoke with family concerning medical issues. Patient will likely require skilled placement at discharge. If her condition continues to be unchanged will need to consider long-term acute care facility placement. Spoke with social media sr strategy manager about this. Septic shock secondary to UTI: Overall this is improved. Will recheck urine culture at this time. Continue Rocephin. Original urine culture from the ER was abnormal but unfortunately was not collected for culture. Acute on chronic anemia: Will continue to monitor closely. Dementia: Overall stable. Will monitor closely. Time Spent Managing Pts Care (In Minutes): 55
[2019-12-18] MEDS: HALOPERIDOL LACT 5 MG/ML INJ IV PRN (23:18)
[2019-12-18] MEDS ORDERED: KCL 20 MEQ/100 mL IVPB 20 MEQ/100 ML BAG IV SCH (23:45)
[2019-12-19] MEDS: METHYLPREDNISOLONE 40 MG INJ IV SCH ×3 (00:04→20:28)
[2019-12-19] MEDS: FENTANYL CITR 100 MCG/2 ML IV PRN ×2 (00:29→11:31)
[2019-12-19] MEDS: ALBUTEROL 2.5 MG/3 ML NEB SOL NEB SCH ×4 (01:45→19:50)
[2019-12-19] MEDS: IPRATROPIUM BROM 0.5MG/2.5ML NEB SCH ×4 (01:45→19:50)
[2019-12-19] MEDS: LEVOTHYROXINE SOD 0.088 MG TAB PO SCH (05:51)
[2019-12-19 06:23] LABS: Absolute Lymphocytes (CBC) 1.1 K/uL (0.7-4.9); Basophils % 0.1 % (0-1.3); Hematocrit 28.1 % (36.0-45.0); Lymphocytes % 8.5 % (15.3-44.8); MPV 7.9 fL (7.6-11.3); RBC Red Blood Cell Count 3.99 M/uL (3.86-4.86)
--- NOTE | 2019-12-19 06:27 | EKG ---
Test Date: 2019-12-15 Test Time: 20:09:53 Medical Staff Assistant: RT MEASUREMENT RESULTS: Intervals: Rate: 115 MS: QRSD: 82 QT: 354 QTc: 489 [place]: P: MS: QRS: 75 T: 57 INTERPRETIVE STATEMENTS: Atrial flutter with variable AV block with premature ventricular or aberrantly conducted complexes Abnormal ECG Compared to ECG 12/15/2019 19:56:05 Ventricular premature complex(es) now present Supraventricular tachycardia no longer present ST (T wave) deviation no longer present Possible ischemia no longer present Electronically Signed On 12-19-19 06:24:26 CDT by Daniel Pollock
[2019-12-19 06:46] LABS: BUN Blood Urea Nitrogen 15 mg/dL (7-18); Bicarbonate 33 mmol/L (21-32); Glucose Level 154 mg/dL (74-106); Magnesium 2.2 mg/dL (1.8-2.4); Phosphorus 2.4 mg/dL (2.5-4.9); Potassium 4.2 mmol/L (3.5-5.1); Sodium Level 142 mmol/L (136-145)
[2019-12-19] MEDS: ARFORMOTEROL TARTRATE 15 MCG/2 ML VIAL.NEB NEB SCH ×2 (07:40→19:50)
[2019-12-19] MEDS: APIXABAN 2.5 MG TABLET PO SCH ×2 (08:48→20:28)
[2019-12-19] MEDS: FE SULF/FA/VIT B COMP & C TAB PO SCH (08:48)
[2019-12-19] MEDS: POTASSIUM 25 MEQ EFFERV TAB PO SCH (08:49)
[2019-12-19] MEDS: FUROSEMIDE 20 MG/ 2ML VIAL IV SCH (08:49)
[2019-12-19] MEDS: CEFTRIAXONE/SWI 1gm 1 GM/10 ML SYR IVP SCH (08:49)
[2019-12-19] MEDS: JEVITY 1.5 CAL LIQUID 1,000 ML BOT FT SCH ×2 (08:50→14:10)
--- NOTE | 2019-12-19 11:23 | P.PN ---
Subjective Date of Service: 12/19/19 Chief Complaint: Respiratory failure Patient is still agitated was extubated yesterday requiring BiPAP she is more alert responsive as some diarrhea Review of Systems is unable to be obtained Physical Examination - Vital Signs Temperature: 96.9 F Blood Pressure: 132/67 Pulse: 104 Respirations: 26 Pulse Ox (%): 96 - Physical Exam General: Alert, Mild distress Respiratory: Clear to auscultation bilaterally, Diminished Cardiovascular: No edema, Regular rate/rhythm, Normal S1 S2 Gastrointestinal: Normal bowel sounds, Soft and benign Musculoskeletal: No clubbing, No swelling - Studies Medications List Reviewed: Yes Assessment & Plan - Problems (Diagnosis) (1) Respiratory failure Current Visit: Yes Status: Acute Plan: Patient is 84 years of age with a history of severe COPD admitted with respiratory failure she now has diarrhea requiring BiPAP on tube feeds labs reviewed spironolactone added there is no evidence of sepsis Dc antibiotic Qualifiers: Chronicity: acute on chronic (2) Diarrhea Current Visit: Yes Status: Acute Plan: The be induced by the tube feeds C difficile has been ordered Qualifiers: Diarrhea type: unspecified type Qualified Code(s): R19.7 - Diarrhea, unspecified Physician Review Additional Text: Impression: Acute respiratory failure status post CPR related to PEA/bradycardia likely related to medication-sotalol, suspect underlying acute on chronic diastolic CHF with possible COPD exacerbation Septic shock secondary to UTI Acute on chronic anemia Dementia Plan: Acute respiratory failure status post CPR related to PEA/bradycardia likely related to medication-sotalol, suspect underlying acute on chronic diastolic CHF with possible COPD exacerbation: Spoke with pulmonology today. Pulmonology plans to extubate later today. Patient continues with IV steroids. Patient will likely require BiPAP. Continue diuresis with Lasix. Will monitor chest x-ray. Sotalol has been discontinued as recommended by Cardiology. Continue with metoprolol IV as needed. Patient on chronic anti coagulation therapy- Eliquis. Spoke with family concerning medical issues. Patient will likely require skilled placement at discharge. If her condition continues to be unchanged will need to consider long-term acute care facility placement. Spoke with social welfare administrator about this. Septic shock secondary to UTI: Overall this is improved. Will recheck urine culture at this time. Continue Rocephin. Original urine culture from the ER was abnormal but unfortunately was not collected for culture. Acute on chronic anemia: Will continue to monitor closely. Dementia: Overall stable. Will monitor closely.
[2019-12-19 11:48] LABS: C.diff Antigen/Toxin Ag neg : Tox neg (NEG : NEG)
[2019-12-19] MEDS: SPIRONOLACTONE 25 MG TABLET PO SCH (14:11)
[2019-12-19] MEDS ORDERED: JEVITY 1.5 CAL LIQUID 1,000 ML BOT RTH SCH (15:00)
[2019-12-19] MEDS: ACETAMINOPHEN 325 MG TABLET PO PRN (20:27)
[2019-12-20] MEDS: ALBUTEROL 2.5 MG/3 ML NEB SOL NEB SCH ×2 (02:05→08:00)
[2019-12-20] MEDS: IPRATROPIUM BROM 0.5MG/2.5ML NEB SCH ×2 (02:05→08:00)
[2019-12-20] MEDS: LEVOTHYROXINE SOD 0.088 MG TAB PO SCH (05:46)
[2019-12-20 06:25] LABS: Absolute Lymphocytes (CBC) 0.9 K/uL (0.7-4.9); Basophils % 0.2 % (0-1.3); Hematocrit 30.7 % (36.0-45.0); Lymphocytes % 4.7 % (15.3-44.8); MPV 7.9 fL (7.6-11.3); RBC Red Blood Cell Count 4.31 M/uL (3.86-4.86)
[2019-12-20 06:32] LABS: BUN Blood Urea Nitrogen 26 mg/dL (7-18); Bicarbonate 37 mmol/L (21-32); Glucose Level 167 mg/dL (74-106); Magnesium 2.2 mg/dL (1.8-2.4); Potassium 3.9 mmol/L (3.5-5.1); Sodium Level 144 mmol/L (136-145)
[2019-12-20] MEDS: ARFORMOTEROL TARTRATE 15 MCG/2 ML VIAL.NEB NEB SCH ×2 (08:00→19:50)
[2019-12-20] MEDS: METHYLPREDNISOLONE 40 MG INJ IV SCH (08:32)
[2019-12-20] MEDS: LORazepam 2 MG/ML VIAL IV PRN (08:32)
[2019-12-20] MEDS: FE SULF/FA/VIT B COMP & C TAB PO SCH (08:33)
[2019-12-20] MEDS: APIXABAN 2.5 MG TABLET PO SCH ×2 (08:33→21:54)
[2019-12-20] MEDS: SPIRONOLACTONE 25 MG TABLET PO SCH (08:33)
[2019-12-20] MEDS: POTASSIUM 25 MEQ EFFERV TAB PO SCH (08:36)
[2019-12-20] MEDS ORDERED: IPRATROPIUM BROM 0.5MG/2.5ML NEB PRN (11:13)
--- NOTE | 2019-12-20 11:18 | P.PN ---
Subjective Date of Service: 12/20/19 Primary Care Provider: unknown Chief Complaint: Respiratory failure Subjective: Other (Patient stable this time. Patient on nasal cannula.) Physical Examination - Vital Signs Temperature: 97.6 F Blood Pressure: 120/65 Pulse: 107 Respirations: 20 Pulse Ox (%): 99 - Physical Exam General: Alert, Cooperative HEENT: Atraumatic Neck: Supple Respiratory: Crackles/rales (Crackles to the bases) Cardiovascular: Regular rate/rhythm Gastrointestinal: Normal bowel sounds, Soft and benign, Non-distended, No mass es, No rebound, No guarding Musculoskeletal: No erythema, No tenderness, No warmth Integumentary: No erythema, No warmth, No cyanosis Neurological: Normal speech, Normal strength at 5/5 x4 extr, Normal tone, Normal affect - Studies Medications List Reviewed: Yes Assessment & Plan Discharge Plan: Other (retirement facility) Plan to discharge in: Greater than 2 days Physician Review Additional Text: Impression: Acute respiratory failure status post CPR related to PEA/bradycardia likely related to medication-sotalol, suspect underlying acute on chronic diastolic CHF with possible COPD exacerbation Septic shock secondary to UTI Atrial fibrillation on chronic anti coagulation therapy GERD Hypothyroidism Acute on chronic anemia Dementia Plan: Acute respiratory failure status post CPR related to PEA/bradycardia likely related to medication-sotalol, suspect underlying acute on chronic diastolic CHF with possible COPD exacerbation: Patient continues to improve. Patient now on nasal cannula. If stable on nasal cannula. Will feed patient orally. If taking good oral intake then will discontinue Dobhoff feeds. Will maintain oxygen above 93%. Will change IV steroid to oral prednisone. Continue COPD medication. Will also continue with Lasix. Will check chest x-ray. Will continue with Rocephin as the patient had UTI upon presentation. Will need to verify on what day this will be discontinued. Patient with elevated white count. This may be related to steroids. Will continue to monitor closely. Will check pro calcitonin at this time. Will discuss further with cardiology and pulmonology. Case also discussed with brother who has medical power of deputy county attorney. If the patient is stable will consider transferring the patient to the floor and start physical therapy. Will continue to monitor and assess. Aspiration precaution in place. Will pursue skilled placement on Sunday. Septic shock secondary to UTI: Overall this is improved. Blood and urine cultures so far negative. Will continue with Rocephin. Initial urine culture from the ER was discarded. This was abnormal. Will check pro calcitonin today. Will consider discontinuation of antibiotic therapy. Atrial fibrillation on chronic anti coagulation therapy: Patient remains on beta-august therapy. Continue chronic anti coalition therapy. Patient will no longer take sotalol. GERD: Will start medication. Hypothyroidism: Continue with medication. Acute on chronic anemia: Will continue to monitor closely. Dementia: Overall stable. Will monitor closely. Time Spent Managing Pts Care (In Minutes): 55
--- NOTE | 2019-12-20 11:36 | RAD REPORT ---
EXAM DESCRIPTION: RAD - Chest Single View - 12/20/2019 9:00 am CLINICAL HISTORY: respiratory failure Chest pain. COMPARISON: Chest Single View dated 12/17/2019; Chest Single View dated 12/16/2019; Chest Single View dated 12/15/2019; Chest Single View dated 12/14/2019 FINDINGS: Portable technique limits examination quality. The previously noted endotracheal tube has been removed. Enteric tube descends into the stomach. Smal l bilateral pleural effusions with mild infiltrates in both lung bases appears slightly progressive s derick the comparative study. The heart is upper limit normal in size. No displaced fractures. IMPRESSION: Mild worsening in lung aeration is seen since the comparative study.
[2019-12-20 13:42] LABS: Arterial Blood Carboxyhemoglob 1.7 % (0-1.5); Blood Gas Oxyhemoglobin 89.8 % (94-97); Blood O2 Saturation 92.5 % (92-98.5)
[2019-12-20] MEDS: HALOPERIDOL LACT 5 MG/ML INJ IV PRN ×3 (14:27→21:54)
[2019-12-20] MEDS: CEFTRIAXONE/SWI 1gm 1 GM/10 ML SYR IVP SCH (15:31)
[2019-12-20] MEDS: METOPROLOL TARTRATE 5 MG/5 ML INJ IV PRN (17:57)
[2019-12-20] MEDS: PANTOPRAZOLE 40MG TABLET PO SCH (18:19)
[2019-12-20] MEDS: predniSONE 10 MG TAB PO SCH (21:54)
[2019-12-21] MEDS: FENTANYL CITR 100 MCG/2 ML IV PRN ×2 (02:31→21:13)
[2019-12-21 05:14] LABS: Absolute Lymphocytes (CBC) 1.4 K/uL (0.7-4.9); Basophils % 0.2 % (0-1.3); Hematocrit 27.3 % (36.0-45.0); Lymphocytes % 7.7 % (15.3-44.8); MPV 7.4 fL (7.6-11.3); RBC Red Blood Cell Count 3.81 M/uL (3.86-4.86)
[2019-12-21 05:35] LABS: BUN Blood Urea Nitrogen 26 mg/dL (7-18); Bicarbonate 37 mmol/L (21-32); Glucose Level 134 mg/dL (74-106); Potassium 3.7 mmol/L (3.5-5.1); Sodium Level 146 mmol/L (136-145)
[2019-12-21] MEDS: LEVOTHYROXINE SOD 0.088 MG TAB PO SCH (06:41)
[2019-12-21] MEDS ORDERED: KCL 20 MEQ/100 mL IVPB 20 MEQ/100 ML BAG IV SCH (07:00)
[2019-12-21 07:16] LABS: Platelet Estimate ADEQ
[2019-12-21 07:17] LABS: Anisocytosis 2+; Basophilic Stippling 1+; Blood Morphology Comment NOTED (NOT SEEN); Hypochromasia 1+; Teardrop Cell 1+
[2019-12-21] MEDS: ARFORMOTEROL TARTRATE 15 MCG/2 ML VIAL.NEB NEB SCH ×2 (07:40→20:00)
[2019-12-21] MEDS: FE SULF/FA/VIT B COMP & C TAB PO SCH (09:12)
[2019-12-21] MEDS: APIXABAN 2.5 MG TABLET PO SCH ×2 (09:12→21:08)
[2019-12-21] MEDS: PANTOPRAZOLE 40MG TABLET PO SCH (09:12)
[2019-12-21] MEDS: SPIRONOLACTONE 25 MG TABLET PO SCH (09:13)
[2019-12-21] MEDS: CEFTRIAXONE/SWI 1gm 1 GM/10 ML SYR IVP SCH (09:13)
[2019-12-21] MEDS: predniSONE 10 MG TAB PO SCH ×2 (09:13→21:08)
[2019-12-21] MEDS: POTASSIUM 25 MEQ EFFERV TAB PO SCH (09:13)
--- NOTE | 2019-12-21 12:39 | P.PN ---
Subjective Date of Service: 12/21/19 Primary Care Provider: unknown Chief Complaint: Respiratory failure Patient is still very tachypneic in if again desaturation requiring 5 L very alert responsive the sat on minimal exertion when during eating Review of Systems General: Weakness Respiratory: Shortness of Breath Physical Examination - Vital Signs Temperature: 99.4 F Blood Pressure: 123/52 Pulse: 103 Respirations: 23 Pulse Ox (%): 90 - Physical Exam General: Alert, Oriented x3 Respiratory: Diminished, Expiratory wheezes Cardiovascular: No edema, Regular rate/rhythm, Normal S1 S2 - Studies Medications List Reviewed: Yes Assessment & Plan - Problems (Diagnosis) (1) Respiratory failure Current Visit: Yes Status: Acute Plan: Patient is hypercapnic hypoxic acute on chronic respiratory failure is elevated is short of breath on minimal exertion casino change attendant to p.o. levofloxacin and doxycycline at risk for resistant infections as still 19,000 no pulmonary embolism by CT angio negative cultures negative Patient has baseline chronic respiratory failure secondary to COPD a needs an NIPPV prevent hospital admissions patient will benefit from a trilogy volume ventilator for nocturnal and daytime use an is needed to wound to prevent hospitalization form BiPAP is insufficient due to the severity of her condition he is eating and drinking late some physical therapy cycling no sputum cultures have been Dc Rocephin and is on low-dose prednisone Qualifiers: Chronicity: acute on chronic (2) Diarrhea Current Visit: Yes Status: Acute Qualifiers: Diarrhea type: unspecified type Qualified Code(s): R19.7 - Diarrhea, unspecified Physician Review Additional Text: Impression: Acute respiratory failure status post CPR related to PEA/bradycardia likely related to medication-sotalol, suspect underlying acute on chronic diastolic CHF with possible COPD exacerbation Septic shock secondary to UTI Atrial fibrillation on chronic anti coagulation therapy GERD Hypothyroidism Acute on chronic anemia Dementia Plan: Acute respiratory failure status post CPR related to PEA/bradycardia likely related to medication-sotalol, suspect underlying acute on chronic diastolic CHF with possible COPD exacerbation: Patient continues to improve. Patient now on nasal cannula. If stable on nasal cannula. Will feed patient orally. If taking good oral intake then will discontinue Dobhoff feeds. Will maintain oxygen above 93%. Will change IV steroid to oral prednisone. Continue COPD medication. Will also continue with Lasix. Will check chest x-ray. Will continue with Rocephin as the patient had UTI upon presentation. Will need to verify on what day this will be discontinued. Patient with elevated white count. This may be related to steroids. Will continue to monitor closely. Will check pro calcitonin at this time. Will discuss further with cardiology and pulmonology. Case also discussed with brother who has medical power of att jacklyn. If the patient is stable will consider transferring the patient to the floor and start physical therapy. Will continue to monitor and assess. Aspiration precaution in place. Will pursue skilled placement on Sunday. Septic shock secondary to UTI: Overall this is improved. Blood and urine cultures so far negative. Will continue with Rocephin. Initial urine culture from the ER was discarded. This was abnormal. Will check pro calcitonin today. Will consider discontinuation of antibiotic therapy. Atrial fibrillation on chronic anti coagulation therapy: Patient remains on beta-august therapy. Continue chronic anti coalition therapy. Patient will no longer take sotalol. GERD: Will start medication. Hypothyroidism: Continue with medication. Acute on chronic anemia: Will continue to monitor closely. Dementia: Overall stable. Will monitor closely.
[2019-12-21 13:21] LABS: Arterial Blood Carboxyhemoglob 2.2 % (0-1.5); Blood Gas Oxyhemoglobin 88.3 % (94-97); Blood O2 Saturation 91.2 % (92-98.5)
[2019-12-21] MEDS: IPRATROPIUM BROM 0.5MG/2.5ML NEB SCH ×2 (14:05→20:00)
[2019-12-21] MEDS: ALBUTEROL 2.5 MG/3 ML NEB SOL NEB PRN (14:05)
[2019-12-21] MEDS: levoFLOXacin 500 MG TAB PO SCH (16:00)
[2019-12-21] MEDS: DOXYCYCLINE 100 MG CAP PO SCH ×2 (17:55→21:07)
[2019-12-21] MEDS: SODIUM CHLORIDE 0.9% 10ML INJ IV PRN (21:07)
[2019-12-22] MEDS: IPRATROPIUM BROM 0.5MG/2.5ML NEB SCH ×4 (00:45→19:50)
[2019-12-22] MEDS: LEVOTHYROXINE SOD 0.088 MG TAB PO SCH (05:42)
[2019-12-22 05:51] LABS: BUN Blood Urea Nitrogen 23 mg/dL (7-18); Bicarbonate 37 mmol/L (21-32); Glucose Level 114 mg/dL (74-106); Magnesium 1.9 mg/dL (1.8-2.4); Phosphorus 3.4 mg/dL (2.5-4.9); Sodium Level 143 mmol/L (136-145)
[2019-12-22 05:54] LABS: Absolute Lymphocytes (CBC) 1.4 K/uL (0.7-4.9); Basophils % 0.1 % (0-1.3); Hematocrit 27.9 % (36.0-45.0); Lymphocytes % 8.4 % (15.3-44.8); MPV 7.8 fL (7.6-11.3); RBC Red Blood Cell Count 3.91 M/uL (3.86-4.86)
[2019-12-22] MEDS: ARFORMOTEROL TARTRATE 15 MCG/2 ML VIAL.NEB NEB SCH ×2 (07:40→19:50)
[2019-12-22] MEDS: levoFLOXacin 500 MG TAB PO SCH (09:30)
[2019-12-22] MEDS: predniSONE 10 MG TAB PO SCH ×2 (09:54→20:26)
[2019-12-22] MEDS: SPIRONOLACTONE 25 MG TABLET PO SCH (09:55)
[2019-12-22] MEDS: POTASSIUM 25 MEQ EFFERV TAB PO SCH (09:55)
[2019-12-22] MEDS: FE SULF/FA/VIT B COMP & C TAB PO SCH (09:56)
[2019-12-22] MEDS: APIXABAN 2.5 MG TABLET PO SCH ×2 (09:56→20:26)
[2019-12-22 10:21] LABS: Blood Morphology Comment NOTED (NOT SEEN); Platelet Estimate ADEQ
[2019-12-22 10:22] LABS: Anisocytosis 3+; Basophilic Stippling 2+; Ovalocytes 1+; Teardrop Cell 1+
[2019-12-22] MEDS: HALOPERIDOL LACT 5 MG/ML INJ IV PRN (10:37)
[2019-12-22] MEDS: DOXYCYCLINE 100 MG CAP PO SCH ×2 (11:30→20:26)
--- NOTE | 2019-12-22 14:28 | P.PN ---
Subjective Date of Service: 12/22/19 Primary Care Provider: unknown Chief Complaint: Respiratory failure Subjective: Improving, Doing well (Patient continues to improve. Patient on Venti mask.) Physical Examination - Vital Signs Temperature: 97.8 F Blood Pressure: 146/68 Pulse: 114 Respirations: 36 Pulse Ox (%): 92 - Physical Exam General: Alert, In no apparent distress, Cooperative HEENT: Atraumatic Neck: Supple Respiratory: Expiratory wheezes Cardiovascular: Normal pulses, Regular rate/rhythm Gastrointestinal: Normal bowel sounds, Soft and benign, Non-distended Neurological: Normal speech, Normal strength at 5/5 x4 extr, Normal tone, Normal affect - Studies Medications List Reviewed: Yes Assessment & Plan Discharge Plan: Other (Home with home health/physical therapy versus skilled placement) Plan to discharge in: 48 Hours Physician Review Additional Text: Impression: Acute respiratory failure status post CPR related to PEA/bradycardia likely related to medication-sotalol, suspect underlying acute on chronic diastolic CHF with possible COPD exacerbation Septic shock secondary to UTI Atrial fibrillation on chronic anti coagulation therapy GERD Hypothyroidism Acute on chronic anemia Dementia Plan: Acute respiratory failure status post CPR related to PEA/bradycardia likely related to medication-sotalol, suspect underlying acute on chronic diastolic CHF with possible COPD exacerbation: Patient continues to improve. Will recheck chest x-ray today. Continue with Aldactone. Patient on Venti mass. Pulmonology adjusted antibiotic therapy to doxycycline and Levaquin. Continue COPD medication. Continue steroid medication. Continue oral intake. Will continue to wean off oxygen to maintain sats above 93%. Will have physical therapy assess ambulation. Will need to consider home with home health/physical therapy verses skilled placement, depending on what physical therapy says. Patient in agreement. I will turn the service over to the hospitalist team tomorrow. I will grow nectar with him. Anticipate discharge in the next 48 hr. Septic shock secondary to UTI: Antibiotics adjusted to oral medication Atrial fibrillation on chronic anti coagulation therapy: Patient remains on beta-august therapy. Continue chronic anti coagulation therapy. Patient will no longer take sotalol. GERD: Continue medication. Hypothyroidism: Continue with medication. Acute on chronic anemia: Will continue to monitor closely. Dementia: Overall stable. Will monitor closely. Time Spent Managing Pts Care (In Minutes): 55
--- NOTE | 2019-12-22 14:56 | RAD REPORT ---
EXAM DESCRIPTION: RAD - Chest Single View - 12/22/2019 2:49 pm CLINICAL HISTORY: follow up SOB, CHF Chest pain. COMPARISON: Chest Single View dated 12/20/2019; Chest Single View dated 12/17/2019; Chest Single View dated 12/16/2019; Chest Single View dated 12/15/2019 FINDINGS: Portable technique limits examination quality. Since the comparative examination, the patient has been extubated. Enteric tube has also been removed . Mild bibasilar infiltrate pattern with small pleural effusions appears unchanged. The heart is uppe r limit of normal.
[2019-12-22] MEDS ORDERED: FUROSEMIDE 20 MG/ 2ML VIAL IV ONE (15:22)
[2019-12-22] MEDS: SODIUM CHLORIDE 0.9% 10ML INJ IV PRN (20:26)
[2019-12-23] MEDS: IPRATROPIUM BROM 0.5MG/2.5ML NEB SCH ×4 (01:50→19:50)
[2019-12-23 04:51] LABS: Absolute Lymphocytes (CBC) 1.7 K/uL (0.7-4.9); Basophils % 0.1 % (0-1.3); Hematocrit 29.5 % (36.0-45.0); Lymphocytes % 9.9 % (15.3-44.8); MPV 7.8 fL (7.6-11.3); RBC Red Blood Cell Count 4.11 M/uL (3.86-4.86)
[2019-12-23 05:07] LABS: Magnesium 1.8 mg/dL (1.8-2.4); Potassium 3.8 mmol/L (3.5-5.1)
[2019-12-23] MEDS: LEVOTHYROXINE SOD 0.088 MG TAB PO SCH (05:28)
[2019-12-23] MEDS: POTASSIUM 25 MEQ EFFERV TAB PO SCH (07:55)
[2019-12-23] MEDS: predniSONE 10 MG TAB PO SCH ×2 (07:55→20:28)
[2019-12-23] MEDS: APIXABAN 2.5 MG TABLET PO SCH ×2 (07:55→20:28)
[2019-12-23] MEDS: DOXYCYCLINE 100 MG CAP PO SCH ×2 (07:55→20:27)
[2019-12-23] MEDS: levoFLOXacin 500 MG TAB PO SCH (07:55)
[2019-12-23] MEDS: FE SULF/FA/VIT B COMP & C TAB PO SCH (07:56)
[2019-12-23] MEDS: SPIRONOLACTONE 25 MG TABLET PO SCH (07:56)
[2019-12-23] MEDS: ARFORMOTEROL TARTRATE 15 MCG/2 ML VIAL.NEB NEB SCH ×2 (08:45→19:50)
[2019-12-23] MEDS ORDERED: POTASSIUM CL SA 10 MEQ TAB PO ONE (09:00)
[2019-12-23] MEDS ORDERED: MAGNESIUM SULFATE 1 gm IVPB 1 GM/100 ML BAG IV ONE (09:00)
--- NOTE | 2019-12-23 12:32 | P.PN ---
Subjective Date of Service: 12/23/19 Primary Care Provider: unknown Chief Complaint: Respiratory failure Patient is more alert still requiring a lot of oxygen very weak congested more alert Review of Systems General: Weakness Respiratory: Shortness of Breath Physical Examination - Vital Signs Temperature: 98.7 F Blood Pressure: 140/63 Pulse: 90 Respirations: 19 Pulse Ox (%): 92 - Physical Exam General: Alert, Moderate distress Respiratory: Crackles/rales, Rhonchi/gurgles Cardiovascular: No edema, Regular rate/rhythm, Normal S1 S2 - Studies Medications List Reviewed: Yes Assessment & Plan - Problems (Diagnosis) (1) Respiratory failure Current Visit: Yes Status: Acute Plan: Patient has severe COPD I have added Daliresp/continue with bronchodilators Dc Morin catheter physical therapy continuous BiPAP for arrange for her to have a noninvasive ventilator setup at home continuous pulse ox sputum cultures prognosis is very poor patient is on Eliquis Levaquin and doxycycline vital signs stable to consider an LTAC for her Qualifiers: Chronicity: acute on chronic (2) Diarrhea Current Visit: Yes Status: Acute Qualifiers: Diarrhea type: unspecified type Qualified Code(s): R19.7 - Diarrhea, unspecified Physician Review Additional Text: Impression: Acute respiratory failure status post CPR related to PEA/bradycardia likely related to medication-sotalol, suspect underlying acute on chronic diastolic CHF with possible COPD exacerbation Septic shock secondary to UTI Atrial fibrillation on chronic anti coagulation therapy GERD Hypothyroidism Acute on chronic anemia Dementia Plan: Acute respiratory failure status post CPR related to PEA/bradycardia likely related to medication-sotalol, suspect underlying acute on chronic diastolic CHF with possible COPD exacerbation: Patient continues to improve. Will recheck chest x-ray today. Continue with Aldactone. Patient on Venti mass. Pulmonology adjusted antibiotic therapy to doxycycline and Levaquin. Continue COPD medication. Continue steroid medication. Continue oral intake. Will continue to wean off oxygen to maintain sats above 93%. Will have physical therapy assess ambulation. Will need to consider home with home health/physical therapy verses skilled placement, depending on what physical therapy says. Patient in agreement. I will turn the service over to the hospitalist team tomorrow. I will grow nectar with him. Anticipate discharge in the next 48 hr. Septic shock secondary to UTI: Antibiotics adjusted to oral medication Atrial fibrillation on chronic anti coagulation therapy: Patient remains on beta-august therapy. Continue chronic anti coagulation therapy. Patient will no longer take sotalol. GERD: Continue medication. Hypothyroidism: Continue with medication. Acute on chronic anemia: Will continue to monitor closely. Dementia: Overall stable. Will monitor closely.
[2019-12-23] MEDS: ROFLUMILAST 500 MCG TABLET PO SCH (12:54)
--- NOTE | 2019-12-23 19:43 | PN ---
Date of Progress Note: 12/23/2019 Patient seen and examined. Chart reviewed and case discussed with RN. Family at the bedside. Treatment plan explained. All questions answered. Medications: List reviewed. Code Status: Full. Physical Examination: Vital Signs: Temperature 98.7, heart rate 90, blood pressure 140/63, respirations 19, O2 sat of 92% on . General: Awake, alert, oriented x3. Elderly female, frail, cachectic, ill appearing, in respiratory distress. CV: S1, S2. Regular rhythm. Peripheral pulses weak. Respiratory: Diminished breath sounds. No wheezing or stridor. Gastrointestinal: Abdomen is soft, nontender, nondistended. Positive bowel sounds. Extremities: No clubbing, cyanosis, or edema. Neuro: Cranial nerves 2 through 12 intact grossly. No focal neurological deficits. Speech is normal. Laboratory Data: Sodium 140, potassium 3.8, chloride 95, CO2 of 30, BUN 24, creatinine 0.74, glucose 168, calcium 8.7, magnesium 1.8. WBC 16.7, H and H 9.4 and 29.5, platelets 246, neutrophils 81%. Blood cultures, no growth to date, did 2 different sets. Assessment: An 84-year-old female with: 1. Acute respiratory failure with hypoxia. Patient now extubated, on continuous Bipap. 2. Acute cardiac arrest, status post cardiopulmonary resuscitation, secondary to pulseless electrical activity and bradycardia related to medication, possibly sotalol. Appreciate Cardiology input. Sotalol has been discontinued. 3. Acute on chronic diastolic congestive heart failure. Continue with congestive heart failure guidelines. 4. Acute chronic obstructive pulmonary disease exacerbation. Appreciate Pulmonology input. We will continue nebulizers as needed. Continue with doxycycline and Levaquin. 5. Atrial fibrillation, paroxysmal. Patient to be continued on Eliquis. Patient is on renal dose due to her age and renal function. 6. Septic shock secondary to urinary tract infection. Antibiotics have been adjusted. Blood cultures are negative. 7. acute cystitis. Urinary tract infection. Urine culture from the 16 is negative. 8. Gastroesophageal reflux disease. Continue PPI. 9. Hypothyroidism. Continue supplement. 10. Acute on chronic anemia. Patient has thalassemia. We will continue to monitor H and H closely. Patient is on anticoagulation. 11. Dementia, likely Alzheimer's type, without behavioral disturbance, stable. 12. Deep vein thrombosis prophylaxis. Patient is already on Eliquis. Plan: Patient awaiting placement to rehab versus SNF, possibly LTAC. She will need noninvasive ventilator set up per Pulmonology. Overall, she has a very poor prognosis; however, patient remains full code. Patient is on steroids and likely has steroid-induced leukocytosis. We will continue to monitor CBC and electrolytes. Follow up with Pulmonology recommendations. /YVETTE Voice ID: [id number] Report ID: [id number] [facility], [place]
[2019-12-23] MEDS: SODIUM CHLORIDE 0.9% 10ML INJ IV PRN (20:28)
[2019-12-24] MEDS: IPRATROPIUM BROM 0.5MG/2.5ML NEB SCH ×4 (00:50→20:05)
[2019-12-24 06:33] LABS: Magnesium 2.3 mg/dL (1.8-2.4); Phosphorus 3.7 mg/dL (2.5-4.9); Potassium 4.3 mmol/L (3.5-5.1)
[2019-12-24 07:09] LABS: Absolute Lymphocytes (CBC) 1.3 K/uL (0.7-4.9); Basophils % 0.3 % (0-1.3); Hematocrit 30.1 % (36.0-45.0); Lymphocytes % 7.3 % (15.3-44.8); MPV 8.3 fL (7.6-11.3)
[2019-12-24] MEDS: ARFORMOTEROL TARTRATE 15 MCG/2 ML VIAL.NEB NEB SCH ×2 (07:30→20:05)
[2019-12-24] MEDS: FE SULF/FA/VIT B COMP & C TAB PO SCH (08:42)
[2019-12-24] MEDS: predniSONE 10 MG TAB PO SCH ×2 (08:42→21:25)
[2019-12-24] MEDS: levoFLOXacin 500 MG TAB PO SCH (08:42)
[2019-12-24] MEDS: SPIRONOLACTONE 25 MG TABLET PO SCH (08:42)
[2019-12-24] MEDS: DOXYCYCLINE 100 MG CAP PO SCH ×2 (08:43→21:25)
[2019-12-24] MEDS: ROFLUMILAST 500 MCG TABLET PO SCH (08:43)
[2019-12-24] MEDS: POTASSIUM 25 MEQ EFFERV TAB PO SCH (08:44)
[2019-12-24] MEDS: APIXABAN 2.5 MG TABLET PO SCH ×2 (08:48→21:25)
[2019-12-24] MEDS: ENSURE ENLIVE 237 ML CAN PO SCH (08:50)
[2019-12-24] MEDS: LEVOTHYROXINE SOD 0.088 MG TAB PO SCH (08:50)
[2019-12-24 10:19] LABS: Anisocytosis 2+; Basophilic Stippling 1+; Blood Morphology Comment NOTED (NOT SEEN); Platelet Estimate ADEQ; Poikilocytosis 1+; Urine White Blood Cell Casts OK
--- NOTE | 2019-12-24 12:24 | P.PN ---
Subjective Date of Service: 12/24/19 Primary Care Provider: unknown Chief Complaint: COPD Patient is doing better today much more alert and responsive oxygenation has improved still feeling very weak Review of Systems General: Weakness Respiratory: Shortness of Breath Physical Examination - Vital Signs Temperature: 98.4 F Blood Pressure: 121/65 Pulse: 98 Respirations: 23 Pulse Ox (%): 98 - Physical Exam General: Alert, Oriented x3 HEENT: Atraumatic Neck: Supple Respiratory: Clear to auscultation bilaterally, Diminished Cardiovascular: No edema, Regular rate/rhythm - Studies Medications List Reviewed: Yes Assessment & Plan - Problems (Diagnosis) (1) Respiratory failure Current Visit: Yes Status: Resolved Plan: Patient has severe COPD I have added Daliresp/continue with bronchodilators Dc Morin catheter physical therapy continuous BiPAP for arrange for her to have a noninvasive ventilator setup at home continuous pulse ox sputum cultures pro gnosis is very poor patient is on Eliquis Levaquin and doxycycline vital signs stable to consider an LTAC for her Qualifiers: Chronicity: acute on chronic (2) COPD (chronic obstructive pulmonary disease) Current Visit: Yes Status: Acute Plan: Patient has severe COPD and will qualify for noninvasive ventilator continue with Daliresp Sputum cultures are pending continue with antibiotic physical therapy Physician Review Additional Text: Impression: Acute respiratory failure status post CPR related to PEA/bradycardia likely related to medication-sotalol, suspect underlying acute on chronic diastolic CHF with possible COPD exacerbation Septic shock secondary to UTI Atrial fibrillation on chronic anti coagulation therapy GERD Hypothyroidism Acute on chronic anemia Dementia Plan: Acute respiratory failure status post CPR related to PEA/bradycardia likely related to medication-sotalol, suspect underlying acute on chronic diastolic CHF with possible COPD exacerbation: Patient continues to improve. Will recheck chest x-ray today. Continue with Aldactone. Patient on Venti mass. Pulmonology adjusted antibiotic therapy to doxycycline and Levaquin. Continue COPD medication. Continue steroid medication. Continue oral intake. Will continue to wean off oxygen to maintain sats above 93%. Will have physical therapy assess ambulation. Will need to consider home with home health/physical therapy verses skilled placement, depending on what physical therapy says. Patient in agreement. I will turn the service over to the hospitalist team tomorrow. I will grow nectar with him. Anticipate discharge in the next 48 hr. Septic shock secondary to UTI: Antibiotics adjusted to oral medication Atrial fibrillation on chronic anti coagulation therapy: Patient remains on beta-august therapy. Continue chronic anti coagulation therapy. Patient will no longer take sotalol. GERD: Continue medication. Hypothyroidism: Continue with medication. Acute on chronic anemia: Will continue to monitor closely. Dementia: Overall stable. Will monitor closely.
--- NOTE | 2019-12-24 12:38 | PN ---
Date of Progress Note: 12/24/2019 Subjective: Patient seen and examined. Chart reviewed and case discussed with RN and Dr. Madrigal. Patient's family at the bedside. Treatment plan explained, all questions answered. Patient states s he had some minimal hemoptysis yesterday. Medications: Reviewed. Physical Examination: Vital Signs: Temperature 98.4, heart rate 98, blood pressure 121/65, respirations 22, O2 98% on Vent uri mask. General: Awake, alert, oriented x3. Elderly female, frail, cachectic, ill-appearing. CV: S1, S2. Regular rate and rhythm. Peripheral pulses weak. Respiratory: Somewhat diminished breath sounds. No wheezing or stridor. Patient is tachypneic. Gastr ointestinal:Abdomen is soft, nontender, nondistended. Positive bowel sounds. Extremities: No clubbing, cyanosis, or edema. Neurologic: Nonfocal. Laboratory Data: Sodium 142, potassium 4.3, chloride 98, CO2 of 36, BUN 29, creatinine 0.97, glucose 176, calcium 8.7, phosphorus 3.7, magnesium 3. WBC 17.5, H and H 9.5 and 30, platelets 273, neutrop hils 82%. Blood cultures, no growth to date. Sputum culture is pending. Assessment And Plan: An 84-year-old female with. 1.Acute respiratory failure with hypoxia, now requiring Venturi mask. 2.Acute cardiac arrest status post cardiopulmonary resuscitation secondary to pulseless electrical a ctivity. Bradycardia, possibly secondary to sotalol, which has been discontinued, stable, appreciate Cardiology input. 3.Acute on chronic diastolic congestive heart failure. Continue with congestive heart failure guide lines. Monitor I's and O's, daily weights, DC Morin catheter. 4.Acute chronic obstructive pulmonary disease exacerbation. Continue nebulizers. Continue suppleme ntal oxygen, still requiring Venturi mask. Continue antibiotics, doxycycline, and Levaquin. Pulmono logy on board. 5.Atrial fibrillation paroxysmal, currently in sinus rhythm. Continue Eliquis renally dosed. 6.Septic shock secondary to urinary tract infection. Antibiotics adjusted. Blood culture is negati ve. Sputum culture is pending. 7.Gastroesophageal reflux disease. Continue PPI. 8.Acute cystitis without hematuria. Urine culture negative. 9.Hypothyroidism, continue supplement. 10.Acute on chronic anemia. Patient has history of thalassemia. We will continue to monitor closel y. 11.Dementia, likely Alzheimer's type without behavioral disturbance, stable. 12.Deep venous thrombosis prophylaxis. Patient is on Eliquis. Patient is not a candidate for rehab . We will refer to LTAC with noninvasive ventilator. Patient is currently full code. Overall poor prognosis. SA/MODL Voice ID: [id number] Report ID: [id number]
[2019-12-25] MEDS: IPRATROPIUM BROM 0.5MG/2.5ML NEB SCH ×4 (00:55→19:10)
[2019-12-25] MEDS: LEVOTHYROXINE SOD 0.088 MG TAB PO SCH (05:00)
[2019-12-25 05:33] LABS: Absolute Lymphocytes (CBC) 1.5 K/uL (0.7-4.9); Basophils % 0.2 % (0-1.3)
[2019-12-25 05:37] LABS: Lymphocytes % 9.3 % (15.3-44.8)
[2019-12-25] MEDS: ARFORMOTEROL TARTRATE 15 MCG/2 ML VIAL.NEB NEB SCH ×2 (08:30→19:10)
[2019-12-25] MEDS: ENSURE ENLIVE 237 ML CAN PO SCH (08:56)
[2019-12-25] MEDS: DOXYCYCLINE 100 MG CAP PO SCH ×2 (08:59→21:32)
[2019-12-25] MEDS: POTASSIUM 25 MEQ EFFERV TAB PO SCH (08:59)
[2019-12-25] MEDS: levoFLOXacin 500 MG TAB PO SCH (08:59)
[2019-12-25] MEDS: SPIRONOLACTONE 25 MG TABLET PO SCH (09:01)
[2019-12-25] MEDS: FE SULF/FA/VIT B COMP & C TAB PO SCH (09:01)
[2019-12-25] MEDS: APIXABAN 2.5 MG TABLET PO SCH ×2 (09:01→21:31)
[2019-12-25] MEDS: predniSONE 10 MG TAB PO SCH ×2 (09:02→21:31)
[2019-12-25] MEDS: ROFLUMILAST 500 MCG TABLET PO SCH (09:02)
--- NOTE | 2019-12-25 13:36 | PN ---
Date of Progress Note: 12/25/2019 Subjective: Patient seen and examined, chart reviewed, and case discussed with RN and Dr. Madrigal. Spoke with patient's medical power of medication manager, brother and [id number]. Patient is agreeable to going to LTAC, [facility], referral has been sent. No acute events overnight. Medications: List reviewed. Physical Examination: Vital Signs: Temperature 98.1, heart rate 105, blood pressure 119/57, respirations 16, O2 of 95% on Venturi mask. General: Awake, alert, oriented x3. Elderly female, frail, cachectic, ill-appearing, in some mild r espiratory distress. CV: S1, S2. Peripheral pulses present. Regular rate and rhythm. Respiratory: Somewhat diminished breath sounds. No wheezing or stridor. No use of accessory muscle s. Gastrointestinal: Abdomen is soft, nontender, nondistended. Positive bowel sounds. Extremities: No clubbing, cyanosis, or edema. Neurologic: Nonfocal. Laboratory Data: WBC 15.8, H and H 8.9 and 28, platelets 235, neutrophils 78.8%. Sputum culture pen jas. Assessment: An 84-year-old female with: 1.Acute respiratory failure with hypoxia, currently on Venturi mask, is able to wean down to 3 L at times. 2.Acute cardiac arrest, status post cardiopulmonary resuscitation secondary to pulseless electrical activity, bradycardia. Sotalol discontinued. Currently now stable. Cardiology on board. 3.Acute on chronic diastolic congestive heart failure. We will continue with strict I's and O's. M onitor fluid balance. Patient is on Aldactone and metoprolol as needed. 4.Acute chronic obstructive pulmonary disease exacerbation, improved with nebulizers, currently requ iring supplemental oxygen on Venturi mask. Continue antibiotics, doxycycline and Levaquin. Apprecia te Dr. Madrigal's input. 5.Atrial fibrillation, paroxysmal, currently in sinus rhythm. Rate is controlled. Continue Eliquis . Sotalol was discontinued. 6.Septic shock secondary to urinary tract infection. Continue antibiotics. Cultures negative. 7.Acute cystitis without hematuria. Urine culture is also negative. 8.Gastroesophageal reflux disease. Continue PPI. 9.Hypothyroidism. Continue supplement. 10.Acute on chronic anemia, history of thalassemia. Monitor closely. Transfuse as needed for hemog lobin less than 7. 11.Alzheimer dementia without behavioral disturbance, stable. 12.Deep venous thrombosis prophylaxis. Continue Eliquis. Plan: Discharge to [facility] once accepted. /YVETTE Voice ID: [id number] Report ID: [id number]
[2019-12-25] MEDS: ACETAMINOPHEN 325 MG TABLET PO PRN ×2 (16:20→21:34)
[2019-12-26] MEDS: IPRATROPIUM BROM 0.5MG/2.5ML NEB SCH ×4 (00:40→19:50)
[2019-12-26] MEDS: LEVOTHYROXINE SOD 0.088 MG TAB PO SCH (05:56)
[2019-12-26 06:38] LABS: Absolute Lymphocytes (CBC) 1.8 K/uL (0.7-4.9); Basophils % 0.2 % (0-1.3); Hematocrit 30.6 % (36.0-45.0); Lymphocytes % 11.6 % (15.3-44.8); MPV 8.1 fL (7.6-11.3); RBC Red Blood Cell Count 4.25 M/uL (3.86-4.86)
[2019-12-26 07:11] LABS: Blood Morphology Comment NOTED (NOT SEEN); Urine White Blood Cell Casts OK
[2019-12-26 07:12] LABS: Anisocytosis 2+; Basophilic Stippling 2+; Platelet Estimate ADEQ
[2019-12-26] MEDS: ARFORMOTEROL TARTRATE 15 MCG/2 ML VIAL.NEB NEB SCH ×2 (08:00→19:50)
[2019-12-26] MEDS ORDERED: POLYETHYL GLY 3350 17 GM/DOSE PO PRN (08:27)
[2019-12-26] MEDS: POTASSIUM CL SA 10 MEQ TAB PO SCH (09:01)
[2019-12-26] MEDS: DOCUSATE NA 100 MG CAP PO SCH ×2 (09:01→19:45)
[2019-12-26] MEDS: ROFLUMILAST 500 MCG TABLET PO SCH (09:01)
[2019-12-26] MEDS: levoFLOXacin 500 MG TAB PO SCH (09:01)
[2019-12-26] MEDS: DOXYCYCLINE 100 MG CAP PO SCH ×2 (09:01→19:44)
[2019-12-26] MEDS: SPIRONOLACTONE 25 MG TABLET PO SCH (09:01)
[2019-12-26] MEDS: predniSONE 10 MG TAB PO SCH (09:01)
[2019-12-26] MEDS: APIXABAN 2.5 MG TABLET PO SCH ×2 (09:02→19:44)
[2019-12-26] MEDS: ENSURE ENLIVE 237 ML CAN PO SCH (09:02)
[2019-12-26] MEDS: FE SULF/FA/VIT B COMP & C TAB PO SCH (09:02)
--- NOTE | 2019-12-26 10:08 | PN ---
Date of Progress Note: 12/26/2019 Subjective: Patient seen and examined. Chart reviewed and case discussed with RN. Patient's sputum culture grew out MRSA. Patient is covered on with antibiotics that is sensitive. Denies any specif ic complaints. Medications: List reviewed. Physical Examination: Vital Signs: Temperature 98.6, heart rate 93, blood pressure 125/58, respirations 20, O2 94% on 5 L via nasal cannula. General: Awake, alert, oriented x3. Elderly female, frail, cachectic. CV: S1, S2. Peripheral pulses present. Respiratory: Diminished breath sounds. No wheezing or stri taylor. Patient is slightly tachypneic. No use of accessory muscles Gastrointestinal: Abdomen is soft , nontender, nondistended. Positive bowel sounds. Extremities: No clubbing, cyanosis, or edema. Neurologic: Nonfocal. Laboratory Data: WBC 15.3, H and H 9.6/ 30.6, platelets 216, neutrophils 78%. Assessment: An 84-year-old female with. 1.Acute respiratory failure with hypoxia. Patient is requiring Venturi mask on and off, currently o n 5 L via nasal cannula. 2.Acute cardiac arrest status post cardiopulmonary resuscitation secondary to pulseless electrical a ctivity, bradycardia, stable. Appreciate Cardiology input. Sotalol discontinued. 3.Acute on chronic diastolic congestive heart failure. We will continue to monitor fluid balance. Strict I's and O's. Continue Aldactone. 4.Acute chronic obstructive pulmonary disease exacerbation, stable, improving with nebulizers. Sunitha ent still requiring a significant amount of oxygen through Venturi mask. Patient is on antibiotics w ith doxycycline and Levaquin. 5.Methicillin-resistant Staphylococcus aureus infection. Sputum culture grew out methicillin-resist ant Staphylococcus aureus, is covered with doxycycline. We will place on contact isolation. Appreci ate Dr. Madrigal's input. 6.Atrial fibrillation paroxysmal, currently in sinus rhythm, rate controlled. Continue Eliquis. 7.Septic shock secondary to urinary tract infection, improving. Cultures are negative. 8.Acute cystitis without hematuria, treated with antibiotics. 9.Gastroesophageal reflux disease without esophagitis, continue PPI. 10.Hypothyroidism. Continue supplement. 11.Acute on chronic anemia with history of thalassemia. Monitor hemoglobin levels, transfuse if hem oglobin less than 7. 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 13.Deep vein thrombosis prophylaxis. Patient is on Eliquis. Plan: Discharge to [facility] once accepted. /YVETTE Voice ID: [id number] Report ID: [id number]
--- NOTE | 2019-12-26 12:48 | P.PN ---
Subjective Date of Service: 12/26/19 Primary Care Provider: unknown Chief Complaint: Complaining of nausea and weakness Patient complaining of nausea poor appetite may be side effect of the dial arrest and the antibiotics not as congested feeling very weak Review of Systems General: Weakness Respiratory: Shortness of Breath Gastrointestinal: Nausea, Abdominal Pain Physical Examination - Vital Signs Temperature: 98 F Blood Pressure: 129/60 Pulse: 107 Respirations: 20 Pulse Ox (%): 89 - Physical Exam General: Alert, Oriented x3, Mild distress Respiratory: Clear to auscultation bilaterally, Diminished Cardiovascular: No edema, Regular rate/rhythm - Studies Medications List Reviewed: Yes Assessment & Plan - Problems (Diagnosis) (1) COPD (chronic obstructive pulmonary disease) Current Visit: Yes Status: Acute Plan: P patient has severe COPD complaining of nausea the be side effect of the DAliresp/Dc levofloxacin Dc Dalirep Mr SA isolated in the sputum continue with doxy patient has been improved for noninvasive ventilator agree with an LTAC may have some peptic ulcer disease or reflux added some Pepcid prognosis very poor terminal COPD
[2019-12-26] MEDS: FAMOTIDINE 20 MG TAB PO SCH (19:44)
[2019-12-27] MEDS: MELATONIN 5 MG TABLET PO PRN ×2 (00:55→21:06)
[2019-12-27] MEDS: IPRATROPIUM BROM 0.5MG/2.5ML NEB SCH ×4 (02:30→19:40)
[2019-12-27] MEDS: LEVOTHYROXINE SOD 0.088 MG TAB PO SCH (05:42)
[2019-12-27 05:43] LABS: Bilirubin Total 0.9 mg/dL (0.2-1.0); Potassium 3.6 mmol/L (3.5-5.1); Protein, Total 6.2 g/dL (6.4-8.2)
[2019-12-27 05:52] VITALS: BMI 15.9
[2019-12-27 05:57] LABS: Absolute Lymphocytes (CBC) 1.5 K/uL (0.7-4.9); Basophils % 0.1 % (0-1.3); Hematocrit 27.7 % (36.0-45.0); Lymphocytes % 9.5 % (15.3-44.8); MPV 8.4 fL (7.6-11.3); RBC Red Blood Cell Count 3.88 M/uL (3.86-4.86)
[2019-12-27] MEDS: ARFORMOTEROL TARTRATE 15 MCG/2 ML VIAL.NEB NEB SCH ×2 (08:00→19:40)
[2019-12-27] MEDS ORDERED: POTASSIUM CL SA 10 MEQ TAB PO ONE (09:00)
[2019-12-27] MEDS: POTASSIUM CL SA 10 MEQ TAB PO SCH (09:02)
[2019-12-27] MEDS: DOXYCYCLINE 100 MG CAP PO SCH ×2 (09:03→21:06)
[2019-12-27] MEDS: APIXABAN 2.5 MG TABLET PO SCH ×2 (09:03→21:05)
[2019-12-27] MEDS: FAMOTIDINE 20 MG TAB PO SCH ×2 (09:03→21:05)
[2019-12-27] MEDS: FE SULF/FA/VIT B COMP & C TAB PO SCH (09:03)
[2019-12-27] MEDS: SPIRONOLACTONE 25 MG TABLET PO SCH (09:03)
[2019-12-27] MEDS: ENSURE ENLIVE 237 ML CAN PO SCH (09:03)
[2019-12-27] MEDS: predniSONE 10 MG TAB PO SCH (09:03)
[2019-12-27] MEDS: DOCUSATE NA 100 MG CAP PO SCH ×2 (09:03→21:05)
[2019-12-27 10:22] LABS: Anisocytosis 2+; Basophilic Stippling 2+; Blood Morphology Comment NOTED (NOT SEEN); Ovalocytes 1+; Platelet Estimate ADEQ; Teardrop Cell 1+
--- NOTE | 2019-12-27 10:32 | P.PN ---
Subjective Date of Service: 12/27/19 Primary Care Provider: unknown Chief Complaint: Complaining of nausea and weakness Subjective: No new changes, Improving Review of Systems 10-point ROS is otherwise unremarkable Physical Examination - Vital Signs Temperature: 97.2 F Blood Pressure: 122/72 Pulse: 111 Respirations: 20 Pulse Ox (%): 90 - Physical Exam General: Alert, In no apparent distress, Cooperative, Cachectic HEENT: Atraumatic, Normocephalic Neck: Supple Respiratory: Normal air movement, Crackles/rales Cardiovascular: Normal pulses, Regular rate/rhythm Capillary refill: <2 Seconds Gastrointestinal: Soft and benign, W/out hepatosplenomegaly Musculoskeletal: No clubbing, No swelling Integumentary: No rashes, No breakdown Neurological: Normal speech, Normal strength at 5/5 x4 extr Lymphatics: No axilla or inguinal lymphadenopathy Rectal: Deferred - Studies Laboratory Last Values WBC 12.2 K/uL (4.3-10.9) H 12/12/19 12:50 RBC 4.52 M/uL (3.86-4.86) 12/12/19 12:50 Hgb 9.4 g/dL (12.0-15.0) L 12/12/19 12:50 Hct 29.8 % (36.0-45.0) L 12/12/19 12:50 MCV 66.0 fL (80-100) L 12/12/19 12:50 MCH 20.7 pg (27.0-35.0) L 12/12/19 12:50 MCHC 31.4 g/dL (32.0-36.0) L 12/12/19 12:50 RDW 16.1 % (12.1-15.2) H 12/12/19 12:50 Plt Count 184 K/uL (152-406) 12/12/19 12:50 MPV 8.6 fL (7.6-11.3) 12/12/19 12:50 Neutrophils % 74.0 % (41.7-73.7) H 12/12/19 12:50 Lymphocytes % 10.4 % (15.3-44.8) L 12/12/19 12:50 Monocytes % 14.5 % (3.3-12.3) H 12/12/19 12:50 Eosinophils % 0.6 % (0-4.4) 12/12/19 12:50 Basophils % 0.5 % (0-1.3) 12/12/19 12:50 Absolute Neutrophils 9.0 K/uL (1.8-8.0) H 12/12/19 12:50 Absolute Lymphocytes 1.3 K/uL (0.7-4.9) 12/12/19 12:50 Absolute Monocytes 1.8 K/uL (0.1-1.3) H 12/12/19 12:50 Absolute Eosinophils 0.1 K/uL (0-0.5) 12/12/19 12:50 Absolute Basophils 0.1 K/uL (0-0.5) 12/12/19 12:50 Poikilocytosis 1+ 12/12/19 12:50 Anisocytosis 1+ 12/12/19 12:50 Morphology Comment Noted (NOT SEEN) 12/12/19 12:50 Sodium 135 mmol/L (136-145) L 12/12/19 12:50 Potassium 3.8 mmol/L (3.5-5.1) 12/12/19 12:50 Chloride 101 mmol/L (98-107) 12/12/19 12:50 Carbon Dioxide 29 mmol/L (21-32) 12/12/19 12:50 BUN 17 mg/dL (7-18) 12/12/19 12:50 Creatinine 0.62 mg/dL (0.55-1.3) 12/12/19 12:50 Estimated GFR > 90 mL/min (=/>90) 12/12/19 12:50 Glucose 115 mg/dL (74-106) H 12/12/19 12:50 Lactic Acid 0.8 mmol/L (0.4-2.0) 12/12/19 12:50 Calcium 8.6 mg/dL (8.5-10.1) 12/12/19 12:50 Total Bilirubin 0.6 mg/dL (0.2-1.0) 12/12/19 12:50 Direct Bilirubin 0.2 mg/dL (0-0.2) 12/12/19 12:50 AST 24 U/L (15-37) 12/12/19 12:50 ALT 31 U/L (12-78) 12/12/19 12:50 Alkaline Phosphatase 55 U/L (45-117) 12/12/19 12:50 Serum Total Protein 8.4 g/dL (6.4-8.2) H 12/12/19 12:50 Albumin 3.3 g/dL (3.4-5.0) L 12/12/19 12:50 Globulin 5.1 g/dL (2.3-3.5) H 12/12/19 12:50 Albumin/Globulin Ratio 0.6 (1.1-1.8) L 12/12/19 12:50 Lipase 81 U/L (73-393) 12/12/19 12:50 Urine Color Dk yellow 12/12/19 13:22 Urine Appearance Turbid 12/12/19 13:22 Urine pH 6.0 (5.0-7.0) 12/12/19 13:22 Ur Specific [place] 1.020 (1.005-1.030) 12/12/19 13:22 Glucose (UA)(Auto) Negative (NEG) 12/12/19 13:22 Urine Ketones 2+ (NEG) H 12/12/19 13:22 Urine Blood 3+ (NEG) H 12/12/19 13:22 Urine Nitrite Positive (NEG) H 12/12/19 13:22 Urine Bilirubin Negative (NEG) 12/12/19 13:22 Urine Urobilinogen 1.0 mg/dL (0.2-1.0) 12/12/19 13:22 Ur Leukocyte Esterase 3+ (NEG) H 12/12/19 13:22 Urine RBC 10-20 /HPF (NONE SEEN) H 12/12/19 13:22 Urine RBC Cancelled 12/12/19 13:22 Urine WBC Cancelled 12/12/19 13:22 Urine WBC Tntc /HPF (<5) H 12/12/19 13:22 Ur Squamous Epith Cells <5 /HPF (NONE SEEN) 12/12/19 13:22 Ur Squamous Epith Cells Cancelled 12/12/19 13:22 Ur Urothelial Cells Cancelled 12/12/19 13:22 Calcium Oxalate Crystal Cancelled 12/12/19 13:22 Uric Acid Crystals Cancelled 12/12/19 13:22 Triple Phos Crystals Cancelled 12/12/19 13:22 Other Crystals Cancelled 12/12/19 13:22 Amorphous Sediment Cancelled 12/12/19 13:22 Glitter Cells Cancelled 12/12/19 13:22 Urine Bacteria Cancelled 12/12/19 13:22 Urine Bacteria Loaded /HPF (<20) H 12/12/19 13:22 Hyaline Casts Cancelled 12/12/19 13:22 Fine Granular Casts Cancelled 12/12/19 13:22 Coarse Granular Casts Cancelled 12/12/19 13:22 Waxy Casts Cancelled 12/12/19 13:22 RBC Casts Cancelled 12/12/19 13:22 WBC Casts Cancelled 12/12/19 13:22 Urine Mucus Cancelled 12/12/19 13:22 Urine Other Cancelled 12/12/19 13:22 Urine Trichomonas Cancelled 12/12/19 13:22 Urine Yeast Cancelled 12/12/19 13:22 Ur Yeast w Hyphae Cancelled 12/12/19 13:22 Urine Yeast (Budding) Cancelled 12/12/19 13:22 Urine Sperm Cancelled 12/12/19 13:22 Urine Culture Reflexed Cancelled 12/12/19 13:22 Urine Culture Reflexed Not needed 12/12/19 13:22 Urine Total Volume Cancelled 12/12/19 13:22 Urine Total Protein 2+ (NEG) H 12/12/19 13:22 Medications List Reviewed: Yes Assessment & Plan - Problems (Diagnosis) (1) Atrial fibrillation Current Visit: Yes Status: Acute (2) COPD (chronic obstructive pulmonary disease) Current Visit: Yes Status: Acute (3) Cardiac arrest Current Visit: Yes Status: Acute (4) Narrow complex tachycardia Current Visit: Yes Status: Acute (5) Atrial fibrillation with RVR Current Visit: No Status: Acute Physician Review Additional Text: 1. Acute respiratory failure with hypoxia. Oxygen supplementation Monitor closely Appreciate help from pulmonology 2. Acute cardiac arrest status post cardiopulmonary resuscitation secondary to PEA, bradycardia, Appreciate Cardiology input. Sotalol discontinued. 3. Acute on chronic diastolic congestive heart failure. continue to monitor fluid balance. Strict I's and O's. Continue Aldactone. 4. Acute chronic obstructive pulmonary disease exacerbation, improving with nebulizers. Patient still requiring a significant amount of oxygen through Venturi mask. Continue antibiotics with doxycycline and Levaquin. 5. Methicillin-resistant Staphylococcus aureus infection. Sputum culture grew out methicillin-resistant Staphylococcus aureus, is covered with doxycycline. We will place on contact isolation. Appreciate Dr. Madrigal's input. 6. Atrial fibrillation paroxysmal, currently in sinus rhythm, Rate controlled. Continue Eliquis. 7. Septic shock secondary to urinary tract infection, resolved 8. Acute cystitis without hematuria, treated with antibiotics. 9. Gastroesophageal reflux disease without esophagitis, continue PPI. 10. Hypothyroidism. Continue supplement. 11. Acute on chronic anemia with history of thalassemia. Monitor hemoglobin levels, transfuse prn 12. 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 13. Deep vein thrombosis prophylaxis. Patient is on Eliquis. Plan: Awaiting placement to [place] Time Spent Managing Pts Care (In Minutes): 35
--- NOTE | 2019-12-27 12:58 | EKG ---
Test Date: 2019-12-26 Test Time: 09:38:33 Ict Sales Representative: KAYLEN MEASUREMENT RESULTS: Intervals: Rate: 103 UT: 114 QRSD: 66 QT: 374 QTc: 489 [place]: P: 70 UT: 114 QRS: 84 T: 74 INTERPRETIVE STATEMENTS: Sinus tachycardia Nonspecific T wave abnormality Abnormal ECG Electronically Signed On 12-27-19 12:58:08 CDT by Daniel Pollock
[2019-12-28] MEDS: IPRATROPIUM BROM 0.5MG/2.5ML NEB SCH ×5 (01:05→19:55)
[2019-12-28] MEDS: ACETAMINOPHEN 325 MG TABLET PO PRN (04:44)
[2019-12-28] MEDS: LEVOTHYROXINE SOD 0.088 MG TAB PO SCH (05:33)
[2019-12-28] MEDS: ARFORMOTEROL TARTRATE 15 MCG/2 ML VIAL.NEB NEB SCH ×2 (08:00→09:24)
[2019-12-28] MEDS: POTASSIUM CL SA 10 MEQ TAB PO SCH (08:18)
[2019-12-28] MEDS: FAMOTIDINE 20 MG TAB PO SCH ×2 (08:18→20:32)
[2019-12-28] MEDS: ENSURE ENLIVE 237 ML CAN PO SCH (08:18)
[2019-12-28] MEDS: DOXYCYCLINE 100 MG CAP PO SCH ×2 (08:18→20:32)
[2019-12-28] MEDS: predniSONE 10 MG TAB PO SCH (08:18)
[2019-12-28] MEDS: SPIRONOLACTONE 25 MG TABLET PO SCH (08:19)
[2019-12-28] MEDS: FE SULF/FA/VIT B COMP & C TAB PO SCH (08:19)
[2019-12-28] MEDS: APIXABAN 2.5 MG TABLET PO SCH ×2 (08:19→20:32)
[2019-12-28] MEDS: DOCUSATE NA 100 MG CAP PO SCH ×2 (08:19→20:32)
[2019-12-28] MEDS: HYDROCODONE/APAP 5/325 MG TAB PO PRN (16:30)
[2019-12-28] MEDS: MELATONIN 5 MG TABLET PO PRN (20:32)
[2019-12-29] MEDS: IPRATROPIUM BROM 0.5MG/2.5ML NEB SCH ×4 (01:39→19:55)
[2019-12-29] MEDS: LEVOTHYROXINE SOD 0.088 MG TAB PO SCH (05:41)
[2019-12-29 05:57] LABS: Absolute Lymphocytes (CBC) 1.9 K/uL (0.7-4.9); Basophils % 0.1 % (0-1.3); Hematocrit 29.4 % (36.0-45.0); Lymphocytes % 10.2 % (15.3-44.8); MPV 8.1 fL (7.6-11.3); RBC Red Blood Cell Count 4.08 M/uL (3.86-4.86)
[2019-12-29 06:10] LABS: Potassium 4.2 mmol/L (3.5-5.1)
[2019-12-29] MEDS: SPIRONOLACTONE 25 MG TABLET PO SCH (08:45)
[2019-12-29] MEDS: APIXABAN 2.5 MG TABLET PO SCH ×2 (08:45→22:38)
[2019-12-29] MEDS: DOXYCYCLINE 100 MG CAP PO SCH ×2 (08:45→22:38)
[2019-12-29] MEDS: POTASSIUM CL SA 10 MEQ TAB PO SCH (08:45)
[2019-12-29] MEDS: FAMOTIDINE 20 MG TAB PO SCH ×2 (08:46→22:38)
[2019-12-29] MEDS: FE SULF/FA/VIT B COMP & C TAB PO SCH (08:46)
[2019-12-29] MEDS: ENSURE ENLIVE 237 ML CAN PO SCH (08:46)
[2019-12-29] MEDS: DOCUSATE NA 100 MG CAP PO SCH ×2 (08:46→22:38)
[2019-12-29] MEDS: predniSONE 10 MG TAB PO SCH (08:46)
[2019-12-29] MEDS: HYDROCODONE/APAP 5/325 MG TAB PO PRN (08:49)
[2019-12-29] MEDS ORDERED: DIPHENHYDRAMINE 25 MG TAB/CAP PO ONE (09:46)
[2019-12-29] MEDS ORDERED: HYDROCORTISONE 0.5% CREAM 30 GM TOP PRN (09:47)
[2019-12-29] MEDS: D5 0.45 NS 1,000 ML IV SCH (12:43)
--- NOTE | 2019-12-29 12:49 | P.PN ---
Subjective Date of Service: 12/29/19 Primary Care Provider: unknown Chief Complaint: Shortness of breath Patient is feeling weak refusing to use the BiPAP no other complaints very poor appetite Review of Systems General: Weakness Respiratory: Shortness of Breath Physical Examination - Vital Signs Temperature: 97.6 F Blood Pressure: 112/54 Pulse: 103 Respirations: 17 Pulse Ox (%): 94 - Physical Exam General: Alert, Oriented x3 Respiratory: Clear to auscultation bilaterally, Diminished Cardiovascular: No edema, Regular rate/rhythm - Studies Medications List Reviewed: Yes Assessment & Plan - Problems (Diagnosis) (1) COPD (chronic obstructive pulmonary disease) Current Visit: Yes Status: Acute Plan: Patient is steadily improving chest congestion has declined still short of breath very weak refusing to use BiPAP I have instructed the patient that had she may not qualify for a noninvasive ventilator if she does not use the BiPAP she is willing to try this evening rate labs reviewed patient has Mr FABIAN in the sputum vital signs stable Dc spironolactone Qualifiers: Emphysema type: unspecified
--- NOTE | 2019-12-29 15:01 | PN ---
Date of Progress Note: 12/29/2019 Patient seen and examined. Chart reviewed and case discussed with RN. Patient feeling better. No a cute events overnight. Awaiting transfer to [place]. Medications: List reviewed. Physical Examination: Vital Signs: Temperature 97.6, heart rate 103, blood pressure 112/54, respirations 22, O2 94% on 5 L via nasal cannula. General: Awake, alert, oriented x3. Elderly female, frail, cachectic. BMI 15. CV: S1, S2. Sinus tachycardia. Peripheral pulses weak. Respiratory: Diminished breath sounds. No wheezing or stridor. No use of accessory muscles. Gastrointestinal: Abdomen is soft, nontender, nondistended. Positive bowel sounds. Extremities: No clubbing, cyanosis, or edema. Neurologic: Nonfocal. Skin: No rashes. Normal skin turgor. Laboratory Data: Sodium 150, potassium 4.2, chloride 111, CO2 of 33, BUN 40, creatinine 0.65, glucos e 123, calcium 8.8. WBC 19.1, H and H 9.2 and 29.4, platelets 223, neutrophils 81%. Sputum cultures growing out MRSA. Blood cultures negative. Assessment: 84-year-old female with: 1.Acute respiratory failure with hypoxia. We will continue supplemental oxygen. Patient is still r equiring Ventimask at times secondary to heart failure, chronic obstructive pulmonary disease, multif actorial. 2.Acute cardiac arrest status post cardiopulmonary resuscitation secondary to pulseless electrical a ctivity, bradycardia. Appreciate Cardiology input. Sotalol has been discontinued. 3.Acute on chronic diastolic congestive heart failure. We will continue Aldactone. Strict I's and O's. Monitor fluid balance. 4.Acute chronic obstructive pulmonary disease exacerbation, improving. We will continue nebs. Cont inue with supplemental oxygen. Currently on doxycycline. 5.Pneumonia with methicillin-resistant Staphylococcus aureus infection in the sputum. Continue doxy cycline. Appreciate Dr. Madrigal's input. Continue droplet isolation. 6.Atrial fibrillation, paroxysmal, currently in sinus rhythm, rate controlled. Continue Eliquis. S otalol discontinued due to bradycardia. 7.Septic shock secondary to urinary tract infection, resolved. 8.Acute cystitis without hematuria. Treatment completed with antibiotics. 9.Gastroesophageal reflux disease without esophagitis. Continue proton pump inhibitor. 10.Hypothyroidism. Continue supplement. 11.Acute on chronic anemia with history of thalassemia. Monitor hemoglobin levels, transfuse for he moglobin less than 7. 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 13.Moderate protein-calorie malnutrition. BMI is 15. 14.Deep vein thrombosis prophylaxis. Patient is on Eliquis. Plan: Discharge to [place] once accepted. /YVETTE Voice ID: [id number] Report ID: [id number]
[2019-12-29] MEDS: MELATONIN 5 MG TABLET PO PRN (22:44)
[2019-12-30] MEDS: IPRATROPIUM BROM 0.5MG/2.5ML NEB SCH ×5 (01:02→19:35)
[2019-12-30] MEDS: ALBUTEROL 2.5 MG/3 ML NEB SOL NEB PRN ×3 (01:02→12:35)
[2019-12-30] MEDS: METOPROLOL TARTRATE 5 MG/5 ML INJ IV PRN (02:00)
[2019-12-30 05:16] LABS: Absolute Lymphocytes (CBC) 1.3 K/uL (0.7-4.9); Basophils % 0.3 % (0-1.3); Hematocrit 27.5 % (36.0-45.0); Lymphocytes % 6.1 % (15.3-44.8); MPV 8.5 fL (7.6-11.3); RBC Red Blood Cell Count 3.78 M/uL (3.86-4.86)
[2019-12-30 05:43] LABS: Albumin 2.7 g/dL (3.4-5.0); Bilirubin Total 0.6 mg/dL (0.2-1.0); Protein, Total 6.2 g/dL (6.4-8.2)
[2019-12-30] MEDS: LEVOTHYROXINE SOD 0.088 MG TAB PO SCH (05:59)
[2019-12-30] MEDS: D5 0.45 NS 1,000 ML IV SCH (05:59)
[2019-12-30] MEDS ORDERED: VANCOMYCIN 750 MG in NA CHLORIDE 0.9% 250 ML IV SCH (08:00)
--- NOTE | 2019-12-30 08:45 | RAD REPORT ---
EXAM DESCRIPTION: RAD - Chest Single View - 12/30/2019 6:40 am CLINICAL HISTORY: f/u pneumonia Chest pain. COMPARISON: Chest Single View dated 12/22/2019; Chest Single View dated 12/20/2019; Chest Single View dated 12/17/2019; Chest Single View dated 12/16/2019 FINDINGS: Portable technique limits examination quality. Prominent emphysematous changes are present throughout the lungs. Mild improvement in infiltrates see n in both lung bases with mild persistent left basilar infiltrate present. The heart is mildly enlarg ed in size. No displaced fractures.
[2019-12-30] MEDS ORDERED: VANCOMYCIN 1 GM in NA CHLORIDE 0.9% 500 ML IVPB SCH (09:00)
[2019-12-30] MEDS: VANCOMYCIN 750 MG in NA CHLORIDE 0.9% 150 ML IVPB SCH (09:37)
[2019-12-30] MEDS: FAMOTIDINE 20 MG TAB PO SCH ×2 (09:38→20:56)
[2019-12-30] MEDS: predniSONE 10 MG TAB PO SCH (09:38)
[2019-12-30] MEDS: DOCUSATE NA 100 MG CAP PO SCH ×2 (09:38→20:57)
[2019-12-30] MEDS: DOXYCYCLINE 100 MG CAP PO SCH ×2 (09:38→20:57)
[2019-12-30] MEDS: FE SULF/FA/VIT B COMP & C TAB PO SCH (09:38)
[2019-12-30] MEDS: APIXABAN 2.5 MG TABLET PO SCH ×2 (09:38→20:57)
[2019-12-30] MEDS: POTASSIUM CL SA 10 MEQ TAB PO SCH (09:39)
[2019-12-30] MEDS: ENSURE ENLIVE 237 ML CAN PO SCH (09:40)
[2019-12-30] MEDS: HYDROCODONE/APAP 5/325 MG TAB PO PRN (11:46)
--- NOTE | 2019-12-30 11:52 | P.PN ---
Subjective Date of Service: 12/30/19 Primary Care Provider: unknown Chief Complaint: Shortness of breath Subjective: No new changes, Improving Patient is currently tolerating a Venti mask. Review of Systems General: Unremarkable Eyes: Unremarkable ENT: Unremarkable Respiratory: Shortness of Breath Cardiovascular: Unremarkable Gastrointestinal: Unremarkable Musculoskeletal: Unremarkable Integumentary: Unremarkable Neurological: Unremarkable Lymphatics: Unremarkable Physical Examination - Vital Signs Temperature: 97.7 F Blood Pressure: 101/54 Pulse: 92 Respirations: 22 Pulse Ox (%): 87 - Physical Exam General: Alert, In no apparent distress, Oriented x3 HEENT: Atraumatic, Normocephalic Neck: Supple Respiratory: Clear to auscultation bilaterally, Normal air movement Cardiovascular: No edema Capillary refill: <2 Seconds Gastrointestinal: Normal bowel sounds, Soft and benign Musculoskeletal: No clubbing Neurological: Normal speech - Studies Medications List Reviewed: Yes Assessment & Plan Discharge Plan: Senior Living Plan to discharge in: 24 Hours - Code Status/Comfort Care Code Status Assessed: Yes Physician Review Additional Text: Assessment Acute respiratory failure with hypoxia Acute cardiac arrest status post cardiopulmonary resuscitation secondary to pulseless electrical activity, bradycardia Acute on chronic diastolic congestive heart failure Acute chronic obstructive pulmonary disease exacerbation, improving Pneumonia with methicillin-resistant Staphylococcus aureus infection in the sputum Atrial fibrillation, paroxysmal, currently in sinus rhythm, rate controlled Septic shock secondary to urinary tract infection Acute cystitis without hematuria Gastroesophageal reflux disease without esophagitis Hypothyroidism Acute on chronic anemia with history of thalassemia Alzheimer dementia without behavioral disturbance Moderate protein-calorie malnutrition Deep vein thrombosis prophylaxis Plan Assessment: 84-year-old female with: Acute respiratory failure with hypoxia. We will continue supplemental oxygen. Patient is still requiring Ventimask at times secondary to heart failure, chronic obstructive pulmonary disease, multifactorial. Acute cardiac arrest status post cardiopulmonary resuscitation secondary to pulseless electrical activity, bradycardia. Appreciate Cardiology input. Sotalol has been discontinued. Acute on chronic diastolic congestive heart failure. We will continue Aldactone. Strict I's and O's. Monitor fluid balance. Acute chronic obstructive pulmonary disease exacerbation, improving. We will continue nebs. Continue with supplemental oxygen. Currently on doxycycline. Pneumonia with methicillin-resistant Staphylococcus aureus infection in the sputum. Continue doxycycline. Appreciate Dr. Madrigal's input. Continue droplet isolation. Patient has also been started on vancomycin. Atrial fibrillation, paroxysmal, currently in sinus rhythm, rate controlled. Continue Eliquis. Sotalol discontinued due to bradycardia. Septic shock secondary to urinary tract infection, resolved. Acute cystitis without hematuria. Treatment completed with antibiotics. Gastroesophageal reflux disease without esophagitis. Continue proton pump inhibitor. Hypothyroidism. Continue supplement. Acute on chronic anemia with history of thalassemia. Monitor hemoglobin levels, transfuse for hemoglobin less than 7. 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 Moderate protein-calorie malnutrition. BMI is 15. Deep vein thrombosis prophylaxis. Patient is on Eliquis Patient is awaiting placement at either LTAC or high-level snf facility as she is currently on a Ventimask. Initially her insurance denied placement at [facility] but we will be completing a peer to peer to determine if she can qualify him. If not patient will require a high level snf facility at discharge. Patient is stable at this time, reports she has been feeling well. Critical Care: No Time Spent Managing Pts Care (In Minutes): 55
[2019-12-30 12:30] LABS: Platelet Estimate ADEQ; Urine White Blood Cell Casts OK
[2019-12-30 12:31] LABS: Anisocytosis 3+; Basophilic Stippling 1+; Blood Morphology Comment NOTED (NOT SEEN); Elliptocytes 2+; Hypochromasia 1+; Macrocytosis 1+; Teardrop Cell 1+
[2019-12-30] MEDS: D5W 1,000 ML IV SCH (15:46)
[2019-12-30] MEDS: MELATONIN 5 MG TABLET PO PRN (20:56)
[2019-12-30 21:43] LABS: Potassium 4.3 mmol/L (3.5-5.1)
[2019-12-31] MEDS: IPRATROPIUM BROM 0.5MG/2.5ML NEB SCH ×4 (00:30→19:40)
[2019-12-31] MEDS: D5W 1,000 ML IV SCH ×3 (03:23→21:18)
[2019-12-31 05:04] LABS: Absolute Lymphocytes (CBC) 1.5 K/uL (0.7-4.9); Basophils % 0.1 % (0-1.3); Hematocrit 24.4 % (36.0-45.0); Lymphocytes % 8.7 % (15.3-44.8); MPV 8.2 fL (7.6-11.3); RBC Red Blood Cell Count 3.34 M/uL (3.86-4.86)
[2019-12-31 05:21] LABS: BUN Blood Urea Nitrogen 28 mg/dL (7-18); Bicarbonate 33 mmol/L (21-32); Glucose Level 126 mg/dL (74-106); Magnesium 1.8 mg/dL (1.8-2.4); Potassium 3.9 mmol/L (3.5-5.1); Sodium Level 144 mmol/L (136-145)
[2019-12-31] MEDS: LEVOTHYROXINE SOD 0.088 MG TAB PO SCH (05:54)
[2019-12-31] MEDS: DOXYCYCLINE 100 MG CAP PO SCH ×2 (08:59→21:19)
[2019-12-31] MEDS: ENSURE ENLIVE 237 ML CAN PO SCH ×2 (09:00→21:00)
[2019-12-31] MEDS ORDERED: MAGNESIUM SULFATE 1 gm IVPB 1 GM/100 ML BAG IV ONE (09:00)
[2019-12-31] MEDS: FE SULF/FA/VIT B COMP & C TAB PO SCH (09:00)
[2019-12-31] MEDS: DOCUSATE NA 100 MG CAP PO SCH ×2 (09:00→21:19)
[2019-12-31] MEDS: POTASSIUM CL SA 10 MEQ TAB PO SCH (09:00)
[2019-12-31] MEDS: APIXABAN 2.5 MG TABLET PO SCH ×2 (09:00→21:19)
[2019-12-31] MEDS ORDERED: POTASSIUM CL SA 10 MEQ TAB PO ONE (09:00)
[2019-12-31] MEDS: predniSONE 10 MG TAB PO SCH (09:00)
[2019-12-31] MEDS: FAMOTIDINE 20 MG TAB PO SCH ×2 (09:00→21:19)
[2019-12-31 11:47] LABS: Hematocrit 24.4 % (36.0-45.0)
--- NOTE | 2019-12-31 15:48 | P.PN ---
Subjective Date of Service: 12/31/19 Primary Care Provider: unknown Chief Complaint: Shortness of breath Subjective: Other (Patient stable this time. Patient still on Venti mask. Patient still desats off Venti mask.) Physical Examination - Vital Signs Temperature: 98.8 F Blood Pressure: 141/64 Pulse: 88 Respirations: 20 Pulse Ox (%): 94 - Physical Exam General: Alert, Cooperative HEENT: Atraumatic Neck: Supple Respiratory: Expiratory wheezes (Bilateral) Cardiovascular: Regular rate/rhythm Gastrointestinal: Normal bowel sounds Musculoskeletal: No tenderness, No warmth Neurological: Normal speech, Normal strength at 5/5 x4 extr, Normal tone, Normal affect - Studies Medications List Reviewed: Yes Assessment & Plan Discharge Plan: LTAC (Versus high-level skilled facility) Plan to discharge in: 48 Hours Physician Review Additional Text: Assessment Acute respiratory failure with hypoxia Acute cardiac arrest status post cardiopulmonary resuscitation secondary to pulseless electrical activity, bradycardia Acute on chronic diastolic congestive heart failure Acute chronic obstructive pulmonary disease exacerbation, improving Pneumonia with methicillin-resistant Staphylococcus aureus infection in the sputum Atrial fibrillation, paroxysmal, currently in sinus rhythm, rate controlled Septic shock secondary to urinary tract infection Acute cystitis without hematuria Gastroesophageal reflux disease without esophagitis Hypothyroidism Acute on chronic anemia with history of thalassemia Alzheimer dementia without behavioral disturbance Moderate protein-calorie malnutrition Deep vein thrombosis prophylaxis Plan Assessment: 84-year-old female with: Acute respiratory failure with hypoxia. Patient still requiring Venti mask at this time. Patient was denied by insurance to go to a long-term care facility. Patient requires high dose oxygen. Patient also on IV vancomycin and doxycycline for methicillin-resistant aureus infection of the sputum. Awaiting to discuss with appeared appear medical doctor to appeal the denial for long- term acute care facility placement. If denied again will tried high-level skilled facility that will be able to provide Venti mask supplementation. Acute cardiac arrest status post cardiopulmonary resuscitation secondary to pulseless electrical activity, bradycardia. Cardiology recommends no further use of sotalol Acute on chronic diastolic congestive heart failure. Continue with Aldactone. Strict I's and O's. Monitor fluid balance. Continue fluid restriction Acute chronic obstructive pulmonary disease exacerbation, improving. Patient remains on Venti mask. Continue as above. Currently on doxycycline. Pneumonia with methicillin-resistant Staphylococcus aureus infection in the sputum. Patient now on vancomycin and doxycycline. Continue with pulmonology recommendation. Atrial fibrillation, paroxysmal, currently in sinus rhythm, rate controlled. Continue Eliquis. Sotalol discontinued due to bradycardia. Septic shock secondary to urinary tract infection, resolved. Acute cystitis without hematuria. Treatment completed with antibiotics. Gastroesophageal reflux disease without esophagitis. Continue proton pump inhibitor. Hypothyroidism. Continue supplement. Acute on chronic anemia with history of thalassemia. Monitor hemoglobin levels, transfuse for hemoglobin less than 7. 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 Moderate protein-calorie malnutrition. BMI is 15. Deep vein thrombosis prophylaxis. Patient is on Eliquis Time Spent Managing Pts Care (In Minutes): 55
[2019-12-31] MEDS: VANCOMYCIN 750 MG in NA CHLORIDE 0.9% 150 ML IVPB SCH (21:18)
[2020-01-01] MEDS: IPRATROPIUM BROM 0.5MG/2.5ML NEB SCH ×3 (01:50→12:30)
[2020-01-01 06:27] LABS: Absolute Lymphocytes (CBC) 1.9 K/uL (0.7-4.9); Basophils % 0.3 % (0-1.3); Lymphocytes % 12.9 % (15.3-44.8); MPV 8.2 fL (7.6-11.3); RBC Red Blood Cell Count 3.37 M/uL (3.86-4.86)
[2020-01-01] MEDS: LEVOTHYROXINE SOD 0.088 MG TAB PO SCH (06:36)
[2020-01-01 06:57] LABS: BUN Blood Urea Nitrogen 19 mg/dL (7-18); Bicarbonate 31 mmol/L (21-32); Glucose Level 116 mg/dL (74-106); Magnesium 1.9 mg/dL (1.8-2.4); Potassium 3.8 mmol/L (3.5-5.1); Sodium Level 137 mmol/L (136-145)
[2020-01-01] MEDS: ALBUTEROL 2.5 MG/3 ML NEB SOL NEB PRN ×2 (07:20→12:30)
[2020-01-01] MEDS: D5W 1,000 ML IV SCH (08:00)
[2020-01-01] MEDS: DOCUSATE NA 100 MG CAP PO SCH ×3 (08:13→21:00)
[2020-01-01] MEDS: POTASSIUM CL SA 10 MEQ TAB PO SCH (08:13)
[2020-01-01] MEDS: FAMOTIDINE 20 MG TAB PO SCH ×2 (08:13→20:43)
[2020-01-01] MEDS: predniSONE 10 MG TAB PO SCH (08:13)
[2020-01-01] MEDS: APIXABAN 2.5 MG TABLET PO SCH ×2 (08:13→20:43)
[2020-01-01] MEDS: FE SULF/FA/VIT B COMP & C TAB PO SCH (08:13)
[2020-01-01] MEDS: ENSURE ENLIVE 237 ML CAN PO SCH ×2 (08:14→20:43)
[2020-01-01] MEDS: DOXYCYCLINE 100 MG CAP PO SCH ×2 (08:14→20:43)
--- NOTE | 2020-01-01 12:17 | P.PN ---
Subjective Date of Service: 01/01/20 Primary Care Provider: unknown Chief Complaint: Shortness of breath Subjective: No new changes, Improving Patient is currently tolerating a Venti mask. <AkilkayliLogan - Last Filed: 01/01/20 12:14> Date of Service: 01/01/20 <Ilya Youssef - Last Filed: 01/01/20 13:46> Review of Systems General: Unremarkable Eyes: Unremarkable ENT: Unremarkable Respiratory: Shortness of Breath, As per HPI Cardiovascular: Unremarkable Gastrointestinal: Unremarkable Genitourinary: Unremarkable Musculoskeletal: Unremarkable Neurological: Unremarkable <Logan Hwang - Last Filed: 01/01/20 12:14> Physical Examination - Vital Signs Temperature: 96.8 F Blood Pressure: 110/53 Pulse: 84 Respirations: 20 Pulse Ox (%): 98 - Physical Exam General: Alert, In no apparent distress, Oriented x3 HEENT: Atraumatic, Normocephalic Neck: Supple Respiratory: Normal air movement Cardiovascular: Normal S1 S2 Capillary refill: <2 Seconds Gastrointestinal: Soft and benign Musculoskeletal: No clubbing, No swelling Integumentary: No significant lesion Neurological: Normal speech - Studies Medications List Reviewed: Yes <Logan Hwang - Last Filed: 01/01/20 12:14> Assessment & Plan Discharge Plan: Other (LTAC or high-level jail facility.) Plan to discharge in: 24 Hours - Code Status/Comfort Care Code Status Assessed: Yes Physician Review Additional Text: Assessment Acute respiratory failure with hypoxia Acute cardiac arrest status post cardiopulmonary resuscitation secondary to pulseless electrical activity, bradycardia Acute on chronic diastolic congestive heart failure Acute chronic obstructive pulmonary disease exacerbation, improving Pneumonia with methicillin-resistant Staphylococcus aureus infection in the sputum Atrial fibrillation, paroxysmal, currently in sinus rhythm, rate controlled Septic shock secondary to urinary tract infection Acute cystitis without hematuria Gastroesophageal reflux disease without esophagitis Hypothyroidism Acute on chronic anemia with history of thalassemia Alzheimer dementia without behavioral disturbance Moderate protein-calorie malnutrition Deep vein thrombosis prophylaxis Plan Assessment: 84-year-old female with: Acute respiratory failure with hypoxia. Patient still requiring Venti mask at this time. Patient was denied by insurance to go to a long-term care facility. Patient requires high dose oxygen. Patient also on IV vancomycin and doxycycline for methicillin-resistant aureus infection of the sputum. Awaiting to discuss with appeared [facility] medical doctor to appeal the denial for long- term acute care facility placement. After discussing case with case management and social workers as been indeterminate patient may possibly be managed at a high level jail facility. Will continue to pursue this as an additional option 2 long-term acute care facility if denied by insurance after peer to peer. All patient doing well post a requiring the use of the Venti mask. Acute cardiac arrest status post cardiopulmonary resuscitation secondary to pulseless electrical activity, bradycardia. Cardiology recommends no further use of sotalol Acute on chronic diastolic congestive heart failure. Continue with Aldactone. Strict I's and O's. Monitor fluid balance. Continue fluid restriction Acute chronic obstructive pulmonary disease exacerbation, improving. Patient remains on Venti mask. Continue as above. Currently on doxycycline. Pneumonia with methicillin-resistant Staphylococcus aureus infection in the sputum. Patient now on vancomycin and doxycycline. Continue with pulmonology recommendation. Atrial fibrillation, paroxysmal, currently in sinus rhythm, rate controlled. Continue Eliquis. Sotalol discontinued due to bradycardia. Septic shock secondary to urinary tract infection, resolved. Acute cystitis without hematuria. Treatment completed with antibiotics. Gastroesophageal reflux disease without esophagitis. Continue proton pump inhibitor. Hypothyroidism. Continue supplement. Acute on chronic anemia with history of thalassemia. Monitor hemoglobin levels, transfuse for hemoglobin less than 7. 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 Moderate protein-calorie malnutrition. BMI is 15. Deep vein thrombosis prophylaxis. Patient is on Eliquis Critical Care: No Time Spent Managing Pts Care (In Minutes): 55 <Logan Hwang - Last Filed: 01/01/20 12:14> Physician Review Additional Text: Patient examined. Agree with plan of care by a nurse practitioner. Case discussed with medical screener for insurance to discuss peer to peer concerning long-term acute care facility placement. At this time medical screener recommends high-level care skilled facility. If none available then he will approve long-term acute care facility placement. Will discuss with social worker delinquency prevention. <Ilya Youssef - Last Filed: 01/01/20 13:46>
[2020-01-01] MEDS: SODIUM CHLORIDE 0.9% 10ML INJ IV PRN (20:43)
[2020-01-01] MEDS: MELATONIN 5 MG TABLET PO PRN (20:43)
[2020-01-01] MEDS ORDERED: VANCOMYCIN/NS 1 gm 1 GM/250 ML BAG IV SCH (21:00)
[2020-01-02] MEDS: D5W 1,000 ML IV SCH (03:40)
[2020-01-02] MEDS: LEVOTHYROXINE SOD 0.088 MG TAB PO SCH (05:04)
[2020-01-02 05:30] LABS: Absolute Lymphocytes (CBC) 1.9 K/uL (0.7-4.9); Basophils % 0.3 % (0-1.3); Hematocrit 24.5 % (36.0-45.0); Lymphocytes % 15.1 % (15.3-44.8); MPV 8.6 fL (7.6-11.3); RBC Red Blood Cell Count 3.39 M/uL (3.86-4.86)
[2020-01-02 05:39] LABS: BUN Blood Urea Nitrogen 14 mg/dL (7-18); Bicarbonate 33 mmol/L (21-32); Glucose Level 119 mg/dL (74-106); Magnesium 1.8 mg/dL (1.8-2.4); Potassium 4.1 mmol/L (3.5-5.1); Sodium Level 141 mmol/L (136-145)
[2020-01-02] MEDS: DOXYCYCLINE 100 MG CAP PO SCH ×2 (08:44→21:35)
[2020-01-02] MEDS: DOCUSATE NA 100 MG CAP PO SCH ×2 (08:44→21:00)
[2020-01-02] MEDS: FAMOTIDINE 20 MG TAB PO SCH ×2 (08:44→21:36)
[2020-01-02] MEDS: POTASSIUM CL SA 10 MEQ TAB PO SCH (08:44)
[2020-01-02] MEDS: APIXABAN 2.5 MG TABLET PO SCH ×2 (08:44→21:35)
[2020-01-02] MEDS: FE SULF/FA/VIT B COMP & C TAB PO SCH (08:45)
[2020-01-02] MEDS: predniSONE 10 MG TAB PO SCH (08:45)
[2020-01-02] MEDS: ENSURE ENLIVE 237 ML CAN PO SCH ×2 (08:45→21:00)
[2020-01-02] MEDS ORDERED: MAGNESIUM SULFATE 1 gm IVPB 1 GM/100 ML BAG IV ONE (09:00)
[2020-01-02 10:40] LABS: Anisocytosis 3+; Basophilic Stippling 2+; Blood Morphology Comment NOTED (NOT SEEN); Platelet Estimate ADEQ; Poikilocytosis 2+; Teardrop Cell 2+
--- NOTE | 2020-01-02 14:22 | P.PN ---
Subjective Date of Service: 01/02/20 Primary Care Provider: unknown Chief Complaint: Shortness of breath Subjective: Doing well Physical Examination - Vital Signs Temperature: 97.3 F Blood Pressure: 121/67 Pulse: 84 Respirations: 20 Pulse Ox (%): 92 - Physical Exam General: Alert, Cooperative HEENT: Atraumatic Neck: Supple Respiratory: Diminished, Other (On Venti mask) Cardiovascular: Normal pulses, Regular rate/rhythm Integumentary: No erythema, No warmth, No cyanosis Neurological: Normal speech, Normal strength at 5/5 x4 extr, Normal tone, Normal affect - Studies Medications List Reviewed: Yes Assessment & Plan Discharge Plan: LTAC Plan to discharge in: 24 Hours Physician Review Additional Text: Assessment Acute respiratory failure with hypoxia Acute cardiac arrest status post cardiopulmonary resuscitation secondary to pulseless electrical activity, bradycardia Acute on chronic diastolic congestive heart failure Acute chronic obstructive pulmonary disease exacerbation, improving Pneumonia with methicillin-resistant Staphylococcus aureus infection in the sputum Atrial fibrillation, paroxysmal, currently in sinus rhythm, rate controlled Septic shock secondary to urinary tract infection Acute cystitis without hematuria Gastroesophageal reflux disease without esophagitis Hypothyroidism Acute on chronic anemia with history of thalassemia Alzheimer dementia without behavioral disturbance Moderate protein-calorie malnutrition Deep vein thrombosis prophylaxis Plan Assessment: 84-year-old female with: Acute respiratory failure with hypoxia. Patient still requiring Venti mask at this time. Patient was denied by insurance to go to a long-term care facility. I was able to discuss with the medical doctor for insurance about the denial. He recommended high-level skilled facility if available. He reported that if not available then he would approve long-term acute facility. This was discuss ed in detail with social work. No high-level skilled facility available in our area. Therefore left message with medical lab scientist to approve long-term acute care facility placement. Await acceptance. Acute cardiac arrest status post cardiopulmonary resuscitation secondary to pulseless electrical activity, bradycardia. Cardiology recommends no further use of sotalol Acute on chronic diastolic congestive heart failure. Continue with Aldactone. Strict I's and O's. Monitor fluid balance. Continue fluid restriction Acute chronic obstructive pulmonary disease exacerbation, improving. Patient remains on Venti mask. Continue as above. Currently on doxycycline. Pneumonia with methicillin-resistant Staphylococcus aureus infection in the sputum. Patient now on vancomycin and doxycycline. Continue with pulmonology recommendation. Atrial fibrillation, paroxysmal, currently in sinus rhythm, rate controlled. Continue Eliquis. Sotalol discontinued due to bradycardia. Septic shock secondary to urinary tract infection, resolved. Acute cystitis without hematuria. Treatment completed with antibiotics. Gastroesophageal reflux disease without esophagitis. Continue proton pump inhibitor. Hypothyroidism. Continue supplement. Acute on chronic anemia with history of thalassemia. Monitor hemoglobin levels, transfuse for hemoglobin less than 7. 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 Moderate protein-calorie malnutrition. BMI is 15. Deep vein thrombosis prophylaxis. Patient is on Eliquis Time Spent Managing Pts Care (In Minutes): 55
--- NOTE | 2020-01-02 14:46 | P.PN ---
Subjective Date of Service: 01/02/20 Primary Care Provider: unknown Chief Complaint: COPD chronic respiratory failure P patient claims that she is doing better breathing is better still on Venti mask refusing BiPAP eating well denies any chest pain Review of Systems General: Weakness Respiratory: Shortness of Breath Physical Examination - Vital Signs Temperature: 97.3 F Blood Pressure: 121/67 Pulse: 84 Respirations: 20 Pulse Ox (%): 92 - Physical Exam General: Alert, In no apparent distress, Oriented x3 Respiratory: Clear to auscultation bilaterally, Diminished Cardiovascular: No edema, Regular rate/rhythm - Studies Medications List Reviewed: Yes Assessment & Plan - Problems (Diagnosis) (1) COPD (chronic obstructive pulmonary disease) Current Visit: Yes Status: Acute Plan: Patient has terminal COPD titrate sat to 90% Dc IV vancomycin continue with p.o. doxycycline Dc IV fluids patient also is mildly anemic continue to monitor no evidence of bleeding check serum iron level patient is eating and drinking schedule bronchodilators Dc BiPAP patient is refusing still very weak labs reviewed at low-dose prednisone Qualifiers: Emphysema type: unspecified Physician Review Additional Text: Assessment Acute respiratory failure with hypoxia Acute cardiac arrest status post cardiopulmonary resuscitation secondary to pulseless electrical activity, bradycardia Acute on chronic diastolic congestive heart failure Acute chronic obstructive pulmonary disease exacerbation, improving Pneumonia with methicillin-resistant Staphylococcus aureus infection in the sputum Atrial fibrillation, paroxysmal, currently in sinus rhythm, rate controlled Septic shock secondary to urinary tract infection Acute cystitis without hematuria Gastroesophageal reflux disease without esophagitis Hypothyroidism Acute on chronic anemia with history of thalassemia Alzheimer dementia without behavioral disturbance Moderate protein-calorie malnutrition Deep vein thrombosis prophylaxis Plan Assessment: 84-year-old female with: Acute respiratory failure with hypoxia. Patient still requiring Venti mask at this time. Patient was denied by insurance to go to a long-term care facility. I was able to discuss with the medical doctor for insurance about the denial. He recommended high-level skilled facility if available. He reported that if not available then he would approve long-term acute facility. This was discussed in detail with social work. No high-level skilled facility available in our area. Therefore left message with medical research assistant to approve long-term acute care facility placement. Await acceptance. Acute cardiac arrest status post cardiopulmonary resuscitation secondary to pulseless electrical activity, bradycardia. Cardiology recommends no further use of sotalol Acute on chronic diastolic congestive heart failure. Continue with Aldactone. Strict I's and O's. Monitor fluid balance. Continue fluid restriction Acute chronic obstructive pulmonary disease exacerbation, improving. Patient re [place] on Venti mask. Continue as above. Currently on doxycycline. Pneumonia with methicillin-resistant Staphylococcus aureus infection in the sputum. Patient now on vancomycin and doxycycline. Continue with pulmonology recommendation. Atrial fibrillation, paroxysmal, currently in sinus rhythm, rate controlled. Continue Eliquis. Sotalol discontinued due to bradycardia. Septic shock secondary to urinary tract infection, resolved. Acute cystitis without hematuria. Treatment completed with antibiotics. Gastroesophageal reflux disease without esophagitis. Continue proton pump inhibitor. Hypothyroidism. Continue supplement. Acute on chronic anemia with history of thalassemia. Monitor hemoglobin levels, transfuse for hemoglobin less than 7. 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 Moderate protein-calorie malnutrition. BMI is 15. Deep vein thrombosis prophylaxis. Patient is on Eliquis
[2020-01-02] MEDS: IPRATROPIUM BROM 0.5MG/2.5ML NEB SCH (19:55)
[2020-01-02] MEDS: ARFORMOTEROL TARTRATE 15 MCG/2 ML VIAL.NEB NEB SCH (19:55)
[2020-01-02] MEDS ORDERED: ONDANSETRON 4 MG/2 ML VIAL IV PRN (21:22)
[2020-01-02] MEDS: MELATONIN 5 MG TABLET PO PRN (21:36)
[2020-01-03] MEDS: IPRATROPIUM BROM 0.5MG/2.5ML NEB SCH ×4 (01:45→20:05)
[2020-01-03 05:43] LABS: BUN Blood Urea Nitrogen 14 mg/dL (7-18); Bicarbonate 32 mmol/L (21-32); Glucose Level 111 mg/dL (74-106); Magnesium 2.2 mg/dL (1.8-2.4); Potassium 3.8 mmol/L (3.5-5.1); Sodium Level 143 mmol/L (136-145)
[2020-01-03] MEDS: LEVOTHYROXINE SOD 0.088 MG TAB PO SCH (06:21)
[2020-01-03] MEDS: ARFORMOTEROL TARTRATE 15 MCG/2 ML VIAL.NEB NEB SCH ×2 (07:20→20:05)
--- NOTE | 2020-01-03 07:36 | RAD REPORT ---
EXAM DESCRIPTION: RAD - Chest Single View - 01/03/2020 6:56 am CLINICAL HISTORY: low O2 sat, shortness of breath COMPARISON: Portable December 29, portable December 21 TECHNIQUE: AP portable chest image was obtained 01/03/2020 6:56 am . FINDINGS: Baseline fibrotic lung pattern is present. Skin fold artifacts are seen as vertical lines over the lateral right chest. Focal apical scarring changes are noted, worse on the right. Small left pleural effusion is present. Heart size is upper normal. No pneumothorax. Medial left base opacifica tion is present. This could be infiltrate or atelectasis. This has been present on prior imaging. Rig ht base opacification is not significantly different from prior studies. No vascular engorgement. No acute bony abnormality seen. No acute aortic findings suspected. IMPRESSION: Left base pneumonia or chronic atelectasis changes not substantially different from comp arison. Small left pleural effusion of also similar to prior imaging. Right base opacification is not substantially different. The patient has chronic interstitial fibroti c pattern again noted.
[2020-01-03] MEDS: DOXYCYCLINE 100 MG CAP PO SCH ×2 (09:06→20:31)
[2020-01-03] MEDS: FAMOTIDINE 20 MG TAB PO SCH ×2 (09:06→20:31)
[2020-01-03] MEDS: POTASSIUM CL SA 10 MEQ TAB PO SCH (09:06)
[2020-01-03] MEDS: APIXABAN 2.5 MG TABLET PO SCH ×2 (09:06→20:31)
[2020-01-03] MEDS: DOCUSATE NA 100 MG CAP PO SCH ×2 (09:06→20:33)
[2020-01-03] MEDS: FE SULF/FA/VIT B COMP & C TAB PO SCH (09:06)
[2020-01-03] MEDS: predniSONE 10 MG TAB PO SCH (09:06)
[2020-01-03] MEDS: ENSURE ENLIVE 237 ML CAN PO SCH ×2 (09:07→20:33)
--- NOTE | 2020-01-03 13:17 | P.PN ---
Subjective Date of Service: 01/03/20 Primary Care Provider: unknown Chief Complaint: COPD chronic respiratory failure Subjective: Improving, Doing well (Patient on nasal cannula) Physical Examination - Vital Signs Temperature: 97.8 F Blood Pressure: 102/58 Pulse: 98 Respirations: 20 Pulse Ox (%): 99 - Physical Exam General: Alert, In no apparent distress, Oriented x3, Cooperative HEENT: Atraumatic Neck: Supple Respiratory: Clear to auscultation bilaterally Cardiovascular: Normal pulses, Regular rate/rhythm Neurological: Normal speech, Normal strength at 5/5 x4 extr, Normal tone, Normal affect - Studies Medications List Reviewed: Yes Assessment & Plan Discharge Plan: Other (alf facility) Plan to discharge in: 48 Hours Physician Review Additional Text: Assessment Acute respiratory failure with hypoxia secondary to COPD exacerbation Acute cardiac arrest status post cardiopulmonary resuscitation secondary to pulseless electrical activity, bradycardia Acute on chronic diastolic congestive heart failure Pneumonia with methicillin-resistant Staphylococcus aureus infection in the sputum Atrial fibrillation, paroxysmal, currently in sinus rhythm, rate controlled on chronic anti coagulation therapy Septic shock secondary to urinary tract infection Acute cystitis without hematuria Gastroesophageal reflux disease without esophagitis Hypothyroidism Acute on chronic anemia with history of thalassemia Alzheimer dementia without behavioral disturbance Moderate protein-calorie malnutrition Deep vein thrombosis prophylaxis Plan Acute respiratory failure with hypoxia secondary to COPD exacerbation. Patient has done well. Patient now on nasal cannula. Patient denied to go to a long- term acute care facility. Will discuss with child welfare social worker about skilled placement. Since the patient is using nasal cannula at she should be able to be approved. Will maintain oxygen above 89%. Will need to monitor for hypoxia and hypercapnia. Case discussed at length with pulmonology. Anticipate discharge to skilled facility likely Sunday. Advance care planning and advanced directives readdress with patient. Patient is full code at this time. Patient agrees with skilled placement. Acute cardiac arrest status post cardiopulmonary resuscitation secondary to pulseless electrical activity, bradycardia. Overall stable. Cardiology recommends no further use of sotalol Acute on chronic diastolic congestive heart failure. Overall stable. Continue with Aldactone. Strict I's and O's. Monitor fluid balance. Continue fluid restriction Pneumonia with methicillin-resistant Staphylococcus aureus infection in the sputum. This has remained stable. Vancomycin discontinued by pulmonology. Patient now on oral doxycycline. Atrial fibrillation, paroxysmal, currently in sinus rhythm, rate controlled. Overall stable. Rate controlled. Continue Eliquis. Sotalol discontinued due to bradycardia. Septic shock secondary to urinary tract infection: This has resolved. Overall stable Acute cystitis without hematuria. Treatment completed with antibiotics. Gastroesophageal reflux disease without esophagitis. Continue proton pump inhibitor. Hypothyroidism. Continue medication. Acute on chronic anemia with history of thalassemia. Overall stable. No intervention required. 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 Moderate protein-calorie malnutrition. BMI is 15. Deep vein thrombosis prophylaxis. Patient is on Eliquis Time Spent Managing Pts Care (In Minutes): 55
[2020-01-03] MEDS: MELATONIN 5 MG TABLET PO PRN (20:31)
[2020-01-04] MEDS: IPRATROPIUM BROM 0.5MG/2.5ML NEB SCH ×4 (00:15→19:30)
[2020-01-04 05:09] LABS: Absolute Lymphocytes (CBC) 1.8 K/uL (0.7-4.9); Basophils % 0.3 % (0-1.3); Hematocrit 25.4 % (36.0-45.0); Lymphocytes % 18.5 % (15.3-44.8); MPV 8.4 fL (7.6-11.3); RBC Red Blood Cell Count 3.51 M/uL (3.86-4.86)
[2020-01-04] MEDS: LEVOTHYROXINE SOD 0.088 MG TAB PO SCH (05:38)
[2020-01-04] MEDS: ARFORMOTEROL TARTRATE 15 MCG/2 ML VIAL.NEB NEB SCH ×2 (07:50→19:30)
[2020-01-04] MEDS: FAMOTIDINE 20 MG TAB PO SCH ×2 (08:52→20:53)
[2020-01-04] MEDS: POTASSIUM CL SA 10 MEQ TAB PO SCH (08:52)
[2020-01-04] MEDS: FE SULF/FA/VIT B COMP & C TAB PO SCH (08:52)
[2020-01-04] MEDS: DOXYCYCLINE 100 MG CAP PO SCH ×2 (08:52→20:54)
[2020-01-04] MEDS: ENSURE ENLIVE 237 ML CAN PO SCH ×2 (08:53→20:54)
[2020-01-04] MEDS: predniSONE 10 MG TAB PO SCH (08:53)
[2020-01-04] MEDS: DOCUSATE NA 100 MG CAP PO SCH ×2 (08:53→20:55)
[2020-01-04] MEDS: APIXABAN 2.5 MG TABLET PO SCH ×2 (08:53→20:53)
--- NOTE | 2020-01-04 12:24 | P.PN ---
Subjective Date of Service: 01/04/20 Primary Care Provider: unknown Chief Complaint: COPD chronic respiratory failure Subjective: Other (Patient doing well on nasal cannula.) Physical Examination - Vital Signs Temperature: 97.6 F Blood Pressure: 143/70 Pulse: 101 Respirations: 24 Pulse Ox (%): 86 - Physical Exam General: Alert, In no apparent distress, Oriented x3, Cooperative HEENT: Atraumatic Neck: Supple Respiratory: Other (Poor inspiration and expiration) Cardiovascular: Normal pulses, Regular rate/rhythm Gastrointestinal: Normal bowel sounds, Soft and benign, Non-distended, No masses, No rebound, No guarding Neurological: Normal speech, Normal strength at 5/5 x4 extr, Normal tone, Normal affect - Studies Medications List Reviewed: Yes Assessment & Plan Discharge Plan: Other (Skilled placement versus hospice) Plan to discharge in: 24 Hours Physician Review Additional Text: Assessment Acute respiratory failure with hypoxia secondary to COPD exacerbation Acute cardiac arrest status post cardiopulmonary resuscitation secondary to pulseless electrical activity, bradycardia Acute on chronic diastolic congestive heart failure Pneumonia with methicillin-resistant Staphylococcus aureus infection in the sputum Atrial fibrillation, paroxysmal, currently in sinus rhythm, rate controlled on chronic anti coagulation therapy Septic shock secondary to urinary tract infection Acute cystitis without hematuria Gastroesophageal reflux disease without esophagitis Hypothyroidism Acute on chronic anemia with history of thalassemia Alzheimer dementia without behavioral disturbance Moderate protein-calorie malnutrition Deep vein thrombosis prophylaxis Plan Acute respiratory failure with hypoxia secondary to COPD exacerbation. Patient doing well this time. Patient on nasal cannula. Patient denied long-term acute care facility. A advance care planning and advance directives readdressed with patient. Patient wishes to be DNR. Will change status. 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 She also prefers to go to a skilled facility initially. If her condition does not continue thereafter she does not wish to go to snf long-term. At that point she would prefer hospice at home. This was also discussed with friend who takes care of her. Will discuss with brother. Will maintain oxygen above 89%. Will need to monitor for hypoxia and hypercapnia. Case discussed at length with pulmonology. Patient may have non invasive ventilator at home. Will discuss with director social further. I will turn the service over to the hospitalist team tomorrow. I will go over the plan of care with him. Advance care planning time-30 min Acute cardiac arrest status post cardiopulmonary resuscitation secondary to pulseless electrical activity, bradycardia. Overall stable. Cardiology recommends no further use of sotalol Acute on chronic diastolic congestive heart failure. Overall stable. Continue with Aldactone. Strict I's and O's. Monitor fluid balance. Continue fluid restriction Pneumonia with methicillin-resistant Staphylococcus aureus infection in the sputum. This has remained stable. Vancomycin discontinued by pulmonology. Patient now on oral doxycycline. Atrial fibrillation, paroxysmal, currently in sinus rhythm, rate controlled. Overall stable. Rate controlled. Continue Eliquis. Sotalol discontinued due to bradycardia. Septic shock secondary to urinary tract infection: This has resolved. Overall stable Acute cystitis without hematuria. Treatment completed with antibiotics. Gastroesophageal reflux disease without esophagitis. Continue proton pump inhibitor. Hypothyroidism. Continue medication. Acute on chronic anemia with history of thalassemia. Overall stable. No in tervention required. 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 Moderate protein-calorie malnutrition. BMI is 15. Deep vein thrombosis prophylaxis. Patient is on Eliquis Time Spent Managing Pts Care (In Minutes): 55 (Advance care planning-30 min)
[2020-01-04] MEDS: MELATONIN 5 MG TABLET PO PRN (21:49)
[2020-01-05] MEDS: IPRATROPIUM BROM 0.5MG/2.5ML NEB SCH ×4 (00:30→20:20)
[2020-01-05 04:47] LABS: Hematocrit 23.8 % (36.0-45.0); MPV 8.4 fL (7.6-11.3); RBC Red Blood Cell Count 3.29 M/uL (3.86-4.86)
[2020-01-05 05:25] LABS: Anisocytosis 3+; Basophilic Stippling 1+; Blood Morphology Comment NOTED (NOT SEEN); Ovalocytes 3+; Platelet Estimate ADEQ; Polychromasia 1+; Teardrop Cell 3+
[2020-01-05] MEDS: LEVOTHYROXINE SOD 0.088 MG TAB PO SCH (06:03)
[2020-01-05] MEDS: ARFORMOTEROL TARTRATE 15 MCG/2 ML VIAL.NEB NEB SCH ×2 (07:45→20:20)
[2020-01-05] MEDS: POTASSIUM CL SA 10 MEQ TAB PO SCH (09:04)
[2020-01-05] MEDS: FE SULF/FA/VIT B COMP & C TAB PO SCH (09:04)
[2020-01-05] MEDS: predniSONE 10 MG TAB PO SCH (09:04)
[2020-01-05] MEDS: FAMOTIDINE 20 MG TAB PO SCH ×2 (09:04→21:23)
[2020-01-05] MEDS: DOCUSATE NA 100 MG CAP PO SCH ×2 (09:05→21:23)
[2020-01-05] MEDS: ENSURE ENLIVE 237 ML CAN PO SCH ×2 (09:05→21:24)
[2020-01-05] MEDS: DOXYCYCLINE 100 MG CAP PO SCH ×2 (09:05→21:23)
--- NOTE | 2020-01-05 11:09 | P.PN ---
Subjective Date of Service: 01/05/20 Primary Care Provider: unknown Chief Complaint: COPD chronic respiratory failure Subjective: No new changes, No C/O voiced (worried about the food here states intact appetite) Physical Examination - Vital Signs Temperature: 98 F Blood Pressure: 134/60 Pulse: 90 Respirations: 20 Pulse Ox (%): 97 - Physical Exam General: In no apparent distress (chronically ill looking ) HEENT: Atraumatic, Normocephalic, PERRLA Neck: Supple, 2+ carotid pulse no bruit, JVD not distended Respiratory: Clear to auscultation bilaterally, Normal air movement, Diminished Cardiovascular: Normal pulses, Regular rate/rhythm, Normal S1 S2 Gastrointestinal: Normal bowel sounds, Soft and benign, Non-distended Musculoskeletal: No clubbing, No swelling, No contractures Integumentary: No rashes, No breakdown, No significant lesion Neurological: Normal gait, Normal speech External genitalia: No edema, No lesions - Studies Medications List Reviewed: Yes Assessment And Plan Physician Review: Patient Assessed, Agree with Above Assessment and Plan Physician Review Additional Text: Assessment Acute respiratory failure with hypoxia secondary to COPD exacerbation Acute cardiac arrest status post cardiopulmonary resuscitation secondary to pulseless electrical activity, bradycardia Acute on chronic diastolic congestive heart failure Pneumonia with methicillin-resistant Staphylococcus aureus infection in the sputum Atrial fibrillation, paroxysmal, currently in sinus rhythm, rate controlled on c hronic anti coagulation therapy Septic shock secondary to urinary tract infection Acute cystitis without hematuria Gastroesophageal reflux disease without esophagitis Hypothyroidism Acute on chronic anemia with history of thalassemia Alzheimer dementia without behavioral disturbance Moderate protein-calorie malnutrition Deep vein thrombosis prophylaxis Plan Acute respiratory failure with hypoxia secondary to COPD exacerbation. stable on [place] - need wants hospice due to endstage COPD -follow case mgt for home hospice arrangement -now DNR status - follow plans for hospice per Acute cardiac arrest status post cardiopulmonary resuscitation secondary to pulseless electrical activity, bradycardia. Overall stable. -off sotalol per Cardiology Acute on chronic diastolic congestive heart failure. Overall stable. Continue with Aldactone. Continue fluid restriction Pneumonia with methicillin-resistant Staphylococcus aureus infection in the sputum. Continue doxycycline per Pulmonary Atrial fibrillation, paroxysmal, currently in sinus rhythm, rate controlled. c ontrolled. Continue Eliquis. Sotalol discontinued due to bradycardia. Septic shock secondary to urinary tract infection: Resolved Acute cystitis without hematuria. Treatment completed with antibiotics. Gastroesophageal reflux disease without esophagitis. Continue proton pump inhibitor. Hypothyroidism. Continue medication. Acute on chronic anemia with history of thalassemia. No intervention required. 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 Moderate protein-calorie malnutrition. BMI is 15. Deep vein thrombosis prophylaxis. Patient is on Eliquis
[2020-01-05 11:10] LABS: Hematocrit 24.7 % (36.0-45.0)
[2020-01-05] MEDS: APIXABAN 2.5 MG TABLET PO SCH ×2 (11:54→21:23)
[2020-01-05] MEDS: MELATONIN 5 MG TABLET PO PRN (21:23)
[2020-01-06] MEDS: IPRATROPIUM BROM 0.5MG/2.5ML NEB SCH ×3 (02:10→14:50)
[2020-01-06] MEDS: LEVOTHYROXINE SOD 0.088 MG TAB PO SCH (05:41)
[2020-01-06 05:47] LABS: Absolute Lymphocytes (CBC) 1.8 K/uL (0.7-4.9); Basophils % 0.3 % (0-1.3); Hematocrit 23.8 % (36.0-45.0); Lymphocytes % 22.2 % (15.3-44.8); MPV 8.4 fL (7.6-11.3); RBC Red Blood Cell Count 3.28 M/uL (3.86-4.86)
[2020-01-06 06:02] LABS: BUN Blood Urea Nitrogen 17 mg/dL (7-18); Bicarbonate 33 mmol/L (21-32); Glucose Level 95 mg/dL (74-106); Sodium Level 141 mmol/L (136-145)
[2020-01-06] MEDS ORDERED: NA CHLORIDE 0.9% 250 ML ONE (07:21)
[2020-01-06] MEDS: predniSONE 10 MG TAB PO SCH (07:24)
[2020-01-06] MEDS: APIXABAN 2.5 MG TABLET PO SCH (07:25)
[2020-01-06] MEDS: FE SULF/FA/VIT B COMP & C TAB PO SCH (07:25)
[2020-01-06] MEDS: POTASSIUM CL SA 10 MEQ TAB PO SCH (07:25)
[2020-01-06] MEDS: SODIUM CHLORIDE 0.9% 10ML INJ IV PRN (07:25)
[2020-01-06] MEDS: DOCUSATE NA 100 MG CAP PO SCH (07:25)
[2020-01-06] MEDS: DOXYCYCLINE 100 MG CAP PO SCH (07:25)
[2020-01-06] MEDS: ENSURE ENLIVE 237 ML CAN PO SCH (07:26)
[2020-01-06] MEDS: ARFORMOTEROL TARTRATE 15 MCG/2 ML VIAL.NEB NEB SCH (07:40)
[2020-01-06 08:25] VITALS: O2SAT 92
[2020-01-06] MEDS: FAMOTIDINE 20 MG TAB PO SCH (09:36)
[2020-01-06] MEDS: HYDROCODONE/APAP 5/325 MG TAB PO PRN (11:04)
[2020-01-06 12:24] VITALS: BP 117/59; TEMP 98.2
[2020-01-06] MEDS ORDERED: FUROSEMIDE 20 MG/ 2ML VIAL IV ONE (13:00)
[2020-01-06 13:50] LABS: Hematocrit 33.8 % (36.0-45.0)
--- NOTE | 2020-01-06 23:59 | DS ---
Date of Discharge: 01/06/2020 Consultants: Dr. Madrigal with Pulmonology, Dr. Pollock with Cardiology. Admitting Diagnoses: 1.Sepsis. 2.Urinary tract infection. 3.Narrow complex tachycardia. 4.Chronic obstructive pulmonary disease. 5.Atrial fibrillation. 6.Dementia. 7.Hypothyroidism. Discharge Diagnoses: 1.Acute respiratory failure with hypoxia secondary to chronic obstructive pulmonary disease exacerba tion. 2.Acute cardiac arrest status post cardiopulmonary resuscitation due to pulseless electrical activit y bradycardia. 3.Acute on chronic diastolic congestive heart failure. 4.Pneumonia with methicillin resistant Staphylococcus aureus infection in the sputum. 5.Atrial fibrillation paroxysmal currently in sinus rhythm, on anticoagulation. 6.Septic shock secondary to urinary tract infection. 7.Acute cystitis without hematuria. 8.Gastroesophageal reflux disease without esophagitis. 9.Hypothyroidism. 10.Acute on chronic anemia with history of thalassemia. 11.Alzheimer dementia without behavioral disturbance. 12.Moderate protein calorie malnutrition. Hospital Course: Patient is an 84-year-old female with past medical history of vitamin D deficiency, emphysema, COPD, came in with poor oral intake, fever, chills. Patient also has hypothyroidism, tanya lassemia long-term, former smoker. Patient was found to be septic secondary to UTI. She was started on IV antibiotics. She had irregular cardiac rhythm. Patient was admitted to the ICU. She was tra nsferred to the ICU due to severe tachycardia. Patient developed atrial fibrillation. It should be noted that patient had a protracted stay in the hospital likely due to placement issues and due to he r severe illness. Patient's antibiotics were adjusted. Echocardiogram was done, showed EF of 63%, a ortic sclerosis, mitral annular calcification. Patient's CT angio showed no PE. Patient did have pu lmonary interstitial pattern, likely progressive fibrosis edema infiltrate or combo. Patient then martinez d cardiopulmonary arrest. Patient was also seen by Cardiology, was on sotalol for new onset atrial f ibrillation. She was also seen by Cardiology and Pulmonology. Patient had sofie down went into PEA. She received 2 doses of epinephrine and CPR was done and then return of spontaneous circulation was achieved. However, patient remained intubated, had to be on norepinephrine for persistent hypotensi on. Vancomycin was added to the IV antibiotics. The patient's cultures including blood cultures fro m the and from the were negative. COVID screen was negative. Sputum cultures did, however, grew out MRSA. Her antibiotics were adjusted as well. Patient did have some mild elec trolyte abnormalities including hypokalemia, which were corrected as well as hypomagnesemia and hypop hosphatemia. C diff assay was also negative. Patient's white blood cell count eventually improved a nd trended down, normalized. She was kept on low-dose steroids as well. Patient had a long stay in the ICU, was then able to be recovered, extubated, however, was requiring significant amount of oxyge [place]. She was placed on BiPAP and Venturi mask. Cardiology recommended to discontinue sotalol due to the bradycardia and she remained rate controlled with p.r.n. Lopressor. Patient's lactate improv ed. Family was involved in discussions regarding patient. She does have dementia, however, still ve ry functional. Patient was then considered for halfway facility placement, however, due to h er oxygenation requirements, required a noninvasive ventilator, which was difficult to set-up and hav e approval. Due to her severe COPD, it was difficult to wean off oxygen. Initially, patient was wea barbara off. She was continued on oral anticoagulation therapy with Eliquis for atrial fibrillation. Jose Alfredo slater was initially referred to rehab as well, but was denied. Patient was then referred to LTAC, [facility] did not have benefits, therefore was switched over to halfway facility. She also worke d with Physical Therapy. Patient's antibiotics again had to be adjusted. Patient will be on oxygen at the nursing facility. Her brother is the medical power of civil rights attorney. Hospice was also considered, however, the patient eventually went to halfway facility. She also has some moderate protei n calorie malnutrition. Her BMI was 15. She was placed on protein supplements. Patient was then fi rob accepted to halfway facility and was discharged in a stable condition. Activity: As tolerated, fall precautions. Medications: As per medication reconciliation list. Finish off course of antibiotics and continue l ow dose steroids. Diet: Heart healthy. Followup: Follow up with primary care physician 1 week. Follow up with cutter operator brick, Dr. Madrigal in 2 weeks. Follow up with inspector salvage, Dr. Pollock in 2 weeks. Return to ER for worsening conditi on. Physical Examination: General: Awake, alert, oriented x3. Elderly female, frail, cachectic. CV: S1, S2. Irregularly irregular. Respiratory: Diminished breath sounds overall, but no use of accessory muscles or stridor. Gastrointestinal: Abdomen is soft, nontender, nondistended. Positive bowel sounds. Extremities: No clubbing, cyanosis, edema. Neurologic: Nonfocal. Total time spent discharging patient was 45 minutes. /YVETTE Voice ID: [id number] Report ID: [id number]
--- NOTE | 2020-01-14 12:16 | P.PN ---
Subjective Date of Service: 12/28/19 (Hospitalist) Primary Care Provider: unknown Chief Complaint: COPD chronic respiratory failure patient claims that she is doing better breathing is better still on Venti mask refusing BiPAP eating well denies any chest pain Review of Systems General: Weakness Respiratory: Cough, Shortness of Breath Physical Examination - Vital Signs Temperature: 98.2 F Blood Pressure: 117/59 Pulse: 94 Respirations: 18 Pulse Ox (%): 90 - Physical Exam General: Alert, Mild distress Neck: Supple Respiratory: Diminished, Expiratory wheezes Cardiovascular: No edema, Regular rate/rhythm Gastrointestinal: Normal bowel sounds, Soft and benign - Studies Medications List Reviewed: Yes Assessment & Plan - Problems (Diagnosis) (1) COPD (chronic obstructive pulmonary disease) Status: Acute Plan: Patient has severe terminal COPD refusing BiPAP mildly anemic no evidence of sepsis prognosis very poor scheduled to go to rehab facility vital signs reviewed no change in current treatment continue with physical therapy patient has Mr in the sputum continue with p.o. doxycycline Qualifiers: Emphysema type: unspecified Physician Review: Patient Assessed, Agree with Above Assessment and Plan Physician Review Additional Text: Assessment Acute respiratory failure with hypoxia secondary to COPD exacerbation Acute cardiac arrest status post cardiopulmonary resuscitation secondary to pulseless electrical activity, bradycardia Acute on chronic diastolic congestive heart failure Pneumonia with methicillin-resistant Staphylococcus aureus infection in the sputum Atrial fibrillation, paroxysmal, currently in sinus rhythm, rate controlled on chronic anti coagulation therapy Septic shock secondary to urinary tract infection Acute cystitis without hematuria Gastroesophageal reflux disease without esophagitis Hypothyroidism Acute on chronic anemia with history of thalassemia Alzheimer dementia without behavioral disturbance Moderate protein-calorie malnutrition Deep vein thrombosis prophylaxis Plan Acute respiratory failure with hypoxia secondary to COPD exacerbation. stable on [place] - need wants hospice due to endstage COPD -follow case mgt for home hospice arrangement -now DNR status - follow plans for hospice per Acute cardiac arrest status post cardiopulmonary resuscitation secondary to pulseless electrical activity, bradycardia. Overall stable. -off sotalol per Cardiology Acute on chronic diastolic congestive heart failure. Overall stable. Continue with Aldactone. Continue fluid restriction Pneumonia with methicillin-resistant Staphylococcus aureus infection in the sputum. Continue doxycycline per Pulmonary Atrial fibrillation, paroxysmal, currently in sinus rhythm, rate controlled. controlled. Continue Eliquis. Sotalol discontinued due to bradycardia. Septic shock secondary to urinary tract infection: Resolved Acute cystitis without hematuria. Treatment completed with antibiotics. Gastroesophageal reflux disease without esophagitis. Continue proton pump inhibitor. Hypothyroidism. Continue medication. Acute on chronic anemia with history of thalassemia. No intervention required. 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 Moderate protein-calorie malnutrition. BMI is 15. Deep vein thrombosis prophylaxis. Patient is on Eliquis
== END 2020-01-06 16:06 | DRG 870 ==
LOC: ER 11:42 → ERHOLD 15:55 → 2ND 16:47 → 3RD-ICU 19:45 → 2ND 12-22 19:05
PROVIDERS: ADMIT Internal Medicine; ATTEND Family Medicine
PROC: 5A1955Z Respiratory Ventilation, Greater than 96 Consecutive Hours (ICD-10-PCS; principal; 2019-12-14)
PROC: 0BH17EZ Insertion of Endotracheal Airway into Trachea, Via Natural or Artificial Opening (ICD-10-PCS; 2019-12-14)
PROC: 30233N1 Transfusion of Nonautologous Red Blood Cells into Peripheral Vein, Percutaneous Approach (ICD-10-PCS; 2019-12-14)
PROC: 5A12012 Performance of Cardiac Output, Single, Manual (ICD-10-PCS; 2019-12-14)
PROC: 06HY33Z Insertion of Infusion Device into Lower Vein, Percutaneous Approach (ICD-10-PCS; 2019-12-14)
DX: A41.9 Sepsis, unspecified organism (principal); I46.8 Cardiac arrest due to other underlying condition; R65.21 Severe sepsis with septic shock; J96.01 Acute respiratory failure with hypoxia; J96.02 Acute respiratory failure with hypercapnia; I50.33 Acute on chronic diastolic (congestive) heart failure; J15.212 Pneumonia due to Methicillin resistant Staphylococcus aureus; E87.2 Acidosis; J44.1 Chronic obstructive pulmonary disease with (acute) exacerbation; N30.00 Acute cystitis without hematuria; J44.0 Chronic obstructive pulmonary disease with (acute) lower respiratory infection; E44.0 Moderate protein-calorie malnutrition; Z68.1 Body mass index [BMI] 19.9 or less, adult; Z20.828 Contact with and (suspected) exposure to other viral communicable diseases; Z79.890 Hormone replacement therapy; E03.9 Hypothyroidism, unspecified; Z87.891 Personal history of nicotine dependence; Z79.01 Long term (current) use of anticoagulants; R00.0 Tachycardia, unspecified; R00.1 Bradycardia, unspecified; D64.9 Anemia, unspecified; T44.7X5A Adverse effect of beta-adrenoreceptor antagonists, initial encounter; D56.9 Thalassemia, unspecified; Z79.899 Other long term (current) drug therapy; K21.9 Gastro-esophageal reflux disease without esophagitis; I48.0 Paroxysmal atrial fibrillation; G30.9 Alzheimer's disease, unspecified; F02.80 Dementia in other diseases classified elsewhere, unspecified severity, without behavioral disturbance, psychotic disturbance, mood disturbance, and anxiety; Z66 Do not resuscitate
CPT/HCPCS: 36415; 36430; 71045; 71275; 80048; 80053; 80076; 80202; 81003; 81015; 82565; 82728; 82805; 82947; 83605; 83690; 83735; 83880; 84100; 84132; 84145; 84443; 84484; 85014; 85018; 85025; 85610; 86850; 86900; 86901; 87040; 87070; 87077; 87086; 87088; 87186; 87205; 87324; 87449; 93005; 93306; 94002; 94003; 94660; 94760; 96361; 96374; 96375; 97110; 97112; 97116; 97161; 97165; 97530; 99285; C9113; J0171; J0696; J1160; J1630; J1940; J2250; J2270; J2405; J2704; J2920; J2930; J3010; J3370; J3475; J7030; J7040; J7060; J7120; J7512; J7605; J7799; P9016; P9045; Q9967; U0002

== ENCOUNTER 2020-06-23 16:05 | Inpatient (IN) | payer OTHER ==
--- OUTSIDE RECORDS SUMMARY | 2020-06-23 16:08 | XMS REPORT | Continuity of Care Document ---
:1935 Author Organization [facility] t Address [address] [place] [address] Care Team Providers Name Role Phone Unavailable Unavailable Unavailable Problems Condition Condition Condition Status Onset Resolution Last Treating Co mments Source Name Details Category Date Date Treatment Clinician Date Displaced Displaced Problem Active [facility] fracture fracture [facility] of left of left [facility] femoral femoral l neck neck [facility] Age Age Problem Active [facility] related related [facility] - osteoporos osteoporos Me moria is, is, l unspecifie unspecifie Ou tpati d d ent pathologic pathologic Cl inics al al fracture fracture presence presence Supplement Supplement Problem Active [facility] al oxygen al oxygen [facility] - dependent dependent Rasta samuel l [facility] Hypothyroi Hypothyroi Problem Active [facility] dism dism [facility] GERD GERD Problem Active [facility] (gastroeso (gastroeso Teresa kes - phageal phageal Memoria reflux reflux l disease) disease) Outpat i ent Clinics COPD COPD Problem Active [facility] (chronic (chronic [facility] - obstructiv obstructiv Me moria e e l pulmonary pulmonary Outp ati disease) disease) ent Clinics Chronic Chronic Problem Active [facility] a-fib a-fib [facility] Unsteady Unsteady Problem [facility] gait gait [facility] Anemia Anemia Problem Active [facility] Family Family Problem Active [facility] history of history of Teresa kes - breast breast Memoria cancer cancer l [facility] Peripheral Peripheral Problem Active [facility] vascular vascular [facility] - insufficie insufficie Me moria ncy ncy l [facility] Edema of Edema of Problem Active [facility] left lower left lower Teresa kes - extremity extremity Rasta samuel l [facility] COPD with COPD with Problem [...] - heart heart Memoria failure failure l [facility] ent Clinics Acute Acute Problem Active [facility] febrile febrile [facility] - illness illness Memoria l [facility] Urgency of Urgency of Problem Active [facility] urination urination [facility] - Memoria l [facility] ent Clinics Allergies, Adverse Reactions, Alerts This patient has no known allergies or adverse reactions. Medications Ordered Filled Start Stop Current Ordering Indication Dosage Frequency Signature Comments Components Source Medication Medication Date Date Medication? Clinician (SIG) Name Name Oxygen Oxygen 2031- No Lora 2 LMP [facility] concentrato concentrato 3-24 03-21 [facility] - r r 00:00: 00:00 Memoria 00 :00 l [facility] ent Clinics Tobramycin Tobramycin Yes Lora [address] [facility] 3-19 Olivas into [facility] - 00:00: affected Memoria 00 eye l [facility]ics Levothyroxi Levothyroxi Yes Lora [address] [facility] ne Sodium ne Sodium Olivas on an Tierney es - empty Memoria stomach [facility] Levaquin Levaquin Yes Lora [address] [facility]ivas [facility] - Memoria l [facility] Vitamin D3 Vitamin D3 Yes Lora [address] [facility] Olivas [facility] - Mem[facility] l [facility] Fosamax Fosamax Yes Lora [address] [facility] Olivas [facility] - Memoria l [facility] Sotalol HCl Sotalol HCl Yes Lora 0.[address] [facility] Olivas [facility] - Memoria l [facility] Eliquis 2.5 Eliquis 2.5 Yes Lora one [facility] mg mg [facility] - [facility]oria l [facility] Hemocyte Hemocyte Yes Lora TAKE ONE [facility] Plus Plus Olivas CAPSULE BY [facility] - MOUTH Memoria DAILY l [facility]ics Hemocyte Hemocyte Yes Lora [address] Plus Plus [facility]ivas [facility] Furosemide Furosemide Yes Lora [address] [facility] Olivas [facility] Immunizations Ordered Filled Immunization Date Status Comments Sourc e Immunization Name Name Britton Jarquin 2019-05-[address] [facility] 00[facility]00 [facility] Britton Jarquin 2018-04-[address] [facility]00 [facility] Procedures This patient has no known procedures. Encounters Start End Encounter Admission Attending Care Care Encounter Source Date/Time Date/Time Type Type Clinicians Facility Department ID 2019-12-29 2019-12-29 [facility] [id number] [facility] 10:25:00 10:25:00 [facility] Medicine Outpati ent Clinics 2019-12-15 2019-12-15 [facility] [id number] [facility] 09:52:00 09:52:00 [facility] Medicine Outpati ent Clinics 2019-12-12 2019-12-12 [facility] [id number] [facility] 11[facility]00:00 11:00:00 [facility] Medicine Outpati ent Clinics 2019-12-11 2019-12-11 [facility] [id number] [facility] 11:52:00 11:52:00 [facility] Medicine Outpati ent Clinics 2019-11-17 2019-11-17 [facility] [id number] [facility] 10:30:00 10:30:00 [facility] Medicine Outpati ent Clinics 2019-11-13 2019-11-13 [facility] [id number] 14:34:00 14:34:00 t [facility] Medicine Outpati ent Clinics 2019-10-15 2019-10-15 [facility] [id number] 09[facility]31:00 09:31:00 [facility] Medicine Outpati ent Clinics 2019-10-07 2019-10-07 [facility] [id number] [address] 16:53:00 16:53:[address] Luke [facility] - [address] [facility] Medicine l Medicine Outpati ent Clinics 2019-09-24 2019-09-24 [facility] [id number] 10:55:00 10:55:[address] [employer] [place] s - Drive [facility] Medicine l Medicine Outpati ent Clinics 2019-09-10 2019-09-10 [facility] [id number] [address] 10:20:00 10:20:00 [place] [employer] [place] - Drive [facility] Medicine l Medicine Outpati ent Clinics 2019-09-05 2019-09-05 [facility] [id number] 06:36:00 06:36:00 [place] [employer] [place] - Drive [facility] Medicine l Medicine Outpati ent Clinics 2019-08-26 2019-08-26 [facility] [id number] [facility] 17:28:00 17:28:00 [place] [employer] [place] - Drive [facility] Medicine l Medicine Outpati ent Clinics 2019-08-20 2019-08-20 [facility] [id number] [facility] 11:20:00 11:20:00 [place] [employer] [place] - Drive [facility] Medicine Medicine Outpati ent Clinics 2019-08-05 2019-08-05 [facility] [id number] [address] 10:32:00 10:32:00 [place] [employer] - Drive [facility] Medicine l Medicine Outpati ent Clinics 2019-08-04 2019-08-04 [facility] [id number] [facility] 08:48:00 08:48:00 [place] [employer] - Drive [facility] Medicine l Medicine Outpati ent Clinics 2019-07-31 2019-07-31 [facility] [id number] 08:37:00 08:37:00 [place] [employer] - Drive [facility] l Medicine Outpati ent Clinics 2019-05-22 2019-05-22 [facility] [id number] [address] 16:07:00 16:07:00 [place] [employer] [place] - Drive [facility] l Medicine Outpati ent Clinics 2019-05-02 2019-05-02 [facility] [id number] [facility] 15:00:00 15:00:00 [place] Luke s - Drive [facility] l Medicine Outpati ent Clinics 2019-02-11 2019-02-11 [facility] [id number] [facility] 14:00:00 14:00:00 [place] [employer] [place] - Drive [facility] l Medicine Outpati ent Clinics 2019-01-14 2019-01-14 [facility] [id number] 13:20:00 13:20:00 [place] [employer] [place] - Drive [facility] l Medicine Outpati ent Clinics 2018-10-15 2018-10-15 [facility] [id number] [address] 11:15:00 11:15:00 [place] [employer] - Drive [facility] Medicine l Medicine Outpati ent Clinics 2018-10-10 2018-10-10 [facility] [id number] [facility] 10:28:00 10:28:00 [place] [employer] - Drive [facility] l Medicine Outpati ent Clinics 2018-09-17 2018-09-17 [facility] [id number] 10:32:00 10:32:00 [place] [employer] - Drive [facility] Medicine l Medicine Outpati ent Clinics 2018-08-20 2018-08-20 [facility] [id number] [facility] 14:00:00 14:00:00 [place] [employer] [place] - Drive [facility] Medicine l Medicine Outpati ent Clinics 2018-08-14 2018-08-14 [facility] [id number] 10:31:00 10:31:00 [place] [employer] [place] - Drive [facility] l Medicine Outpati ent Clinics 2018-07-29 2018-07-29 [facility] [id number] 09:56:00 09:56:00 [place] [employer] - Drive [facility] Medicine l Medicine Outpati ent Clinics 2018-07-18 2018-07-18 [facility] [id number] 17:01:00 17:01:00 [place] [employer] - Drive [facility] Medicine Outpati ent Clinics 2018-07-16 2018-07-16 [facility] [id number] [facility] 15:43:00 15:43:00 t [employer] - [employer] [facility] Medicine Outpati ent Clinics 2018-07-16 2018-07-16 [facility] [id number] 12:00:00 12:00:00 t [employer] - [employer] [facility] Medicine Outpati ent Clinics 2018-07-16 2018-07-16 [facility] [id number] 11:10:00 11:10:00 t [employer] [facility] Medicine Outpati ent Clinics 2018-04-30 2018-04-30 [facility] [id number] 14:45:00 14:45:00 t [facility] Medicine Outpati ent Clinics 2018-01-16 2018-01-16 [facility] [id number] [facility] 15:00:00 15:00:00 t [facility] Medicine Outpati ent Clinics Results This patient has no known results.
[2020-06-23] MEDS ORDERED: FENTANYL CITR 100 MCG/2 ML ONE (16:40)
--- NOTE | 2020-06-23 16:56 | RAD REPORT ---
EXAM DESCRIPTION: RAD - Hip Right 2 View - 06/23/2020 4:47 pm CLINICAL HISTORY: fall;Pain COMPARISON: Pelvis dated 06/23/2020 FINDINGS: AP and cross-table lateral views were obtained. Patient has a subcapital right femoral nec k fracture with minimal impaction into the femoral head. Bones are osteopenic. No AVN or focal femora l head abnormality. No pathologic changes seen. Lumbar spine and SI joint degenerative change present. No right hemipelvi s fractures seen. No significant periarticular finding. IMPRESSION: Right side minimally impacted subcapital femoral neck fracture.
--- NOTE | 2020-06-23 16:57 | RAD REPORT ---
EXAM DESCRIPTION: RAD - Pelvis - 06/23/2020 4:48 pm CLINICAL HISTORY: fall, pelvic pain, hip pain COMPARISON: Pelvis dated 09/07/2017 TECHNIQUE: AP imaging of the pelvis was obtained. FINDINGS: Lower lumbar degenerative change present similar to comparison. SI joint degenerative fernández ges are also seen as stable. No fracture of the bony pelvis. Bones are osteopenic. Left bipolar prosthesis is in place, new from 2018 comparison. No implant or proximal femur acute fin ding. Patient has right subcapital femoral neck fracture. No pathologic component. IMPRESSION: Right femur subcapital neck fracture. Osteopenic and degenerative changes of the pelvis.
[2020-06-23 17:46] LABS: Absolute Lymphocytes (CBC) 0.6 K/uL (0.7-4.9); Basophils % 0.2 % (0-1.3); Hematocrit 32.5 % (36.0-45.0); Lymphocytes % 4.8 % (15.3-44.8); MPV 8.7 fL (7.6-11.3); RBC Red Blood Cell Count 4.97 M/uL (3.86-4.86)
[2020-06-23] MEDS ORDERED: NA CHLORIDE 0.9% 1,000 ML ONE (17:48)
[2020-06-23] MEDS ORDERED: MORPHINE 2 MG/ML SYR ONE (17:48)
[2020-06-23 17:50] LABS: Protime INR 1.03
--- NOTE | 2020-06-23 17:53 | ER ---
Nurse's Notes [facility] Name: Demetrice Bedolla Age: 84 yrs Sex: Female : 1935 Arrival Date: 06/23/2020 Time: 16:06 Bed 7 Private MD: Diagnosis: Right Subcapital Femur Fracture Presentation: 06/23 16:07 Chief complaint: EMS states: fall from standing position onto her right leg. c/o right sv thigh pain. Bp 150/80s Uses home O2. Care prior to arrival: None. Mechanism of Injury: Fall from standing position. Trauma event details: Injury occurred in the [facility], Injury occurred: at home. Injury occurred: June 23, 2020. 16:07 Acuity: CHRIS 4 sv 16:07 Method Of Arrival: EMS: [facility] sv 16:08 Coronavirus screen: At this time, the client does not indicate any symptoms associated sv with coronavirus-19. Ebola Screen: No symptoms or risks identified at this time. Risk Assessment: Do you want to hurt yourself or someone else? Patient reports no desire to harm self or others. Onset of symptoms was June 23, 2020. 16:19 Initial Sepsis Screen: Does the patient meet any 2 criteria? No. Patient's initial sv sepsis screen is negative. Does the patient have a suspected source of infection? No. Patient's initial sepsis screen is negative. Trauma Activation: Not Applicable Physician: ED Physician; Name: ; Notified At: ; Arrived At: Physician: General Surgeon; Name: ; Notified At: ; Arrived At: Physician: Radiology; Name: ; Notified At: ; Arrived At: Physician: Respiratory; Name: ; Notified At: ; Arrived At: Physician: Lab; Name: ; Notified At: ; Arrived At: Historical: - Allergies: 19:04 Sulfa (Sulfonamide Antibiotics); ss - PMHx: 16:09 COPD; Hypothyroidism; thalassemia; sv - PSHx: 16:09 None; sv - Immunization history:: Adult Immunizations up to date. - Immunization history: Last tetanus immunization: unknown. - Social history:: Smoking status: Patient denies any tobacco usage or history of. Screenin:19 Abuse screen: Denies threats or abuse. Denies injuries from another. Nutritional sv screening: No deficits noted. Tuberculosis screening: No symptoms or risk factors identified. Fall Risk No fall in past 12 months (0 pts). No secondary diagnosis (0 pts). IV access (20 points). Ambulatory Aid- None/Bed Rest/Nurse Assist (0 pts). Gait- Normal/Bed Rest/Wheelchair (0 pts) Mental Status- Oriented to own ability (0 pts). Total Martin Fall Scale indicates No Risk (0-24 pts). Primary Survey: 16:17 NO uncontrolled hemorrhage observed. A: The patient is alert. Airway: patent, Oxygen sv via nasal cannula Oral cavity: clear, Trachea midline. Breathing/Chest: Respiratory pattern: regular, Respiratory effort: spontaneous, unlabored, Chest inspection: symmetrical rise and fall of the chest. Circulation: Pulses: palpable right dorsalis pedis artery and left dorsalis pedis artery. Skin color: pink, Skin temperature: dry, cool. Disability Alert. Exposure/Environment: All clothing and personal items were removed. Forensic evidence collection is not deemed to be indicated at this time. Items placed in patient belonging bag. There is no evidence of uncontrolled external bleeding. No obvious injuries are noted at this time. A warming method has been applied: A warm blanket has been provided to the patient. 17:03 Reassessment Airway Airway Patent Oxygen Nasal cannula Oral cavity Clear Trachea sv Midline Breathing/Chest Respiratory pattern Regular Respiratory effort Spontaneous Unlabored Chest inspection Symmetrical Circulation Pulses Palpable Color [place] Temperature Warm Dry Disability Alert. Secondary Survey: 16:17 HEENT: No deficits noted. Gastrointestinal: No deficits noted. : No deficits noted. sv No signs and/or symptoms were reported regarding the genitourinary system. Musculoskeletal: Range of motion: limited in right hip. Assessment: 16:27 General: Appears in no apparent distress. comfortable, Behavior is calm, cooperative. vg1 16:27 Pain: Complains of pain in right hip Pain currently is 7 out of 10 on a pain scale. vg1 Neuro: Level of Consciousness is awake, alert, obeys commands, Oriented to person, place, time, situation. Cardiovascular: Capillary refill < 3 seconds Patient's skin is warm and dry. Respiratory: Airway is patent Respiratory effort is even, unlabored, Respiratory pattern is regular, symmetrical. GI: No signs and/or symptoms were reported involving the gastrointestinal system. : No signs and/or symptoms were reported regarding the genitourinary system. EENT: No signs and/or symptoms were reported regarding the EENT system. Derm: Skin is pink, warm \T\ dry. Musculoskeletal: Range of motion: limited in right hip. 16:34 Reassessment: Xray at the bedside. sv 18:21 Reassessment: Patient appears in no apparent distress at this time. Patient and/or vg1 family updated on plan of care and expected duration. Pain level reassessed. Patient is alert, oriented x 3, equal unlabored respirations, skin warm/dry/pink. Patient rated pain of 3/10. 19:11 Reassessment: Patient appears in no apparent distress at this time. Patient and/or sv family updated on plan of care and expected duration. Pain level reassessed. Patient is alert, oriented x 3, equal unlabored respirations, skin warm/dry/pink. 19:15 General: Appears in no apparent distress. Behavior is calm, cooperative. Pain: wh Complains of pain in right hip. Neuro: Level of Consciousness is awake, alert, obeys commands, Oriented to person, place, time, situation. Cardiovascular: Capillary refill < 3 seconds. Respiratory: Airway is patent Respiratory effort is even, unlabored, Respiratory pattern is regular, symmetrical. GI: No signs and/or symptoms were reported involving the gastrointestinal system. : No signs and/or symptoms were reported regarding the genitourinary system. EENT: No signs and/or symptoms were reported regarding the EENT system. Derm: Skin is intact. Musculoskeletal: Circulation, motion, and sensation intact. 20:05 Reassessment: Patient appears in no apparent distress at this time. Patient and/or wh family updated on plan of care and expected duration. Pain level reassessed. Patient is alert, oriented x 3, equal unlabored respirations, skin warm/dry/pink. Vital Signs: 16:15 BP 121 / 99; Pulse 99; Resp 20; Temp 98.2(O); Pulse Ox 92% on 4 lpm NC; Pain 6/10; sv 17:02 BP 123 / 89; Pulse 101; Resp 18; Temp 98.1; Pulse Ox 97% ; sv 17:41 BP 123 / 89; Pulse 117; Resp 16; Pulse Ox 100% ; sv 18:30 BP 126 / 58; Pulse 114; Resp 17; Pulse Ox 97% on 3 lpm NC; sv 19:15 BP 114 / 79; Pulse 119; Resp 18; Pulse Ox 98% on 3 lpm NC; 20:06 BP 112 / 62; Pulse 108; Resp 18; Pulse Ox 100% on 3 lpm NC; Mark Coma Score: 16:15 Eye Response: spontaneous(4). Verbal Response: oriented(5). Motor Response: obeys sv commands(6). Total: 15. 17:02 Eye Response: spontaneous(4). Verbal Response: oriented(5). Motor Response: obeys sv commands(6). Total: 15. 17:41 Eye Response: spontaneous(4). Verbal Response: oriented(5). Motor Response: obeys sv commands(6). Total: 15. Trauma Score (Adult): 16:15 Eye Response: spontaneous(1); Verbal Response: oriented(1); Motor Response: obeys sv commands(2); Systolic BP: > 89 mm Hg(4); Respiratory Rate: 10 to 29 per min(4); Mark Score: 15; Trauma Score: 12 17:02 Eye Response: spontaneous(1); Verbal Response: oriented(1); Motor Response: obeys sv commands(2); Systolic BP: > 89 mm Hg(4); Respiratory Rate: 10 to 29 per min(4); Mark Score: 15; Trauma Score: 12 17:41 Eye Response: spontaneous(1); Verbal Response: oriented(1); Motor Response: obeys sv commands(2); Systolic BP: > 89 mm Hg(4); Respiratory Rate: 10 to 29 per min(4); Polaris Score: 15; Trauma Score: 12 18:30 Eye Response: spontaneous(1); Verbal Response: oriented(1); Motor Response: obeys sv commands(2); Systolic BP: > 89 mm Hg(4); Respiratory Rate: 10 to 29 per min(4); Polaris Score: 15; Trauma Score: 12 ED Course: 16:06 Patient arrived in ED. sv 16:06 Matt Mcpherson PA is PHCP. cp 16:06 Celine Rodriguez MD is Attending Physician. cp 16:08 Triage completed. sv 16:09 Arm band placed on. sv 16:14 Latasha Navarro, RN is Primary Nurse. vg1 16:19 Oxygen administration via nasal cannula \T\ 4L/min. sv 16:20 Patient has correct armband on for positive identification. Bed in low position. Call sv light in reach. Side rails up X2. Pulse ox on. NIBP on. 16:20 Thermoregulation: warm blanket given to patient. sv 16:24 Inserted saline lock: 20 gauge in right antecubital area, using aseptic technique. dh3 16:46 XRAY Pelvis In Process Unspecified. EDMS 16:46 XRAY Hip RIGHT 2 view In Process Unspecified. EDMS 17:15 Morin cath inserted, using sterile technique, 16 Fr., by vt, balloon inflated, to sv gravity drainage, returned clear yellow urine. 17:24 X-ray(s) taken. sv 17:34 XRAY Chest (1 view) In Process Unspecified. EDMS 17:50 CBC Smear Scan Sent. sv 17:51 Ilya Youssef DO is Hospitalizing Provider. cp 18:06 EKG done, by ED staff, reviewed by Matt GRIER. 3 19:20 Primary Nurse role handed off by Latasha Navarro, RN mw2 19:24 Ling Khan is Primary Nurse. 20:08 No provider procedures requiring assistance completed. Patient admitted, IV remains in place. Administered Medications: 16:32 Drug: fentaNYL (PF) 25 mcg Route: IVP; Site: right antecubital; vg1 17:48 Follow up: Response: No adverse reaction; Pain is unchanged, physician notified vg1 17:40 Drug: morphine 2 mg {Note: rass 0.} Route: IVP; Site: right antecubital; vg1 18:20 Follow up: Response: No adverse reaction; Pain is decreased vg1 17:40 Drug: NS 0.9% 1000 ml Route: IV; Rate: 75 ml/hr; Site: right antecubital; vg1 20:10 Follow up: Response: No adverse reaction; IV Status: Infusion continued upon admission wh 19:10 Drug: Metoprolol 25 mg Route: PO; sv 20:10 Follow up: Response: No adverse reaction Intake: 16:15 PO: 0ml; Total: 0ml. sv 17:02 PO: 0ml; Total: 0ml. sv 17:41 PO: 0ml; Total: 0ml. sv 18:30 PO: 0ml; Total: 0ml. sv Output: 16:15 Urine: 0ml; Total: 0ml. sv 17:02 Urine: 0ml; Total: 0ml. sv 17:41 Urine: 0ml; Total: 0ml. sv 18:30 Urine: 0ml; Total: 0ml. sv Outcome: 17:53 Decision to Hospitalize by Provider. cp 19:04 Instructed on the need for admit. 20:08 waiting for room assignmentPatient's length of stay extended due to 20:22 Admitted to Med/surg accompanied by tech, via stretcher, room 203, with oxygen, with chart, Report called to Keely Reyes RN 20:22 Condition: stable 20:22 Instructed on the need for admit. 20:23 Patient left the ED. Signatures: Dispatcher [employer] Kaylee Marie, RN RN Unique Garcia RN RN Matt Mcpherson, Leonie Marin cp 3 Ling Khan Kalyn, Brisa 2 Latasha Navarro, RN RN vg1 Corrections: (The following items were deleted from the chart) 19:05 16:09 Allergies: No Known Allergies; [facility] 19:20 07:40 morphine 2 mg IVP in right antecubital vg1 vg1 20:21 20:06 BP 112 / 62; Pulse 108bpm; Resp 18bpm; Pulse Ox 100% RA; [facility] 20:21 19:15 BP 114 / 79; Pulse 119bpm; Resp 18bpm; Pulse Ox 98% RA; [facility]
--- NOTE | 2020-06-23 17:53 | EDPHYS ---
Physician Documentation [facility] Name: Demetrice Bedolla Age: 84 yrs Sex: Female : 1935 Arrival Date: 06/23/2020 Time: 16:06 Bed 7 Private MD: ED Physician Celine Rodriguez HPI: 06/23 16:15 This 84 yrs old Female presents to ER via EMS with complaints of Fall Injury. cp 16:15 Details of fall: The patient fell from an upright position, while walking. Onset: The cp symptoms/episode began/occurred just prior to arrival. Associated injuries: The patient sustained right hip, painful injury. Historical: - Allergies: 19:04 Sulfa (Sulfonamide Antibiotics); ss - PMHx: 16:09 COPD; Hypothyroidism; thalassemia; sv - PSHx: 16:09 None; sv - Immunization history:: Adult Immunizations up to date. - Immunization history: Last tetanus immunization: unknown. - Social history:: Smoking status: Patient denies any tobacco usage or history of. ROS: 16:20 MS/extremity: Positive for pain, Negative for deformity, paresthesias. cp 16:20 Constitutional: Negative for fever. cp 16:20 Cardiovascular: Negative for chest pain. 16:20 Respiratory: Negative for cough, shortness of breath, wheezing. 16:20 Abdomen/GI: Negative for abdominal pain, nausea, vomiting, and diarrhea. 16:20 Back: Negative for pain at rest, pain with movement. 16:20 Neuro: Negative for altered mental status, headache, loss of consciousness, syncope, weakness. 16:20 All other systems are negative. Exam: 16:25 Constitutional: The patient appears in no acute distress, alert, awake, cp non-diaphoretic, non-toxic, well developed, well nourished, uncomfortable. 16:25 Head/Face: Normocephalic, atraumatic. cp 16:25 Eyes: Periorbital structures: appear normal, Conjunctiva: normal, no exudate, no injection, Sclera: no appreciated abnormality, Lids and lashes: appear normal, bilaterally. 16:25 ENT: External ear(s): are unremarkable, Nose: is normal, Posterior pharynx: Airway: no evidence of obstruction, patent. 16:25 Neck: ROM/movement: is normal, is supple, without pain, no range of motions limitations. 16:25 Chest/axilla: Inspection: normal, Palpation: is normal, no crepitus, no tenderness. 16:25 Cardiovascular: Rate: tachycardic, Rhythm: regular, Edema: is not appreciated, JVD: is not appreciated. 16:25 Respiratory: the patient does not display signs of respiratory distress, Respirations: normal, no use of accessory muscles, no retractions, labored breathing, is not present, Breath sounds: are clear throughout, no decreased breath sounds. 16:25 Abdomen/GI: Inspection: abdomen appears normal, Palpation: abdomen is soft and non-tender, in all quadrants. 16:25 Back: pain, is absent, ROM is normal. 16:25 Musculoskeletal/extremity: Extremities: grossly normal except: noted in the right hip: pain, tenderness, ROM: limited passive range of motion due to pain, in the right hip. 16:25 Neuro: Orientation: to person, place \T\ time. Mentation: is normal. 18:07 ECG was reviewed by the Attending Physician. cp Vital Signs: 16:15 BP 121 / 99; Pulse 99; Resp 20; Temp 98.2(O); Pulse Ox 92% on 4 lpm NC; Pain 6/10; sv 17:02 BP 123 / 89; Pulse 101; Resp 18; Temp 98.1; Pulse Ox 97% ; sv 17:41 BP 123 / 89; Pulse 117; Resp 16; Pulse Ox 100% ; sv 18:30 BP 126 / 58; Pulse 114; Resp 17; Pulse Ox 97% on 3 lpm NC; sv 19:15 BP 114 / 79; Pulse 119; Resp 18; Pulse Ox 98% on 3 lpm NC; wh 20:06 BP 112 / 62; Pulse 108; Resp 18; Pulse Ox 100% on 3 lpm NC; wh Mark Coma Score: 16:15 Eye Response: spontaneous(4). Verbal Response: oriented(5). Motor Response: obeys sv commands(6). Total: 15. 17:02 Eye Response: spontaneous(4). Verbal Response: oriented(5). Motor Response: obeys sv commands(6). Total: 15. 17:41 Eye Response: spontaneous(4). Verbal Response: oriented(5). Motor Response: obeys sv commands(6). Total: 15. Trauma Score (Adult): 16:15 Eye Response: spontaneous(1); Verbal Response: oriented(1); Motor Response: obeys sv commands(2); Systolic BP: > 89 mm Hg(4); Respiratory Rate: 10 to 29 per min(4); Mark Score: 15; Trauma Score: 12 17:02 Eye Response: spontaneous(1); Verbal Response: oriented(1); Motor Response: obeys sv commands(2); Systolic BP: > 89 mm Hg(4); Respiratory Rate: 10 to 29 per min(4); [place] Score: 15; Trauma Score: 12 17:41 Eye Response: spontaneous(1); Verbal Response: oriented(1); Motor Response: obeys sv commands(2); Systolic BP: > 89 mm Hg(4); Respiratory Rate: 10 to 29 per min(4); Mark Score: 15; Trauma Score: 12 18:30 Eye Response: spontaneous(1); Verbal Response: oriented(1); Motor Response: obeys sv commands(2); Systolic BP: > 89 mm Hg(4); Respiratory Rate: 10 to 29 per min(4); [place] Score: 15; Trauma Score: 12 MDM: 16:09 Patient medically screened. 16:30 Differential diagnosis: closed head injury, fracture, multiple trauma. 17:06 Physician consultation: Steven Sosa MD was called at 17:06, left message on voicemail. 17:09 Physician consultation: Steven Sosa MD was contacted at 17:09, regarding consult, patient's condition, would like admission per Dr. Ilya Youssef DO. 17:17 Data reviewed: vital signs, nurses notes, radiologic studies, plain films. Physician consultation: Ilya Youssef DO was called at 17:17, left message on voicemail. 18:00 Physician consultation: Raul GRIER was contacted at 18:00, regarding admission, to the telemetry unit. patient's condition. 06/23 17:17 Order name: Basic Metabolic Panel; Complete Time: 18:26 06/23 19:08 Interpretation: Normal except: CO2 36; GLUC 116; BUN 21. 06/23 17:17 Order name: CBC with Diff; Complete Time: 18:26 06/23 19:09 Interpretation: Reviewed. 06/23 17:17 Order name: LFT's; Complete Time: 18:26 06/23 17:17 Order name: Magnesium; Complete Time: 18:26 06/23 17:17 Order name: PT-INR; Complete Time: 18:26 06/23 17:17 Order name: Ptt, Activated; Complete Time: 18:26 06/23 16:09 Order name: XRAY Pelvis; Complete Time: 18:26 06/23 16:09 Order name: XRAY Hip RIGHT 2 view; Complete Time: 18:26 06/23 17:17 Order name: XRAY Chest (1 view); Complete Time: 19:08 06/23 17:17 Order name: Urine Microscopic Only; Complete Time: 18:26 06/23 19:10 Interpretation: Reviewed. 06/23 17:49 Order name: CBC Smear Scan; Complete Time: 18:26 EDWV 06/23 18:15 Order name: Urine Dipstick--Ancillary (enter results) 06/23 19:24 Order name: COVID-19 06/23 16:09 Order name: IV; Complete Time: 16:24 06/23 17:07 Order name: Morin; Complete Time: 17:51 06/23 17:17 Order name: EKG; Complete Time: 17:18 06/23 17:17 Order name: Cardiac monitoring; Complete Time: 18:08 06/23 17:17 Order name: EKG - Nurse/Tech; Complete Time: 18:08 06/23 17:17 Order name: Labs collected and sent; Complete Time: 17:47 06/23 17:17 Order name: O2 Per Protocol; Complete Time: 17:25 06/23 17:17 Order name: O2 Sat Monitoring; Complete Time: 17:25 06/23 17:17 Order name: Urine Dipstick-Ancillary (obtain specimen); Complete Time: 17:47 06/23 18:59 Order name: CONS Physician Consult EDMS EC:07 Rate is 109 beats/min. Rhythm is regular. NV interval is normal. QRS interval is cp normal. QT interval is normal. Interpreted by me. Reviewed by me. Administered Medications: 16:32 Drug: fentaNYL (PF) 25 mcg Route: IVP; Site: right antecubital; vg1 17:48 Follow up: Response: No adverse reaction; Pain is unchanged, physician notified vg1 17:40 Drug: morphine 2 mg {Note: rass 0.} Route: IVP; Site: right antecubital; vg1 18:20 Follow up: Response: No adverse reaction; Pain is decreased vg1 17:40 Drug: NS 0.9% 1000 ml Route: IV; Rate: 75 ml/hr; Site: right antecubital; vg1 20:10 Follow up: Response: No adverse reaction; IV Status: Infusion continued upon admission 19:10 Drug: Metoprolol 25 mg Route: PO; sv 20:10 Follow up: Response: No adverse reaction Disposition: 18:15 Chart complete. cp Disposition: 06/23/20 17:53 Hospitalization ordered by Ilya Youssef for Inpatient Admission. Preliminary diagnosis is Right Subcapital Femur Fracture. - Bed requested for Telemetry/MedSurg (Inpatient). - Status is Inpatient Admission. - Condition is Stable. - Problem is new. - Symptoms have improved. Addendum: 06/25/2020 11:06 Co-signature as Attending Physician, Celine Rodriguez MD. m a2 Signatures: Dispatcher [employer] EDMS Kaylee Stewart RN RN Unique Johnson RN RN ss Roszak, Josh, PA PA jr8 Breana Love RN RN tl1 Matt Mcpherson PA PA cp Habalo, Winsy Celine Rodriguez MD MD ma2 Latasha Navarro, RN RN vg1 Corrections: (The following items were deleted from the chart) 06/23 18:07 17:09 Physician consultation: Steven Sosa MD was contacted at 17:09, regarding cp consult, patient's condition, would like admission per Dr. Vincent Sierra MD 19:05 16:09 Allergies: No Known Allergies; [facility] 19:34 17:53 Hospitalization Ordered by Ilya Youssef DO for Inpatient Admission. Preliminary tl1 diagnosis is Right Subcapital Femur Fracture. Bed requested for Telemetry/MedSurg (Inpatient). Status is Inpatient Admission. Condition is Stable. Problem is new. Symptoms have improved. cp 20:22 19:34 06/23/2020 17:53 Hospitalization Ordered by Ilya Youssef DO for Inpatient Admission. Preliminary diagnosis is Right Subcapital Femur Fracture. Bed requested for Telemetry/MedSurg (Inpatient). Status is Inpatient Admission. Condition is Stable. Problem is new. Symptoms have improved. tl1 20:23 20:22 06/23/2020 17:53 Hospitalization Ordered by Ilya Youssef DO for Inpatient Admission. Preliminary diagnosis is Right Subcapital Femur Fracture. Bed requested for Telemetry/MedSurg (Inpatient). Status is Inpatient Admission. Condition is Stable. Problem is new. Symptoms have improved.
[2020-06-23 18:02] LABS: Urine Bacteria <20 /HPF (<20); Urine RBC <5 /HPF (NONE SEEN)
[2020-06-23 18:03] LABS: ALT/SGPT 17 U/L (12-78); AST/SGOT 18 U/L (15-37); Albumin 3.8 g/dL (3.4-5.0); Alkaline Phosphatase 69 U/L (45-117); BUN Blood Urea Nitrogen 21 mg/dL (7-18); Bicarbonate 36 mmol/L (21-32); Bilirubin Direct 0.1 mg/dL (0-0.2); Bilirubin Total 0.5 mg/dL (0.2-1.0); Blood Morphology Comment NOTED (NOT SEEN); Glucose Level 116 mg/dL (74-106); Hypochromasia 1+; Magnesium 1.8 mg/dL (1.8-2.4); Platelet Estimate ADEQ; Potassium 3.8 mmol/L (3.5-5.1); Sodium Level 139 mmol/L (136-145); White Blood Cell Scan OK (OK)
--- NOTE | 2020-06-23 18:52 | RAD REPORT ---
EXAM DESCRIPTION: RAD - Chest Single View - 06/23/2020 5:36 pm CLINICAL HISTORY: fall COMPARISON: Portable December 2019 TECHNIQUE: AP portable chest image was obtained 06/23/2020 5:36 pm . FINDINGS: Lungs are fibrotic. Pattern is not substantially different comparison. Curvilinear density lateral left upper lung field is believed to be skin fold artifact rather than pneumothorax. Lung pa renchymal markings extend lateral to this curvilinear line. No acute failure or volume overload. Hear t and vasculature are normal. No measurable pleural effusion and no pneumothorax. No acute bony abnor mality seen. No acute aortic findings suspected. IMPRESSION: Chronic interstitial fibrotic lung pattern not substantially different from comparison.
[2020-06-23] MEDS ORDERED: METOPROLOL TAR 25 MG TAB ONE (19:06)
[2020-06-23 20:13] LABS: Urine Glucose NEGATIVE (NEG)
[2020-06-23 20:14] LABS: Urine Blood TRACE (NEG); Urine Protein NEGATIVE (NEG)
[2020-06-23] MEDS: ALBUTEROL 2.5 MG/3 ML NEB SOL NEB SCH (20:20)
[2020-06-23] MEDS: IPRATROPIUM BROM 0.5MG/2.5ML NEB SCH (20:20)
[2020-06-23 21:20] VITALS: BMI 18.8
[2020-06-23] MEDS: ENOXAPARIN 40 MG/0.4 ML SQ SCH (23:19)
[2020-06-23] MEDS: ONDANSETRON 4 MG/2 ML VIAL IV PRN (23:19)
[2020-06-23] MEDS: MORPHINE 2 MG/ML SYR IV PRN (23:19)
--- NOTE | 2020-06-24 01:44 | P.HP ---
Certification for Inpatient Patient admitted to: Inpatient With expected LOS: >2 Midnights Patient will require the following post-hospital care: Rehabilitation Practitioner: I am a practitioner with admitting privileges, knowledge of patient current condition, hospital course, and medical plan of care. Services: Services provided to patient in accordance with Admission requirements found in Title 42 Section 412.3 of the Code of Federal Regulations <NadiarosalinaRadha kenyonEligio - Last Filed: 06/24/20 01:38> Patient History Date of Service: 06/24/20 Primary Care Provider: Dr. Baca Reason for admission: Right Hip Fracture History of Present Illness: This is an 84 y/o F with end stage COPD, Hypothyroidism, and Thalassemia that presented to the ED via EMS after falling at home landing on right hip. Patient stated that she had pain to right hip after incident and could not bear weight. Patient was worked up in the emergency room and was found to have a subcapital right hip fracture with minimal impaction on xray. Patient denies pain anywhere else at this time. Medicine consulted for admission. Patient has had previous hip surgery in past by Dr. Sosa who was consulted today and will see patient in the hospital. Home medications list reviewed: Yes - Past Medical/Surgical History Has patient received pneumonia vaccine in the past: Yes Diabetic: No -: Hypothyroidism -: COPD -: Thalassemia -: Atrial fibrillation/chronic anti coagulation therapy -: Anemia of chronic disease -: Former smoker -: History of recurrent UTI Psychosocial/ Personal History: Patient has a supporting family. Lives at home - Family History Family History: Reviewed- Non-Contributory - Family History Mother -: Heart disease Sister -: Cancer - Social History Smoking Status: Former smoker Smoking therapy provided: No Alcohol use: No CD- Drugs: No Caffeine use: No Place of Residence: Home <Eligio Colunga - Last Filed: 06/24/20 01:38> Date of Service: 06/24/20 - Past Medical/Surgical History -: End-stage COPD on chronic oxygen -: Chronic anemia with thalassemia -: Atrial fibrillation not on chronic anti coagulation therapy -: Chronic CHF Past Surgical History: Reviewed- Non-Contributory <Ilya Youssef - Last Filed: 06/24/20 07:20> Allergies No Known Allergies Allergy (Verified 06/23/20 22:58) Home Medications: Alendronate Sodium 70 mg PO Q7D 06/24/20 Docusate [Colace Cap] 100 mg PO DAILY 06/24/20 Fluticasone/Umeclidin/Vilanter [Trelegy Ellipta 100-62.5-25] 1 each IH DAILY 06/24/20 Furosemide [Lasix] 20 mg PO DAILY 06/24/20 Levothyroxine Sodium 88 mcg PO DAILY 06/24/20 Spironolactone [Aldactone] 25 mg PO DAILY 06/24/20 Review of Systems General: Unremarkable Eyes: Unremarkable ENT: Unremarkable Respiratory: Unremarkable Cardiovascular: Unremarkable Gastrointestinal: Unremarkable Musculoskeletal: As per HPI Integumentary: Unremarkable Neurological: Unremarkable Lymphatics: Unremarkable <lEigio Colunga - Last Filed: 06/24/20 01:38> Physical Examination - Vital Signs Temperature: 97.4 F Blood Pressure: 110/55 Pulse: 101 Respirations: 16 Pulse Ox (%): 97 - Physical Exam General: Alert, In no apparent distress, Oriented x3, Cooperative HEENT: Normocephalic, PERRLA, Mucous membr. moist/pink, EOMI Neck: Supple, 2+ carotid pulse no bruit, JVD not distended, No Thyromegaly Respiratory: Clear to auscultation bilaterally, Normal air movement Cardiovascular: No edema, Normal pulses, Regular rate/rhythm, Normal S1 S2, No gallops, No rubs, No murmurs Capillary refill: <2 Seconds Gastrointestinal: Normal bowel sounds, Soft and benign, Non-distended, No ascites, No tenderness, No masses, No rebound, No guarding Musculoskeletal: No clubbing, No swelling, No contractures, No erythema, No warmth, Tenderness (moderate tenderness to right hip) Integumentary: No rashes, No breakdown, No significant lesion, No tenderness/swelling, No erythema, No warmth, No cyanosis Neurological: Normal speech, Normal strength at 5/5 x4 extr, Normal tone, Sensation intact, Cranial nerves 3-12 intact, Normal affect Lymphatics: No axilla or inguinal lymphadenopathy - Studies Laboratory Data (last 24 hrs) 06/23/20 17:30: PT 12.2, INR 1.03, APTT 30.4 06/23/20 17:30: WBC 12.5 H, Hgb 10.1 L, Hct 32.5 L, Plt Count 205 11/25/20 17:30: Sodium 139, Potassium 3.8, BUN 21 H, Creatinine 0.63, Glucose 116 H, Magnesium 1.8, Total Bilirubin 0.5, AST 18, ALT 17, Alkaline Phosphatase 69 <Eligio Colunga - Last Filed: 06/24/20 01:38> - Studies Laboratory Data (last 24 hrs) 06/23/20 17:30: PT 12.2, INR 1.03, APTT 30.4 06/23/20 17:30: WBC 12.5 H, Hgb 10.1 L, Hct 32.5 L, Plt Count 06/23/20 17:30: Sodium 139, Potassium 3.8, BUN 21 H, Creatinine 0.63, Glucose 116 H, Magnesium 1.8, Total Bilirubin 0.5, AST 18, ALT 17, Alkaline Phosphatase 69 <Ilya Youssef - Last Filed: 06/24/20 07:20> Assessment and Plan - Problems (Diagnosis) (1) Closed right hip fracture Current Visit: Yes Status: Acute Qualifiers: Encounter type: initial encounter Qualified Code(s): S72.001A - Fracture of unspecified part of neck of right femur, initial encounter for closed fracture (2) COPD (chronic obstructive pulmonary disease) Current Visit: No Status: Chronic Qualifiers: Emphysema type: unspecified (3) Hypothyroidism Onset Date: 09/10/17 Current Visit: No Status: Chronic Qualifiers: Hypothyroidism type: unspecified - Plan 1. Continue to monitor patient for stability while admitted 2. Consulted Dr. Sosa and plan to have surgery this sunday for right hip fracture 3. DVT prophylaxis 4. Pain management 5. Consulted Pulmonology for End Stage COPD who is needing surgery 6. Labs daily Discharge Plan: Home Plan to discharge in: Greater than 2 days - Advance Directives Does patient have a Living Will: Yes Does patient have a Durable POA for Healthcare: Yes - Code Status/Comfort Care Code Status: Do Not Attempt Resuscitat Critical Care: No Time Spent Managing Pts Care (In Minutes): 70 <Eligio Colunga - Last Filed: 06/24/20 01:38> - Plan Case discussed in detail with physician licensed loan officer assistant. Agree with assessment, evaluation and plan of care. Please see progress note for details. Will discuss with orthopedics and pulmonology today. Anticipate surgery on Sunday. Patient to be cleared by pulmonology. Patient medically stable this time. <Ilya Youssef - Last Filed: 06/24/20 07:20>
[2020-06-24] MEDS: IPRATROPIUM BROM 0.5MG/2.5ML NEB SCH ×3 (02:00→20:10)
[2020-06-24] MEDS: ALBUTEROL 2.5 MG/3 ML NEB SOL NEB SCH (02:00)
[2020-06-24] MEDS: MORPHINE 2 MG/ML SYR IV PRN (02:53)
[2020-06-24] MEDS: ONDANSETRON 4 MG/2 ML VIAL IV PRN (03:40)
[2020-06-24 06:18] LABS: Potassium 4.2 mmol/L (3.5-5.1)
[2020-06-24 06:25] LABS: Absolute Lymphocytes (CBC) 0.7 K/uL (0.7-4.9); Basophils % 0.1 % (0-1.3); Hematocrit 32.3 % (36.0-45.0); Lymphocytes % 6.5 % (15.3-44.8); MPV 9.4 fL (7.6-11.3); RBC Red Blood Cell Count 4.86 M/uL (3.86-4.86)
--- NOTE | 2020-06-24 07:14 | P.PN ---
Subjective Date of Service: 06/24/20 Primary Care Provider: Dr. Baca Chief Complaint: Right Hip Fracture Subjective: Doing well, Other (Patient stable. Pain under control.) Physical Examination - Vital Signs Temperature: 97.1 F Blood Pressure: 116/58 Pulse: 96 Respirations: 16 Pulse Ox (%): 85 - Physical Exam General: Alert, In no apparent distress, Oriented x3, Cooperative HEENT: Atraumatic Neck: Supple Respiratory: Clear to auscultation bilaterally Cardiovascular: Normal pulses, Regular rate/rhythm Gastrointestinal: Normal bowel sounds, No tenderness, No masses, No rebound, No guarding Integumentary: No erythema, No warmth, No cyanosis Neurological: Normal speech, Normal strength at 5/5 x4 extr, Normal tone, Normal affect - Studies Laboratory Data (last 24 hrs) 06/23/20 17:30: PT 12.2, INR 1.03, APTT 30.4 06/23/20 17:30: WBC 12.5 H, Hgb 10.1 L, Hct 32.5 L, Plt Count 205 06/23/20 17:30: Sodium 139, Potassium 3.8, BUN 21 H, Creatinine 0.63, Glucose 116 H, Magnesium 1.8, Total Bilirubin 0.5, AST 18, ALT 17, Alkaline Phosphatase 69 Medications List Reviewed: Yes Assessment & Plan Discharge Plan: Home (With home health and physical therapy) Plan to discharge in: Greater than 2 days Physician Review Additional Text: Impression: Fall leading to right sided minimally impacted subcapital femoral neck fracture COPD oxygen dependent Hypothyroidism Chronic diastolic CHF GERD Chronic anemia with history of thalassemia Alzheimer's dementia without behavioral disturbance Moderate protein malnutrition History of paroxysmally atrial fibrillation Plan: Fall leading to right sided minimally impacted subcapital femoral neck fracture: Pain well controlled. Stable at this time. Will need to discuss with orthopedics. Plan is for surgery on Sunday. Will keep NPO after midnight. Will discuss with pulmonology on clearance for surgery. Patient desires to go home with home health and therapy at discharge. Will see if this can be accommodated pending postsurgery. Continue DVT prophylaxis. Continue to provide medication for pain. End-stage COPD oxygen dependent: Continue oxygen. Will provide COPD medication. Patient currently on hospice at home. But patient desires tr eatment for fracture. Hypothyroidism: Continue with medication. Chronic diastolic CHF: Restart Lasix and Aldactone. GERD: Will provide medication Chronic anemia with history of thalassemia: Overall stable. Will monitor closely. Alzheimer's dementia without behavioral disturbance: This appears stable. Will monitor closely. Moderate protein malnutrition: Will provide supplement if required. Will consult dietary to further evaluate and treat. History of paroxysmally atrial fibrillation: Patient not on chronic anti coagulation therapy. Continue DVT prophylaxis. Rate controlled. Patient in normal sinus rhythm. Time Spent Managing Pts Care (In Minutes): 55
[2020-06-24] MEDS ORDERED: TRAMADOL HCL 50 MG TAB PO PRN (07:15)
[2020-06-24] MEDS ORDERED: HYDROCODONE/APAP 7.5/325 MG TAB PO PRN (07:15)
[2020-06-24] MEDS ORDERED: ALBUTEROL 2.5 MG/3 ML NEB SOL NEB PRN (07:21)
[2020-06-24] MEDS ORDERED: INFLUENZA VACCINE (for 3y+) 0.5 ML DOSE IMVAC ONE (08:00)
[2020-06-24] MEDS ORDERED: FUROSEMIDE 20 MG TABLET PO SCH (09:00)
--- NOTE | 2020-06-24 09:27 | CON ---
Date of Consultation: 06/24/2020 History Of Present Illness: I apparently was seeing this patient in the past for a broken hip on the left side, however, not specifically remember that, but unfortunately she fell sustaining injury to her right side. X-rays were taken in the emergency room, which demonstrated a slightly displaced sub capital hip fracture on the right. Physical Examination: All long bones and joints are palpated without pain or crepitation with the exception of the right hi p which is painful to movement or manipulation. Laboratory Data: Review of x-rays reveal an impacted subcapital fracture on the right. Assessment And Plan: This is an 84-year-old female now with an impacted subcapital femur fracture. I discussed this with her and was able to tell her about her diagnosis and that the plan would be mos t likely for bipolar arthroplasty as she has had on the contralateral side, which she has done very w ell with. She says she understands things as presented. At this time, we will most likely proceed w ith this tomorrow. All of her questions were otherwise answered. LUIZA Voice ID: [id number] Report ID: [id number]
[2020-06-24] MEDS: FOLIC ACID 1 MG TABLET PO SCH (09:34)
[2020-06-24] MEDS: LEVOTHYROXINE SOD 0.088 MG TAB PO SCH (09:34)
[2020-06-24] MEDS: SPIRONOLACTONE 25 MG TABLET PO SCH (09:34)
[2020-06-24] MEDS: THIAMINE HCL 100 MG TABLET PO SCH (09:34)
[2020-06-24] MEDS: DOCUSATE NA 100 MG CAP PO SCH (09:34)
[2020-06-24] MEDS: DULERA 100/5 (MOMETASONE/FORMOTEROL) INHALER IH SCH ×2 (09:42→19:40)
[2020-06-24] MEDS ORDERED: ARFORMOTEROL TARTRATE 15 MCG/2 ML VIAL.NEB NEB SCH (10:27)
--- NOTE | 2020-06-24 10:31 | P.CNS ---
Date of Consult: 06/24/20 Primary Care Provider: Dr. Baca Chief Complaint: Right Hip Fracture History of Present Illness: Patient is 84 years of age she fell and fractured her right hip denies any pulmonary complaints patient has a history of severe COPD at her baseline compliant with the therapy no new complaints Allergies No Known Allergies Allergy (Verified 06/23/20 22:58) Home Medications: Alendronate Sodium 70 mg PO Q7D 06/24/20 Docusate [Colace Cap] 100 mg PO DAILY 06/24/20 Fluticasone/Umeclidin/Vilanter [Trelegy Ellipta 100-62.5-25] 1 each IH DAILY 06/24/20 Furosemide [Lasix] 20 mg PO DAILY 06/24/20 Levothyroxine Sodium 88 mcg PO DAILY 06/24/20 Spironolactone [Aldactone] 25 mg PO DAILY 06/24/20 - Past Medical/Surgical History Diabetic: No -: Hypothyroidism -: End-stage COPD on chronic oxygen -: Chronic anemia with thalassemia -: Atrial fibrillation not on chronic anti coagulation therapy -: Anemia of chronic disease -: Former smoker -: History of recurrent UTI -: Chronic CHF Psychosocial/ Personal History: Patient has a supporting family. Lives at home - Family History Mother Medical History: Heart disease Sister Medical History: Cancer - Social History Alcohol use: No CD- Drugs: No Caffeine use: No Place of Residence: Home Review of Systems 10-point ROS is otherwise unremarkable General: Weakness Physical Examination Temp Pulse Resp BP Pulse Ox 97.5 F 88 20 119/59 L 92 06/24/20 08:00 06/24/20 09:34 06/24/20 08:00 06/24/20 09:34 06/24/20 08:00 General: Alert, Oriented x3 Respiratory: Diminished Cardiovascular: No edema, Regular rate/rhythm Gastrointestinal: Normal bowel sounds, Soft and benign Laboratory Data (last 24 hrs) 06/23/20 17:30: PT 12.2, INR 1.03, APTT 30.4 06/23/20 17:30: WBC 12.5 H, Hgb 10.1 L, Hct 32.5 L, Plt Count 205 06/23/20 17:30: Sodium 139, Potassium 3.8, BUN 21 H, Creatinine 0.63, Glucose 116 H, Magnesium 1.8, Total Bilirubin 0.5, AST 18, ALT 17, Alkaline Phosphatase 69 - Problems (1) COPD (chronic obstructive pulmonary disease) Current Visit: Yes Status: Acute Plan: Patient is 84 years of age recently fractured her right hip she has a history of COPD currently stable vital signs oxygenation stable chest x-ray consistent with COPD patient has a chronic microcytic anemia patient is stable for surgery although I have informed her she is high risk in view of for age and COPD continue with inhalers I have added scheduled ipratropium Dc Lasix
[2020-06-24] MEDS: ENOXAPARIN 40 MG/0.4 ML SQ SCH (16:10)
[2020-06-25] MEDS: IPRATROPIUM BROM 0.5MG/2.5ML NEB SCH ×4 (01:15→20:10)
[2020-06-25] MEDS ORDERED: MELATONIN 5 MG TABLET PO PRN (01:38)
[2020-06-25] MEDS: LEVOTHYROXINE SOD 0.088 MG TAB PO SCH (05:50)
[2020-06-25] MEDS: MORPHINE 2 MG/ML SYR IV PRN (06:01)
--- NOTE | 2020-06-25 07:12 | P.PN ---
Subjective Date of Service: 06/25/20 Primary Care Provider: Dr. Baca Chief Complaint: Right Hip Fracture Subjective: Other (Patient stable at this time. Patient currently NPO in preparation for surgery today.) Physical Examination - Vital Signs Temperature: 97.9 F Blood Pressure: 116/69 Pulse: 97 Respirations: 18 Pulse Ox (%): 93 - Physical Exam General: Alert, In no apparent distress, Cooperative HEENT: Atraumatic Neck: Supple Respiratory: Clear to auscultation bilaterally, Normal air movement Cardiovascular: Normal pulses, Regular rate/rhythm Gastrointestinal: Normal bowel sounds, No tenderness, No masses, No rebound, No guarding Neurological: Normal speech, Normal strength at 5/5 x4 extr, Normal tone, Normal affect - Studies Medications List Reviewed: Yes Assessment & Plan Discharge Plan: Home Plan to discharge in: Greater than 2 days Physician Review Additional Text: Impression: Fall leading to right sided minimally impacted subcapital femoral neck fracture COPD oxygen dependent Hypothyroidism Chronic diastolic CHF GERD Chronic anemia with history of thalassemia Alzheimer's dementia without behavioral disturbance Moderate protein malnutrition History of paroxysmally atrial fibrillation Plan: Fall leading to right sided minimally impacted subcapital femoral neck fracture: Pain well controlled. Patient currently NPO at this time in preparation for surgery. Case discussed with orthopedics yesterday. Case also discuss with pulmonology who agrees with plan of care. Patient desires to go home at discharge. Anticipate discharge home in the next 2-3 days pending how she does with physical therapy. The patient will likely go home with hospice in place as she was in hospice prior to admission. Continue DVT prophylaxis at this time. Continue COPD medication. I will turn the service over to the hospitalist team tomorrow. I will go over the plan of care with him. End-stage COPD oxygen dependent: Continue oxygen to maintain sats above 93%. Continue COPD medication. Patient currently on hospice at home. This will likely be restarted once she is discharged home. Pulmonology has been consulted and agrees with plan of care. Hypothyroidism: Continue with medication. Chronic diastolic CHF: Continue current medication. This may need to be adjusted. Will monitor this closely. GERD: Will provide medication Chronic anemia with history of thalassemia: Overall stable. Will monitor closely. Alzheimer's dementia without behavioral disturbance: This appears stable. Will monitor closely. Moderate protein malnutrition: Will provide supplement if required. Await dietary recommendations.. History of paroxysmally atrial fibrillation: Patient not on chronic anti coagulation therapy. Continue DVT prophylaxis. Rate controlled. Patient in normal sinus rhythm. Time Spent Managing Pts Care (In Minutes): 55
[2020-06-25] MEDS ORDERED: TRANEXAMIC ACID 1,000 MG in NA CHLORIDE 0.9% 50 ML IV SCH (09:00)
[2020-06-25] MEDS ORDERED: METOPROLOL TAR 25 MG TAB PO ONE (09:01)
[2020-06-25] MEDS: METHYLPREDNISOLONE 125 MG INJ IV SCH ×3 (09:11→21:22)
[2020-06-25] MEDS: SPIRONOLACTONE 25 MG TABLET PO SCH (09:12)
[2020-06-25] MEDS: THIAMINE HCL 100 MG TABLET PO SCH (09:12)
[2020-06-25] MEDS: FOLIC ACID 1 MG TABLET PO SCH (09:12)
[2020-06-25] MEDS: DOCUSATE NA 100 MG CAP PO SCH (09:12)
[2020-06-25] MEDS: DULERA 100/5 (MOMETASONE/FORMOTEROL) INHALER IH SCH (09:12)
--- NOTE | 2020-06-25 09:38 | RAD REPORT ---
EXAM DESCRIPTION: Tonny Single View06/25/2020 9:31 am CLINICAL HISTORY: Shortness of breath COMPARISON: June 23, 2020 FINDINGS: The lungs are markedly hyperaerated. Mild chronic appearing lung opacities The lungs appear clear of acute infiltrate. The heart is normal size IMPRESSION: No acute abnormalities displayed
[2020-06-25 10:01] LABS: Blood Gas Oxyhemoglobin 91.4 % (94-97); Blood O2 Saturation 94.6 % (92-98.5)
[2020-06-25 10:07] LABS: Troponin I < 0.02 ng/mL (0.0-0.045)
[2020-06-25] MEDS: ARFORMOTEROL TARTRATE 15 MCG/2 ML VIAL.NEB NEB SCH ×2 (11:35→20:10)
--- NOTE | 2020-06-25 11:36 | P.PN ---
Subjective Date of Service: 07/03/20 Primary Care Provider: Dr. Baca Chief Complaint: Respiratory failure Patient developed some respiratory distress apparently became tachycardic after albuterol treatment blood gases on 50% show PO2 of 70 baseline hypercapnia this morning she feels fine with the tachycardic still hypoxic Review of Systems General: Weakness Respiratory: Shortness of Breath Physical Examination - Vital Signs Temperature: 98.5 F Blood Pressure: 116/69 Pulse: 116 Respirations: 19 Pulse Ox (%): 88 - Physical Exam General: Alert, In no apparent distress, Oriented x3 Respiratory: Diminished, Expiratory wheezes Cardiovascular: No edema, Normal S1 S2 - Studies Medications List Reviewed: Yes Assessment & Plan - Problems (Diagnosis) (1) COPD (chronic obstructive pulmonary disease) Current Visit: Yes Status: Acute Plan: Patient alert mild respiratory distress today continue to monitor agree with steroids continue with bronchodilators Dc albuterol the flow nasal cannula oxygen is chest x-ray just shows chronic changes Dc inhalers change to nebulize Brovana in you with steroids she has very severe COPD very poor baseline functioning apparently saturatio Qualifiers: Emphysema type: unspecified
[2020-06-25] MEDS ORDERED: NA CHLORIDE 0.9% 250 ML ONE (12:38)
[2020-06-25] MEDS ORDERED: AMIODARONE HCL 150 MG in D5W 100 ML IV SCH (13:00)
[2020-06-25] MEDS ORDERED: HEPARIN/D5W 25,000 UNIT/500 ML BAG IV SCH (13:00)
[2020-06-25] MEDS ORDERED: AMIODARONE HCL 900 MG in Dextrose 5%-Water 482 ML IV SCH (13:00)
[2020-06-25 14:06] LABS: Absolute Lymphocytes (CBC) 0.2 K/uL (0.7-4.9); Basophils % 0.3 % (0-1.3); Hematocrit 31.5 % (36.0-45.0); MPV 8.9 fL (7.6-11.3); RBC Red Blood Cell Count 4.76 M/uL (3.86-4.86)
[2020-06-25 14:19] LABS: Protime INR 1.03
[2020-06-25] MEDS ORDERED: METHYLPREDNISOLONE 125 MG INJ ONE ×2 (14:21→20:49)
[2020-06-25 14:23] LABS: BUN Blood Urea Nitrogen 26 mg/dL (7-18); Bicarbonate 34 mmol/L (21-32); Glucose Level 175 mg/dL (74-106); Potassium 3.7 mmol/L (3.5-5.1); Sodium Level 141 mmol/L (136-145)
--- NOTE | 2020-06-25 14:37 | CON ---
Date of Consultation: 06/25/2020 Reason For Consultation: Cardiac preop evaluation for right hip surgery. History Of Present Illness: An 84-year-old female with end-stage COPD, hypothyroidism, presented aft er a ground level fall. It was trip and fall type of thing and no loss of consciousness or syncope. Upon workup, found to have a subcapital right hip fracture with minimal impaction. The patient denie s having any cardiac history. There is no chest pain. She is limited with movements due to signific ant shortness of breath from advanced COPD. Past Medical History: Hypothyroidism; COPD; atrial fibrillation on chronic anticoagulation; anemia Medications: Refer to reconciliation sheet for detailed list. Allergies: NO KNOWN DRUG ALLERGIES. Social History: She is an ex-smoker. Does not drink or use any drugs. Family History: No premature coronary artery disease or cancer. Review of Systems: All systems reviewed and they were negative except mentioned in the HPI. Physical Examination: Vital Signs: Temperature is 98.5, heart rate is 116-120, breathing at 19, blood pressure 116/69, sat ting 88% to 91% with 4 L. General: This is an elderly female, in no apparent distress. Head and neck: Pupils are equal, reactive to light. Intact eye movements. No JVD. No cervical lym phadenopathy. Neck is supple. Thyroid is not enlarged. Lungs: Decreased breathing sounds bilaterally with no wheezing. Heart: Irregularly irregular. No extra sounds. Abdomen: Soft, nontender. Bowel sounds positive. No organomegaly. No masses or hernia. No rigidi ty or rebound. Extremities: No clubbing, cyanosis. Intact pulses. Skin: No rashes. Neurologic: Alert, awake, oriented x3. No acute focal deficits appreciated. Investigations: Sodium 140, BUN 24, creatinine 0.68, and troponin less than 0.02. Liver enzymes are normal. White blood cell count is 10.5, hemoglobin 10.1, platelets 185. Assessment And Plan: 1.Cardiac preoperative evaluation for hip surgery. This patient has multiple risk factors that puts her at moderate to high cardiac risk for noncardiac surgery. However, at this point, the hip surger y is considered an urgent procedure. I recommend controlling atrial fibrillation with IV amiodarone and also recommend to obtain CTA of the lungs to rule out pulmonary embolus if it was not done if sourav sanches to obtain echocardiogram prior to surgery. If surgery determined to be urgent, would proceed a nd we will follow the patient with you in case of any cardiac complication. At this point, I do not feel doing an ischemia workup is in the best patient's interest due to delaying the hip procedure, wh ich will increase the morbidity and mortality. 2.Atrial fibrillation. We will load with IV amiodarone and low-dose Eliquis once feasible from the surgical standpoint. Thank you for the consult. MATY Voice ID: [id number] Report ID: [id number]
[2020-06-25] MEDS ORDERED: HEPARIN/D5W 25,000 UNIT/500 ML BAG IV ONE (15:09)
[2020-06-25 17:48] LABS: Anisocytosis SLIGHT; Blood Morphology Comment NOTED (NOT SEEN); Platelet Estimate ADEQ; White Blood Cell Scan OK (OK)
[2020-06-25 17:49] LABS: Hypochromasia 1+; Ovalocytes SLIGHT; Poikilocytosis 2+; Polychromasia 1+; Teardrop Cell 1+
[2020-06-25] MEDS ORDERED: IPRATROPIUM BROM 0.5MG/2.5ML ONE (20:24)
[2020-06-25] MEDS ORDERED: ARFORMOTEROL TARTRATE 15 MCG/2 ML VIAL.NEB ONE (20:28)
[2020-06-25] MEDS: ENSURE ENLIVE 237 ML CAN PO SCH (21:23)
[2020-06-26] MEDS: IPRATROPIUM BROM 0.5MG/2.5ML NEB SCH ×4 (01:10→20:20)
[2020-06-26] MEDS ORDERED: IPRATROPIUM BROM 0.5MG/2.5ML ONE ×4 (01:30→20:07)
[2020-06-26] MEDS: LEVOTHYROXINE SOD 0.088 MG TAB PO SCH (06:30)
[2020-06-26] MEDS: ARFORMOTEROL TARTRATE 15 MCG/2 ML VIAL.NEB NEB SCH ×2 (08:40→20:20)
[2020-06-26] MEDS: SPIRONOLACTONE 25 MG TABLET PO SCH (09:00)
[2020-06-26] MEDS: ENSURE ENLIVE 237 ML CAN PO SCH ×2 (09:00→19:44)
[2020-06-26] MEDS: DOCUSATE NA 100 MG CAP PO SCH (09:00)
[2020-06-26] MEDS: METHYLPREDNISOLONE 125 MG INJ IV SCH (09:54)
[2020-06-26] MEDS: THIAMINE HCL 100 MG TABLET PO SCH (09:55)
[2020-06-26] MEDS: FOLIC ACID 1 MG TABLET PO SCH (09:55)
[2020-06-26] MEDS ORDERED: METHYLPREDNISOLONE 125 MG INJ ONE (09:56)
[2020-06-26] MEDS ORDERED: THIAMINE HCL 100 MG TABLET ONE (09:56)
[2020-06-26] MEDS ORDERED: FOLIC ACID 1 MG TABLET ONE (09:56)
--- NOTE | 2020-06-26 09:59 | RAD REPORT ---
EXAM DESCRIPTION: CT - Chest For Pe Angio - 06/26/2020 5:14 am CLINICAL HISTORY: Chest pain. r/o pe COMPARISON: Chest For Pe Angio dated 12/13/2019 TECHNIQUE: CT angiogram of the pulmonary arteries was performed with MIP. All CT scans are performed using dose optimization technique as appropriate and may include automated exposure control or mA/KV adjustment according to patient size. FINDINGS: No evidence of pulmonary thromboembolism. No acute aortic finding demonstrated. Moderate emphysema with linear atelectasis both lung bases. No significant pericardial or pleural fluid. No concerning bony finding. IMPRESSION: No evidence of pulmonary thromboembolism. Moderate COPD with linear atelectasis in both lung bases.
--- NOTE | 2020-06-26 10:27 | P.PN ---
Subjective Date of Service: 06/26/20 (Hospitalist) Primary Care Provider: Dr. Baca Chief Complaint: Respiratory failure and atrial fibrillation Patient is doing well back to her baseline she has been in normal sinus rhythm all night long no new complaints Review of Systems General: Weakness Respiratory: Shortness of Breath Musculoskeletal: Other (Pain in the right hip joint) Physical Examination - Vital Signs Temperature: 98.4 F Blood Pressure: 132/61 Pulse: 85 Respirations: 22 Pulse Ox (%): 100 - Physical Exam General: Alert, Oriented x3, Mild distress Respiratory: Clear to auscultation bilaterally, Diminished Cardiovascular: No edema, Regular rate/rhythm - Studies Medications List Reviewed: Yes Assessment & Plan - Problems (Diagnosis) (1) COPD (chronic obstructive pulmonary disease) Current Visit: Yes Status: Acute Plan: Patient is doing much better now saturation satisfactory on nasal cannula Qualifiers: Emphysema type: unspecified (2) Atrial fibrillation Current Visit: No Status: Acute Plan: Transient episode of AFib patient is on amiodarone stable for surgery hold heparin for 4 hr discuss with anesthesia an orthopedics patient has agreed to have general surgery if needed and is sees he well plan to do it under spinal Qualifiers: Atrial fibrillation type: paroxysmal Qualified Code(s): I48.0 - Paroxysmal atrial fibrillation Physician Review Additional Text: Impression: Fall leading to right sided minimally impacted subcapital femoral neck fracture COPD oxygen dependent Hypothyroidism Chronic diastolic CHF GERD Chronic anemia with history of thalassemia Alzheimer's dementia without behavioral disturbance Moderate protein malnutrition History of paroxysmally atrial fibrillation Plan: Fall leading to right sided minimally impacted subcapital femoral neck fracture: Pain well controlled. Patient currently NPO at this time in preparation for surgery. Case discussed with orthopedics yesterday. Case also discuss with pulmonology who agrees with plan of care. Patient desires to go home at discharge. Anticipate discharge home in the next 2-3 days pending how she does with physical therapy. The patient will likely go home with hospice in place as she was in hospice prior to admission. Continue DVT prophylaxis at this time. Continue COPD medication. I will turn the service over to the hospitalist team tomorrow. I will go over the plan of care with him. End-stage COPD oxygen dependent: Continue oxygen to maintain sats above 93%. Continue COPD medication. Patient currently on hospice at home. This will likely be restarted once she is discharged home. Pulmonology has been consulted and agrees with plan of care. Hypothyroidism: Continue with medication. Chronic diastolic CHF: Continue current medication. This may need to be adjusted. Will monitor this closely. GERD: Will provide medication Chronic anemia with history of thalassemia: Overall stable. Will monitor closely. Alzheimer's dementia without behavioral disturbance: This appears stable. Will monitor closely. Moderate protein malnutrition: Will provide supplement if required. Await dietary recommendations.. History of paroxysmally atrial fibrillation: Patient not on chronic anti coagulation therapy. Continue DVT prophylaxis. Rate controlled. Patient in normal sinus rhythm.
[2020-06-26] MEDS ORDERED: SUCCINYLCHOLINE 20 MG/ML (10 ML) IV ONE (11:35)
[2020-06-26] MEDS ORDERED: BUPIVACAINE 0.75% (PF) 2 ML SP ONE (11:35)
[2020-06-26] MEDS ORDERED: propofoL 200 MG/20 ML VIAL IV ONE ×2 (11:40→13:20)
[2020-06-26] MEDS ORDERED: MIDAZOLAM HCL 2 MG/2 ML INJ ONE (11:40)
[2020-06-26] MEDS ORDERED: Phenylephrine HCl 10 MG/ML 1 ML VIAL ONE (11:40)
[2020-06-26] MEDS ORDERED: LIDOCAINE 1% MPF 5 ML VIAL ONE (11:49)
[2020-06-26] MEDS ORDERED: CEFAZOLIN/SWI 1gm 1 GM/10 ML SYR ONE ×2 (11:58→19:56)
[2020-06-26] MEDS ORDERED: Ringers Lactate 1,000 ML IV ONE ×3 (11:58→15:18)
--- NOTE | 2020-06-26 13:43 | P.BOP ---
Preoperative diagnosis: right femoral neck fracture Postoperative diagnosis: same Primary procedure: right hip bipolar hemiarthoplasty Estimated blood loss: 100ccs Anesthesia: General Transferred to: Recovery Room Condition: Good
[2020-06-26] MEDS: Ringers Lactate 1,000 ML IV SCH (15:04)
--- NOTE | 2020-06-26 19:28 | OP ---
Date of Procedure: 06/26/2020 Surgeon: Steven Sosa MD Preoperative Diagnosis: Right femoral neck fracture. Postoperative Diagnosis: Right femoral neck fracture. Procedures: Right femoral neck bipolar hemiarthroplasty using the Biomet fracture stem. Estimated Blood Loss: Less than 100 cc. Complications: There were no complications. Indications For Operation: Ms. Bedolla is an 84-year-old female, who unfortunately is on hospice, b ut fell injuring her right lower extremity. She has been evaluated by both the hospitalist as well a s her boat patcher plastic and although she is very high risk for surgery, she is cleared and the patient de sires fixation and agrees to proceed. Description Of Procedure: The patient was taken to the operating recovery room and placed in supine position. This was done after establishing a spinal. She was then rolled left side down with an axi llary roll. Her bony prominences were then checked and she was then properly positioned using hip po sitioners. Her right hip was then prepped and draped in usual sterile fashion for arthroplasty. A s tandard posterolateral incision was taken down carefully through skin and soft tissue. Meticulous he mostasis is being maintained using Bovie electrocautery. This leads down to the fascia. A small sta b wound was made in the fascia and this was then carried up to near the tip of the greater trochanter where this was then curved gently backward. The sciatic nerve was palpated and protected as the ext ernal rotators and capsule were then removed and tagged for later repair. The neck was then cut very slightly lower than standard neck cut, which reveals the head. The head was then removed. It was s ized using ring gauges. We do know from her previous hip on the contralateral side, she has size 11 stem as well as a size 44 ball, and it does measure out the size 44. After this, any soft tissue or structures within the acetabulum were cleared and the canal-finding reamer was then placed. The cyli ndrical reamers were then used to a size 12, 12 did not go all the way down and I think we could have placed a 12 as well as a 13 and placed an 11 on this side. There was concern that given her extreme amount of osteoporosis that we could over ream or over broach. Therefore, decision was made to stop at 12. This was then broached sequentially to a size 11. After this, the broach was removed. The canal was then irrigated until it runs clear. The bone plug was then placed to appropriate depth and size 9 was selected and cemented in place using third generation cementation technique. All unsuppo rted cement was removed. It was then trialed with a +3, +3 appeared to be a little bit tight. Then trialed with a standard, standard appeared to be better, however, there was some concerns about dislo cation. Therefore, decision was made to go head and go with the +3 and a +3 ball was placed making s ure there were no obstructions in the acetabulum. After this, the external rotators and capsule were then repaired back to the hip via bone tunnels. The wound was again irrigated and the fascia was cl osed in a watertight fashion using heavy Vicryl sutures. This was followed by closure of the skin us ing 2-0 Vicryl followed by nanci. The patient was then placed in Aquacel dressing, awakened, taken to recovery room in good condition. There were no complications. /YVETTE Voice ID: [id number] Report ID: [id number]
[2020-06-26] MEDS: CEFAZOLIN/SWI 1gm 1 GM/10 ML SYR IV SCH (19:43)
[2020-06-26] MEDS ORDERED: ARFORMOTEROL TARTRATE 15 MCG/2 ML VIAL.NEB ONE (20:13)
[2020-06-27] MEDS: IPRATROPIUM BROM 0.5MG/2.5ML NEB SCH ×4 (02:00→20:00)
[2020-06-27] MEDS: Ringers Lactate 1,000 ML IV SCH ×2 (02:42→16:48)
[2020-06-27] MEDS ORDERED: Ringers Lactate 1,000 ML IV ONE (02:55)
[2020-06-27 04:18] LABS: Absolute Lymphocytes (CBC) 0.8 K/uL (0.7-4.9); Hematocrit 27.3 % (36.0-45.0); Lymphocytes % 6.1 % (15.3-44.8); MPV 8.5 fL (7.6-11.3); RBC Red Blood Cell Count 4.18 M/uL (3.86-4.86)
[2020-06-27 04:40] LABS: BUN Blood Urea Nitrogen 21 mg/dL (7-18); Bicarbonate 37 mmol/L (21-32); Glucose Level 125 mg/dL (74-106); Potassium 3.9 mmol/L (3.5-5.1); Sodium Level 138 mmol/L (136-145)
[2020-06-27] MEDS: CEFAZOLIN/SWI 1gm 1 GM/10 ML SYR IV SCH ×2 (04:52→12:45)
[2020-06-27] MEDS ORDERED: CEFAZOLIN/SWI 1gm 1 GM/10 ML SYR ONE ×2 (05:06→11:03)
[2020-06-27] MEDS: LEVOTHYROXINE SOD 0.088 MG TAB PO SCH (05:48)
[2020-06-27] MEDS ORDERED: THIAMINE HCL 100 MG TABLET ONE (08:23)
[2020-06-27] MEDS ORDERED: FOLIC ACID 1 MG TABLET ONE (08:23)
[2020-06-27] MEDS: ARFORMOTEROL TARTRATE 15 MCG/2 ML VIAL.NEB NEB SCH ×2 (08:35→20:00)
[2020-06-27] MEDS ORDERED: IPRATROPIUM BROM 0.5MG/2.5ML ONE ×2 (08:46→13:32)
[2020-06-27] MEDS: DOCUSATE NA 100 MG CAP PO SCH (09:21)
[2020-06-27] MEDS: FOLIC ACID 1 MG TABLET PO SCH (09:22)
[2020-06-27] MEDS: THIAMINE HCL 100 MG TABLET PO SCH (09:22)
[2020-06-27] MEDS: ENSURE ENLIVE 237 ML CAN PO SCH ×2 (09:22→20:38)
--- NOTE | 2020-06-27 09:43 | P.PN ---
Subjective Date of Service: 06/27/20 Primary Care Provider: Dr. Baca Chief Complaint: COPD Patient is status post a right hip hemiarthroplasty he did well with spinal anesthesia she is alert responsive pain has reduced not back on nasal cannula oxygen in no further evidence of AFib will Dc heparin drip Dc amiodarone stable to be transferred to the floor continue with bronchodilator advance diet Review of Systems General: Weakness Respiratory: Shortness of Breath Physical Examination - Vital Signs Temperature: 99.9 F Blood Pressure: 113/61 Pulse: 74 Respirations: 18 Pulse Ox (%): 100 - Physical Exam General: Alert, Oriented x3, Mild distress Respiratory: Clear to auscultation bilaterally, Diminished Cardiovascular: No edema, Regular rate/rhythm Gastrointestinal: Normal bowel sounds, Soft and benign - Studies Medications List Reviewed: Yes Assessment & Plan - Problems (Diagnosis) (1) COPD (chronic obstructive pulmonary disease) Current Visit: Yes Status: Acute Plan: Doing well continue with broncho dilators change to p.o. prednisone advance diet Qualifiers: Emphysema type: unspecified (2) Atrial fibrillation Current Visit: No Status: Resolved Plan: Transient AFib no further episodes Dc amiodarone Dc heparin drip Qualifiers: Atrial fibrillation type: paroxysmal Qualified Code(s): I48.0 - Paroxysmal atrial fibrillation
[2020-06-27] MEDS: predniSONE 20 MG TAB PO SCH ×2 (10:50→20:38)
[2020-06-27] MEDS: ENOXAPARIN 40 MG/0.4 ML SQ SCH (10:50)
[2020-06-27] MEDS ORDERED: ENOXAPARIN 40 MG/0.4 ML SQ ONE (11:02)
[2020-06-27] MEDS ORDERED: predniSONE 20 MG TAB ONE (11:02)
[2020-06-27] MEDS ORDERED: MELATONIN 5 MG TABLET PO ONE (20:23)
[2020-06-28] MEDS: IPRATROPIUM BROM 0.5MG/2.5ML NEB SCH ×2 (01:50→07:35)
[2020-06-28] MEDS: LEVOTHYROXINE SOD 0.088 MG TAB PO SCH (05:40)
[2020-06-28] MEDS: Ringers Lactate 1,000 ML IV SCH (05:40)
[2020-06-28] MEDS: ARFORMOTEROL TARTRATE 15 MCG/2 ML VIAL.NEB NEB SCH ×2 (07:35→19:50)
[2020-06-28] MEDS: DOCUSATE NA 100 MG CAP PO SCH (08:35)
[2020-06-28] MEDS: FOLIC ACID 1 MG TABLET PO SCH (08:35)
[2020-06-28] MEDS: ENOXAPARIN 40 MG/0.4 ML SQ SCH (08:35)
[2020-06-28] MEDS: ENSURE ENLIVE 237 ML CAN PO SCH ×2 (08:35→21:32)
[2020-06-28] MEDS: THIAMINE HCL 100 MG TABLET PO SCH (08:35)
[2020-06-28] MEDS: predniSONE 20 MG TAB PO SCH (08:35)
--- NOTE | 2020-06-28 12:15 | P.PN ---
Subjective Date of Service: 06/28/20 Primary Care Provider: Dr. Baca Chief Complaint: COPD Patient is doing well no new complaints she does not like the hospital for Review of Systems General: Weakness Respiratory: Shortness of Breath Physical Examination - Vital Signs Temperature: 98.6 F Blood Pressure: 113/56 Pulse: 86 Respirations: 20 Pulse Ox (%): 94 - Physical Exam General: Alert, In no apparent distress, Oriented x3 Respiratory: Diminished Cardiovascular: Normal pulses - Studies Medications List Reviewed: Yes Assessment & Plan - Problems (Diagnosis) (1) COPD (chronic obstructive pulmonary disease) Current Visit: Yes Status: Acute Plan: Doing much better condition stable decrease prednisone to 10 b.i.d. ipratropium not Q 6 p.r.n. continue with [facility] physical therapy no further evidence of AFib no evidence of pulmonary embolism oxygenation satisfactory Dc high-flow Qualifiers: Emphysema type: unspecified
[2020-06-28] MEDS: predniSONE 10 MG TAB PO SCH (21:32)
[2020-06-29 04:45] LABS: BUN Blood Urea Nitrogen 25 mg/dL (7-18); Bicarbonate 37 mmol/L (21-32); Glucose Level 131 mg/dL (74-106); Magnesium 2.1 mg/dL (1.8-2.4); Potassium 4.6 mmol/L (3.5-5.1); Sodium Level 142 mmol/L (136-145)
[2020-06-29] MEDS: LEVOTHYROXINE SOD 0.088 MG TAB PO SCH (05:12)
[2020-06-29] MEDS: ARFORMOTEROL TARTRATE 15 MCG/2 ML VIAL.NEB NEB SCH ×2 (07:55→19:50)
[2020-06-29] MEDS: FOLIC ACID 1 MG TABLET PO SCH (08:42)
[2020-06-29] MEDS: DOCUSATE NA 100 MG CAP PO SCH (08:42)
[2020-06-29] MEDS: ENSURE ENLIVE 237 ML CAN PO SCH ×2 (08:42→21:13)
[2020-06-29] MEDS: predniSONE 10 MG TAB PO SCH ×2 (08:42→21:12)
[2020-06-29] MEDS: THIAMINE HCL 100 MG TABLET PO SCH (08:42)
[2020-06-29] MEDS: ENOXAPARIN 40 MG/0.4 ML SQ SCH (08:43)
--- NOTE | 2020-06-29 10:00 | P.PN ---
Subjective Date of Service: 06/28/20 Subjective: No new changes, No C/O voiced Patient is doing okay. Interacting appropriately. Strength is diminished however and she is still having a lot of pain. Continue work with physical therapy. Patient arranging for group home facility placement. Review of Systems 10-point ROS is otherwise unremarkable Physical Examination - Vital Signs Temperature: 97.4 F Blood Pressure: 120/55 Pulse: 71 Respirations: 18 Pulse Ox (%): 100 - Physical Exam General: Alert, In no apparent distress, Oriented x3 Respiratory: Clear to auscultation bilaterally, Normal air movement Cardiovascular: Regular rate/rhythm, Normal S1 S2, No murmurs Gastrointestinal: Normal bowel sounds, Soft and benign, Non-distended, No tenderness Musculoskeletal: No clubbing, No swelling, No tenderness Neurological: Normal speech, Normal tone, Normal affect Lymphatics: No axilla or inguinal lymphadenopathy - Studies Medications List Reviewed: Yes Assessment & Plan - Problems (Diagnosis) (1) COPD (chronic obstructive pulmonary disease) Current Visit: Yes Status: Acute Qualifiers: Emphysema type: unspecified (2) Atrial fibrillation with RVR Current Visit: No Status: Acute (3) COPD (chronic obstructive pulmonary disease) Onset Date: 09/10/17 Current Visit: No Status: Chronic Qualifiers: (4) Hypothyroidism Onset Date: 09/10/17 Current Visit: No Status: Chronic Qualifiers: Hypothyroidism type: unspecified (5) Atrial fibrillation Current Visit: No Status: Resolved Qualifiers: Atrial fibrillation type: paroxysmal Qualified Code(s): I48.0 - Paroxysmal atrial fibrillation (6) Closed right hip fracture Current Visit: Yes Status: Acute Qualifiers: Encounter type: initial encounter Qualified Code(s): S72.001A - Fracture of unspecified part of neck of right femur, initial encounter for closed fracture - Plan Plan: 1. Continue with physical therapy 2. Pain control 3. DVT prophylaxis 4. Encouraged out of bed to a chair 5. Continue medication for COPD and atrial fibrillation. 6. Outpatient Cardiology and Pulmonary follow-up 7. Arrange for [place] placement 8. GI and DVT prophylaxis - Advance Directives Does patient have a Living Will: Yes Does patient have a Durable POA for Healthcare: Yes - Code Status/Comfort Care Code Status: Do Not Attempt Resuscitat
[2020-06-29] MEDS: MELATONIN 5 MG TABLET PO PRN (21:12)
[2020-06-30] MEDS: LEVOTHYROXINE SOD 0.088 MG TAB PO SCH (05:50)
--- NOTE | 2020-06-30 06:13 | EKG ---
Test Date: 2020-06-25 Test Time: 12:11:40 Sole Rougher: DORITA MEASUREMENT RESULTS: Intervals: Rate: 157 MS: QRSD: 82 QT: 296 QTc: 478 [place]: P: MS: QRS: 82 T: -64 INTERPRETIVE STATEMENTS: Atrial fibrillation with rapid ventricular response ST & T wave abnormality, consider inferior ischemia or digitalis effect Abnormal ECG Compared to ECG 06/25/2020 08:50:33 Possible ischemia now present Sinus tachycardia no longer present Atrial premature complex(es) no longer present Ventricular premature complex(es) no longer present ST (T wave) deviation still present Electronically Signed On 06-30-20 06:10:24 WOOD POLE TREATER by Daniel Pollock
--- NOTE | 2020-06-30 06:14 | EKG ---
Test Date: 2020-06-25 Test Time: 08:50:33 Psychiatric Security Nurse: DORITA MEASUREMENT RESULTS: Intervals: Rate: 132 CT: 130 QRSD: 84 QT: 298 QTc: 441 [place]: P: 87 CT: 130 QRS: 80 T: 39 INTERPRETIVE STATEMENTS: Sinus tachycardia with premature supraventricular complexes with occasional premature ventricular complexes and fusion complexe Nonspecific ST abnormality Abnormal ECG Compared to ECG 06/25/2020 08:08:18 Atrial premature complex(es) now present ST (T wave) deviation now present Electronically Signed On 06-30-20 06:10:27 SNIPPER by Daniel Pollock
[2020-06-30] MEDS: ENOXAPARIN 40 MG/0.4 ML SQ SCH (08:07)
[2020-06-30] MEDS: THIAMINE HCL 100 MG TABLET PO SCH (08:07)
[2020-06-30] MEDS: predniSONE 10 MG TAB PO SCH ×2 (08:07→21:29)
[2020-06-30] MEDS: DOCUSATE NA 100 MG CAP PO SCH (08:07)
[2020-06-30] MEDS: ENSURE ENLIVE 237 ML CAN PO SCH ×2 (08:07→21:00)
[2020-06-30] MEDS: FOLIC ACID 1 MG TABLET PO SCH (08:07)
--- NOTE | 2020-06-30 08:34 | P.PN ---
Subjective Date of Service: 06/29/20 Patient is doing well and working harder with physical therapy. She did get out of bed into a chair today. Have encouraged her to continue pushing to ambulate. She wants to try to go home if she is not accepted at rehab. She told me that she would not go to a residential. I spoke to social insurance adviser and at this time they are working on inpatient rehab. Otherwise her respiratory status is stable. She has no other complaints except for the pain that she is having. This is better controlled as well. Review of Systems 10-point ROS is otherwise unremarkable Physical Examination - Vital Signs Temperature: 98.5 F Blood Pressure: 106/56 Pulse: 93 Respirations: 19 Pulse Ox (%): 90 - Physical Exam General: Alert, In no apparent distress, Oriented x3 Respiratory: Clear to auscultation bilaterally, Normal air movement Cardiovascular: Regular rate/rhythm, Normal S1 S2, No murmurs Gastrointestinal: Normal bowel sounds, Soft and benign, Non-distended, No tenderness Musculoskeletal: No clubbing, No swelling, Tenderness Neurological: Normal speech, Normal tone, Normal affect Lymphatics: No axilla or inguinal lymphadenopathy - Studies Medications List Reviewed: Yes Assessment & Plan - Problems (Diagnosis) (1) Closed right hip fracture Current Visit: Yes Status: Acute Qualifiers: Encounter type: initial encounter Qualified Code(s): S72.001A - Fracture of unspecified part of neck of right femur, initial encounter for closed fracture (2) COPD (chronic obstructive pulmonary disease) Current Visit: Yes Status: Acute Qualifiers: Emphysema type: unspecified (3) Atrial fibrillation with RVR Current Visit: No Status: Acute (4) COPD (chronic obstructive pulmonary disease) Onset Date: 09/10/17 Current Visit: No Status: Chronic Qualifiers: (5) Hypothyroidism Onset Date: 09/10/17 Current Visit: No Status: Chronic Qualifiers: Hypothyroidism type: unspecified (6) Atrial fibrillation Current Visit: No Status: Resolved Qualifiers: Atrial fibrillation type: paroxysmal Qualified Code(s): I48.0 - Paroxysmal atrial fibrillation - Plan Plan: 1. Continue with physical therapy 2. Pain control 3. DVT prophylaxis 4. Encouraged out of bed to a chair 5. Continue medication for COPD and atrial fibrillation. 6. Outpatient Cardiology and Pulmonary follow-up 7. Arranged for [place] placement; the patient has refused. She wants to go to inpatient rehab. 8. GI and DVT prophylaxis - Advance Directives Does patient have a Living Will: Yes Does patient have a Durable POA for Healthcare: Yes - Code Status/Comfort Care Code Status: Do Not Attempt Resuscitat
[2020-06-30] MEDS: ARFORMOTEROL TARTRATE 15 MCG/2 ML VIAL.NEB NEB SCH ×2 (09:15→19:50)
[2020-06-30] MEDS: MELATONIN 5 MG TABLET PO PRN (21:29)
[2020-07-01] MEDS: LEVOTHYROXINE SOD 0.088 MG TAB PO SCH (05:57)
--- NOTE | 2020-07-01 09:00 | P.PN ---
Subjective Date of Service: 06/30/20 PATIENT CONTINUES TO IMPROVE. PATIENT IS WORKING MORE WITH PHYSICAL THERAPY AND AMBULATING A FEW STEPS. SHE IS GETTING TO THE CHAIR. Review of Systems 10-point ROS is otherwise unremarkable Physical Examination - Vital Signs Temperature: 97.9 F Blood Pressure: 106/54 Pulse: 80 Respirations: 18 Pulse Ox (%): 100 - Physical Exam General: Alert, In no apparent distress, Oriented x3 Respiratory: Clear to auscultation bilaterally, Normal air movement Cardiovascular: Regular rate/rhythm, Normal S1 S2, No murmurs Gastrointestinal: Normal bowel sounds, Soft and benign, Non-distended, No tenderness Musculoskeletal: No clubbing, No swelling, Tenderness Neurological: Sensation intact, Cranial nerves 3-12 intact, Abnormal gait - Studies Medications List Reviewed: Yes Assessment & Plan - Problems (Diagnosis) (1) Closed right hip fracture Current Visit: Yes Status: Acute Qualifiers: Encounter type: initial encounter Qualified Code(s): S72.001A - Fracture of unspecified part of neck of right femur, initial encounter for closed fracture (2) COPD (chronic obstructive pulmonary disease) Current Visit: Yes Status: Acute Qualifiers: Emphysema type: unspecified (3) Atrial fibrillation with RVR Current Visit: No Status: Acute (4) COPD (chronic obstructive pulmonary disease) Onset Date: 09/10/17 Current Visit: No Status: Chronic Qualifiers: (5) Hypothyroidism Onset Date: 09/10/17 Current Visit: No Status: Chronic Qualifiers: Hypothyroidism type: unspecified (6) Atrial fibrillation Current Visit: No Status: Resolved Qualifiers: Atrial fibrillation type: paroxysmal Qualified Code(s): I48.0 - Paroxysmal atrial fibrillation - Plan Plan: Continue with plan of care as mentioned below 1. Continue with physical therapy; 2. Pain control 3. DVT prophylaxis 4. Encouraged out of bed to a chair 5. Continue medication for COPD and atrial fibrillation. 6. Outpatient Cardiology and Pulmonary follow-up 7. Awaiting for rehab arrangements; 8. GI and DVT prophylaxis Discharge Plan: Other Plan to discharge in: 48 Hours - Advance Directives Does patient have a Living Will: Yes Does patient have a Durable POA for Healthcare: Yes - Code Status/Comfort Care Code Status: Do Not Attempt Resuscitat Critical Care: No Time Spent Managing PTS Care (In Minutes): 35
[2020-07-01] MEDS: ENOXAPARIN 40 MG/0.4 ML SQ SCH (09:42)
[2020-07-01] MEDS: ENSURE ENLIVE 237 ML CAN PO SCH ×3 (09:42→21:01)
[2020-07-01] MEDS: THIAMINE HCL 100 MG TABLET PO SCH (09:42)
[2020-07-01] MEDS: predniSONE 10 MG TAB PO SCH ×2 (09:42→21:01)
[2020-07-01] MEDS: DOCUSATE NA 100 MG CAP PO SCH (09:42)
[2020-07-01] MEDS: FOLIC ACID 1 MG TABLET PO SCH (09:42)
[2020-07-01] MEDS: ARFORMOTEROL TARTRATE 15 MCG/2 ML VIAL.NEB NEB SCH ×2 (11:27→19:40)
[2020-07-01] MEDS: MELATONIN 5 MG TABLET PO PRN (21:01)
[2020-07-02] MEDS: LEVOTHYROXINE SOD 0.088 MG TAB PO SCH (05:30)
[2020-07-02 06:50] LABS: Hematocrit 26.7 % (36.0-45.0); Lymphocytes % 9.4 % (15.3-44.8); MPV 8.2 fL (7.6-11.3); RBC Red Blood Cell Count 4.02 M/uL (3.86-4.86)
[2020-07-02 06:57] LABS: BUN Blood Urea Nitrogen 26 mg/dL (7-18); Bicarbonate 37 mmol/L (21-32); Glucose Level 112 mg/dL (74-106); Magnesium 2.2 mg/dL (1.8-2.4); Phosphorus 3.9 mg/dL (2.5-4.9); Potassium 4.6 mmol/L (3.5-5.1); Sodium Level 144 mmol/L (136-145)
[2020-07-02] MEDS: ARFORMOTEROL TARTRATE 15 MCG/2 ML VIAL.NEB NEB SCH ×2 (07:50→20:00)
[2020-07-02] MEDS: IPRATROPIUM BROM 0.5MG/2.5ML NEB PRN (07:50)
[2020-07-02] MEDS: ENSURE ENLIVE 237 ML CAN PO SCH ×2 (09:00→21:00)
--- NOTE | 2020-07-02 09:50 | P.PN ---
Subjective Date of Service: 07/01/20 Pt doing well with physical therapy. Patient walked about 10 feet with a rolling walker. Patient's roommate states that they have been quarantined for COVID-19. Patient is working on discharge planning. Plan to go to inpatient rehab or [facility]p facility at this time. If not excepted then we may need to consider discharge in patient may need to quarantine at home. I do not believe this would be safe for the patient and could be detrimental to her health if not her life as she is a high risk of falling if she does not get stronger. Review of Systems 10-point ROS is otherwise unremarkable Physical Examination - Vital Signs Temperature: 99.2 F Blood Pressure: 105/55 Pulse: 79 Respirations: 18 Pulse Ox (%): 98 - Physical Exam General: Alert, In no apparent distress, Oriented x3 Respiratory: Clear to auscultation bilaterally, Normal air movement Cardiovascular: Regular rate/rhythm, Normal S1 S2, No murmurs Gastrointestinal: Normal bowel sounds, No tenderness Musculoskeletal: No clubbing, No swelling, No tenderness Neurological: Normal strength at 5/5 x4 extr, Sensation intact, Cranial nerves 3-12 intact Lymphatics: No axilla or inguinal lymphadenopathy - Studies Medications List Reviewed: Yes Assessment & Plan - Problems (Diagnosis) (1) Closed right hip fracture Current Visit: Yes Status: Acute Qualifiers: Encounter type: initial encounter Qualified Code(s): S72.001A - Fracture of unspecified part of neck of right femur, initial encounter for closed fracture (2) COPD (chronic obstructive pulmonary disease) Current Visit: Yes Status: Acute Qualifiers: Emphysema type: unspecified (3) Atrial fibrillation with RVR Current Visit: No Status: Acute (4) COPD (chronic obstructive pulmonary disease) Onset Date: 09/10/17 Current Visit: No Status: Chronic Qualifiers: (5) Hypothyroidism Onset Date: 09/10/17 Current Visit: No Status: Chronic Qualifiers: Hypothyroidism type: unspecified (6) Atrial fibrillation Current Visit: No Status: Resolved Qualifiers: Atrial fibrillation type: paroxysmal Qualified Code(s): I48.0 - Paroxysmal atrial fibrillation - Plan Plan: Continue with plan of care as mentioned below 1. Continue with physical therapy; 2. Pain control 3. DVT prophylaxis 4. Patient is getting out of bed and sitting in a chair. Patient is improved but she is only walking 10 feet. Need to continue physical therapy aggressively 5. Continue medication for COPD and atrial fibrillation. 6. Outpatient Cardiology and Pulmonary follow-up 7. Awaiting for rehab arrangements; 8. GI and DVT prophylaxis - Advance Directives Does patient have a Living Will: Yes Does patient have a Durable POA for Healthcare: Yes - Code Status/Comfort Care Code Status: Do Not Attempt Resuscitat Critical Care: No Time Spent Managing PTS Care (In Minutes): 35
[2020-07-02] MEDS: FOLIC ACID 1 MG TABLET PO SCH (10:11)
[2020-07-02] MEDS: DOCUSATE NA 100 MG CAP PO SCH (10:11)
[2020-07-02] MEDS: THIAMINE HCL 100 MG TABLET PO SCH (10:11)
[2020-07-02] MEDS: predniSONE 10 MG TAB PO SCH ×2 (10:12→21:29)
[2020-07-02] MEDS: ENOXAPARIN 40 MG/0.4 ML SQ SCH (10:12)
[2020-07-02] MEDS: MELATONIN 5 MG TABLET PO PRN (21:42)
[2020-07-03] MEDS: LEVOTHYROXINE SOD 0.088 MG TAB PO SCH (05:31)
[2020-07-03] MEDS: IPRATROPIUM BROM 0.5MG/2.5ML NEB PRN ×2 (07:53→14:58)
[2020-07-03] MEDS: ARFORMOTEROL TARTRATE 15 MCG/2 ML VIAL.NEB NEB SCH ×2 (07:53→19:43)
[2020-07-03] MEDS: FOLIC ACID 1 MG TABLET PO SCH (08:21)
[2020-07-03] MEDS: DOCUSATE NA 100 MG CAP PO SCH (08:21)
[2020-07-03] MEDS: ENOXAPARIN 40 MG/0.4 ML SQ SCH (08:21)
[2020-07-03] MEDS: THIAMINE HCL 100 MG TABLET PO SCH (08:21)
[2020-07-03] MEDS: predniSONE 10 MG TAB PO SCH ×2 (08:21→20:31)
[2020-07-03] MEDS: ENSURE ENLIVE 237 ML CAN PO SCH ×2 (08:22→20:31)
[2020-07-03] MEDS: MELATONIN 5 MG TABLET PO PRN (20:31)
--- NOTE | 2020-07-03 21:13 | P.PN ---
Subjective Date of Service: 07/02/20 patient doing well no new complaints. Awaiting rehab placement Review of Systems 10-point ROS is otherwise unremarkable Physical Examination - Vital Signs Temperature: 98.5 F Blood Pressure: 116/69 Pulse: 116 Respirations: 19 Pulse Ox (%): 88 - Physical Exam General: Alert, In no apparent distress, Oriented x3 Respiratory: Clear to auscultation bilaterally, Normal air movement Cardiovascular: Regular rate/rhythm, Normal S1 S2, No murmurs Gastrointestinal: Normal bowel sounds, Soft and benign, Non-distended, No tenderness, No rebound, No guarding Musculoskeletal: No clubbing, No swelling, No tenderness Neurological: Normal tone, Sensation intact, Cranial nerves 3-12 intact - Studies Medications List Reviewed: Yes Assessment & Plan - Problems (Diagnosis) (1) Closed right hip fracture Current Visit: Yes Status: Acute Qualifiers: Encounter type: initial encounter Qualified Code(s): S72.001A - Fracture of unspecified part of neck of right femur, initial encounter for closed fracture (2) COPD (chronic obstructive pulmonary disease) Current Visit: Yes Status: Acute Qualifiers: Emphysema type: unspecified (3) Atrial fibrillation with RVR Current Visit: No Status: Acute (4) COPD (chronic obstructive pulmonary disease) Onset Date: 09/10/17 Current Visit: No Status: Chronic Qualifiers: (5) Hypothyroidism Onset Date: 09/10/17 Current Visit: No Status: Chronic Qualifiers: Hypothyroidism type: unspecified Qualified Code(s): E03.9 - Hypothyroidism, unspecified (6) Atrial fibrillation Current Visit: No Status: Resolved Qualifiers: Atrial fibrillation type: paroxysmal Qualified Code(s): I48.0 - Paroxysmal atrial fibrillation - Plan Plan: Continue with plan of care as mentioned below 1. Continue with physical therapy; Pain control 2. DVT prophylaxis 3. Patient is continuing physical therapy 4. Continue medication for COPD and atrial fibrillation. 5. Outpatient Cardiology and Pulmonary follow-up 6. Awaiting for rehab arrangements; 7. GI and DVT prophylaxis - Advance Directives Does patient have a Living Will: Yes Does patient have a Durable POA for Healthcare: Yes - Code Status/Comfort Care Code Status: Do Not Attempt Resuscitat
--- NOTE | 2020-07-03 21:15 | P.PN ---
Subjective Date of Service: 07/03/20 Subjective: Improving, Doing well Patient continues to do well with no new complaints. Walking about 20fts Review of Systems 10-point ROS is otherwise unremarkable Physical Examination - Vital Signs Temperature: 98.5 F Blood Pressure: 116/69 Pulse: 116 Respirations: 19 Pulse Ox (%): 88 - Physical Exam General: Alert, In no apparent distress, Oriented x3 Respiratory: Diminished, Crackles/rales Cardiovascular: Regular rate/rhythm, Normal S1 S2, No murmurs Gastrointestinal: Normal bowel sounds, Soft and benign, Non-distended, No tenderness Musculoskeletal: No clubbing, No tenderness, Swelling Neurological: Normal strength at 5/5 x4 extr, Sensation intact, Cranial nerves 3-12 intact - Studies Medications List Reviewed: Yes Assessment & Plan - Problems (Diagnosis) (1) Closed right hip fracture Current Visit: Yes Status: Acute Qualifiers: Encounter type: initial encounter Qualified Code(s): S72.001A - Fracture of unspecified part of neck of right femur, initial encounter for closed fracture (2) COPD (chronic obstructive pulmonary disease) Current Visit: Yes Status: Acute Qualifiers: Emphysema type: unspecified (3) Atrial fibrillation with RVR Current Visit: No Status: Acute (4) COPD (chronic obstructive pulmonary disease) Onset Date: 09/10/17 Current Visit: No Status: Chronic Qualifiers: (5) Hypothyroidism Onset Date: 09/10/17 Current Visit: No Status: Chronic Qualifiers: Hypothyroidism type: unspecified Qualified Code(s): E03.9 - Hypothyroidism, unspecified (6) Atrial fibrillation Current Visit: No Status: Resolved Qualifiers: Atrial fibrillation type: paroxysmal Qualified Code(s): I48.0 - Paroxysmal atrial fibrillation - Plan Plan: Continue with plan of care as mentioned below 1. Continue with physical therapy; 2. Continue medication for COPD and atrial fibrillation. 3. Awaiting for rehab arrangements; 4. GI and DVT prophylaxis Discharge Plan: Other Plan to discharge in: 24 Hours - Advance Directives Does patient have a Living Will: Yes Does patient have a Durable POA for Healthcare: Yes - Code Status/Comfort Care Code Status: Do Not Attempt Resuscitat Critical Care: No Time Spent Managing PTS Care (In Minutes): 25
[2020-07-03] MEDS: ACETAMINOPHEN 500 MG TAB PO PRN (22:13)
[2020-07-04] MEDS: LEVOTHYROXINE SOD 0.088 MG TAB PO SCH (05:38)
[2020-07-04] MEDS: predniSONE 10 MG TAB PO SCH ×2 (08:08→20:29)
[2020-07-04] MEDS: THIAMINE HCL 100 MG TABLET PO SCH (08:08)
[2020-07-04] MEDS: DOCUSATE NA 100 MG CAP PO SCH (08:08)
[2020-07-04] MEDS: ENOXAPARIN 40 MG/0.4 ML SQ SCH (08:09)
[2020-07-04] MEDS: FOLIC ACID 1 MG TABLET PO SCH (08:09)
[2020-07-04] MEDS: ENSURE ENLIVE 237 ML CAN PO SCH ×2 (08:09→20:29)
[2020-07-04] MEDS: IPRATROPIUM BROM 0.5MG/2.5ML NEB PRN ×2 (09:40→20:10)
[2020-07-04] MEDS: ARFORMOTEROL TARTRATE 15 MCG/2 ML VIAL.NEB NEB SCH ×2 (09:40→20:10)
[2020-07-04] MEDS: ACETAMINOPHEN 500 MG TAB PO PRN (16:17)
[2020-07-05] MEDS: LEVOTHYROXINE SOD 0.088 MG TAB PO SCH (05:56)
--- NOTE | 2020-07-05 07:00 | P.PN ---
Subjective Date of Service: 07/04/20 patient continues to do well. She is tolerating her diet and ambulating with physical therapy about 20-40 feet. She is still having pain in the surgical region. But this is much improved. History of COPD which is stable. Her roommates were found to have COVID-19 . There are cord heating at this time. Hopefully, she gets accepted into rehab. She would prefer not to go to a long-term facility but she is open to it if that is what is recommended pending rehab assessment. Review of Systems 10-point ROS is otherwise unremarkable Physical Examination - Vital Signs Temperature: 97.7 F Blood Pressure: 109/55 Pulse: 77 Respirations: 18 Pulse Ox (%): 97 - Physical Exam General: Alert, In no apparent distress, Oriented x3, Cachectic Respiratory: Diminished, Expiratory wheezes Cardiovascular: Regular rate/rhythm, Normal S1 S2, No murmurs Gastrointestinal: Normal bowel sounds, Soft and benign, Non-distended, No tenderness Musculoskeletal: No clubbing, No swelling, No tenderness Neurological: Sensation intact, Cranial nerves 3-12 intact - Studies Medications List Reviewed: Yes Assessment & Plan - Problems (Diagnosis) (1) Closed right hip fracture Current Visit: Yes Status: Acute Qualifiers: Encounter type: initial encounter Qualified Code(s): S72.001A - Fracture of unspecified part of neck of right femur, initial encounter for closed fracture (2) COPD (chronic obstructive pulmonary disease) Current Visit: Yes Status: Acute Qualifiers: Emphysema type: unspecified (3) Hypothyroidism Onset Date: 09/10/17 Current Visit: No Status: Chronic Qualifiers: Hypothyroidism type: unspecified (4) Atrial fibrillation Current Visit: No Status: Resolved Qualifiers: Atrial fibrillation type: paroxysmal Qualified Code(s): I48.0 - Paroxysmal atrial fibrillation - Plan Plan: Continue with plan of care as mentioned below 1. Continue with physical therapy; Awaiting rehab approval but insurance company decision is still pending 2. Pain control 3. DVT prophylaxis 4. Continue medication for COPD and atrial fibrillation. 5. Outpatient Cardiology and Pulmonary follow-up 6. Awaiting for rehab arrangements; 7. GI prophylaxis Discharge Plan: Other Plan to discharge in: 48 Hours - Advance Directives Does patient have a Living Will: Yes Does patient have a Durable POA for Healthcare: Yes - Code Status/Comfort Care Code Status: Do Not Attempt Resuscitat Critical Care: No Time Spent Managing PTS Care (In Minutes): 25
[2020-07-05] MEDS: ARFORMOTEROL TARTRATE 15 MCG/2 ML VIAL.NEB NEB SCH (07:40)
[2020-07-05] MEDS: ENSURE ENLIVE 237 ML CAN PO SCH (09:00)
[2020-07-05] MEDS: FOLIC ACID 1 MG TABLET PO SCH (09:47)
[2020-07-05] MEDS: ENOXAPARIN 40 MG/0.4 ML SQ SCH (09:47)
[2020-07-05] MEDS: THIAMINE HCL 100 MG TABLET PO SCH (09:47)
[2020-07-05] MEDS: DOCUSATE NA 100 MG CAP PO SCH (09:47)
[2020-07-05 09:55] VITALS: BP 106/55; TEMP 98.6
[2020-07-05 10:36] VITALS: O2SAT 100
--- NOTE | 2020-07-05 11:03 | P.DS ---
Admission Date: 06/23/20 Discharge Date: 07/05/20 Primary Care Provider: Dr. Baca Disposition: TRANSFER TO INPATIENT REHAB Discharge Condition: GOOD Reason for Admission: Respiratory failure Consultations: Surgery-Dr. Sosa Cardiology-Dr. Pollock Pulmonary-Dr. Madrigal Procedures: COVID: Negative CT chest: FINDINGS: No evidence of pulmonary thromboembolism. No acute aortic finding demonstrated. Moderate emphysema with linear atelectasis both lung bases. No significant pericardial or pleural fluid. No concerning bony finding. IMPRESSION: No evidence of pulmonary thromboembolism. Moderate COPD with linear atelectasis in both lung bases. Xray: COMPARISON: Pelvis dated 06/23/2020 FINDINGS: AP and cross-table lateral views were obtained. Patient has a subcapital right femoral neck fracture with minimal impaction into the femoral head. Bones are osteopenic. No AVN or focal femoral head abnormality. No pathologic changes seen. Lumbar spine and SI joint degenerative change present. No right hemipelvis fractures seen. No significant periarticular finding. IMPRESSION: Right side minimally impacted subcapital femoral neck fracture. Surgery: Date of Procedure: 06/26/2020 Surgeon: Steven Sosa MD Preoperative Diagnosis: Right femoral neck fracture. Postoperative Diagnosis: Right femoral neck fracture. Procedures: Right femoral neck bipolar hemiarthroplasty using the Biomet fracture stem. Estimated Blood Loss: Less than 100 cc. Medical Problem List: Fall leading to right sided minimally impacted subcapital femoral neck fracture status post right femoral neck bipolar hemiarthroplasty using Biomet fracture stem End-stage COPD oxygen dependent with episode of acute respiratory failure related to atrial fibrillation Atrial fibrillation with RVR not on chronic anti coagulation therapy Hypothyroidism Chronic diastolic CHF GERD Chronic anemia with history of thalassemia Alzheimer's dementia without behavioral disturbance Moderate protein malnutrition Brief History of Present Illness: 84-year-old female with chronic COPD on oxygen and atrial fibrillation. Patient apparently fell and suffered a right femur fracture. Patient was admitted for further evaluation and treatment. Hospital Course: Patient presented after a fall. She was found to have a right sided minimally impacted subcapital femoral neck fracture. Patient was seen and evaluated by orthopedics. Orthopedics recommended surgical intervention. Pulmonology and Cardiology were consulted for clearance. The patient did develop some atrial fibrillation with RVR. Patient with history of paroxysmally atrial fibrillation. Patient also had some acute respiratory failure related to this is well. Patient with underlying end-stage COPD on chronic oxygen. Patient required amiodarone for her atrial fibrillation but converted quickly to normal sinus rhythm. Patient ultimately had repair of femoral neck fracture with right femoral neck bipolar hemiarthroplasty using Biomet fracture stem. The patient has done well post operatively. Patient continues well with physical therapy. Patient was evaluated for inpatient rehab. Patient has been approved. Patient will go to inpatient rehab to continue physical therapy. Patient will continue with Lovenox 40 mg subcu daily for DVT prophylaxis. Continue with physical therapy recommendations. Recommend follow up with orthopedics in 1-2 weeks to follow up this hospitalization. As mentioned above patient with end-stage COPD on chronic oxygen. Patient had some mild acute respiratory failure related to atrial fibrillation with RVR. This resolved during the course of her stay. As mentioned above patient required IV amiodarone but patient converted back to normal rhythm. Patient was seen by pulmonology and Cardiology. Patient was taken off of her medication- Lasix and Aldactone. Blood pressure and rate control under control and normal sinus rhythm. Cardiology recommended no further chronic anti coagulation therapy due to risk of fall and bleeding. At discharge for COPD she will continue with oxygen. She remains on 3 L per nasal cannula. She will also continue with her Trelegy 1 puff daily. If this cannot be obtained in inpatient rehab she may continue with Brovana 1 unit dose twice daily and Atrovent 1 unit dose 3 times a day as needed for shortness of breath. Recommend follow up with pulmonology in 2-4 weeks to follow up this hospitalization. Patient with hypothyroidism. This has remained stable. At discharge she will continue with levothyroxine 88 mcg daily. Patient with chronic diastolic CHF. Patient previously on Lasix and Aldactone. This has been discontinued. This appears stable this time. She will continue with a 1500 cc per day fluid restriction and low-salt diet. Continue off Lasix and Aldactone at discharge. Patient with chronic anemia with history of thalassemia. This appears stable. At discharge she will continue with folic acid daily and thiamine 100 mg daily. Patient with osteoarthritis and osteoporosis. At discharge she may continue with Fosamax as directed. Patient with moderate protein malnutrition. This has remained stable. At discharge she will continue with Ensure supplementation twice daily. Advanced care planning address in detail. Patient will continue with inpatient rehab as directed. Patient previously on hospice. Advanced directives address in detail. Patient is do not intubate. After inpatient rehab the patient may return home with hospice if she desires. Vital Signs/Physical Exam: Temp Pulse Resp BP Pulse Ox 98.6 F 79 18 106/55 L 97 07/05/20 08:00 07/05/20 08:00 07/05/20 08:00 07/05/20 08:00 07/05/20 08:00 General: Alert, In no apparent distress, Cooperative HEENT: Atraumatic Neck: Supple Respiratory: Clear to auscultation bilaterally, Normal air movement, Other (On 3 L per nasal cannula) Cardiovascular: Normal pulses, Regular rate/rhythm Gastrointestinal: No masses, No rebound, No guarding Integumentary: No erythema, No warmth, No cyanosis Neurological: Normal speech, Normal strength at 5/5 x4 extr, Normal tone, Normal affect Laboratory Data at Discharge: WBC 10.8 K/uL (4.3-10.9) D 07/02/20 06:21 Hgb 8.4 g/dL (12.0-15.0) L 07/02/20 06:21 Hct 26.7 % (36.0-45.0) L 07/02/20 06:21 Plt Count 233 K/uL (152-406) 07/02/20 06:21 PT 12.2 SECONDS (9.5-12.5) 06/25/20 13:52 INR 1.03 06/25/20 13:52 APTT Cancelled 06/26/20 07:39 Sodium 144 mmol/L (136-145) 07/02/20 06:21 Potassium 4.6 mmol/L (3.5-5.1) 07/02/20 06:21 BUN 26 mg/dL (7-18) H 07/02/20 06:21 Creatinine 0.40 mg/dL (0.55-1.3) L 07/02/20 06:21 Glucose 112 mg/dL (74-106) H 07/02/20 06:21 Phosphorus 3.9 mg/dL (2.5-4.9) 07/02/20 06:21 Magnesium 2.2 mg/dL (1.8-2.4) 07/02/20 06:21 Total Bilirubin 0.5 mg/dL (0.2-1.0) 11/25/20 17:30 AST 18 U/L (15-37) 06/23/20 17:30 ALT 17 U/L (12-78) 06/23/20 17:30 Alkaline Phosphatase 69 U/L (45-117) 06/23/20 17:30 Troponin I < 0.02 ng/mL (0.0-0.045) 06/25/20 09:36 Home Medications: Alendronate Sodium 70 mg PO Q7D 06/24/20 Docusate [Colace Cap*] 100 mg PO DAILY 06/24/20 Fluticasone/Umeclidin/Vilanter [Trelegy Ellipta 100-62.5-25] 1 each IH DAILY 06/24/20 Levothyroxine Sodium 88 mcg PO DAILY 06/24/20 Ensure Enlive 237 ml PO BID #60 can 07/05/20 Folic Acid 1 mg PO DAILY #90 tablet 07/05/20 Thiamine HCl [Vitamin B-1*] 100 mg PO DAILY #90 tablet 07/05/20 New Medications: Ensure Enlive 237 ml PO BID #60 can Folic Acid 1 mg PO DAILY #90 tablet Thiamine HCl [Vitamin B-1*] 100 mg PO DAILY #90 tablet Patient Discharge Instructions: 1. Patient be transferred to inpatient rehab. 2. Patient presented after a fall. She was found to have a right sided minimally impacted subcapital femoral neck fracture. Patient was seen and evaluated by orthopedics. Orthopedics recommended surgical intervention. Pulmonology and Cardiology were consulted for clearance. The patient did develop some atrial fibrillation with RVR. Patient with history of paroxysmally atrial fibrillation. Patient also had some acute respiratory failure related to this is well. Patient with underlying end-stage COPD on chronic oxygen. Patient required amiodarone for her atrial fibrillation but converted quickly to normal sinus rhythm. Patient ultimately had repair of femoral neck fracture with right femoral neck bipolar hemiarthroplasty using Biomet fracture stem. The patient has done well post operatively. Patient continues well with physical therapy. Patient was evaluated for inpatient rehab. Patient has been approved. Patient will go to inpatient rehab to continue physical therapy. Patient will continue with Lovenox 40 mg subcu daily for DVT prophylaxis. Continue with physical therapy recommendations. Recommend follow up with orthopedics in 1-2 weeks to follow up this hospitalization. 3. As mentioned above patient with end-stage COPD on chronic oxygen. Patient had some mild acute respiratory failure related to atrial fibrillation with RVR. This resolved during the course of her stay. As mentioned above patient required IV amiodarone but patient converted back to normal rhythm. Patient was seen by pulmonology and Cardiology. Patient was taken off of her medication-Lasix and Aldactone. Blood pressure and rate control under control and normal sinus rhythm. Cardiology recommended no further chronic anti coagulation therapy due to risk of fall and bleeding. At discharge for COPD she will continue with oxygen. She remains on 3 L per nasal cannula. She will also continue with her Trelegy 1 puff daily. If this cannot be obtained in inpatient rehab she may continue with Brovana 1 unit dose twice daily and Atrovent 1 unit dose 3 times a day as needed for shortness of breath. Recommend follow up with pulmonology in 2-4 weeks to follow up this hospitalization. 4. Patient with hypothyroidism. This has remained stable. At discharge she will continue with levothyroxine 88 mcg daily. 5. Patient with chronic diastolic CHF. Patient previously on Lasix and Aldactone. This has been discontinued. This appears stable this time. She will continue with a 1500 cc per day fluid restriction and low-salt diet. Continue off Lasix and Aldactone at discharge. 6. Patient with chronic anemia with history of thalassemia. This appears stable. At discharge she will continue with folic acid daily and thiamine 100 mg daily. 7. Patient with osteoarthritis and osteoporosis. At discharge she may continue with Fosamax as directed. 8. Patient with moderate protein malnutrition. This has remained stable. At discharge she will continue with Ensure supplementation twice daily. 9. Advanced care planning address in detail. Patient will continue with inpatient rehab as directed. Patient previously on hospice. Advanced directives address in detail. Patient is do not intubate. After inpatient rehab the patient may return home with hospice if she desires. Diet: AHA Activity: Fall precautions (Continue with physical therapy.) Followup: Unknown,U [Primary Care Provider] - Time spent managing pt's care (in minutes): 55
== END 2020-07-05 13:58 | DRG 521 ==
LOC: ER 16:05 → ERHOLD 19:26 → 2ND 20:05 → ERHOLD 06-25 13:03 → 2ND 06-27 13:17
PROVIDERS: ADMIT Family Medicine; ATTEND Family Medicine
PROC: 0SRR0J9 Replacement of Right Hip Joint, Femoral Surface with Synthetic Substitute, Cemented, Open Approach (ICD-10-PCS; principal; 2020-06-26 12:00)
DX: S72.011A Unspecified intracapsular fracture of right femur, initial encounter for closed fracture (principal); J96.00 Acute respiratory failure, unspecified whether with hypoxia or hypercapnia; I50.32 Chronic diastolic (congestive) heart failure; E44.0 Moderate protein-calorie malnutrition; Z68.1 Body mass index [BMI] 19.9 or less, adult; D50.9 Iron deficiency anemia, unspecified; K21.9 Gastro-esophageal reflux disease without esophagitis; M19.90 Unspecified osteoarthritis, unspecified site; J43.9 Emphysema, unspecified; I48.0 Paroxysmal atrial fibrillation; M81.0 Age-related osteoporosis without current pathological fracture; G30.9 Alzheimer's disease, unspecified; F02.80 Dementia in other diseases classified elsewhere, unspecified severity, without behavioral disturbance, psychotic disturbance, mood disturbance, and anxiety; E03.9 Hypothyroidism, unspecified; W01.0XXA Fall on same level from slipping, tripping and stumbling without subsequent striking against object, initial encounter; Z66 Do not resuscitate; Z99.81 Dependence on supplemental oxygen; Z88.1 Allergy status to other antibiotic agents; Z87.891 Personal history of nicotine dependence; Z79.890 Hormone replacement therapy; Z79.899 Other long term (current) drug therapy; Z20.828 Contact with and (suspected) exposure to other viral communicable diseases; Z23 Encounter for immunization
CPT/HCPCS: 36415; 51702; 71045; 71275; 72170; 80048; 80076; 81003; 81015; 82805; 83735; 84100; 84484; 85025; 85610; 85730; 88305; 88311; 90471; 93005; 94002; 94003; 94640; 94760; 96361; 96374; 96375; 97110; 97112; 97116; 97161; 97530; 99285; J0282; J0330; J0690; J1644; J1650; J2250; J2270; J2370; J2405; J2704; J2930; J3010; J7030; J7050; J7060; J7120; J7512; J7605; J7606; Q2035; Q9967; U0002; U0003

== ENCOUNTER 2020-07-01 09:29 | Inpatient (IN) | payer OTHER ==
--- NOTE | 2020-07-05 10:49 | R.PREADM ---
PRE-ADMISSION SCREENING FORM SCREENING DATE AND TIME 07/05/2020 09:50 (MAGNETIC TAPE TYPEWRITER OPERATOR) ANTICIPATED REHAB ADMISSION DATE 07/07/2020 REFERRING FACILITY [facility] REFERRAL DATE AND TIME 07/05/2020 09:51 (MAGNETIC TAPE TYPEWRITER OPERATOR) REFERRAL ROOM# 211 ACUTE ADMIT DATE 07/02/2020 Previous Rehabilitation(s): No. ACUTE STATE APPELLATE CLERK/DC [employer] C[employer]TER Andreina ATTENDING PHYSICIAN REFERRING PHYSICIAN REHAB FACILITY [facility] CLINICAL LIAISON Nahid Womack PHYSICIAN REVIEWER Dr. Naga David M.D. MR# [id number] NAME PATRICK REYNOLDS ADDRESS [address] [place] [address] PHONE [facility] [id number] DATE OF 1935 AGE 84 SSN# [id number] GENDER female MARITAL STATUS Single (Never ) RACE unknown race ADMIT FROM 02 - [facility] PRE-HOSPITAL LIVING SETTING 01 - Home (private home/apt. board/care, assisted living, skilled nursing, transitional living) HOME TYPE AND DETAILS Type of home: single family house # of levels in the residence: 1 # of steps within the residence: 0 # of steps to enter the residence: 0 PRE-HOSPITAL LIVING WITH Family/Relatives FAMILY SUPPORT Yes PRIMARY FAMILY CONTACT NAME [facility]ECI STAPLES PRIMARY FAMILY CONTACT PHONE PRIMARY FAMILY CONTACT RELATIONSHIP Friend PHONE PRIMARY FAMILY CONTACT ON ADM.? no IS PRIMARY FAMILY CONTACT AUTH. REP.? no 1ST EMERGENCY CONTACT [facility]I [employer]LES 1ST CONTACT PHONE 1ST CONTACT RELATIONSHIP Friend PHONE 1ST CONTACT ON ADM. no IS 1ST CONTACT AUTH. REP.? no PHONE 2ND CONTACT ON ADM.? no PATIENT EMPLOYMENT STATUS Retired (for age) PATIENT EMPLOYER No Employer PAYOR INFORMATION: 1ST PAYOR NAME Sanghvi [employer]EL[employer] 1ST PAYOR PHONE 1ST PAYOR INJURY/ILLNESS DUE TO ACCIDENT? No ANOTHER GREEN PARTY RESPONSIBLE? No PRIMARY REHAB/ACUTE DIAGNOSIS: RIGHT HIP FRACTURE ONSET DATE 06/23/2020 REHAB IMPAIRMENT CATEGORY (SAMIA): 07 Fracture of LE (FracLE) MEETS 60% rule AFFECTED EXTREMITIES: RLE PRIMARY DIAGNOSIS-RELATED SURGERIES: No surgeries related to the primary diagnosis were performed. SUMMARY OF ACUTE HOSPITALIZATION: Pt. is a 84 yo Right-handed female of unknown race. On 06/23/2020 she was admitted to [facility] with diagnosis RIGHT HIP FRACTURE. Her impairment category is Orthopaedic Disorders 08 - Unilateral Hip Fracture (08.11). Pre-morbidly, Pt. was independent/mod-I in Locomotion, Social Cognition, Communication, and Self-Care ; and she had good Sphincter Control, Transfers Control, and Balance. Currently, she has deficits of Locomotion, Balance, Social Cognition, Transfers Control, Sphincter Co ntrol, and Communication. Pt. is now referred to [facility] for acute in-patient rehabilitation in order to maximize patient's functional independence in activities of daily living, strength, ROM, and mobi lity. Patient has realistic goal of being discharged at assistance level 7-Ind to reside at Home with Fami ly/Relatives. Story attached in clincal documentation PAST MEDICAL HISTORY COPD CHRONIC CHF CHRONIC ANEMIA WITH THALASSMIA ATRIAL FIB NOT ON CHRONIC ANTI COAGULATION THERAPY MEDICATION ALLERGIES: No Known Drug Allergies (NKDA) ENVIRONMENTAL ALLERGIES: - Substance Allergies None Known - Other Allergies None Known CODE STATUS: Full code WEIGHT/HEIGHT/BMI: WEIGHT 103 lbs HEIGHT 5' 2" BMI 18.8 DIET: - Diet Type Regular - Diet - Solid Texture Regular - Diet - Liquid Texture Regular - Tube Feed N/A REVIEW OF SYSTEMS: - Gen Alert and awake Lying in bed No apparent distress Oriented to: person, time, and place - Vital Signs Temperature: 98.5 F SBP/DBP: 106/56 Pulse: 93 Resp: 19 Vital signs stable, afebrile - CVS RRR VITAL SIGNS Temperature: 98.5 F SBP/DBP: 106/56 Pulse: 93 Resp: 19 Vital signs stable, afebrile MEDICATIONS/TREATMENT: Other- See attached MAR (Medication Administration Record). CURRENT SPHINCTER CONTROL: Pre-hospital bladder status: unspecified # of bladder accidents in the last 7 days prior to screenin Pre-hospital bowel status: unspecified # of bowel accidents in the last 7 days prior to screenin Last Bowel Movement Date: 07/02/2020 CURRENT LOCOMOTION STATUS: distance walked 10 feet DETAILED CURRENT FUNCTIONAL STATUS: - Bladder accident frequency: Ind - No accidents in the past 7 days - Bowel accident frequency: Ind - No accidents in the past 7 days - Walking score based on distance walked: 0(N/A) score based on distance walked: 1(<=50ft) - Wheelchair score based on distance traveled: 0(N/A) QI SCORES: - Self-Care A. Eating 03-Partial/moderate assistance B. Oral hygiene 02-Substantial/maximal assistance C. Toileting hygiene 02-Substantial/maximal assistance E. Shower/bathe self 02-Substantial/maximal assistance F. Upper body dressing 03-Partial/moderate assistance G. Lower body dressing 02-Substantial/maximal assistance H. Putting on/taking off footwear 88-Not attempted due to medical condition or safety concerns - Mobility A. Roll left and right 02-Substantial/maximal assistance B. Sit to lying 02-Substantial/maximal assistance C. Lying to sitting on side of bed 02-Substantial/maximal assistance D. Sit to stand 02-Substantial/maximal assistance E. Chair/ddj-ne-egxly transfer 02-Substantial/maximal assistance F. Toilet transfer 02-Substantial/maximal assistance G. Car transfer 88-Not attempted due to medical condition or safety concerns I. Walk 10 feet 02-Substantial/maximal assistance J. Walk 50 feet with two turns 88-Not attempted due to medical condition or safety concerns K. Walk 150 feet 88-Not attempted due to medical condition or safety concerns L. Walking 10 feet on uneven surfaces 88-Not attempted due to medical condition or safety concerns M. 1 step (curb) 88-Not attempted due to medical condition or safety concerns N. 4 steps 88-Not attempted due to medical condition or safety concerns O. 12 steps 88-Not attempted due to medical condition or safety concerns P. Picking up object 88-Not attempted due to medical condition or safety concerns R. Wheel 50 feet with two turns 88-Not attempted due to medical condition or safety concerns S. Wheel 150 feet 88-Not attempted due to medical condition or safety concerns - Bladder and Bowel Bladder continence Bowel continence - Endurance Poor - Balance Fair - Safety Awareness Poor CURRENT FUNC. DEFICITS: Self-Care, Mobility, Endurance, Balance, and Safety Awareness CURRENT / PREVIOUS ASSISTIVE DEVICES: 3-in-1 Commode Rolling Walker HISTORY OF FALLS. HAS THE PATIENT HAD TWO OR MORE FALLS IN THE PAST YEAR OR ANY FALL WITH INJURY IN T HE PAST YEAR?: No PRIOR SURGERY. DID THE PATIENT HAVE MAJOR SURGERY DURING THE 100 DAYS PRIOR TO ADMISSION?: No THERAPY NOTES FROM ACUTE CARE: Attached. SPECIAL NEEDS: - Safety Concerns Skin breakdown precautions needed due to skin breakdown risk PRECAUTIONS: - Posterior Hip Precaution No adduction across midline No external rotation No hip flexion >90 degrees No internal rotation No wheel chair propulsion - Weight Bearing Precaution WBAT right LE PATIENT NEEDS ACTIVE AND ONGOING THERAPEUTIC INTERVENTION OF MULTIPLE THERAPY DISCIPLINES, INCLUDING: - Dietary and Nutrition Adequate Nutrition. Nutritional Education. Nutritional Supplements. PATIENT NEEDS CLOSE MEDICAL SUPERVISION BY A REHABILITATION PHYSICIAN FOR: Coordination of Treatment Team PATIENT REQUIRES 24X7 REHAB NURSING FOR MEDICAL AND FUNCTIONAL MGT. OF THE FOLLOWING DEFICITS: Disease Management Medication Management Patient/Family Education Providing Safe Environment PATIENT REQUIRES INTENSIVE, COORDINATED INTERDISCIPLINARY APPROACH TO REHAB: Arranging Home Equipment/Services Discharge Planning Family Intervention/Training Car Seat Coverer/Case Management PATIENT REHAB POTENTIAL: Kianna REYNOLDS is able and expected to receive 3 hours of individualized therapy daily on at least 5 of every 7 days Kianna REYNOLDS's prognosis for significant practical improvement within a reasonable period of time appe ars Good Expected level of measurable improvement will be of a practical value to Kianna REYNOLDS's functional cap acity or adaptations to impairments Has a viable Discharge Plan Medically appropriate; condition is sufficiently stable to participate in intensive rehab program DISCHARGE PLAN: - Estimated Length of Stay (days) 14. - Consensus on plan Discharge plan has been discussed with primary caregiver. Patient/Family is in agreement with the han n. Primary caregiver is in agreement with the plan. - Patient/Family Goals Return home independently. - Planned Living Setting Upon Discharge Home, to live with Family/Relatives. Transitional Living. RECOMMENDED CARE LEVEL: IRF RECOMMENDATION DETAILS: Recommended Admission to Comprehensive Rehabilitation Program to Increase Functional Ducor SCREENER'S COMPLETENESS CONFIRMATION: - Screening Confirmation The patient data collection on this preadmission screening form is finished PHYSICIANS REVIEW AND ADMISSION DETERMINATION Admit - Based on my review of the Pre-Admission Screening results, in my medical judgment and experie nce, I concur with the findings and recommend admission to [facility], as this patient requires an IRF level of care. SIGNATURE PANEL: Specialty Trimmer - [electronically] signed by Nahid Womack on 07/05/2020 at 10:06 (MAGNETIC TAPE TYPEWRITER OPERATOR) Specialty Trimmer - [electronically] signed by John Paul Lloyd PT on 07/05/2020 at 10:29 (MAGNETIC TAPE TYPEWRITER OPERATOR) Physician Reviewer - [electronically] signed by Dr. Naga David M.D. on 07/05/2020 at 10:48 (MAGNETIC TAPE TYPEWRITER OPERATOR )
--- OUTSIDE RECORDS SUMMARY | 2020-07-05 15:21 | XMS REPORT | Continuity of Care Document ---
:1935 Author Organization [facility] t Address [address] [place] [address] Care Team Providers Name Role Phone Unavailable Unavailable Unavailable Problems Condition Condition Condition Status Onset Resolution Last Treating Co mments Source Name Details Category Date Date Treatment Clinician Date Displaced Displaced Problem Active [facility] fracture fracture [facility] of left of left [facility] femoral femoral l neck neck [facility] Age Age Problem Active [facility] related related [facility] - osteoporos osteoporos Me moria is, is, l unspecifie unspecifie Ou tpati d d ent pathologic pathologic Cl inics al al fracture fracture presence presence Supplement Supplement Problem Active [facility] al oxygen al oxygen [facility] - dependent dependent Rasta samuel l [facility] Hypothyroi Hypothyroi Problem Active [facility] dism dism [facility] GERD GERD Problem Active [facility] (gastroeso (gastroeso Teresa kes - phageal phageal Memoria reflux reflux l disease) disease) Outpat i ent Clinics COPD COPD Problem Active [facility] (chronic (chronic [facility] - obstructiv obstructiv Me moria e e l pulmonary pulmonary Outp ati disease) disease) ent Clinics Chronic Chronic Problem Active [facility] a-fib a-fib [facility] Unsteady Unsteady Problem Active [facility] gait gait [facility] Anemia Anemia Problem Active [facility] Family Family Problem Active [facility] history of history of Teresa kes - breast breast Memoria cancer cancer l [facility] Peripheral Peripheral Problem Active [facility] vascular vascular [facility] - insufficie insufficie Me moria ncy ncy l [facility] Edema of Edema of Problem Active [facility] left lower left lower Teresa kes - extremity extremity Rasta samuel l [facility] COPD with COPD with Problem [...] - heart heart Memoria failure failure l [facility] Acute Acute Problem Active [facility] febrile febrile [facility] - illness illness Memoria l [facility] Urgency of Urgency of Problem Active [facility] urination urination Luke [facility] - Memoria l [facility] Allergies, Adverse Reactions, Alerts This patient has no known allergies or adverse reactions. Medications Ordered Filled Start Stop Current Ordering Indication Dosage Frequency Signature Comments Components Source Medication Medication Date Date Medication? Clinician (SIG) Name Name Oxygen Oxygen 2031- No Lora 2 LMP [facility] concentrato concentrato 3-24 03-21 [facility] - r r 00:00: 00:00 Memoria 00 :00 l [facility] Tobramycin Tobramycin Yes Lora [address] [facility] 3-19 [facility]ivas into [facility] - 00:00: affected Memoria 00 eye l [facility] Levothyroxi Levothyroxi Yes Lora [address] [facility] ne Sodium ne Sodium Olivas on an [place] es - empty Memoria stomach in l [facility] Levaquin Levaquin Yes Lora [address] [facility] Vitamin D3 Vitamin D3 Yes Lora [address] [facility] Olivas [facility] Fosamax Fosamax Yes Lora [address] [facility] Olivas [facility] Sotalol HCl Sotalol HCl Yes Lora 0.[address] [facility] Olivas [facility] l [facility] Eliquis 2.5 Eliquis 2.5 Yes Lora one [facility] mg mg [facility] Hemocyte Hemocyte Yes Lora TAKE ONE [facility] Plus Plus Olivas CAPSULE BY [facility] - MOUTH Memoria DAILY l [facility] Hemocyte Hemocyte Yes Lora [address] Plus Plus [facility]ivas [facility] Furosemide Furosemide Yes Lora [address] [facility] Olivas [facility] Immunizations Ordered Filled Immunization Date Status Comments Sourc e Immunization Name Name Britton Jarquin 2019-05-[address] [facility] - 00[facility]00 [facility] Britton Jarquin 2018-04-[address] [facility]00 [facility] Procedures This patient has no known procedures. Encounters Start End Encounter Admission Attending Care Care Encounter Source Date/Time Date/Time Type Type Clinicians Facility Department ID 2019-12-29 2019-12-29 [facility] [id number] [facility] 10:25:00 10:25:00 [facility] Medicine Outpati ent Clinics 2019-12-15 2019-12-15 [facility] [id number] [facility] 09:52:00 09:52:00 [facility] Medicine Outpati ent Clinics 2019-12-12 2019-12-12 [facility] [id number] [facility] 11[facility]00:00 11:00:00 [facility] Medicine Outpati ent Clinics 2019-12-11 2019-12-11 [facility] [id number] [address] 11:52:00 11:52:00 [facility] Medicine Outpati ent Clinics 2019-11-17 2019-11-17 [facility] [id number] [facility] 10[facility]30:00 10:30:00 [facility] Medicine Outpati ent Clinics 2019-11-13 2019-11-13 [facility] [id number] 14:34:00 14:34:00 t [facility] Medicine Outpati ent Clinics 2019-10-15 2019-10-15 [facility] [id number] [facility] 09[facility]31:00 09:31:00 [facility] Medicine Outpati ent Clinics 2019-10-07 2019-10-07 [facility] [id number] [facility] 16:53:00 16:53:[address] [place] [address] [facility] - Drive [facility] Medicine l Medicine Outpati ent Clinics 2019-09-24 2019-09-24 [facility] [id number] 10:55:00 10:55:[address] [employer] s - Drive [facility] Medicine l Medicine Outpati ent Clinics 2019-09-10 2019-09-10 [facility] [id number] [address] 10:20:00 10:20:00 [place] [employer] s - Drive [facility] Medicine l Medicine Outpati ent Clinics 2019-09-05 2019-09-05 [facility] [id number] 06:36:00 06:36:00 [place] [employer] - Drive [facility] Medicine l Medicine Outpati ent Clinics 2019-08-26 2019-08-26 [facility] [id number] [address] 17:28:00 17:28:00 [place] [employer] - Drive [facility] Medicine l Medicine Outpati ent Clinics 2019-08-20 2019-08-20 [facility] [id number] [facility] 11:20:00 11:20:00 [place] [employer] s - Drive [facility] Medicine Medicine Outpati ent Clinics 2019-08-05 2019-08-05 [facility] [id number] 10:32:00 10:32:00 [place] [employer] - Drive [facility] Medicine l Medicine Outpati ent Clinics 2019-08-04 2019-08-04 [facility] [id number] [facility] 08[facility]48:00 08:48:00 [place] [employer] - Drive [facility] Medicine l Medicine Outpati ent Clinics 2019-07-31 2019-07-31 [facility] [id number] [facility] 08:37:00 08:37:00 [place] [employer] - Drive [facility] l Medicine Outpati ent Clinics 2019-05-22 2019-05-22 [facility] [id number] 16:07:00 16:07:00 [place] [employer] s - Drive [facility] l Medicine Outpati ent Clinics 2019-05-02 2019-05-02 [facility] [id number] 15:00:00 15:00:00 [place] [employer] Luke s - Drive [facility] Medicine l Medicine Outpati ent Clinics 2019-02-11 2019-02-11 [facility] [id number] 14:00:00 14:00:00 [place] [employer] s - Drive [facility] Medicine l Medicine Outpati ent Clinics 2019-01-14 2019-01-14 [facility] [id number] [address] 13:20:00 13:20:00 t [place] [employer] s - Drive [facility] l Medicine Outpati ent Clinics 2018-10-15 2018-10-15 [facility] [id number] 11:15:00 11:15:00 [place] [employer] - Drive [facility] Medicine l Medicine Outpati ent Clinics 2018-10-10 2018-10-10 [facility] [id number] 10:28:00 10:28:00 [place] [employer] - Drive [facility] l Medicine Outpati ent Clinics 2018-09-17 2018-09-17 [facility] [id number] 10:32:00 10:32:00 [place] [employer] - Drive [facility] Medicine l Medicine Outpati ent Clinics 2018-08-20 2018-08-20 [facility] [id number] 14:00:00 14:00:00 [place] [employer] s - Drive [facility] Medicine l Medicine Outpati ent Clinics 2018-08-14 2018-08-14 [facility] [id number] 10:31:00 10:31:00 [place] [employer] s - Drive [facility] Medicine l Medicine Outpati ent Clinics 2018-07-29 2018-07-29 [facility] [id number] 09:56:00 09:56:00 [place] [employer] - Drive [facility] Medicine l Medicine Outpati ent Clinics 2018-07-18 2018-07-18 [facility] [id number] [facility] 17:01:00 17:01:00 t [place] [employer] - Drive [facility] Medicine Outpati ent Clinics 2018-07-16 2018-07-16 [facility] [id number] 15:43:00 15:43:00 t [employer] [facility] Medicine Outpati ent Clinics 2018-07-16 2018-07-16 [facility] [id number] [facility] 12:00:00 12:00:00 t [employer] - [employer] [facility] Medicine Outpati ent Clinics 2018-07-16 2018-07-16 [facility] [id number] 11:10:00 11:10:00 t [facility] Medicine Outpati ent Clinics 2018-04-30 2018-04-30 [facility] [id number] 14:45:00 14:45:00 t [facility] Medicine Outpati ent Clinics 2018-01-16 2018-01-16 [facility] [id number] [facility] 15:00:00 15:00:00 t [facility] Medicine Outpati ent Clinics Results This patient has no known results.
[2020-07-05] MEDS ORDERED: DOCUSATE NA 100 MG CAP PO PRN (15:37)
[2020-07-05] MEDS ORDERED: ONDANSETRON 4 MG (ODT) TAB PO PRN (15:44)
[2020-07-05] MEDS ORDERED: ENOXAPARIN 40 MG/0.4 ML SQ SCH (16:00)
[2020-07-05] MEDS: ENSURE ENLIVE 237 ML CAN PO SCH (19:06)
[2020-07-05 20:40] LABS: Urine Appearance CLEAR; Urine Bilirubin NEGATIVE (NEG); Urine Blood NEGATIVE (NEG); Urine Color YELLOW; Urine Glucose NEGATIVE (NEG); Urine Protein NEGATIVE (NEG); Urine Urobilinogen 0.2 mg/dL (0.2-1.0); Urine pH 6.5 (5.0-7.0)
[2020-07-05] MEDS: ARFORMOTEROL TARTRATE 15 MCG/2 ML VIAL.NEB NEB SCH (21:00)
[2020-07-05] MEDS: IPRATROPIUM BROM 0.5MG/2.5ML NEB PRN (21:00)
[2020-07-05 21:02] LABS: Urine Bacteria <20 /HPF (<20); Urine Mucus 1+ /HPF (NONE SEEN); Urine RBC <5 /HPF (NONE SEEN)
[2020-07-05] MEDS: MELATONIN 3 MG TABLET PO PRN (21:02)
[2020-07-06] MEDS: ALENDRONATE 70 MG TAB PO SCH (05:42)
[2020-07-06 06:20] LABS: Absolute Lymphocytes (CBC) 1.7 K/uL (0.7-4.9); Basophils % 0.3 % (0-1.3); Hematocrit 27.3 % (36.0-45.0); Lymphocytes % 16.9 % (15.3-44.8); MPV 8.1 fL (7.6-11.3); RBC Red Blood Cell Count 4.13 M/uL (3.86-4.86)
[2020-07-06] MEDS: LEVOTHYROXINE SOD 0.088 MG TAB PO SCH (06:34)
[2020-07-06] MEDS: ENOXAPARIN 40 MG/0.4 ML SQ SCH (06:43)
[2020-07-06 06:45] LABS: Albumin 2.8 g/dL (3.4-5.0); BUN Blood Urea Nitrogen 26 mg/dL (7-18); Bicarbonate 36 mmol/L (21-32); Glucose Level 96 mg/dL (74-106); Magnesium 1.9 mg/dL (1.8-2.4); Prealbumin 18.6 mg/dL (20-40); Sodium Level 145 mmol/L (136-145)
[2020-07-06] MEDS: ENSURE ENLIVE 237 ML CAN PO SCH ×2 (08:00→20:00)
[2020-07-06] MEDS: FE SULF/FA/VIT B COMP & C TAB PO SCH (08:10)
[2020-07-06] MEDS: THIAMINE HCL 100 MG TABLET PO SCH (08:11)
[2020-07-06] MEDS: FOLIC ACID 1 MG TABLET PO SCH (08:11)
[2020-07-06] MEDS: DOCUSATE NA 100 MG CAP PO SCH (08:11)
[2020-07-06] MEDS: FERROUS SULFATE 325 MG TAB PO SCH (08:11)
[2020-07-06] MEDS: ACETAMINOPHEN 500 MG TAB PO PRN ×2 (08:12→12:57)
[2020-07-06 08:40] LABS: Anisocytosis 1+; Basophilic Stippling 2+; Blood Morphology Comment NOTED (NOT SEEN); Hypochromasia 2+; Platelet Estimate ADEQ; Poikilocytosis 1+; Teardrop Cell 1+
[2020-07-06] MEDS: ARFORMOTEROL TARTRATE 15 MCG/2 ML VIAL.NEB NEB SCH ×2 (09:25→22:10)
--- NOTE | 2020-07-06 17:27 | R.HP ---
HISTORY AND PHYSICAL FACILITY: [facility] ENCOUNTER DATE AND TIME: 07/06/2020 17:19 (PROJECT MANAGER ENTERTAINMENT AND MEDIA) MR#: [id number] NAME PATRICK REYNOLDS ADDRESS: [address] [place] [address] CITY: [facility] [address] PHONE: DATE OF : 1935 AGE: 84 SSN# [id number] GENDER: Female DEXTERITY Right-handed MARITAL STATUS Single (Never ) RACE Unknown race PRE-HOSPITAL LIVING SETTING 01 - Home (private home/apt. board/care, assisted living, long-term, transitional living) PRE-HOSPITAL LIVING WITH Family/Relatives ENCOUNTER PHYSICIAN: Dr. Naga David M.D. REFERRING DOCTOR: DATE OF ADMISSION: 07/05/2020 14:25 (PROJECT MANAGER ENTERTAINMENT AND MEDIA) REFERRING FACILITY [facility] HOME TYPE AND DETAILS: Type of home: single family house # of levels in the residence: 1 # of steps within the residence: 0 # of steps to enter the residence: 0 ONSET DATE: 06/23/2020 PRIMARY DIAGNOSIS-RELATED SURGERIES: No surgeries related to the primary diagnosis were performed. HISTORY OF PRESENT ILLNESS (HPI): Pt. is a 84 yo Right-handed female of unknown race. On 06/23/2020 she was admitted to [facility] with diagnosis RIGHT HIP FRACTURE. Her impairment category is Orthopaedic Disorders 08 - Unilateral Hip Fracture (08.11). Pre-morbidly, Pt. was independent/mod-I in Locomotion, Social Cognition, Communication, and Self-Care ; and she had good Sphincter Control, Transfers Control, and Balance. Currently, she has deficits of Locomotion, Balance, Social Cognition, Transfers Control, Sphincter Co ntrol, and Communication. Pt. is now referred to [facility] for acute in-patient rehabilitation in order to maximize patient's functional independence in activities of daily living, strength, ROM, and mobi lity. Patient has realistic goal of being discharged at assistance level 7-Ind to reside at Home with Fami ly/Relatives. 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 ANTI COAGULATION THERAPY SOCIAL HISTORY: - Home Living Family/Relatives REVIEW OF SYSTEMS: - Gen No Chills Fatigue No Fever - Eyes No Double Vision No itchiness - ENMT No Difficulty Swallowing - CVS No Chest Discomfort No Chest Pain Fatigue No Weight Gain - Resp No Cough No Shortness of Breath - GI Continent No Abdominal Pain Constipation No Diarrhea - Continent No Kidney Pain No Painful Urination No Urinary Urgency - MSK No Joint Pain Muscle Cramps Stiffness - Skin No Itching No Rash No Suspicious Lesions - Neuro Coordination Difficulty No Difficulty with Concentration No Memory Loss No Seizures Weakness - Psych No Anxiety No Depression No HIV Exposure No Persistent Infections No Seasonal Allergies - Endo No Cold/Heat Intolerance No Excessive Hunger No Excessive Thirst No Excessive Urination PHYSICAL EXAM - Gen Alert and awake Lying in bed No apparent distress Oriented to: person, time, and place - Skin No skin breakdown. Normacephalic - Eyes No abnormalities - ENMT No abnormalities - CVS RRR - Chest No abnormalities - Abd Soft - GI Non distended Deferred - No abnormalities - Ext Right hip surgical site has good hemostasis. - MSK 4+/5 weakness in right lower extremity - Neuro 4/5 strength right lower extremity. - Psych No abnormalities VITAL SIGNS Temperature: 98.3 F SBP/DBP: 106/49 Pulse: 86 Resp: 16 NURSING: - Shower allowing shower - Skin care per protocol PRECAUTIONS: - Posterior Hip Precaution No adduction across midline No external rotation No hip flexion >90 degrees No internal rotation No wheel chair propulsion - Weight Bearing Precaution WBAT right LE ACTIVITIES OOB only with supervision QI SCORES: - Self-Care A. Eating 03-Partial/moderate assistance B. Oral hygiene 02-Substantial/maximal assistance C. Toileting hygiene 02-Substantial/maximal assistance E. Shower/bathe self 02-Substantial/maximal assistance F. Upper body dressing 03-Partial/moderate assistance G. Lower body dressing 02-Substantial/maximal assistance H. Putting on/taking off footwear 88-Not attempted due to medical condition or safety concerns - Mobility A. Roll left and right 02-Substantial/maximal assistance B. Sit to lying 02-Substantial/maximal assistance C. Lying to sitting on side of bed 02-Substantial/maximal assistance D. Sit to stand 02-Substantial/maximal assistance E. Chair/[id number] transfer 02-Substantial/maximal assistance F. Toilet transfer 02-Substantial/maximal assistance G. Car transfer 88-Not attempted due to medical condition or safety concerns I. Walk 10 feet 02-Substantial/maximal assistance J. Walk 50 feet with two turns 88-Not attempted due to medical condition or safety concerns K. Walk 150 feet 88-Not attempted due to medical condition or safety concerns L. Walking 10 feet on uneven surfaces 88-Not attempted due to medical condition or safety concerns M. 1 step (curb) 88-Not attempted due to medical condition or safety concerns N. 4 steps 88-Not attempted due to medical condition or safety concerns O. 12 steps 88-Not attempted due to medical condition or safety concerns P. Picking up object 88-Not attempted due to medical condition or safety concerns R. Wheel 50 feet with two turns 88-Not attempted due to medical condition or safety concerns S. Wheel 150 feet 88-Not attempted due to medical condition or safety concerns - Bladder and Bowel Bladder continence Bowel continence - Endurance Poor - Balance Fair - Safety Awareness Poor CURRENT FUNC. DEFICITS: Self-Care, Mobility, Endurance, Balance, and Safety Awareness MEDICATIONS: - Other See attached MAR (Medication Administration Record) ASSESSMENT: Pt. is a 84 yo Right-handed female of unknown race.On 06/23/2020 she was admitted to [facility] with diagnosis RIGHT HIP FRACTURE.Her impairment category is Orthopaedic Disorders 08 - Unil ateral Hip Fracture (08.11).Pre-morbidly, Pt. was independent/mod-I in Locomotion, Social Cognition, Communication, and Self-Care; and she had good Sphincter Control, Transfers Control, and Balance.Curr ently, she has deficits of Locomotion, Balance, Social Cognition, Transfers Control, Sphincter Contro l, and Communication.Pt. is now referred to [facility] for acute in-patient re habilitation in order to maximize patient's functional independence in activities of daily living, st rength, ROM, and mobility.- Rehab Goal Patient has realistic goal of being discharged at assistance level 7-Ind to reside at Home with Fami ly/Relatives. Story attached in clincal documentationREHAB PLAN: - Physical Therapy Decreased range of motion - to improve, our physical therapists will perform initial evaluation of pt 's status upon admission and devise an individualized program for increasing patient's Range of Motio n. Gait dysfunction - to improve, our physical therapists will perform initial evaluation of pt's status upon admission and devise an individualized program for Gait Training, and Wheel Chair mobility Inability to transfer - to improve, our physical therapists will perform initial evaluation of pt's s tatus upon admission and devise an individualized program for Bed mobility Need for home safety evaluation - to improve, our physical therapists will perform initial evaluation of pt's status upon admission and devise an individualized program for Home Evaluation Need in caregiver upon discharge - to improve, our physical therapists will perform initial evaluatio n of pt's status upon admission and devise an individualized program for Caregiver Training New precaution - to improve, our physical therapists will perform initial evaluation of pt's status u torsten admission and devise an individualized program for Patient precaution education Poor balance - to improve, our physical therapists will perform initial evaluation of pt's status upo n admission and devise an individualized program for Balance Training Weakness - to improve, our physical therapists will perform initial evaluation of pt's status upon ad mission and devise an individualized program for Aquatic Therapy, Neuromuscular Reeducation, and Stre ngthening Achieving independence - to improve, our physical therapists will perform initial evaluation of pt's status upon admission and devise an individualized program for Community Reintegration Activities - Occupational Therapy Cognitive deficits - to improve, our occupation therapists will perform initial evaluation of pt's st atus upon admission and devise an individualized program for Cognition - orientation Need for career coordinator - to improve, our occupation therapists will perform initial evaluation of pt's s tatus upon admission and devise an individualized program for Caregiver Training Weakness - to improve, our occupation therapists will perform initial evaluation of pt's status upon admission and devise an individualized program for Aquatic Therapy, Balance, Endurance, UE ROM, and U E strengthening MEDICAL PLAN: - Anterior Hip Precaution No abduction No active extension No adduction across midline No external rotation No hip flexion >90 degrees No internal rotation - Diet - Liquid Texture Start Regular - Tube Feed Start N/A - Diet Type Start Regular - Posterior Hip Precaution No adduction across midline No external rotation No hip flexion >90 degrees No internal rotation No wheel chair propulsion - Weight Bearing Precaution WBAT right LE - Skin care per protocol - Other See attached MAR (Medication Administration Record) - Diet - Solid Texture Regular - Shower shower DISCHARGE PLAN: - Estimated Length of Stay (days) 14. - Consensus on plan Discharge plan has been discussed with primary caregiver. Patient/Family is in agreement with the han n. Primary caregiver is in agreement with the plan. - Patient/Family Goals Return home independently. - Planned Living Setting Upon Discharge Home, to live with Family/Relatives. Transitional Living. SIGNATURE PANEL: (PROJECT MANAGER ENTERTAINMENT AND MEDIA)
--- NOTE | 2020-07-06 17:29 | PAPE ---
POST ADMISSION PHYSICIAN EVALUATION PATIENT: [facility] MR# [id number] REFERRING DOCTOR EVALUATION DATE AND TIME 07/06/2020 17:27 (CONTINUITY MANAGER) NAME PATRICK REYNOLDS DATE OF 1935 AGE 84 PHONE SSN# [id number] GENDER female EVALUATING PHYSICIAN Dr. Naga David M.D. ADMISSION DIAGNOSIS: RIGHT HIP FRACTURE ONSET DATE 06/23/2020 POST-ADMISSION FUNCTIONAL/MEDICAL STATUS: - Bladder Same accident frequency: Ind - No accidents in the past 7 days - Bowel Same accident frequency: Ind - No accidents in the past 7 days - Walking Same score based on distance walked: 0(N/A) Same score based on distance walked: 1(<=50ft) - Wheelchair Same score based on distance traveled: 0(N/A) STATUS CHANGE EVALUATION: No change in Functional or Medical Status is identified compared with Pre-Admission screening. PATIENT NEEDS CLOSE MEDICAL SUPERVISION BY A REHABILITATION PHYSICIAN FOR: Coordination of Treatment Team PATIENT REQUIRES 24X7 REHAB NURSING FOR MEDICAL AND FUNCTIONAL MGT. OF THE FOLLOWING DEFICITS: Disease Management Medication Management Patient/Family Education Providing Safe Environment PATIENT REQUIRES INTENSIVE, COORDINATED INTERDISCIPLINARY APPROACH TO REHAB: Arranging Home Equipment/Services Discharge Planning Family Intervention/Training Organizational Effectiveness Director/Case Management LIST OF IDENTIFIED AND POTENTIAL PROBLEMS: Alteration in leisure activities Bladder, Incontinence Bowel, Incontinence Infection, Actual or Potential Mobility Impaired Pain, Alteration in Comfort Self Care Deficit Skin Integrity, Actual or Potential Urinary Tract Infection (UTI), Actual or Potential PATIENT COULD BE AT RISK FOR COMPLICATIONS FROM ADVERSE MEDICAL CONDITIONS DUE TO HIS/HER COMORBIDITI ES AND THE RIGORS OF THE INTENSIVE REHABILLITATION PROGRAM. METHODS OR INTERVENTIONS TO AVOID COMPLIC ATIONS INCLUDE: - Infection Clinical staff to assess and manage the signs and symptoms of infection including fever, redness, war mth, etc. - Urinary Tract Infection - Falls Patient will be evaluated for Fall Precautions and will be placed on Fall Precautions as indicated pe r protocol. - Skin Breakdown Nursing will assess skin daily using assessment tool and will place on Skin Breakdown Precautions as indicated per protocol. - Pain Clinical staff may employ non-medication methods such as massage, distraction, decrease stimulus, etc . as needed. Clinical staff will assess patient's pain level every shift per protocol to assess and e nsure pain management effectiveness. Medications will be given and the pain level re-assessed. PRELIMINARY PLAN OF CARE: - Physical Therapy Patient needs Physical Therapy for a daily minimum of 1.5 hours at least 5 out of 7 days, to improve: Mobility, Strengthening, Transfers, Stretching, ROM, Endurance, Ability to manage stairs, Gait, and Balance. - Speech Therapy Patient needs Speech Therapy for a daily minimum of 0.5 hours at least 5 out of 7 days, to improve: S wallowing, Cognition, Language Skills, and Compensatory Strategies. - Rehabilitation Nursing Patient requires 24x7 Rehabilitation Nursing for: Pain Issues, Identifying and preventing risk factor s, Monitoring and reporting current medical conditions, Assisting with ambulation and transfer, Yesenia ting with all ADL-s, Teaching patients about disease process and medications, Family teaching, Provid ing safe environment, Bowel and Bladder Issues, Skin Integrity, and Medication Management. Patient needs Organizational Effectiveness Director and/or Case Management for: Discharge Planning, Arranging Home Equipmen t or Services, and Family Interventions. - Dietary and Nutrition Services Patient needs Dietary and Nutrition Services for: Adequate Nutrition, Nutritional Supplements, and Nu tritional Education. - Occupational Therapy Patient needs Occupational Therapy for a daily minimum of 1.5 hours at least 5 out of 7 days, to impr ove Activities of Daily Living, including: Eating, Grooming, Bathing, Dressing, Toileting, Toilet Tra nsfers, Community Reintegration, Higher functional activities, Adaptive Equipment, Splinting, Househo ld Tasks, and Other activities as determined. QI SCORES: - Self-Care A. Eating 03-Partial/moderate assistance B. Oral hygiene 02-Substantial/maximal assistance C. Toileting hygiene 02-Substantial/maximal assistance E. Shower/bathe self 02-Substantial/maximal assistance F. Upper body dressing 03-Partial/moderate assistance G. Lower body dressing 02-Substantial/maximal assistance H. Putting on/taking off footwear 88-Not attempted due to medical condition or safety concerns - Mobility A. Roll left and right 02-Substantial/maximal assistance B. Sit to lying 02-Substantial/maximal assistance C. Lying to sitting on side of bed 02-Substantial/maximal assistance D. Sit to stand 02-Substantial/maximal assistance E. Chair/[id number] transfer 02-Substantial/maximal assistance F. Toilet transfer 02-Substantial/maximal assistance G. Car transfer 88-Not attempted due to medical condition or safety concerns I. Walk 10 feet 02-Substantial/maximal assistance J. Walk 50 feet with two turns 88-Not attempted due to medical condition or safety concerns K. Walk 150 feet 88-Not attempted due to medical condition or safety concerns L. Walking 10 feet on uneven surfaces 88-Not attempted due to medical condition or safety concerns M. 1 step (curb) 88-Not attempted due to medical condition or safety concerns N. 4 steps 88-Not attempted due to medical condition or safety concerns O. 12 steps 88-Not attempted due to medical condition or safety concerns P. Picking up object 88-Not attempted due to medical condition or safety concerns R. Wheel 50 feet with two turns 88-Not attempted due to medical condition or safety concerns S. Wheel 150 feet 88-Not attempted due to medical condition or safety concerns - Bladder and Bowel Bladder continence Bowel continence - Endurance Poor - Balance Fair - Safety Awareness Poor POTENTIAL FUNCTIONAL GOALS FOR PATIENT TO ACHIEVE BY DISCHARGE: - Safety Precaution Patient will remain free from falls or injury at time of discharge. - Bed Mobility Patient will perform bed mobility at 4-Hiwot level of assistance. - Transfers Patient will complete transfers from bed to chair at 4-Hiwot level of assistance. - Mobility Patient will ambulate 150 ft with 4-Hiwot level of assistance with RW. PATIENT REHAB POTENTIAL Kianna REYNOLDS is able and expected to receive 3 hours of individualized therapy daily on at least 5 of every 7 days Kianna REYNOLDS's prognosis for significant practical improvement within a reasonable period of time appe ars Good Expected level of measurable improvement will be of a practical value to Kianna REYNOLDS's functional cap acity or adaptations to impairments Has a viable Discharge Plan Medically appropriate; condition is sufficiently stable to participate in intensive rehab program DISCHARGE PLAN: - Estimated Length of Stay (days) 14. - Consensus on plan Discharge plan has been discussed with primary caregiver. Patient/Family is in agreement with the han n. Primary caregiver is in agreement with the plan. - Patient/Family Goals Return home independently. - Planned Living Setting Upon Discharge Home, to live with Family/Relatives. Transitional Living. CONCLUSION ON REHABILITATION NECESSITY: I have evaluated patient's pre-admission functional status and, comparing it to the patient's post-ad mission functional status now, I conclude that the pre-admission assessment was accurate. Patient's c ondition on admission supports the medical necessity of admission to [facility]. It is safe to proceed with patient's therapy program. SIGNATURE PANEL: (CONTINUITY MANAGER)
[2020-07-06] MEDS: CRANBERRY FRUIT EXTRACT 200 MG CAP PO SCH (21:24)
[2020-07-06] MEDS: MELATONIN 3 MG TABLET PO PRN (21:25)
[2020-07-07] MEDS: ENOXAPARIN 40 MG/0.4 ML SQ SCH (06:30)
[2020-07-07] MEDS: LEVOTHYROXINE SOD 0.088 MG TAB PO SCH (06:30)
[2020-07-07] MEDS: ACETAMINOPHEN 500 MG TAB PO PRN ×2 (07:42→12:18)
[2020-07-07] MEDS: FE SULF/FA/VIT B COMP & C TAB PO SCH (07:43)
[2020-07-07] MEDS: FERROUS SULFATE 325 MG TAB PO SCH (07:43)
[2020-07-07] MEDS: DOCUSATE NA 100 MG CAP PO SCH (07:43)
[2020-07-07] MEDS: CRANBERRY FRUIT EXTRACT 200 MG CAP PO SCH ×2 (07:43→19:14)
[2020-07-07] MEDS: THIAMINE HCL 100 MG TABLET PO SCH (07:43)
[2020-07-07] MEDS: FOLIC ACID 1 MG TABLET PO SCH (07:43)
[2020-07-07] MEDS: ENSURE ENLIVE 237 ML CAN PO SCH ×2 (07:44→19:17)
[2020-07-07] MEDS: ARFORMOTEROL TARTRATE 15 MCG/2 ML VIAL.NEB NEB SCH ×2 (08:00→22:45)
[2020-07-07] MEDS: FEXOFENADINE 180 MG TAB PO SCH (09:25)
[2020-07-07] MEDS ORDERED: NA CHLORIDE 0.9% 1,000 ML IV SCH (14:00)
--- NOTE | 2020-07-07 18:12 | R.PN ---
PROGRESS NOTES ENCOUNTER DATE AND TIME: 07/07/2020 17:58 (WIRE COILER) NAME PATRICK REYNOLDS DATE OF : 1935 DATE OF ADMISSION: 07/05/2020 14:25 (WIRE COILER) RIGHT HIP FRACTURECHIEF COMPLAINT: Right hip fracture. SUBJECTIVE: Pt denied any depression. Pt denied any Shortness of Breath. Her blood pressure is low (SBP 90s). Will give NS 1 L at 75 cc per hour and encourage fluid intake. H gb 8.5. She is on hemocyte plus and ferrous sulfate. Prealbumin 18.6. UA shows trace esterase and WBC 5-10. Ambulated 95' with contact guard assistance using a rolling walker. VITAL SIGNS Temperature: 98.3 F SBP/DBP: 106/49 Pulse: 86 Resp: 16 MEDICATION ALLERGIES: No Known Drug Allergies (NKDA) ENVIRONMENTAL ALLERGIES: - Substance Allergies None Known - Other Allergies None Known NURSING: - Shower allowing shower - Skin care per protocol PRECAUTIONS: - Posterior Hip Precaution No adduction across midline No external rotation No hip flexion >90 degrees No internal rotation No wheel chair propulsion - Weight Bearing Precaution WBAT right LE ACTIVITIES OOB only with supervision THERAPIES: - Dietary and Nutrition Adequate Nutrition. Nutritional Education. Nutritional Supplements. PHYSICAL EXAM - Gen Alert and awake Lying in bed No apparent distress Oriented to: person, time, and place - Skin No skin breakdown. Normacephalic - Eyes No abnormalities - ENMT No abnormalities - CVS RRR - Chest No abnormalities - Abd Soft - GI Non distended Deferred - No abnormalities - Ext Right hip surgical site has good hemostasis. - MSK 4+/5 weakness in right lower extremity - Neuro 4/5 strength right lower extremity. - Psych No abnormalities ASSESSMENT: Pt. is a 84 yo Right-handed female of unknown race.On 06/23/[address] [facility] with diagnosis RIGHT HIP FRACTURE.Her impairment category is Orthopaedic Disorders 08 - Unil ateral Hip Fracture (08.11).Pre-morbidly, Pt. was independent/mod-I in Locomotion, Social Cognition, Communication, and Self-Care; and she had good Sphincter Control, Transfers Control, and Balance.Curr ently, she has deficits of Locomotion, Balance, Social Cognition, Transfers Control, Sphincter Contro l, and Communication.Pt. is now referred to [facility] for acute in-patient re habilitation in order to maximize patient's functional independence in activities of daily living, st rength, ROM, and mobility.- Rehab Goal Patient has realistic goal of being discharged at assistance level 7-Ind to reside at Home with Fami ly/Relatives. MDM/PLAN: - Physical Therapy Decreased range of motion - to improve, our physical therapists will perform initial evaluation of p t's status upon admission and devise an individualized program for increasing patient's Range of [place] on. Gait dysfunction - to improve, our physical therapists will perform initial evaluation of pt's statu s upon admission and devise an individualized program for Gait Training, and Wheel Chair mobility Inability to transfer - to improve, our physical therapists will perform initial evaluation of pt's status upon admission and devise an individualized program for Bed mobility Need for home safety evaluation - to improve, our physical therapists will perform initial evaluatio n of pt's status upon admission and devise an individualized program for Home Evaluation Need in caregiver upon discharge - to improve, our physical therapists will perform initial evaluati on of pt's status upon admission and devise an individualized program for Caregiver Training New precaution - to improve, our physical therapists will perform initial evaluation of pt's status upon admission and devise an individualized program for Patient precaution education Poor balance - to improve, our physical therapists will perform initial evaluation of pt's status up on admission and devise an individualized program for Balance Training Weakness - to improve, our physical therapists will perform initial evaluation of pt's status upon a dmission and devise an individualized program for Aquatic Therapy, Neuromuscular Reeducation, and Str engthening Achieving independence - to improve, our physical therapists will perform initial evaluation of pt's status upon admission and devise an individualized program for Community Reintegration Activities - Occupational Therapy Cognitive deficits - to improve, our occupation therapists will perform initial evaluation of pt's s tatus upon admission and devise an individualized program for Cognition - orientation Need for personal carer - to improve, our occupation therapists will perform initial evaluation of pt's status upon admission and devise an individualized program for Caregiver Training Weakness - to improve, our occupation therapists will perform initial evaluation of pt's status upon admission and devise an individualized program for Aquatic Therapy, Balance, Endurance, UE ROM, and UE strengthening - Other See attached MAR (Medication Administration Record) - Anterior Hip Precaution No abduction No active extension No adduction across midline No external rotation No hip flexion >90 degrees No internal rotation - Diet - Liquid Texture Continue Regular - Tube Feed Continue N/A - Diet Type Continue Regular - Posterior Hip Precaution No adduction across midline No external rotation No hip flexion >90 degrees No internal rotation No wheel chair propulsion - Weight Bearing Precaution WBAT right LE - Skin care per protocol - Diet - Solid Texture Continue Regular - Shower allowing shower FUNCTIONAL STATUS: UPDATED AT WEEKLY TEAM CONFERENCE - Bladder Same accident frequency: 7-Ind - No accidents in the past 7 days - Bowel Same accident frequency: 7-Ind - No accidents in the past 7 days - Walking Same score based on distance walked: 0(N/A) Same score based on distance walked: 1(<=50ft) - Wheelchair Same score based on distance traveled: 0(N/A) FUNCTIONAL STATUS: - Self-Care A. Eating Myrna B. Grooming Myrna C. Bathing Hiwot D. Dressing - Upper Hiwot E. Dressing - Lower modA F. Toileting modA - Sphincter Control G. Bladder control Hiwot H. Bowel control Hiwot - Transfers Control I. Bed/Chair/Wheelchair modA J. Toilet modA K. Tub/Shower modA - Locomotion L. Walk/Wheelchair (B) modA M. Stairs ADNO - Communication N. Comprehension (B) sup O. Expression (B) sup - Social Cognition P. Social Interaction Myrna Q. Problem Solving sup R. Memory Hiwot - Endurance Poor - Balance Poor - Safety Awareness Fair QI SCORES: - Self-Care A. Eating 03-Partial/moderate assistance B. Oral hygiene 02-Substantial/maximal assistance C. Toileting hygiene 02-Substantial/maximal assistance E. Shower/bathe self 02-Substantial/maximal assistance F. Upper body dressing 03-Partial/moderate assistance G. Lower body dressing 02-Substantial/maximal assistance H. Putting on/taking off footwear 88-Not attempted due to medical condition or safety concerns - Mobility A. Roll left and right 02-Substantial/maximal assistance B. Sit to lying 02-Substantial/maximal assistance C. Lying to sitting on side of bed 02-Substantial/maximal assistance D. Sit to stand 02-Substantial/maximal assistance E. Chair/jld-fq-ozeiw transfer 02-Substantial/maximal assistance F. Toilet transfer 02-Substantial/maximal assistance G. Car transfer 88-Not attempted due to medical condition or safety concerns I. Walk 10 feet 02-Substantial/maximal assistance J. Walk 50 feet with two turns 88-Not attempted due to medical condition or safety concerns K. Walk 150 feet 88-Not attempted due to medical condition or safety concerns L. Walking 10 feet on uneven surfaces 88-Not attempted due to medical condition or safety concerns M. 1 step (curb) 88-Not attempted due to medical condition or safety concerns N. 4 steps 88-Not attempted due to medical condition or safety concerns O. 12 steps 88-Not attempted due to medical condition or safety concerns P. Picking up object 88-Not attempted due to medical condition or safety concerns R. Wheel 50 feet with two turns 88-Not attempted due to medical condition or safety concerns S. Wheel 150 feet 88-Not attempted due to medical condition or safety concerns - Bladder and Bowel Bladder continence Bowel continence - Endurance Poor - Balance Fair - Safety Awareness Poor CURRENT FUNC. DEFICITS: Self-Care, Mobility, Endurance, Balance, and Safety Awareness SIGNATURE PANEL: (WIRE COILER)
[2020-07-07] MEDS: MELATONIN 3 MG TABLET PO PRN (19:15)
[2020-07-07] MEDS: IPRATROPIUM BROM 0.5MG/2.5ML NEB PRN (22:45)
[2020-07-08 06:26] LABS: Absolute Lymphocytes (CBC) 1.1 K/uL (0.7-4.9); Basophils % 0.8 % (0-1.3); Hematocrit 25.4 % (36.0-45.0); MPV 7.7 fL (7.6-11.3); RBC Red Blood Cell Count 3.76 M/uL (3.86-4.86)
[2020-07-08 07:08] LABS: Albumin 2.6 g/dL (3.4-5.0); BUN Blood Urea Nitrogen 21 mg/dL (7-18); Bicarbonate 35 mmol/L (21-32); Glucose Level 96 mg/dL (74-106); Magnesium 1.8 mg/dL (1.8-2.4); Potassium 4.1 mmol/L (3.5-5.1); Sodium Level 142 mmol/L (136-145)
[2020-07-08] MEDS: ENOXAPARIN 40 MG/0.4 ML SQ SCH (07:25)
[2020-07-08] MEDS: LEVOTHYROXINE SOD 0.088 MG TAB PO SCH (07:25)
[2020-07-08] MEDS: DOCUSATE NA 100 MG CAP PO SCH ×2 (08:00→08:26)
[2020-07-08] MEDS: ENSURE ENLIVE 237 ML CAN PO SCH ×2 (08:00→20:49)
[2020-07-08] MEDS: THIAMINE HCL 100 MG TABLET PO SCH (08:26)
[2020-07-08] MEDS: CRANBERRY FRUIT EXTRACT 200 MG CAP PO SCH ×2 (08:26→20:49)
[2020-07-08] MEDS: FERROUS SULFATE 325 MG TAB PO SCH (08:26)
[2020-07-08] MEDS: FOLIC ACID 1 MG TABLET PO SCH (08:26)
[2020-07-08] MEDS: FEXOFENADINE 180 MG TAB PO SCH (08:26)
[2020-07-08] MEDS: FE SULF/FA/VIT B COMP & C TAB PO SCH (08:26)
[2020-07-08] MEDS: ACETAMINOPHEN 500 MG TAB PO PRN (08:26)
[2020-07-08] MEDS: ARFORMOTEROL TARTRATE 15 MCG/2 ML VIAL.NEB NEB SCH ×2 (09:03→20:30)
--- NOTE | 2020-07-08 15:43 | FAST ---
[employer] FORM SHIFT START DATE/TIME: 07/08/2020 07:00 (CARE MANAGER CNA) SHIFT END DATE/TIME: 07/08/2020 19:00 (CARE MANAGER CNA) NAME PATRICK REYNOLDS DATE OF : 1935 DATE OF ADMISSION: 07/05/2020 14:25 (CARE MANAGER CNA) PHONE: AGE: 84 N# [id number] GENDER: Female ENCOUNTER PHYSICIAN: Dr. Naga David M.D. ADMISSION DIAGNOSIS: - Orthopaedic Disorders 08 - Unilateral Hip Fracture (08.11) RIGHT HIP FRACTURE. EATING: EATING - STEP 1: Does the patient complete the activity by him/herself with no assistance (physical, verbal/nonverbal cueing, setup/clean-up)? No. EATING - STEP 2: Does the patient need only setup/clean-up assistance from one helper? Yes. 1. [id number] ADMISSION PERFORMANCE: Setup or clean-up assistance CODE: 05 ORAL HYGIENE: Patient refused CODE: 07 TOILETING HYGIENE: TOILETING HYGIENE - STEP 1: Does the patient complete the activity by him/herself with no assistance (physical, verbal/nonverbal cueing, setup/clean-up)? No. TOILETING HYGIENE - STEP 2: Does the patient need only setup/clean-up assistance from one helper? Yes. 1. [id number] ADMISSION PERFORMANCE: Setup or clean-up assistance CODE: 05 BATHING: Not assessed/no information CODE: - DRESSING - UPPER BODY: Not assessed/no information CODE: - [id number] - COMMENTS: Pt wears only hospital gowns DRESSING - LOWER BODY: Not assessed/no information CODE: - [id number] - COMMENTS: Pt only wears hospital gowns PUTTING ON/TAKING OFF FOOTWEAR: FOOTWEAR - STEP 1: Does the patient complete the activity by him/herself with no assistance (physical, verbal/nonverbal cueing, setup/clean-up)? No. FOOTWEAR - STEP 2: Does the patient need only setup/clean-up assistance from one helper? No. FOOTWEAR - STEP 3: Does the patient need only verbal/nonverbal cueing or touching/steadying/contact guard assistance fro m one helper? No. FOOTWEAR - STEP 4: Does the patient need physical assistance - for example lifting or trunk support from one helper - wi th the helper providing less than half of the effort? Yes. 1. [id number] ADMISSION PERFORMANCE: Partial/moderate assistance CODE: 03 ROLL LEFT AND RIGHT: ROLL LEFT AND RIGHT - STEP 1: Does the patient complete the activity by him/herself with no assistance (physical, verbal/nonverbal cueing, setup/clean-up)? No. ROLL LEFT AND RIGHT - STEP 2: Does the patient need only setup/clean-up assistance from one helper? Yes. 1. [id number] ADMISSION PERFORMANCE: Setup or clean-up assistance CODE: 05 SIT TO LYING: SIT TO LYING - STEP 1: Does the patient complete the activity by him/herself with no assistance (physical, verbal/nonverbal cueing, setup/clean-up)? No. SIT TO LYING - STEP 2: Does the patient need only setup/clean-up assistance from one helper? Yes. 1. [id number] ADMISSION PERFORMANCE: Setup or clean-up assistance CODE: 05 LYING TO SITTING: LYING TO SITTING ON SIDE OF BED - STEP 1: Does the patient complete the activity by him/herself with no assistance (physical, verbal/nonverbal cueing, setup/clean-up)? No. LYING TO SITTING ON SIDE OF BED - STEP 2: Does the patient need only setup/clean-up assistance from one helper? Yes. 1. [id number] ADMISSION PERFORMANCE: Setup or clean-up assistance CODE: 05 SIT TO STAND: SIT TO STAND - STEP 1: Does the patient complete the activity by him/herself with no assistance (physical, verbal/nonverbal cueing, setup/clean-up)? No. SIT TO STAND - STEP 2: Does the patient need only setup/clean-up assistance from one helper? Yes. 1. [id number] ADMISSION PERFORMANCE: Setup or clean-up assistance CODE: 05 TRANSFERS: BED, CHAIR: CHAIR/[id number] TRANSFER - STEP 1: Does the patient complete the activity by him/herself with no assistance (physical, verbal/nonverbal cueing, setup/clean-up)? No. CHAIR/[id number] TRANSFER - STEP 2: Does the patient need only setup/clean-up assistance from one helper? Yes. 1. [id number] ADMISSION PERFORMANCE: Setup or clean-up assistance CODE: 05 TRANSFER TOILET: TOILET TRANSFER - STEP 1: Does the patient complete the activity by him/herself with no assistance (physical, verbal/nonverbal cueing, setup/clean-up)? No. TOILET TRANSFER - STEP 2: Does the patient need only setup/clean-up assistance from one helper? Yes. 1. [id number] ADMISSION PERFORMANCE: Setup or clean-up assistance CODE: 05 TRANSFERS: CAR: Not assessed/no information CODE: - WALK 10 FEET: Not assessed/no information CODE: - 1 STEP (CURB): Not assessed/no information CODE: - PICKING UP OBJECT: Not assessed/no information CODE: - DOES THE PATIENT USE A WHEELCHAIR/SCOOTER? Q1. DOES THE PATIENT USE A WHEELCHAIR/SCOOTER?: Yes CODE: 1 WHEEL 50 FEET WITH TWO TURNS: WHEEL 50 FEET WITH TWO TURNS - STEP 1: Does the patient complete the activity by him/herself with no assistance (physical, verbal/nonverbal cueing, setup/clean-up)? No. WHEEL 50 FEET WITH TWO TURNS - STEP 2: Does the patient need only setup/clean-up assistance from one helper? No. WHEEL 50 FEET WITH TWO TURNS - STEP 3: Does the patient need only verbal/nonverbal cueing or touching/steadying/contact guard assistance fro m one helper? No. WHEEL 50 FEET WITH TWO TURNS - STEP 4: Does the patient need physical assistance - for example lifting or trunk support from one helper - wi th the helper providing less than half of the effort? No. WHEEL 50 FEET WITH TWO TURNS - STEP 5: Does the patient need physical assistance - for example lifting or trunk support from one helper - wi th the helper providing more than half of the effort? Yes. 1. [id number] ADMISSION PERFORMANCE: Substantial/maximal assistance CODE: 02 INDICATE THE TYPE OF WHEELCHAIR/SCOOTER USED: RR1. INDICATE THE TYPE OF WHEELCHAIR/SCOOTER USED.: Manual CODE: 1 WHEEL 150 FEET: Not assessed/no information CODE: - INDICATE THE TYPE OF WHEELCHAIR/SCOOTER USED: SS1. INDICATE THE TYPE OF WHEELCHAIR/SCOOTER USED.: Manual CODE: 1 BLADDER AND BOWEL: H350. BLADDER CONTINENCE (3-DAY ASSESSMENT PERIOD): Always continent (no documented incontinence) CODE: 0 H400. BOWEL CONTINENCE (3-DAY ASSESSMENT PERIOD): Always continent CODE: 0 SIGNATURE PANEL: The following modified sections: 1. [id number] Admission Performance, 1. [id number] Admission Performance, [id number] - Comments:, [id number] - Comments:, 1. [id number] Admission Performance, 1. TP2461s Admission Perf ormance, 1. [id number] Admission Performance, 1. [id number] Admission Performance, 1. [id number] Admission Per formance, 1. [id number] Admission Performance, 1. [id number] Admission Performance, 1. [id number] Admission Pe rformance, Q1. Does the patient use a wheelchair/scooter?, 1. [id number] Admission Performance, RR1. Ind icate the type of wheelchair/scooter used., Code, SS1. Indicate the type of wheelchair/scooter used., H350. Bladder Continence (3-day assessment period), H400. Bowel Continence (3-day assessment period) were [electronically] signed by Antonia EsquivelNGama on SunJul 08 2020 15:42:23 [facility]00 ([facility] tanda Time)
--- NOTE | 2020-07-08 17:51 | R.PN ---
PROGRESS NOTES ENCOUNTER DATE AND TIME: 07/08/2020 17:46 (PIPE FITTER SOFT COPPER) NAME PATRICK REYNOLDS DATE OF : 1935 DATE OF ADMISSION: 07/05/2020 14:25 (PIPE FITTER SOFT COPPER) RIGHT HIP FRACTURECHIEF COMPLAINT: Right hip fracture. SUBJECTIVE: Pt denied any depression. Pt denied any Shortness of Breath. Her blood pressure is low (SBP 90s). Will give NS 1 L at 75 cc per hour and encourage fluid intake. H gb 8.0. She is on hemocyte plus and ferrous sulfate. Will recheck in the AM and may give 1 unit of OK BCs. Prealbumin 18.6. UA shows trace esterase and WBC 5-10. Ambulated 90' with standby assistance using a rolling walker. O2 sat ranged 87-92%. VITAL SIGNS Temperature: 97.6 F SBP/DBP: 106/51 Pulse: 92 Resp: 16 MEDICATION ALLERGIES: No Known Drug Allergies (NKDA) ENVIRONMENTAL ALLERGIES: - Substance Allergies None Known - Other Allergies None Known NURSING: - Shower allowing shower - Skin care per protocol PRECAUTIONS: - Posterior Hip Precaution No adduction across midline No external rotation No hip flexion >90 degrees No internal rotation No wheel chair propulsion - Weight Bearing Precaution WBAT right LE ACTIVITIES OOB only with supervision THERAPIES: - Dietary and Nutrition Adequate Nutrition. Nutritional Education. Nutritional Supplements. PHYSICAL EXAM - Gen Alert and awake Lying in bed No apparent distress Oriented to: person, time, and place - Skin No skin breakdown. Normacephalic - Eyes No abnormalities - ENMT No abnormalities - CVS RRR - Chest No abnormalities - Abd Soft - GI Non distended Deferred - No abnormalities - Ext Right hip surgical site has good hemostasis. - MSK 4+/5 weakness in right lower extremity - Neuro 4/5 strength right lower extremity. - Psych No abnormalities ASSESSMENT: Pt. is a 84 yo Right-handed female of unknown race.On 06/23/2020 she was admitted to [facility] with diagnosis RIGHT HIP FRACTURE.Her impairment category is Orthopaedic Disorders 08 - Unil ateral Hip Fracture (.).Pre-morbidly, Pt. was independent/mod-I in Locomotion, Social Cognition, Communication, and Self-Care; and she had good Sphincter Control, Transfers Control, and Balance.Curr ently, she has deficits of Locomotion, Balance, Social Cognition, Transfers Control, Sphincter Contro l, and Communication.Pt. is now referred to [facility] for acute in-patient re habilitation in order to maximize patient's functional independence in activities of daily living, st rength, ROM, and mobility.- Rehab Goal Patient has realistic goal of being discharged at assistance level 7-Ind to reside at Home with Fami ly/Relatives. MDM/PLAN: - Physical Therapy Decreased range of motion - to improve, our physical therapists will perform initial evaluation of p t's status upon admission and devise an individualized program for increasing patient's Range of [place] on. Gait dysfunction - to improve, our physical therapists will perform initial evaluation of pt's statu s upon admission and devise an individualized program for Gait Training, and Wheel Chair mobility Inability to transfer - to improve, our physical therapists will perform initial evaluation of pt's status upon admission and devise an individualized program for Bed mobility Need for home safety evaluation - to improve, our physical therapists will perform initial evaluatio n of pt's status upon admission and devise an individualized program for Home Evaluation Need in caregiver upon discharge - to improve, our physical therapists will perform initial evaluati on of pt's status upon admission and devise an individualized program for Caregiver Training New precaution - to improve, our physical therapists will perform initial evaluation of pt's status upon admission and devise an individualized program for Patient precaution education Poor balance - to improve, our physical therapists will perform initial evaluation of pt's status up on admission and devise an individualized program for Balance Training Weakness - to improve, our physical therapists will perform initial evaluation of pt's status upon a dmission and devise an individualized program for Aquatic Therapy, Neuromuscular Reeducation, and Str engthening Achieving independence - to improve, our physical therapists will perform initial evaluation of pt's status upon admission and devise an individualized program for Community Reintegration Activities - Occupational Therapy Cognitive deficits - to improve, our occupation therapists will perform initial evaluation of pt's s tatus upon admission and devise an individualized program for Cognition - orientation Need for auto care center manager - to improve, our occupation therapists will perform initial evaluation of pt's status upon admission and devise an individualized program for Caregiver Training Weakness - to improve, our occupation therapists will perform initial evaluation of pt's status upon admission and devise an individualized program for Aquatic Therapy, Balance, Endurance, UE ROM, and UE strengthening - Other See attached MAR (Medication Administration Record) - Anterior Hip Precaution No abduction No active extension No adduction across midline No external rotation No hip flexion >90 degrees No internal rotation - Diet - Liquid Texture Continue Regular - Tube Feed Continue N/A - Diet Type Continue Regular - Posterior Hip Precaution No adduction across midline No external rotation No hip flexion >90 degrees No internal rotation No wheel chair propulsion - Weight Bearing Precaution WBAT right LE - Skin care per protocol - Diet - Solid Texture Continue Regular - Shower allowing shower FUNCTIONAL STATUS: UPDATED AT WEEKLY TEAM CONFERENCE - Bladder Same accident frequency: 7-Ind - No accidents in the past 7 days - Bowel Same accident frequency: 7-Ind - No accidents in the past 7 days - Walking Same score based on distance walked: 0(N/A) Same score based on distance walked: 1(<=50ft) - Wheelchair Same score based on distance traveled: 0(N/A) FUNCTIONAL STATUS: - Self-Care A. Eating Myrna B. Grooming Myrna C. Bathing Hiwot D. Dressing - Upper Hiwot E. Dressing - Lower modA F. Toileting modA - Sphincter Control G. Bladder control Hiwot H. Bowel control Hiwot - Transfers Control I. Bed/Chair/Wheelchair modA J. Toilet modA K. Tub/Shower modA - Locomotion L. Walk/Wheelchair (B) modA M. Stairs ADNO - Communication N. Comprehension (B) sup O. Expression (B) sup - Social Cognition P. Social Interaction Myrna Q. Problem Solving sup R. Memory Hiwot - Endurance Poor - Balance Poor - Safety Awareness Fair QI SCORES: - Self-Care A. Eating 03-Partial/moderate assistance B. Oral hygiene 02-Substantial/maximal assistance C. Toileting hygiene 02-Substantial/maximal assistance E. Shower/bathe self 02-Substantial/maximal assistance F. Upper body dressing 03-Partial/moderate assistance G. Lower body dressing 02-Substantial/maximal assistance H. Putting on/taking off footwear 88-Not attempted due to medical condition or safety concerns - Mobility A. Roll left and right 02-Substantial/maximal assistance B. Sit to lying 02-Substantial/maximal assistance C. Lying to sitting on side of bed 02-Substantial/maximal assistance D. Sit to stand 02-Substantial/maximal assistance E. Chair/lgb-in-ztafh transfer 02-Substantial/maximal assistance F. Toilet transfer 02-Substantial/maximal assistance G. Car transfer 88-Not attempted due to medical condition or safety concerns I. Walk 10 feet 02-Substantial/maximal assistance J. Walk 50 feet with two turns 88-Not attempted due to medical condition or safety concerns K. Walk 150 feet 88-Not attempted due to medical condition or safety concerns L. Walking 10 feet on uneven surfaces 88-Not attempted due to medical condition or safety concerns M. 1 step (curb) 88-Not attempted due to medical condition or safety concerns N. 4 steps 88-Not attempted due to medical condition or safety concerns O. 12 steps 88-Not attempted due to medical condition or safety concerns P. Picking up object 88-Not attempted due to medical condition or safety concerns R. Wheel 50 feet with two turns 88-Not attempted due to medical condition or safety concerns S. Wheel 150 feet 88-Not attempted due to medical condition or safety concerns - Bladder and Bowel Bladder continence Bowel continence - Endurance Poor - Balance Fair - Safety Awareness Poor CURRENT FUNC. DEFICITS: Self-Care, Mobility, Endurance, Balance, and Safety Awareness SIGNATURE PANEL: (PIPE FITTER SOFT COPPER)
[2020-07-08] MEDS: IPRATROPIUM BROM 0.5MG/2.5ML NEB PRN (20:30)
[2020-07-08] MEDS: DOCUSATE NA/SENNA CONC 1 TAB PO PRN (20:49)
[2020-07-09] MEDS: LEVOTHYROXINE SOD 0.088 MG TAB PO SCH (06:16)
[2020-07-09 06:57] LABS: Hematocrit 26.8 % (36.0-45.0)
[2020-07-09] MEDS: DOCUSATE NA 100 MG CAP PO SCH (07:37)
[2020-07-09] MEDS: FERROUS SULFATE 325 MG TAB PO SCH (07:37)
[2020-07-09] MEDS: FEXOFENADINE 180 MG TAB PO SCH (07:37)
[2020-07-09] MEDS: CRANBERRY FRUIT EXTRACT 200 MG CAP PO SCH ×2 (07:37→19:45)
[2020-07-09] MEDS: THIAMINE HCL 100 MG TABLET PO SCH (07:37)
[2020-07-09] MEDS: FOLIC ACID 1 MG TABLET PO SCH (07:37)
[2020-07-09] MEDS: ENSURE ENLIVE 237 ML CAN PO SCH ×3 (07:38→19:46)
[2020-07-09] MEDS: FE SULF/FA/VIT B COMP & C TAB PO SCH (07:38)
[2020-07-09] MEDS: ACETAMINOPHEN 500 MG TAB PO PRN (07:40)
[2020-07-09] MEDS: ARFORMOTEROL TARTRATE 15 MCG/2 ML VIAL.NEB NEB SCH ×2 (08:00→20:10)
[2020-07-09] MEDS: ENOXAPARIN 40 MG/0.4 ML SQ SCH (08:22)
--- NOTE | 2020-07-09 09:45 | P.RH.PN ---
Estimated Length of Stay: 10 Expected Discharge Date: 07/16/20 Discharge Disposition Plan: Home Family Support: Yes Care Home Goal: Mobility, Transfers, Self Care Vital Signs: Last Vital Signs Temp 98.9 F 07/09/20 07:53 Pulse 78 07/09/20 07:53 Resp 16 07/09/20 07:53 BP 114/53 L 07/09/20 07:53 Pulse Ox 98 07/09/20 07:53 Laboratory: Laboratory Last Values WBC 8.8 K/uL (4.3-10.9) 07/08/20 06:11 RBC 3.76 M/uL (3.86-4.86) L 07/08/20 06:11 Hgb 8.2 g/dL (12.0-15.0) L 07/09/20 06:29 Hct 26.8 % (36.0-45.0) L 07/09/20 06:29 MCV 67.5 fL (80-100) L 07/08/20 06:11 MCH 21.2 pg (27.0-35.0) L 07/08/20 06:11 MCHC 31.4 g/dL (32.0-36.0) L 07/08/20 06:11 RDW 17.7 % (12.1-15.2) H 07/08/20 06:11 Plt Count 203 K/uL (152-406) D 07/08/20 06:11 MPV 7.7 fL (7.6-11.3) 07/08/20 06:11 Neutrophils % 72.5 % (41.7-73.7) 07/08/20 06:11 Lymphocytes % 13.0 % (15.3-44.8) L 07/08/20 06:11 Monocytes % 9.8 % (3.3-12.3) 07/08/20 06:11 Eosinophils % 3.9 % (0-4.4) 07/08/20 06:11 Basophils % 0.8 % (0-1.3) 07/08/20 06:11 Absolute Neutrophils 6.4 K/uL (1.8-8.0) 07/08/20 06:11 Segmented Neutrophils 65 % (40-80) 07/06/20 05:47 Band Neutrophils 1 % (0-1) 07/06/20 05:47 Absolute Lymphocytes 1.1 K/uL (0.7-4.9) 07/08/20 06:11 Lymphocytes 20 % (15-42) 07/06/20 05:47 Monocytes 12 % (0-10) H 07/06/20 05:47 Absolute Monocytes 0.9 K/uL (0.1-1.3) 07/08/20 06:11 Absolute Eosinophils 0.3 K/uL (0-0.5) 07/08/20 06:11 Absolute Basophils 0.1 K/uL (0-0.5) 07/08/20 06:11 Metamyelocytes 2 % (0-0) H 07/06/20 05:47 Platelet Estimate Adeq 07/06/20 05:47 Hypochromasia 2+ 07/06/20 05:47 Poikilocytosis 1+ 07/06/20 05:47 Basophilic Stippling 2+ 07/06/20 05:47 Anisocytosis 1+ 07/06/20 05:47 Microcytosis 2+ 07/06/20 05:47 Tear Drop Cells 1+ 07/06/20 05:47 Morphology Comment Noted (NOT SEEN) 07/06/20 05:47 Sodium 142 mmol/L (136-145) 07/08/20 06:11 Potassium 4.1 mmol/L (3.5-5.1) 07/08/20 06:11 Chloride 106 mmol/L (98-107) 07/08/20 06:11 Carbon Dioxide 35 mmol/L (21-32) H 07/08/20 06:11 BUN 21 mg/dL (7-18) H 07/08/20 06:11 Creatinine 0.37 mg/dL (0.55-1.3) L 07/08/20 06:11 Estimated GFR > 90 mL/min (=/>90) 07/08/20 06:11 Glucose 96 mg/dL (74-106) 07/08/20 06:11 Calcium 7.9 mg/dL (8.5-10.1) L 07/08/20 06:11 Magnesium 1.8 mg/dL (1.8-2.4) 07/08/20 06:11 Albumin 2.6 g/dL (3.4-5.0) L 07/08/20 06:11 Prealbumin 16.0 mg/dL (20-40) L 07/08/20 06:11 Urine Color Yellow 07/05/20 20:25 Urine Appearance Clear 07/05/20 20: Urine pH 6.5 (5.0-7.0) 07/05/20 20:25 Ur Specific [place] 1.020 (1.005-1.030) 07/05/20 20:25 Glucose (UA)(Auto) Negative (NEG) 07/05/20 20: Urine Ketones Negative (NEG) 07/05/20 20: Urine Blood Negative (NEG) 07/05/20 20:25 Urine Nitrite Negative (NEG) 07/05/20 20: Urine Bilirubin Negative (NEG) 07/05/20 20: Urine Urobilinogen 0.2 mg/dL (0.2-1.0) 07/05/20 20:25 Ur Leukocyte Esterase Trace (NEG) H 07/05/20 20:25 Urine RBC <5 /HPF (NONE SEEN) 07/05/20 20: Urine WBC 5-10 /HPF (<5) H 07/05/20 20:25 Ur Squamous Epith Cells <5 /HPF (NONE SEEN) 07/05/20 20: Urine Bacteria <20 /HPF (<20) 07/05/20 20: Urine Mucus 1+ /HPF (NONE SEEN) 07/05/20 20: Urine Culture Reflexed Not needed 07/05/20 20:25 Urine Total Protein Negative (NEG) 07/05/20 20:25 Weight: 103 lb Wound Present: No Negative Pressure Wound Therapy Present: No Physician Update: Her Hgb is low at 8.0 to 8.2 and she is very weak. Will give a unit of blood. She is waking up to 50' with min assistance. Functional Improvement: pt has demonstrated progress throughout the week. pt does become easily fatigued during ambulation and functional activities. pt requires a lot of convincing and motivation to participate in therapy sessions. pt may not reach her full potential due to her unwillingness to fully participate in all instructed activity. Summary: Patient's care plan and steward/stewardess goals have been reviewed and revised as necessary. Please see the Rehabilitation Signature page for all necessary signatures.
[2020-07-09] MEDS ORDERED: NA CHLORIDE 0.9% 250 ML IV SCH (13:00)
[2020-07-09] MEDS: DOCUSATE NA/SENNA CONC 1 TAB PO PRN (19:46)
[2020-07-09] MEDS: GABAPENTIN 100 MG CAP PO SCH (19:46)
[2020-07-09 23:04] LABS: Hematocrit 31.3 % (36.0-45.0)
[2020-07-10] MEDS: ACETAMINOPHEN 500 MG TAB PO PRN (06:39)
[2020-07-10] MEDS: LEVOTHYROXINE SOD 0.088 MG TAB PO SCH (06:39)
[2020-07-10] MEDS: ENSURE ENLIVE 237 ML CAN PO SCH ×2 (08:00→20:00)
[2020-07-10] MEDS: ENOXAPARIN 40 MG/0.4 ML SQ SCH (08:00)
[2020-07-10] MEDS: THIAMINE HCL 100 MG TABLET PO SCH (08:25)
[2020-07-10] MEDS: GABAPENTIN 100 MG CAP PO SCH ×2 (08:25→20:11)
[2020-07-10] MEDS: CRANBERRY FRUIT EXTRACT 200 MG CAP PO SCH ×2 (08:25→20:11)
[2020-07-10] MEDS: DOCUSATE NA 100 MG CAP PO SCH (08:26)
[2020-07-10] MEDS: FEXOFENADINE 180 MG TAB PO SCH (08:26)
[2020-07-10] MEDS: FERROUS SULFATE 325 MG TAB PO SCH (08:26)
[2020-07-10] MEDS: FOLIC ACID 1 MG TABLET PO SCH (08:26)
[2020-07-10] MEDS: FE SULF/FA/VIT B COMP & C TAB PO SCH (08:26)
[2020-07-10] MEDS: ARFORMOTEROL TARTRATE 15 MCG/2 ML VIAL.NEB NEB SCH ×2 (08:40→19:40)
--- NOTE | 2020-07-10 19:16 | R.PN ---
PROGRESS NOTES ENCOUNTER DATE AND TIME: 07/10/2020 19:10 (NETWORK CABLE INSTALLER) NAME PATRICK REYNOLDS DATE OF : 1935 DATE OF ADMISSION: 07/05/2020 14:25 (NETWORK CABLE INSTALLER) RIGHT HIP FRACTURECHIEF COMPLAINT: Right hip fracture. SUBJECTIVE: Pt denied any depression. Pt denied any Shortness of Breath. Her blood pressure is low (SBP 90s). Will give NS 1 L at 75 cc per hour and encourage fluid intake. H gb 10.1 after 1 unit of PRBCs. She is on hemocyte plus and ferrous sulfate. Prealbumin 18.6. UA show s trace esterase and WBC 5-10. Ambulated 120' with standby assistance using a rolling walker. O2 sat ranged 100% on 3 L O2 via nasal cannula. VITAL SIGNS Temperature: 98.3 F SBP/DBP: 98/46/51 Pulse: 92 Resp: 14 MEDICATION ALLERGIES: No Known Drug Allergies (NKDA) ENVIRONMENTAL ALLERGIES: - Substance Allergies None Known - Other Allergies None Known NURSING: - Shower allowing shower - Skin care per protocol PRECAUTIONS: - Posterior Hip Precaution No adduction across midline No external rotation No hip flexion >90 degrees No internal rotation No wheel chair propulsion - Weight Bearing Precaution WBAT right LE ACTIVITIES OOB only with supervision THERAPIES: - Dietary and Nutrition Adequate Nutrition. Nutritional Education. Nutritional Supplements. PHYSICAL EXAM - Gen Alert and awake Lying in bed No apparent distress Oriented to: person, time, and place - Skin No skin breakdown. Normacephalic - Eyes No abnormalities - ENMT No abnormalities - CVS RRR - Chest No abnormalities - Abd Soft - GI Non distended Deferred - No abnormalities - Ext Right hip surgical site has good hemostasis. - MSK 4+/5 weakness in right lower extremity - Neuro 4/5 strength right lower extremity. - Psych No abnormalities ASSESSMENT: Pt. is a 84 yo Right-handed female of unknown race.On 06/23/2020 she was admitted to [facility] with diagnosis RIGHT HIP FRACTURE.Her impairment category is Orthopaedic Disorders 08 - Unil ateral Hip Fracture (08.11).Pre-morbidly, Pt. was independent/mod-I in Locomotion, Social Cognition, Communication, and Self-Care; and she had good Sphincter Control, Transfers Control, and Balance.Curr ently, she has deficits of Locomotion, Balance, Social Cognition, Transfers Control, Sphincter Contro l, and Communication.Pt. is now referred to [facility] for acute in-patient re habilitation in order to maximize patient's functional independence in activities of daily living, st rength, ROM, and mobility.- Rehab Goal Patient has realistic goal of being discharged at assistance level 7-Ind to reside at Home with Fami ly/Relatives. MDM/PLAN: - Physical Therapy Decreased range of motion - to improve, our physical therapists will perform initial evaluation of p t's status upon admission and devise an individualized program for increasing patient's Range of [place] on. Gait dysfunction - to improve, our physical therapists will perform initial evaluation of pt's statu s upon admission and devise an individualized program for Gait Training, and Wheel Chair mobility Inability to transfer - to improve, our physical therapists will perform initial evaluation of pt's status upon admission and devise an individualized program for Bed mobility Need for home safety evaluation - to improve, our physical therapists will perform initial evaluatio n of pt's status upon admission and devise an individualized program for Home Evaluation Need in caregiver upon discharge - to improve, our physical therapists will perform initial evaluati on of pt's status upon admission and devise an individualized program for Caregiver Training New precaution - to improve, our physical therapists will perform initial evaluation of pt's status upon admission and devise an individualized program for Patient precaution education Poor balance - to improve, our physical therapists will perform initial evaluation of pt's status up on admission and devise an individualized program for Balance Training Weakness - to improve, our physical therapists will perform initial evaluation of pt's status upon a dmission and devise an individualized program for Aquatic Therapy, Neuromuscular Reeducation, and Str engthening Achieving independence - to improve, our physical therapists will perform initial evaluation of pt's status upon admission and devise an individualized program for Community Reintegration Activities - Occupational Therapy Cognitive deficits - to improve, our occupation therapists will perform initial evaluation of pt's s tatus upon admission and devise an individualized program for Cognition - orientation Need for home care aide - to improve, our occupation therapists will perform initial evaluation of pt's status upon admission and devise an individualized program for Caregiver Training Weakness - to improve, our occupation therapists will perform initial evaluation of pt's status upon admission and devise an individualized program for Aquatic Therapy, Balance, Endurance, UE ROM, and UE strengthening - Other See attached MAR (Medication Administration Record) - Anterior Hip Precaution No abduction No active extension No adduction across midline No external rotation No hip flexion >90 degrees No internal rotation - Diet - Liquid Texture Continue Regular - Tube Feed Continue N/A - Diet Type Continue Regular - Posterior Hip Precaution No adduction across midline No external rotation No hip flexion >90 degrees No internal rotation No wheel chair propulsion - Weight Bearing Precaution WBAT right LE - Skin care per protocol - Diet - Solid Texture Continue Regular - Shower allowing shower FUNCTIONAL STATUS: UPDATED AT WEEKLY TEAM CONFERENCE - Bladder Same accident frequency: 7-Ind - No accidents in the past 7 days - Bowel Same accident frequency: 7-Ind - No accidents in the past 7 days - Walking Same score based on distance walked: 0(N/A) Same score based on distance walked: 1(<=50ft) - Wheelchair Same score based on distance traveled: 0(N/A) FUNCTIONAL STATUS: - Self-Care A. Eating Myrna B. Grooming Myrna C. Bathing [place] D. Dressing - Upper [place] E. Dressing - Lower modA F. Toileting modA - Sphincter Control G. Bladder control [place] H. Bowel control [place] - Transfers Control I. Bed/Chair/Wheelchair modA J. Toilet modA K. Tub/Shower modA - Locomotion L. Walk/Wheelchair (B) modA M. Stairs ADNO - Communication N. Comprehension (B) sup O. Expression (B) sup - Social Cognition P. Social Interaction Myrna Q. Problem Solving sup R. Memory [place] - Endurance Poor - Balance Poor - Safety Awareness Fair QI SCORES: - Self-Care A. Eating 03-Partial/moderate assistance B. Oral hygiene 02-Substantial/maximal assistance C. Toileting hygiene 02-Substantial/maximal assistance E. Shower/bathe self 02-Substantial/maximal assistance F. Upper body dressing 03-Partial/moderate assistance G. Lower body dressing 02-Substantial/maximal assistance H. Putting on/taking off footwear 88-Not attempted due to medical condition or safety concerns - Mobility A. Roll left and right 02-Substantial/maximal assistance B. Sit to lying 02-Substantial/maximal assistance C. Lying to sitting on side of bed 02-Substantial/maximal assistance D. Sit to stand 02-Substantial/maximal assistance E. Chair/[id number] transfer 02-Substantial/maximal assistance F. Toilet transfer 02-Substantial/maximal assistance G. Car transfer 88-Not attempted due to medical condition or safety concerns I. Walk 10 feet 02-Substantial/maximal assistance J. Walk 50 feet with two turns 88-Not attempted due to medical condition or safety concerns K. Walk 150 feet 88-Not attempted due to medical condition or safety concerns L. Walking 10 feet on uneven surfaces 88-Not attempted due to medical condition or safety concerns M. 1 step (curb) 88-Not attempted due to medical condition or safety concerns N. 4 steps 88-Not attempted due to medical condition or safety concerns O. 12 steps 88-Not attempted due to medical condition or safety concerns P. Picking up object 88-Not attempted due to medical condition or safety concerns R. Wheel 50 feet with two turns 88-Not attempted due to medical condition or safety concerns S. Wheel 150 feet 88-Not attempted due to medical condition or safety concerns - Bladder and Bowel Bladder continence Bowel continence - Endurance Poor - Balance Fair - Safety Awareness Poor CURRENT FUNC. DEFICITS: Self-Care, Mobility, Endurance, Balance, and Safety Awareness SIGNATURE PANEL: (NETWORK CABLE INSTALLER)
[2020-07-10] MEDS: MELATONIN 3 MG TABLET PO PRN (20:11)
[2020-07-11] MEDS: LEVOTHYROXINE SOD 0.088 MG TAB PO SCH (07:16)
[2020-07-11] MEDS: ARFORMOTEROL TARTRATE 15 MCG/2 ML VIAL.NEB NEB SCH ×2 (07:42→19:35)
[2020-07-11] MEDS: ENSURE ENLIVE 237 ML CAN PO SCH ×2 (08:00→19:32)
[2020-07-11] MEDS: FEXOFENADINE 180 MG TAB PO SCH (08:51)
[2020-07-11] MEDS: FOLIC ACID 1 MG TABLET PO SCH (08:51)
[2020-07-11] MEDS: DOCUSATE NA 100 MG CAP PO SCH (08:51)
[2020-07-11] MEDS: CRANBERRY FRUIT EXTRACT 200 MG CAP PO SCH ×2 (08:51→19:32)
[2020-07-11] MEDS: THIAMINE HCL 100 MG TABLET PO SCH (08:51)
[2020-07-11] MEDS: FERROUS SULFATE 325 MG TAB PO SCH (08:52)
[2020-07-11] MEDS: ACETAMINOPHEN 500 MG TAB PO PRN (08:52)
[2020-07-11] MEDS: FE SULF/FA/VIT B COMP & C TAB PO SCH (08:52)
[2020-07-11] MEDS: GABAPENTIN 100 MG CAP PO SCH ×2 (08:52→19:32)
[2020-07-11] MEDS: ENOXAPARIN 40 MG/0.4 ML SQ SCH (08:53)
[2020-07-11] MEDS: MELATONIN 3 MG TABLET PO PRN (19:32)
[2020-07-12] MEDS: LEVOTHYROXINE SOD 0.088 MG TAB PO SCH (06:28)
[2020-07-12] MEDS: ENOXAPARIN 40 MG/0.4 ML SQ SCH (06:34)
[2020-07-12] MEDS: ENSURE ENLIVE 237 ML CAN PO SCH ×2 (08:00→20:01)
[2020-07-12] MEDS: ACETAMINOPHEN 500 MG TAB PO PRN ×2 (08:21→11:54)
[2020-07-12] MEDS: DOCUSATE NA 100 MG CAP PO SCH (08:22)
[2020-07-12] MEDS: FOLIC ACID 1 MG TABLET PO SCH (08:22)
[2020-07-12] MEDS: GABAPENTIN 100 MG CAP PO SCH ×2 (08:22→20:01)
[2020-07-12] MEDS: FE SULF/FA/VIT B COMP & C TAB PO SCH (08:22)
[2020-07-12] MEDS: CRANBERRY FRUIT EXTRACT 200 MG CAP PO SCH ×2 (08:22→20:00)
[2020-07-12] MEDS: FERROUS SULFATE 325 MG TAB PO SCH (08:23)
[2020-07-12] MEDS: THIAMINE HCL 100 MG TABLET PO SCH (08:23)
[2020-07-12] MEDS: FEXOFENADINE 180 MG TAB PO SCH (08:23)
[2020-07-12] MEDS: ARFORMOTEROL TARTRATE 15 MCG/2 ML VIAL.NEB NEB SCH ×2 (08:43→20:20)
[2020-07-12] MEDS: LIDOCAINE 4% PATCH TOP SCH ×2 (15:02→15:06)
[2020-07-12] MEDS: DOCUSATE NA/SENNA CONC 1 TAB PO PRN (20:01)
[2020-07-12] MEDS: MELATONIN 3 MG TABLET PO PRN (20:01)
[2020-07-12] MEDS: IPRATROPIUM BROM 0.5MG/2.5ML NEB PRN (20:20)
[2020-07-13] MEDS: TRAMADOL HCL 50 MG TAB PO PRN ×2 (01:11→07:41)
--- NOTE | 2020-07-13 02:45 | FAST ---
[employer] FORM SHIFT START DATE/TIME: 07/12/2020 19:00 (TAPPER SHANK) SHIFT END DATE/TIME: 07/13/2020 07:00 (TAPPER SHANK) NAME PATRICK REYNOLDS DATE OF : 1935 DATE OF ADMISSION: 07/05/2020 14:25 (TAPPER SHANK) PHONE: AGE: 84 N# [id number] GENDER: Female ENCOUNTER PHYSICIAN: Dr. Naga David M.D. ADMISSION DIAGNOSIS: - Orthopaedic Disorders 08 - Unilateral Hip Fracture (08.11) RIGHT HIP FRACTURE. EATING: Not assessed/no information CODE: - ORAL HYGIENE: Not assessed/no information CODE: - TOILETING HYGIENE: TOILETING HYGIENE - STEP 1: Does the patient complete the activity by him/herself with no assistance (physical, verbal/nonverbal cueing, setup/clean-up)? No. TOILETING HYGIENE - STEP 2: Does the patient need only setup/clean-up assistance from one helper? No. TOILETING HYGIENE - STEP 3: Does the patient need only verbal/nonverbal cueing or touching/steadying/contact guard assistance fro m one helper? Yes. 1. [id number] ADMISSION PERFORMANCE: Supervision or touching assistance CODE: 04 BATHING: Not assessed/no information CODE: - DRESSING - UPPER BODY: Not assessed/no information CODE: - DRESSING - LOWER BODY: Not assessed/no information CODE: - PUTTING ON/TAKING OFF FOOTWEAR: Not assessed/no information CODE: - ROLL LEFT AND RIGHT: ROLL LEFT AND RIGHT - STEP 1: Does the patient complete the activity by him/herself with no assistance (physical, verbal/nonverbal cueing, setup/clean-up)? No. ROLL LEFT AND RIGHT - STEP 2: Does the patient need only setup/clean-up assistance from one helper? No. ROLL LEFT AND RIGHT - STEP 3: Does the patient need only verbal/nonverbal cueing or touching/steadying/contact guard assistance fro m one helper? Yes. 1. [id number] ADMISSION PERFORMANCE: Supervision or touching assistance CODE: 04 SIT TO LYING: SIT TO LYING - STEP 1: Does the patient complete the activity by him/herself with no assistance (physical, verbal/nonverbal cueing, setup/clean-up)? No. SIT TO LYING - STEP 2: Does the patient need only setup/clean-up assistance from one helper? No. SIT TO LYING - STEP 3: Does the patient need only verbal/nonverbal cueing or touching/steadying/contact guard assistance fro m one helper? Yes. 1. [id number] ADMISSION PERFORMANCE: Supervision or touching assistance CODE: 04 LYING TO SITTING: LYING TO SITTING ON SIDE OF BED - STEP 1: Does the patient complete the activity by him/herself with no assistance (physical, verbal/nonverbal cueing, setup/clean-up)? No. LYING TO SITTING ON SIDE OF BED - STEP 2: Does the patient need only setup/clean-up assistance from one helper? No. LYING TO SITTING ON SIDE OF BED - STEP 3: Does the patient need only verbal/nonverbal cueing or touching/steadying/contact guard assistance fro m one helper? Yes. 1. [id number] ADMISSION PERFORMANCE: Supervision or touching assistance CODE: 04 SIT TO STAND: SIT TO STAND - STEP 1: Does the patient complete the activity by him/herself with no assistance (physical, verbal/nonverbal cueing, setup/clean-up)? No. SIT TO STAND - STEP 2: Does the patient need only setup/clean-up assistance from one helper? No. SIT TO STAND - STEP 3: Does the patient need only verbal/nonverbal cueing or touching/steadying/contact guard assistance fro m one helper? Yes. 1. [id number] ADMISSION PERFORMANCE: Supervision or touching assistance CODE: 04 TRANSFERS: BED, CHAIR: [id number]/[id number] TRANSFER - STEP 1: Does the patient complete the activity by him/herself with no assistance (physical, verbal/nonverbal cueing, setup/clean-up)? No. CHAIR/[id number] TRANSFER - STEP 2: Does the patient need only setup/clean-up assistance from one helper? No. CHAIR/[id number] TRANSFER - STEP 3: Does the patient need only verbal/nonverbal cueing or touching/steadying/contact guard assistance fro m one helper? Yes. 1. [id number] ADMISSION PERFORMANCE: Supervision or touching assistance CODE: 04 TRANSFER TOILET: TOILET TRANSFER - STEP 1: Does the patient complete the activity by him/herself with no assistance (physical, verbal/nonverbal cueing, setup/clean-up)? No. TOILET TRANSFER - STEP 2: Does the patient need only setup/clean-up assistance from one helper? No. TOILET TRANSFER - STEP 3: Does the patient need only verbal/nonverbal cueing or touching/steadying/contact guard assistance fro m one helper? Yes. 1. [id number] ADMISSION PERFORMANCE: Supervision or touching assistance CODE: 04 TRANSFERS: CAR: Not assessed/no information CODE: - WALK 10 FEET: Not assessed/no information CODE: - 1 STEP (CURB): Not assessed/no information CODE: - PICKING UP OBJECT: Not assessed/no information CODE: - DOES THE PATIENT USE A WHEELCHAIR/SCOOTER? CODE: EXPR WHEEL 50 FEET WITH TWO TURNS: Not assessed/no information CODE: - INDICATE THE TYPE OF WHEELCHAIR/SCOOTER USED: CODE: EXPR WHEEL 150 FEET: Not assessed/no information CODE: - INDICATE THE TYPE OF WHEELCHAIR/SCOOTER USED: CODE: EXPR BLADDER AND BOWEL: H350. BLADDER CONTINENCE (3-DAY ASSESSMENT PERIOD): Always continent (no documented incontinence) CODE: 0 H400. BOWEL CONTINENCE (3-DAY ASSESSMENT PERIOD): Always continent CODE: 0
[2020-07-13] MEDS: ALENDRONATE 70 MG TAB PO SCH (05:46)
[2020-07-13] MEDS: ENOXAPARIN 40 MG/0.4 ML SQ SCH (06:44)
[2020-07-13] MEDS: LEVOTHYROXINE SOD 0.088 MG TAB PO SCH (06:44)
[2020-07-13] MEDS: LIDOCAINE 4% PATCH TOP SCH (06:44)
[2020-07-13] MEDS: CRANBERRY FRUIT EXTRACT 200 MG CAP PO SCH ×2 (07:42→20:03)
[2020-07-13] MEDS: DOCUSATE NA 100 MG CAP PO SCH (07:42)
[2020-07-13] MEDS: FOLIC ACID 1 MG TABLET PO SCH (07:42)
[2020-07-13] MEDS: GABAPENTIN 100 MG CAP PO SCH ×2 (07:43→20:03)
[2020-07-13] MEDS: THIAMINE HCL 100 MG TABLET PO SCH (07:43)
[2020-07-13] MEDS: FEXOFENADINE 180 MG TAB PO SCH (07:43)
[2020-07-13] MEDS: ENSURE ENLIVE 237 ML CAN PO SCH ×2 (08:00→20:00)
[2020-07-13] MEDS: FERROUS SULFATE 325 MG TAB PO SCH (08:09)
[2020-07-13] MEDS: FE SULF/FA/VIT B COMP & C TAB PO SCH (08:12)
[2020-07-13] MEDS: ARFORMOTEROL TARTRATE 15 MCG/2 ML VIAL.NEB NEB SCH ×2 (09:28→19:25)
--- NOTE | 2020-07-13 10:29 | FAST ---
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 Naga David M.D. ADMISSION DIAGNOSIS: - Orthopaedic Disorders 08 - Unilateral Hip Fracture (08.11) RIGHT HIP FRACTURE. EATING: EATING - STEP 1: Does the patient complete the activity by him/herself with no assistance (physical, verbal/nonverbal cueing, setup/clean-up)? No. EATING - STEP 2: Does the patient need only setup/clean-up assistance from one helper? Yes. 1. [id number] ADMISSION PERFORMANCE: Setup or clean-up assistance CODE: 05 ORAL HYGIENE: ORAL HYGIENE - STEP 1: Does the patient complete the activity by him/herself with no assistance (physical, verbal/nonverbal cueing, setup/clean-up)? No. ORAL HYGIENE - STEP 2: Does the patient need only setup/clean-up assistance from one helper? Yes. 1. [id number] ADMISSION PERFORMANCE: Setup or clean-up assistance CODE: 05 TOILETING HYGIENE: TOILETING HYGIENE - STEP 1: Does the patient complete the activity by him/herself with no assistance (physical, verbal/nonverbal cueing, setup/clean-up)? No. TOILETING HYGIENE - STEP 2: Does the patient need only setup/clean-up assistance from one helper? Yes. 1. [id number] ADMISSION PERFORMANCE: Setup or clean-up assistance CODE: 05 BATHING: Not assessed/no information CODE: - DRESSING - UPPER BODY: Patient refused CODE: [id number] - COMMENTS: Pt wears only hospital gowns DRESSING - LOWER BODY: Patient refused CODE: [id number] - COMMENTS: Pt wears only hospital gowns PUTTING ON/TAKING OFF FOOTWEAR: FOOTWEAR - STEP 1: Does the patient complete the activity by him/herself with no assistance (physical, verbal/nonverbal cueing, setup/clean-up)? No. FOOTWEAR - STEP 2: Does the patient need only setup/clean-up assistance from one helper? No. FOOTWEAR - STEP 3: Does the patient need only verbal/nonverbal cueing or touching/steadying/contact guard assistance fro m one helper? No. FOOTWEAR - STEP 4: Does the patient need physical assistance - for example lifting or trunk support from one helper - wi th the helper providing less than half of the effort? No. FOOTWEAR - STEP 5: Does the patient need physical assistance - for example lifting or trunk support from one helper - wi th the helper providing more than half of the effort? Yes. 1. [id number] ADMISSION PERFORMANCE: Substantial/maximal assistance CODE: [id number] - COMMENTS: [place] put skid resistance socks on pt feet ROLL LEFT AND RIGHT: ROLL LEFT AND RIGHT - STEP 1: Does the patient complete the activity by him/herself with no assistance (physical, verbal/nonverbal cueing, setup/clean-up)? No. ROLL LEFT AND RIGHT - STEP 2: Does the patient need only setup/clean-up assistance from one helper? No. ROLL LEFT AND RIGHT - STEP 3: Does the patient need only verbal/nonverbal cueing or touching/steadying/contact guard assistance fro m one helper? Yes. 1. [id number] ADMISSION PERFORMANCE: Supervision or touching assistance CODE: 04 SIT TO LYING: SIT TO LYING - STEP 1: Does the patient complete the activity by him/herself with no assistance (physical, verbal/nonverbal cueing, setup/clean-up)? No. SIT TO LYING - STEP 2: Does the patient need only setup/clean-up assistance from one helper? No. SIT TO LYING - STEP 3: Does the patient need only verbal/nonverbal cueing or touching/steadying/contact guard assistance fro m one helper? Yes. 1. [id number] ADMISSION PERFORMANCE: Supervision or touching assistance CODE: 04 LYING TO SITTING: LYING TO SITTING ON SIDE OF BED - STEP 1: Does the patient complete the activity by him/herself with no assistance (physical, verbal/nonverbal cueing, setup/clean-up)? No. LYING TO SITTING ON SIDE OF BED - STEP 2: Does the patient need only setup/clean-up assistance from one helper? Yes. 1. [id number] ADMISSION PERFORMANCE: Setup or clean-up assistance CODE: 05 SIT TO STAND: SIT TO STAND - STEP 1: Does the patient complete the activity by him/herself with no assistance (physical, verbal/nonverbal cueing, setup/clean-up)? No. SIT TO STAND - STEP 2: Does the patient need only setup/clean-up assistance from one helper? Yes. 1. [id number] ADMISSION PERFORMANCE: Setup or clean-up assistance CODE: 05 TRANSFERS: BED, CHAIR: CHAIR/[id number] TRANSFER - STEP 1: Does the patient complete the activity by him/herself with no assistance (physical, verbal/nonverbal cueing, setup/clean-up)? No. CHAIR/[id number] TRANSFER - STEP 2: Does the patient need only setup/clean-up assistance from one helper? Yes. 1. [id number] ADMISSION PERFORMANCE: Setup or clean-up assistance CODE: 05 TRANSFER TOILET: TOILET TRANSFER - STEP 1: Does the patient complete the activity by him/herself with no assistance (physical, verbal/nonverbal cueing, setup/clean-up)? No. TOILET TRANSFER - STEP 2: Does the patient need only setup/clean-up assistance from one helper? Yes. 1. [id number] ADMISSION PERFORMANCE: Setup or clean-up assistance CODE: 05 TRANSFERS: CAR: Not assessed/no information CODE: - WALK 10 FEET: Not assessed/no information CODE: - 1 STEP (CURB): Not assessed/no information CODE: - PICKING UP OBJECT: Not assessed/no information CODE: - DOES THE PATIENT USE A WHEELCHAIR/SCOOTER? Q1. DOES THE PATIENT USE A WHEELCHAIR/SCOOTER?: Yes CODE: 1 WHEEL 50 FEET WITH TWO TURNS: WHEEL 50 FEET WITH TWO TURNS - STEP 1: Does the patient complete the activity by him/herself with no assistance (physical, verbal/nonverbal cueing, setup/clean-up)? No. WHEEL 50 FEET WITH TWO TURNS - STEP 2: Does the patient need only setup/clean-up assistance from one helper? No. WHEEL 50 FEET WITH TWO TURNS - STEP 3: Does the patient need only verbal/nonverbal cueing or touching/steadying/contact guard assistance fro m one helper? Yes. 1. [id number] ADMISSION PERFORMANCE: Supervision or touching assistance CODE: 04 INDICATE THE TYPE OF WHEELCHAIR/SCOOTER USED: RR1. INDICATE THE TYPE OF WHEELCHAIR/SCOOTER USED.: Manual CODE: 1 WHEEL 150 FEET: WHEEL 150 FEET - STEP 1: Does the patient complete the activity by him/herself with no assistance (physical, verbal/nonverbal cueing, setup/clean-up)? No. WHEEL 150 FEET - STEP 2: Does the patient need only setup/clean-up assistance from one helper? No. WHEEL 150 FEET - STEP 3: Does the patient need only verbal/nonverbal cueing or touching/steadying/contact guard assistance fro m one helper? Yes. 1. [id number] ADMISSION PERFORMANCE: Supervision or touching assistance CODE: 04 INDICATE THE TYPE OF WHEELCHAIR/SCOOTER USED: SS1. INDICATE THE TYPE OF WHEELCHAIR/SCOOTER USED.: Manual CODE: 1 BLADDER AND BOWEL: H350. BLADDER CONTINENCE (3-DAY ASSESSMENT PERIOD): Always continent (no documented incontinence) CODE: 0 H400. BOWEL CONTINENCE (3-DAY ASSESSMENT PERIOD): Always continent CODE: 0 SIGNATURE PANEL: The following modified sections: 1. [id number] Admission Performance, 1. [id number] Admission Performance, 1. [id number] Admission Performance, [id number] - Comments:, [id number] - Comments:, [id number] - Comments:, GG01 30F - Comments:, [id number] - Comments:, 1. IE5181a Admission Performance, [id number] - Comments:, 1. GG017 0A Admission Performance, 1. [id number] Admission Performance, 1. TT3886G Admission Performance, 1. GG01 70B Admission Performance, 1. AJ3269F Admission Performance, 1. [id number] Admission Performance, 1. GG0 170E Admission Performance, 1. [id number] Admission Performance, 1. GE2833N Admission Performance, Q1. D oes the patient use a wheelchair/scooter?, 1. SE2684W Admission Performance, RR1. Indicate the type o f wheelchair/scooter used., 1. [id number] Admission Performance, Code, 1. [id number] Admission Performance, Code, SS1. Indicate the type of wheelchair/scooter used., H350. Bladder Continence (3-day assessment period), H400. Bowel Continence (3-day assessment period) were [electronically] signed by Court Price in, C.N.A. on SunJul 13 2020 10:28:20 GMT-0600 (Central Standard Time)
--- NOTE | 2020-07-13 18:26 | R.PN ---
PROGRESS NOTES ENCOUNTER DATE AND TIME: 07/13/2020 18:21 (MOBILE DEVICE ENGINEER) NAME PATRICK REYNOLDS DATE OF : 1935 DATE OF ADMISSION: 07/05/2020 14:25 (MOBILE DEVICE ENGINEER) RIGHT HIP FRACTURECHIEF COMPLAINT: Right hip fracture. SUBJECTIVE: Pt denied any depression. Pt denied any Shortness of Breath. Her blood pressure is low (SBP 90s). Will give NS 1 L at 75 cc per hour and encourage fluid intake. H gb 10.1 after 1 unit of PRBCs. She is on hemocyte plus and ferrous sulfate. Prealbumin 18.6. UA show s trace esterase and WBC 5-10. Ambulated 90' with standby assistance using a rolling walker. O2 sat ranged 100% on 3 L O2 via nasal cannula. VITAL SIGNS Temperature: 97.8 F SBP/DBP: 104/53 Pulse: 78 Resp: 14 MEDICATION ALLERGIES: No Known Drug Allergies (NKDA) ENVIRONMENTAL ALLERGIES: - Substance Allergies None Known - Other Allergies None Known NURSING: - Shower allowing shower - Skin care per protocol PRECAUTIONS: - Posterior Hip Precaution No adduction across midline No external rotation No hip flexion >90 degrees No internal rotation No wheel chair propulsion - Weight Bearing Precaution WBAT right LE ACTIVITIES OOB only with supervision THERAPIES: - Dietary and Nutrition Adequate Nutrition. Nutritional Education. Nutritional Supplements. PHYSICAL EXAM - Gen Alert and awake Lying in bed No apparent distress Oriented to: person, time, and place - Skin No skin breakdown. Normacephalic - Eyes No abnormalities - ENMT No abnormalities - CVS RRR - Chest No abnormalities - Abd Soft - GI Non distended Deferred - No abnormalities - Ext Right hip surgical site has good hemostasis. - MSK 4+/5 weakness in right lower extremity - Neuro 4/5 strength right lower extremity. - Psych No abnormalities ASSESSMENT: Pt. is a 84 yo Right-handed female of unknown race.On 06/23/2020 she was admitted to [facility] with diagnosis RIGHT HIP FRACTURE.Her impairment category is Orthopaedic Disorders 08 - Unil ateral Hip Fracture (.).Pre-morbidly, Pt. was independent/mod-I in Locomotion, Social Cognition, Communication, and Self-Care; and she had good Sphincter Control, Transfers Control, and Balance.Curr ently, she has deficits of Locomotion, Balance, Social Cognition, Transfers Control, Sphincter Contro l, and Communication.Pt. is now referred to [facility] for acute in-patient re habilitation in order to maximize patient's functional independence in activities of daily living, st rength, ROM, and mobility.- Rehab Goal Patient has realistic goal of being discharged at assistance level 7-Ind to reside at Home with Fami ly/Relatives. MDM/PLAN: - Physical Therapy Decreased range of motion - to improve, our physical therapists will perform initial evaluation of p t's status upon admission and devise an individualized program for increasing patient's Range of [place] on. Gait dysfunction - to improve, our physical therapists will perform initial evaluation of pt's statu s upon admission and devise an individualized program for Gait Training, and Wheel Chair mobility Inability to transfer - to improve, our physical therapists will perform initial evaluation of pt's status upon admission and devise an individualized program for Bed mobility Need for home safety evaluation - to improve, our physical therapists will perform initial evaluatio n of pt's status upon admission and devise an individualized program for Home Evaluation Need in caregiver upon discharge - to improve, our physical therapists will perform initial evaluati on of pt's status upon admission and devise an individualized program for Caregiver Training New precaution - to improve, our physical therapists will perform initial evaluation of pt's status upon admission and devise an individualized program for Patient precaution education Poor balance - to improve, our physical therapists will perform initial evaluation of pt's status up on admission and devise an individualized program for Balance Training Weakness - to improve, our physical therapists will perform initial evaluation of pt's status upon a dmission and devise an individualized program for Aquatic Therapy, Neuromuscular Reeducation, and Str engthening Achieving independence - to improve, our physical therapists will perform initial evaluation of pt's status upon admission and devise an individualized program for Community Reintegration Activities - Occupational Therapy Cognitive deficits - to improve, our occupation therapists will perform initial evaluation of pt's s tatus upon admission and devise an individualized program for Cognition - orientation Need for child care lead teacher - to improve, our occupation therapists will perform initial evaluation of pt's status upon admission and devise an individualized program for Caregiver Training Weakness - to improve, our occupation therapists will perform initial evaluation of pt's status upon admission and devise an individualized program for Aquatic Therapy, Balance, Endurance, UE ROM, and UE strengthening - Other See attached MAR (Medication Administration Record) - Anterior Hip Precaution No abduction No active extension No adduction across midline No external rotation No hip flexion >90 degrees No internal rotation - Diet - Liquid Texture Continue Regular - Tube Feed Continue N/A - Diet Type Continue Regular - Posterior Hip Precaution No adduction across midline No external rotation No hip flexion >90 degrees No internal rotation No wheel chair propulsion - Weight Bearing Precaution WBAT right LE - Skin care per protocol - Diet - Solid Texture Continue Regular - Shower allowing shower FUNCTIONAL STATUS: UPDATED AT WEEKLY TEAM CONFERENCE - Bladder Same accident frequency: 7-Ind - No accidents in the past 7 days - Bowel Same accident frequency: 7-Ind - No accidents in the past 7 days - Walking Same score based on distance walked: 0(N/A) Same score based on distance walked: 1(<=50ft) - Wheelchair Same score based on distance traveled: 0(N/A) FUNCTIONAL STATUS: - Self-Care A. Eating Myrna B. Grooming Myrna C. Bathing [place] D. Dressing - Upper [place] E. Dressing - Lower modA F. Toileting modA - Sphincter Control G. Bladder control [place] H. Bowel control [place] - Transfers Control I. Bed/Chair/Wheelchair modA J. Toilet modA K. Tub/Shower modA - Locomotion L. Walk/Wheelchair (B) modA M. Stairs ADNO - Communication N. Comprehension (B) sup O. Expression (B) sup - Social Cognition P. Social Interaction Myrna Q. Problem Solving sup R. Memory [place] - Endurance Poor - Balance Poor - Safety Awareness Fair QI SCORES: - Self-Care A. Eating 03-Partial/moderate assistance B. Oral hygiene 02-Substantial/maximal assistance C. Toileting hygiene 02-Substantial/maximal assistance E. Shower/bathe self 02-Substantial/maximal assistance F. Upper body dressing 03-Partial/moderate assistance G. Lower body dressing 02-Substantial/maximal assistance H. Putting on/taking off footwear 88-Not attempted due to medical condition or safety concerns - Mobility A. Roll left and right 02-Substantial/maximal assistance B. Sit to lying 02-Substantial/maximal assistance C. Lying to sitting on side of bed 02-Substantial/maximal assistance D. Sit to stand 02-Substantial/maximal assistance E. Chair/[id number]-bj-[id number] transfer 02-Substantial/maximal assistance F. Toilet transfer 02-Substantial/maximal assistance G. Car transfer 88-Not attempted due to medical condition or safety concerns I. Walk 10 feet 02-Substantial/maximal assistance J. Walk 50 feet with two turns 88-Not attempted due to medical condition or safety concerns K. Walk 150 feet 88-Not attempted due to medical condition or safety concerns L. Walking 10 feet on uneven surfaces 88-Not attempted due to medical condition or safety concerns M. 1 step (curb) 88-Not attempted due to medical condition or safety concerns N. 4 steps 88-Not attempted due to medical condition or safety concerns O. 12 steps 88-Not attempted due to medical condition or safety concerns P. Picking up object 88-Not attempted due to medical condition or safety concerns R. Wheel 50 feet with two turns 88-Not attempted due to medical condition or safety concerns S. Wheel 150 feet 88-Not attempted due to medical condition or safety concerns - Bladder and Bowel Bladder continence Bowel continence - Endurance Poor - Balance Fair - Safety Awareness Poor CURRENT FUNC. DEFICITS: Self-Care, Mobility, Endurance, Balance, and Safety Awareness SIGNATURE PANEL: (MOBILE DEVICE ENGINEER)
[2020-07-14] MEDS: LEVOTHYROXINE SOD 0.088 MG TAB PO SCH (06:33)
[2020-07-14] MEDS: ENSURE ENLIVE 237 ML CAN PO SCH ×2 (08:00→19:36)
[2020-07-14] MEDS: CRANBERRY FRUIT EXTRACT 200 MG CAP PO SCH ×2 (08:47→19:34)
[2020-07-14] MEDS: LIDOCAINE 4% PATCH TOP SCH (08:47)
[2020-07-14] MEDS: ENOXAPARIN 40 MG/0.4 ML SQ SCH (08:47)
[2020-07-14] MEDS: DOCUSATE NA 100 MG CAP PO SCH (08:48)
[2020-07-14] MEDS: FERROUS SULFATE 325 MG TAB PO SCH (08:48)
[2020-07-14] MEDS: GABAPENTIN 100 MG CAP PO SCH ×2 (08:48→19:34)
[2020-07-14] MEDS: FE SULF/FA/VIT B COMP & C TAB PO SCH (08:48)
[2020-07-14] MEDS: THIAMINE HCL 100 MG TABLET PO SCH (08:48)
[2020-07-14] MEDS: FOLIC ACID 1 MG TABLET PO SCH (08:48)
[2020-07-14] MEDS: ACETAMINOPHEN 500 MG TAB PO PRN (08:49)
[2020-07-14] MEDS: FEXOFENADINE 180 MG TAB PO SCH (08:49)
[2020-07-14] MEDS: ARFORMOTEROL TARTRATE 15 MCG/2 ML VIAL.NEB NEB SCH ×2 (09:25→20:50)
[2020-07-14] MEDS: IPRATROPIUM BROM 0.5MG/2.5ML NEB PRN ×2 (09:25→20:50)
--- NOTE | 2020-07-14 18:17 | R.PN ---
PROGRESS NOTES ENCOUNTER DATE AND TIME: 07/14/2020 18:14 (SOFTWARE ENGINEER) NAME PATRICK REYNOLDS DATE OF : 1935 DATE OF ADMISSION: 07/05/2020 14:25 (SOFTWARE ENGINEER) RIGHT HIP FRACTURECHIEF COMPLAINT: Right hip fracture. SUBJECTIVE: Pt denied any depression. Pt denied any Shortness of Breath. Her blood pressure is low (SBP 90s). Will give NS 1 L at 75 cc per hour and encourage fluid intake. H gb 10.1 after 1 unit of PRBCs. She is on hemocyte plus and ferrous sulfate. Prealbumin 18.6. UA show s trace esterase and WBC 5-10. Ambulated 20' with standby assistance using a rolling walker. On 3 L O2 via nasal cannula. VITAL SIGNS Temperature: 98.7 F SBP/DBP: 108/49 Pulse: 87 Resp: 14 MEDICATION ALLERGIES: No Known Drug Allergies (NKDA) ENVIRONMENTAL ALLERGIES: - Substance Allergies None Known - Other Allergies None Known NURSING: - Shower allowing shower - Skin care per protocol PRECAUTIONS: - Posterior Hip Precaution No adduction across midline No external rotation No hip flexion >90 degrees No internal rotation No wheel chair propulsion - Weight Bearing Precaution WBAT right LE ACTIVITIES OOB only with supervision THERAPIES: - Dietary and Nutrition Adequate Nutrition. Nutritional Education. Nutritional Supplements. PHYSICAL EXAM - Gen Alert and awake Lying in bed No apparent distress Oriented to: person, time, and place - Skin No skin breakdown. Normacephalic - Eyes No abnormalities - ENMT No abnormalities - CVS RRR - Chest No abnormalities - Abd Soft - GI Non distended Deferred - No abnormalities - Ext Right hip surgical site has good hemostasis. - MSK 4+/5 weakness in right lower extremity - Neuro 4/5 strength right lower extremity. - Psych No abnormalities ASSESSMENT: Pt. is a 84 yo Right-handed female of unknown race.On 06/23/2020 she was admitted to [facility] with diagnosis RIGHT HIP FRACTURE.Her impairment category is Orthopaedic Disorders 08 - Unil ateral Hip Fracture (03.09).Pre-morbidly, Pt. was independent/mod-I in Locomotion, Social Cognition, Communication, and Self-Care; and she had good Sphincter Control, Transfers Control, and Balance.Curr ently, she has deficits of Locomotion, Balance, Social Cognition, Transfers Control, Sphincter Contro l, and Communication.Pt. is now referred to [facility] for acute in-patient re habilitation in order to maximize patient's functional independence in activities of daily living, st rength, ROM, and mobility.- Rehab Goal Patient has realistic goal of being discharged at assistance level 7-Ind to reside at Home with Fami ly/Relatives. MDM/PLAN: - Physical Therapy Decreased range of motion - to improve, our physical therapists will perform initial evaluation of p t's status upon admission and devise an individualized program for increasing patient's Range of [place] on. Gait dysfunction - to improve, our physical therapists will perform initial evaluation of pt's statu s upon admission and devise an individualized program for Gait Training, and Wheel Chair mobility Inability to transfer - to improve, our physical therapists will perform initial evaluation of pt's status upon admission and devise an individualized program for Bed mobility Need for home safety evaluation - to improve, our physical therapists will perform initial evaluatio n of pt's status upon admission and devise an individualized program for Home Evaluation Need in caregiver upon discharge - to improve, our physical therapists will perform initial evaluati on of pt's status upon admission and devise an individualized program for Caregiver Training New precaution - to improve, our physical therapists will perform initial evaluation of pt's status upon admission and devise an individualized program for Patient precaution education Poor balance - to improve, our physical therapists will perform initial evaluation of pt's status up on admission and devise an individualized program for Balance Training Weakness - to improve, our physical therapists will perform initial evaluation of pt's status upon a dmission and devise an individualized program for Aquatic Therapy, Neuromuscular Reeducation, and Str engthening Achieving independence - to improve, our physical therapists will perform initial evaluation of pt's status upon admission and devise an individualized program for Community Reintegration Activities - Occupational Therapy Cognitive deficits - to improve, our occupation therapists will perform initial evaluation of pt's s tatus upon admission and devise an individualized program for Cognition - orientation Need for manager intensive care - to improve, our occupation therapists will perform initial evaluation of pt's status upon admission and devise an individualized program for Caregiver Training Weakness - to improve, our occupation therapists will perform initial evaluation of pt's status upon admission and devise an individualized program for Aquatic Therapy, Balance, Endurance, UE ROM, and UE strengthening - Other See attached MAR (Medication Administration Record) - Anterior Hip Precaution No abduction No active extension No adduction across midline No external rotation No hip flexion >90 degrees No internal rotation - Diet - Liquid Texture Continue Regular - Tube Feed Continue N/A - Diet Type Continue Regular - Posterior Hip Precaution No adduction across midline No external rotation No hip flexion >90 degrees No internal rotation No wheel chair propulsion - Weight Bearing Precaution WBAT right LE - Skin care per protocol - Diet - Solid Texture Continue Regular - Shower allowing shower FUNCTIONAL STATUS: UPDATED AT WEEKLY TEAM CONFERENCE - Bladder Same accident frequency: 7-Ind - No accidents in the past 7 days - Bowel Same accident frequency: 7-Ind - No accidents in the past 7 days - Walking Same score based on distance walked: 0(N/A) Same score based on distance walked: 1(<=50ft) - Wheelchair Same score based on distance traveled: 0(N/A) FUNCTIONAL STATUS: - Self-Care A. Eating Myrna B. Grooming Myrna C. Bathing Hiwot D. Dressing - Upper Hiwot E. Dressing - Lower modA F. Toileting modA - Sphincter Control G. Bladder control Hiwot H. Bowel control Hiwot - Transfers Control I. Bed/Chair/Wheelchair modA J. Toilet modA K. Tub/Shower modA - Locomotion L. Walk/Wheelchair (B) modA M. Stairs ADNO - Communication N. Comprehension (B) sup O. Expression (B) sup - Social Cognition P. Social Interaction Myrna Q. Problem Solving sup R. Memory Hiwot - Endurance Poor - Balance Poor - Safety Awareness Fair QI SCORES: - Self-Care A. Eating 03-Partial/moderate assistance B. Oral hygiene 02-Substantial/maximal assistance C. Toileting hygiene 02-Substantial/maximal assistance E. Shower/bathe self 02-Substantial/maximal assistance F. Upper body dressing 03-Partial/moderate assistance G. Lower body dressing 02-Substantial/maximal assistance H. Putting on/taking off footwear 88-Not attempted due to medical condition or safety concerns - Mobility A. Roll left and right 02-Substantial/maximal assistance B. Sit to lying 02-Substantial/maximal assistance C. Lying to sitting on side of bed 02-Substantial/maximal assistance D. Sit to stand 02-Substantial/maximal assistance E. Chair/[id number] transfer 02-Substantial/maximal assistance F. Toilet transfer 02-Substantial/maximal assistance G. Car transfer 88-Not attempted due to medical condition or safety concerns I. Walk 10 feet 02-Substantial/maximal assistance J. Walk 50 feet with two turns 88-Not attempted due to medical condition or safety concerns K. Walk 150 feet 88-Not attempted due to medical condition or safety concerns L. Walking 10 feet on uneven surfaces 88-Not attempted due to medical condition or safety concerns M. 1 step (curb) 88-Not attempted due to medical condition or safety concerns N. 4 steps 88-Not attempted due to medical condition or safety concerns O. 12 steps 88-Not attempted due to medical condition or safety concerns P. Picking up object 88-Not attempted due to medical condition or safety concerns R. Wheel 50 feet with two turns 88-Not attempted due to medical condition or safety concerns S. Wheel 150 feet 88-Not attempted due to medical condition or safety concerns - Bladder and Bowel Bladder continence Bowel continence - Endurance Poor - Balance Fair - Safety Awareness Poor CURRENT FUNC. DEFICITS: Self-Care, Mobility, Endurance, Balance, and Safety Awareness SIGNATURE PANEL: (SOFTWARE ENGINEER)
[2020-07-14] MEDS: MELATONIN 3 MG TABLET PO PRN (19:34)
[2020-07-15 06:19] LABS: Absolute Lymphocytes (CBC) 1.1 K/uL (0.7-4.9); Basophils % 0.5 % (0-1.3); Hematocrit 31.7 % (36.0-45.0); Lymphocytes % 19.2 % (15.3-44.8); MPV 8.7 fL (7.6-11.3); RBC Red Blood Cell Count 4.45 M/uL (3.86-4.86)
[2020-07-15 06:34] LABS: Albumin 2.9 g/dL (3.4-5.0); BUN Blood Urea Nitrogen 14 mg/dL (7-18); Bicarbonate 38 mmol/L (21-32); Glucose Level 94 mg/dL (74-106); Prealbumin 12.6 mg/dL (20-40); Sodium Level 145 mmol/L (136-145)
[2020-07-15] MEDS: FOLIC ACID 1 MG TABLET PO SCH (07:45)
[2020-07-15] MEDS: FEXOFENADINE 180 MG TAB PO SCH (07:45)
[2020-07-15] MEDS: THIAMINE HCL 100 MG TABLET PO SCH (07:45)
[2020-07-15] MEDS: LEVOTHYROXINE SOD 0.088 MG TAB PO SCH (07:45)
[2020-07-15] MEDS: GABAPENTIN 100 MG CAP PO SCH ×2 (07:45→20:01)
[2020-07-15] MEDS: FERROUS SULFATE 325 MG TAB PO SCH (07:45)
[2020-07-15] MEDS: DOCUSATE NA 100 MG CAP PO SCH (07:45)
[2020-07-15] MEDS: LIDOCAINE 4% PATCH TOP SCH (07:46)
[2020-07-15] MEDS: FE SULF/FA/VIT B COMP & C TAB PO SCH (07:46)
[2020-07-15] MEDS: ENOXAPARIN 40 MG/0.4 ML SQ SCH (07:46)
[2020-07-15] MEDS: ENSURE ENLIVE 237 ML CAN PO SCH ×2 (07:46→20:00)
[2020-07-15] MEDS: CRANBERRY FRUIT EXTRACT 200 MG CAP PO SCH ×2 (07:46→20:00)
[2020-07-15] MEDS: IPRATROPIUM BROM 0.5MG/2.5ML NEB PRN (07:47)
[2020-07-15] MEDS: ARFORMOTEROL TARTRATE 15 MCG/2 ML VIAL.NEB NEB SCH ×2 (07:47→19:30)
[2020-07-15 08:33] LABS: Anisocytosis 1+; Blood Morphology Comment NOTED (NOT SEEN); Ovalocytes 2+; Platelet Estimate ADEQ; Target Cells 1+; Teardrop Cell 1+; White Blood Cell Scan OK (OK)
--- NOTE | 2020-07-15 17:14 | R.PN ---
PROGRESS NOTES ENCOUNTER DATE AND TIME: 07/15/2020 17:08 (AIRPLANE COVERER) NAME PATRICK REYNOLDS DATE OF : 1935 DATE OF ADMISSION: 07/05/2020 14:25 (AIRPLANE COVERER) RIGHT HIP FRACTURECHIEF COMPLAINT: Right hip fracture. SUBJECTIVE: Pt denied any depression. Pt denied any Shortness of Breath. Her blood pressure is low (SBP 90s). Will give NS 1 L at 75 cc per hour and encourage fluid intake. H gb 9.8. She had 1 unit of PRBCs. She is on hemocyte plus and ferrous sulfate. Prealbumin 12.6. UA sh ows trace esterase and WBC 5-10. Ambulated 30' with standby assistance using a rolling walker. On 3 L O2 via nasal cannula. VITAL SIGNS Temperature: 97.1 F SBP/DBP: 109/65 Pulse: 95 Resp: 16 MEDICATION ALLERGIES: No Known Drug Allergies (NKDA) ENVIRONMENTAL ALLERGIES: - Substance Allergies None Known - Other Allergies None Known NURSING: - Shower allowing shower - Skin care per protocol PRECAUTIONS: - Posterior Hip Precaution No adduction across midline No external rotation No hip flexion >90 degrees No internal rotation No wheel chair propulsion - Weight Bearing Precaution WBAT right LE ACTIVITIES OOB only with supervision THERAPIES: - Dietary and Nutrition Adequate Nutrition. Nutritional Education. Nutritional Supplements. PHYSICAL EXAM - Gen Alert and awake Lying in bed No apparent distress Oriented to: person, time, and place - Skin No skin breakdown. Normacephalic - Eyes No abnormalities - ENMT No abnormalities - CVS RRR - Chest No abnormalities - Abd Soft - GI Non distended Deferred - No abnormalities - Ext Right hip surgical site has good hemostasis. - MSK 4+/5 weakness in right lower extremity - Neuro 4/5 strength right lower extremity. - Psych No abnormalities ASSESSMENT: Pt. is a 84 yo Right-handed female of unknown race.On 06/23/2020 she was admitted to [facility] with diagnosis RIGHT HIP FRACTURE.Her impairment category is Orthopaedic Disorders 08 - Unil ateral Hip Fracture (.11).Pre-morbidly, Pt. was independent/mod-I in Locomotion, Social Cognition, Communication, and Self-Care; and she had good Sphincter Control, Transfers Control, and Balance.Curr ently, she has deficits of Locomotion, Balance, Social Cognition, Transfers Control, Sphincter Contro l, and Communication.Pt. is now referred to [facility] for acute in-patient re habilitation in order to maximize patient's functional independence in activities of daily living, st rength, ROM, and mobility.- Rehab Goal Patient has realistic goal of being discharged at assistance level 7-Ind to reside at Home with Fami ly/Relatives. MDM/PLAN: - Physical Therapy Decreased range of motion - to improve, our physical therapists will perform initial evaluation of p t's status upon admission and devise an individualized program for increasing patient's Range of [place] on. Gait dysfunction - to improve, our physical therapists will perform initial evaluation of pt's statu s upon admission and devise an individualized program for Gait Training, and Wheel Chair mobility Inability to transfer - to improve, our physical therapists will perform initial evaluation of pt's status upon admission and devise an individualized program for Bed mobility Need for home safety evaluation - to improve, our physical therapists will perform initial evaluatio n of pt's status upon admission and devise an individualized program for Home Evaluation Need in caregiver upon discharge - to improve, our physical therapists will perform initial evaluati on of pt's status upon admission and devise an individualized program for Caregiver Training New precaution - to improve, our physical therapists will perform initial evaluation of pt's status upon admission and devise an individualized program for Patient precaution education Poor balance - to improve, our physical therapists will perform initial evaluation of pt's status up on admission and devise an individualized program for Balance Training Weakness - to improve, our physical therapists will perform initial evaluation of pt's status upon a dmission and devise an individualized program for Aquatic Therapy, Neuromuscular Reeducation, and Str engthening Achieving independence - to improve, our physical therapists will perform initial evaluation of pt's status upon admission and devise an individualized program for Community Reintegration Activities - Occupational Therapy Cognitive deficits - to improve, our occupation therapists will perform initial evaluation of pt's s tatus upon admission and devise an individualized program for Cognition - orientation Need for health care manager - to improve, our occupation therapists will perform initial evaluation of pt's status upon admission and devise an individualized program for Caregiver Training Weakness - to improve, our occupation therapists will perform initial evaluation of pt's status upon admission and devise an individualized program for Aquatic Therapy, Balance, Endurance, UE ROM, and UE strengthening - Other See attached MAR (Medication Administration Record) - Anterior Hip Precaution No abduction No active extension No adduction across midline No external rotation No hip flexion >90 degrees No internal rotation - Diet - Liquid Texture Continue Regular - Tube Feed Continue N/A - Diet Type Continue Regular - Posterior Hip Precaution No adduction across midline No external rotation No hip flexion >90 degrees No internal rotation No wheel chair propulsion - Weight Bearing Precaution WBAT right LE - Skin care per protocol - Diet - Solid Texture Continue Regular - Shower allowing shower FUNCTIONAL STATUS: UPDATED AT WEEKLY TEAM CONFERENCE - Bladder Same accident frequency: 7-Ind - No accidents in the past 7 days - Bowel Same accident frequency: 7-Ind - No accidents in the past 7 days - Walking Same score based on distance walked: 0(N/A) Same score based on distance walked: 1(<=50ft) - Wheelchair Same score based on distance traveled: 0(N/A) FUNCTIONAL STATUS: - Self-Care A. Eating Myrna B. Grooming Myrna C. Bathing Hiwot D. Dressing - Upper Hiwot E. Dressing - Lower modA F. Toileting modA - Sphincter Control G. Bladder control Hiwot H. Bowel control Hiwot - Transfers Control I. Bed/Chair/Wheelchair modA J. Toilet modA K. Tub/Shower modA - Locomotion L. Walk/Wheelchair (B) modA M. Stairs ADNO - Communication N. Comprehension (B) sup O. Expression (B) sup - Social Cognition P. Social Interaction Myrna Q. Problem Solving sup R. Memory Hiwot - Endurance Poor - Balance Poor - Safety Awareness Fair QI SCORES: - Self-Care A. Eating 03-Partial/moderate assistance B. Oral hygiene 02-Substantial/maximal assistance C. Toileting hygiene 02-Substantial/maximal assistance E. Shower/bathe self 02-Substantial/maximal assistance F. Upper body dressing 03-Partial/moderate assistance G. Lower body dressing 02-Substantial/maximal assistance H. Putting on/taking off footwear 88-Not attempted due to medical condition or safety concerns - Mobility A. Roll left and right 02-Substantial/maximal assistance B. Sit to lying 02-Substantial/maximal assistance C. Lying to sitting on side of bed 02-Substantial/maximal assistance D. Sit to stand 02-Substantial/maximal assistance E. Chair/[id number] transfer 02-Substantial/maximal assistance F. Toilet transfer 02-Substantial/maximal assistance G. Car transfer 88-Not attempted due to medical condition or safety concerns I. Walk 10 feet 02-Substantial/maximal assistance J. Walk 50 feet with two turns 88-Not attempted due to medical condition or safety concerns K. Walk 150 feet 88-Not attempted due to medical condition or safety concerns L. Walking 10 feet on uneven surfaces 88-Not attempted due to medical condition or safety concerns M. 1 step (curb) 88-Not attempted due to medical condition or safety concerns N. 4 steps 88-Not attempted due to medical condition or safety concerns O. 12 steps 88-Not attempted due to medical condition or safety concerns P. Picking up object 88-Not attempted due to medical condition or safety concerns R. Wheel 50 feet with two turns 88-Not attempted due to medical condition or safety concerns S. Wheel 150 feet 88-Not attempted due to medical condition or safety concerns - Bladder and Bowel Bladder continence Bowel continence - Endurance Poor - Balance Fair - Safety Awareness Poor CURRENT FUNC. DEFICITS: Self-Care, Mobility, Endurance, Balance, and Safety Awareness SIGNATURE PANEL: (AIRPLANE COVERER)
[2020-07-16] MEDS: LEVOTHYROXINE SOD 0.088 MG TAB PO SCH (06:36)
[2020-07-16] MEDS: ENOXAPARIN 40 MG/0.4 ML SQ SCH (06:41)
[2020-07-16] MEDS: IPRATROPIUM BROM 0.5MG/2.5ML NEB PRN (06:45)
[2020-07-16] MEDS: ARFORMOTEROL TARTRATE 15 MCG/2 ML VIAL.NEB NEB SCH ×2 (07:20→20:40)
[2020-07-16] MEDS: ENSURE ENLIVE 237 ML CAN PO SCH ×2 (08:00→20:00)
[2020-07-16] MEDS: FEXOFENADINE 180 MG TAB PO SCH (08:15)
[2020-07-16] MEDS: THIAMINE HCL 100 MG TABLET PO SCH (08:15)
[2020-07-16] MEDS: DOCUSATE NA 100 MG CAP PO SCH (08:15)
[2020-07-16] MEDS: CRANBERRY FRUIT EXTRACT 200 MG CAP PO SCH ×2 (08:15→20:45)
[2020-07-16] MEDS: LIDOCAINE 4% PATCH TOP SCH (08:16)
[2020-07-16] MEDS: FOLIC ACID 1 MG TABLET PO SCH (08:16)
[2020-07-16] MEDS: GABAPENTIN 100 MG CAP PO SCH ×2 (08:16→20:45)
[2020-07-16] MEDS: FE SULF/FA/VIT B COMP & C TAB PO SCH (08:16)
[2020-07-16] MEDS: FERROUS SULFATE 325 MG TAB PO SCH (08:16)
[2020-07-16] MEDS: TRAMADOL HCL 50 MG TAB PO PRN ×2 (08:17→20:45)
--- NOTE | 2020-07-16 09:42 | P.RH.PN ---
Estimated Length of Stay: 12 Expected Discharge Date: 07/16/20 Discharge Disposition Plan: Home Family Support: Yes Snf Goal: Mobility, Transfers, Self Care Vital Signs: Last Vital Signs Temp 98 F 07/16/20 07:14 Pulse 90 07/16/20 07:14 Resp 16 07/16/20 09:17 BP 125/59 L 07/16/20 07:14 Pulse Ox 94 07/16/20 09:17 Laboratory: Laboratory Last Values WBC 5.6 K/uL (4.3-10.9) D 07/15/20 05:56 RBC 4.45 M/uL (3.86-4.86) 07/15/20 05:56 Hgb 9.8 g/dL (12.0-15.0) L 07/15/20 05:56 Hct 31.7 % (36.0-45.0) L 07/15/20 05:56 MCV 71.2 fL (80-100) L D 07/15/20 05:56 MCH 22.0 pg (27.0-35.0) L 07/15/20 05:56 MCHC 30.9 g/dL (32.0-36.0) L 07/15/20 05:56 RDW 22.0 % (12.1-15.2) H D 07/15/20 05:56 Plt Count 180 K/uL (152-406) 07/15/20 05:56 MPV 8.7 fL (7.6-11.3) D 07/15/20 05:56 Neutrophils % 64.6 % (41.7-73.7) 07/15/20 05:56 Lymphocytes % 19.2 % (15.3-44.8) 07/15/20 05:56 Monocytes % 10.7 % (3.3-12.3) 07/15/20 05:56 Eosinophils % 5.0 % (0-4.4) H 07/15/20 05:56 Basophils % 0.5 % (0-1.3) 07/15/20 05:56 Absolute Neutrophils 3.6 K/uL (1.8-8.0) 07/15/20 05:56 Segmented Neutrophils 65 % (40-80) 07/06/20 05:47 Band Neutrophils 1 % (0-1) 07/06/20 05:47 Lymphocytes 20 % (15-42) 07/06/20 05:47 Absolute Lymphocytes 1.1 K/uL (0.7-4.9) 07/15/20 05:56 Monocytes 12 % (0-10) H 07/06/20 05:47 Absolute Monocytes 0.6 K/uL (0.1-1.3) 07/15/20 05:56 Absolute Eosinophils 0.3 K/uL (0-0.5) 07/15/20 05:56 Absolute Basophils 0.0 K/uL (0-0.5) 07/15/20 05:56 Metamyelocytes 2 % (0-0) H 07/06/20 05:47 Platelet Estimate Adeq 07/15/20 05:56 Hypochromasia 2+ 07/06/20 05:47 Poikilocytosis 1+ 07/06/20 05:47 Basophilic Stippling 2+ 07/06/20 05:47 Anisocytosis 1+ 07/15/20 05:56 Microcytosis 1+ 07/15/20 05:56 Target Cells 1+ 07/15/20 05:56 Tear Drop Cells 1+ 07/15/20 05:56 Ovalocytes 2+ 07/15/20 05:56 Morphology Comment Noted (NOT SEEN) 07/15/20 05:56 Sodium 145 mmol/L (136-145) 07/15/20 05:56 Potassium 4.0 mmol/L (3.5-5.1) 07/15/20 05:56 Chloride 104 mmol/L (98-107) 07/15/20 05:56 Carbon Dioxide 38 mmol/L (21-32) H 07/15/20 05:56 BUN 14 mg/dL (7-18) 07/15/20 05:56 Creatinine 0.38 mg/dL (0.55-1.3) L 07/15/20 05:56 Estimated GFR > 90 mL/min (=/>90) 07/15/20 05:56 Glucose 94 mg/dL (74-106) 07/15/20 05:56 Calcium 8.5 mg/dL (8.5-10.1) 07/15/20 05:56 Magnesium 2.0 mg/dL (1.8-2.4) 07/15/20 05:56 Albumin 2.9 g/dL (3.4-5.0) L 07/15/20 05:56 Prealbumin 12.6 mg/dL (20-40) L 07/15/20 05:56 Urine Color Yellow 07/05/20 20:25 Urine Appearance Clear 07/05/20 20:25 Urine pH 6.5 (5.0-7.0) 07/05/20 20:25 Ur Specific Edna 1.020 (1.005-1.030) 07/05/20 20:25 Glucose (UA)(Auto) Negative (NEG) 07/05/20 20:25 Urine Ketones Negative (NEG) 07/05/20 20:25 Urine Blood Negative (NEG) 07/05/20 20:25 Urine Nitrite Negative (NEG) 07/05/20 20:25 Urine Bilirubin Negative (NEG) 07/05/20 20:25 Urine Urobilinogen 0.2 mg/dL (0.2-1.0) 07/05/20 20:25 Ur Leukocyte Esterase Trace (NEG) H 07/05/20 20:25 Urine RBC <5 /HPF (NONE SEEN) 07/05/20 20:25 Urine WBC 5-10 /HPF (<5) H 07/05/20 20:25 Ur Squamous Epith Cells <5 /HPF (NONE SEEN) 07/05/20 20:25 Urine Bacteria <20 /HPF (<20) 07/05/20 20:25 Urine Mucus 1+ /HPF (NONE SEEN) 07/05/20 20:25 Urine Culture Reflexed Not needed 07/05/20 20:25 Urine Total Protein Negative (NEG) 07/05/20 20:25 Smear Scan Ok (OK) 07/15/20 05:56 ABO/Rh O NEGATIVE 07/09/20 13:06 Solid Phase Ab Screen Negative 07/09/20 13:06 Crossmatch See Detail 07/09/20 13:06 Weight: 98 lb 5 oz Wound Present: No Closed Surgical Incision Present: Yes Negative Pressure Wound Therapy Present: No Physician Update: Labs reviewed and are stable. She did well with physical and occupational therapy. She is will be discharged home today. She will have [facility] for continued PT and OP. Functional Improvement: Patient is currently CG/SBA w/ gait and w/ SBA w/ transfers and WC mobs. Patient continues to require for motivation and encouragement to continue w/ therapy. Summary: Patient's care plan and residential goals have been reviewed and revised as necessary. Please see the Rehabilitation Signature page for all necessary signatures.
[2020-07-17 05:18] VITALS: BMI 16.9
[2020-07-17] MEDS: LEVOTHYROXINE SOD 0.088 MG TAB PO SCH (06:56)
[2020-07-17 07:37] VITALS: BP 116/45; TEMP 97.6
[2020-07-17] MEDS: ENOXAPARIN 40 MG/0.4 ML SQ SCH ×2 (08:00→08:14)
[2020-07-17] MEDS: ENSURE ENLIVE 237 ML CAN PO SCH (08:00)
[2020-07-17] MEDS: LIDOCAINE 4% PATCH TOP SCH (08:14)
[2020-07-17] MEDS: DOCUSATE NA 100 MG CAP PO SCH (08:15)
[2020-07-17] MEDS: CRANBERRY FRUIT EXTRACT 200 MG CAP PO SCH (08:15)
[2020-07-17] MEDS: GABAPENTIN 100 MG CAP PO SCH (08:15)
[2020-07-17] MEDS: FE SULF/FA/VIT B COMP & C TAB PO SCH (08:16)
[2020-07-17] MEDS: THIAMINE HCL 100 MG TABLET PO SCH (08:16)
[2020-07-17] MEDS: FOLIC ACID 1 MG TABLET PO SCH (08:16)
[2020-07-17] MEDS: FERROUS SULFATE 325 MG TAB PO SCH (08:16)
[2020-07-17] MEDS: FEXOFENADINE 180 MG TAB PO SCH (08:16)
[2020-07-17] MEDS: ACETAMINOPHEN 500 MG TAB PO PRN (08:17)
[2020-07-17] MEDS: ARFORMOTEROL TARTRATE 15 MCG/2 ML VIAL.NEB NEB SCH (08:48)
[2020-07-17 19:16] VITALS: O2SAT 91
--- NOTE | 2020-08-13 16:45 | R.DS ---
DISCHARGE SUMMARY FACILITY [facility] MR# [id number] NAME PATRICK REYNOLDS ADDRESS [address] [place] [address] [id number] PHONE DATE OF 1935 AGE 84 SSN# [id number] GENDER Female DEXTERITY Right-handed MARITAL STATUS Single (Never ) RACE Unknown race ENCOUNTER PHYSICIAN Dr. Naga David M.D. REFERRING DOCTOR REFERRING FACILITY [facility] DISCHARGE DIAGNOSIS: - Orthopaedic Disorders 08 - Unilateral Hip Fracture (08.11) RIGHT HIP FRACTURE. DATE OF ADMISSION 07/05/2020 14:25 (SENIOR NET APPLICATION DEVELOPER) MEDICATION ALLERGIES: No Known Drug Allergies (NKDA) ENVIRONMENTAL ALLERGIES: - Substance Allergies None Known - Other Allergies None Known DISCHARGE MEDICATIONS: Other- ContinueSee attached MAR (Medication Administration Record). NURSING: - Shower allowing shower - Skin care per protocol PRECAUTIONS: - Posterior Hip Precaution No adduction across midline No external rotation No hip flexion >90 degrees No internal rotation No wheel chair propulsion - Weight Bearing Precaution WBAT right LE ACTIVITIES OOB only with supervision THERAPIES: - Dietary and Nutrition Adequate Nutrition Nutritional Education Nutritional Supplements HISTORY OF PRESENT ILLNESS: Pt. is a 84 yo Right-handed female of unknown race.On 06/23/2020 she was admitted to [facility] with diagnosis RIGHT HIP FRACTURE.Her impairment category is Orthopaedic Disorders 08 - Unil ateral Hip Fracture (11).Pre-morbidly, Pt. was independent/mod-I in Locomotion, Social Cognition, Communication, and Self-Care; and she had good Sphincter Control, Transfers Control, and Balance.Curr ently, she has deficits of Locomotion, Balance, Social Cognition, Transfers Control, Sphincter Contro l, and Communication.Pt. is now referred to [facility] for acute in-patient re habilitation in order to maximize patient's functional independence in activities of daily living, st rength, ROM, and mobility.- Rehab Goal Patient has realistic goal of being discharged at assistance level 7-Ind to reside at Home with Fami ly/Relatives. Story attached in clincal documentationHOSPITAL COURSE: ANTERIOR HIP PRECAUTION: On 07/06/2020 the following precautions were added for the patient: Anterior Hip Precaution - No abd uction, Anterior Hip Precaution - No active extension, Anterior Hip Precaution - No adduction acros s midline, Anterior Hip Precaution - No external rotation, Anterior Hip Precaution - No hip flexion >90 degrees, and Anterior Hip Precaution - No internal rotation. On 07/07/2020 the following precautions were removed for the patient: Anterior Hip Precaution - No a bduction, Anterior Hip Precaution - No active extension, Anterior Hip Precaution - No adduction acr oss midline, Anterior Hip Precaution - No external rotation, Anterior Hip Precaution - No hip flexi on >90 degrees, and Anterior Hip Precaution - No internal rotation. The following precautions were added for the patient: Anterior Hip Precaution - No abduction, Anterio r Hip Precaution - No active extension, Anterior Hip Precaution - No adduction across midline, Anteri or Hip Precaution - No external rotation, Anterior Hip Precaution - No hip flexion >90 degrees, and A nterior Hip Precaution - No internal rotation. On 07/08/2020 the following precautions were removed for the patient: Anterior Hip Precaution - No ab duction, Anterior Hip Precaution - No active extension, Anterior Hip Precaution - No adduction across midline, Anterior Hip Precaution - No external rotation, Anterior Hip Precaution - No hip flexion >9 0 degrees, and Anterior Hip Precaution - No internal rotation. The following precautions were added for the patient: Anterior Hip Precaution - No abduction, Anteri or Hip Precaution - No active extension, Anterior Hip Precaution - No adduction across midline, Ant erior Hip Precaution - No external rotation, Anterior Hip Precaution - No hip flexion >90 degrees, and Anterior Hip Precaution - No internal rotation. The following precautions were removed for the patient: Anterior Hip Precaution - No abduction, Ante rior Hip Precaution - No active extension, Anterior Hip Precaution - No adduction across midline, A nterior Hip Precaution - No external rotation, Anterior Hip Precaution - No hip flexion >90 degrees , and Anterior Hip Precaution - No internal rotation. On 07/05/2020 the following precautions were added for the patient: Posterior Hip Precaution - No int ernal rotation, Posterior Hip Precaution - No adduction across midline, Posterior Hip Precaution - No hip flexion >90 degrees, Posterior Hip Precaution - No wheel chair propulsion, and Posterior Hip Pre caution - No external rotation. On 07/07/2020 the following precautions were added for the patient: Posterior Hip Precaution - No ad duction across midline, Posterior Hip Precaution - No external rotation, Posterior Hip Precaution - No hip flexion >90 degrees, Posterior Hip Precaution - No internal rotation, and Posterior Hip Prec aution - No wheel chair propulsion. The following precautions were removed for the patient: Posterior Hip Precaution - No adduction acros s midline, Posterior Hip Precaution - No external rotation, Posterior Hip Precaution - No hip flexion >90 degrees, Posterior Hip Precaution - No internal rotation, Posterior Hip Precaution - No wheel ch air propulsion, Posterior Hip Precaution - No adduction across midline, Posterior Hip Precaution - No external rotation, Posterior Hip Precaution - No hip flexion >90 degrees, Posterior Hip Precautio n - No internal rotation, and Posterior Hip Precaution - No wheel chair propulsion. On 07/05/2020 the following precautions were added for the patient: Weight Bearing Precaution - WBAT right LE. On 07/06/2020 the following precautions were added for the patient: Weight Bearing Precaution - WBAT right LE. On 07/07/2020 the following precautions were removed for the patient: Weight Bearing Precaution - WB AT right LE. On 07/08/2020 the following precautions were added for the patient: Weight Bearing Precaution - WBAT right LE. DIET - LIQUID TEXTURE: On 07/05/2020 Pt was upgraded to Regular Diet - Liquid Texture. DIET - SOLID TEXTURE: On 07/05/2020 Pt was upgraded to Regular Diet - Solid Texture. DIET TYPE: On 07/05/2020 Pt was upgraded to Regular Diet Type. POSTERIOR HIP PRECAUTION: TUBE FEED: On 07/05/2020 Pt was changed to N/A Tube Feed. WEIGHT BEARING PRECAUTION: DISCHARGE PHYSICAL EXAM - Gen Alert and awake Lying in bed No apparent distress Oriented to: person, time, and place - Skin No skin breakdown. Normacephalic - Eyes No abnormalities - ENMT No abnormalities - CVS RRR - Chest No abnormalities - Abd Soft - GI Non distended Deferred - No abnormalities - Ext Right hip surgical site has good hemostasis. - MSK 4+/5 weakness in right lower extremity - Neuro 4/5 strength right lower extremity. - Psych No abnormalities FUNCTIONAL STATUS: - Self-Care A. Eating 6-Myrna B. Grooming 6-Myrna C. Bathing 5-sup D. Dressing - Upper 5-sup E. Dressing - Lower 5-sup F. Toileting 5-sup - Sphincter Control G. Bladder control 5-sup H. Bowel control 5-sup - Transfers Control I. Bed/Chair/Wheelchair 5-sup J. Toilet 5-sup K. Tub/Shower 5-sup - Locomotion L. Walk/Wheelchair (B) 5-sup M. Stairs 0-ADNO - Communication N. Comprehension (B) 5-sup O. Expression (B) 5-sup - Social Cognition P. Social Interaction 6-Myrna Q. Problem Solving 5-sup R. Memory 5-sup - Endurance Fair - Balance Fair - Safety Awareness Fair QI SCORES: - Self-Care A. Eating 03-Partial/moderate assistance B. Oral hygiene 02-Substantial/maximal assistance C. Toileting hygiene 02-Substantial/maximal assistance E. Shower/bathe self 02-Substantial/maximal assistance F. Upper body dressing 03-Partial/moderate assistance G. Lower body dressing 02-Substantial/maximal assistance H. Putting on/taking off footwear 88-Not attempted due to medical condition or safety concerns - Mobility A. Roll left and right 02-Substantial/maximal assistance B. Sit to lying 02-Substantial/maximal assistance C. Lying to sitting on side of bed 02-Substantial/maximal assistance D. Sit to stand 02-Substantial/maximal assistance E. Chair/hug-sv-yynmh transfer 02-Substantial/maximal assistance F. Toilet transfer 02-Substantial/maximal assistance G. Car transfer 88-Not attempted due to medical condition or safety concerns I. Walk 10 feet 02-Substantial/maximal assistance J. Walk 50 feet with two turns 88-Not attempted due to medical condition or safety concerns K. Walk 150 feet 88-Not attempted due to medical condition or safety concerns L. Walking 10 feet on uneven surfaces 88-Not attempted due to medical condition or safety concerns M. 1 step (curb) 88-Not attempted due to medical condition or safety concerns N. 4 steps 88-Not attempted due to medical condition or safety concerns O. 12 steps 88-Not attempted due to medical condition or safety concerns P. Picking up object 88-Not attempted due to medical condition or safety concerns R. Wheel 50 feet with two turns 88-Not attempted due to medical condition or safety concerns S. Wheel 150 feet 88-Not attempted due to medical condition or safety concerns - Bladder and Bowel Bladder continence Bowel continence - Endurance Poor - Balance Fair - Safety Awareness Poor DISCHARGE INSTRUCTIONS: - N/A Lovenox 40 mg sq daily. DISCHARGE PLAN, FOLLOW UP CARE PROVISIONS: - Estimated Length of Stay (days) 14. - Consensus on plan Discharge plan has been discussed with primary caregiver. Patient/Family is in agreement with the han n. Primary caregiver is in agreement with the plan. - Patient/Family Goals Return home independently. - Planned Living Setting Upon Discharge Home, to live with Family/Relatives. Transitional Living. SIGNATURE PANEL: (SENIOR NET APPLICATION DEVELOPER)
== END 2020-07-17 11:05 | disposition home health service (06) | DRG 561 ==
LOC: 5TH 07-05 14:25
PROVIDERS: ADMIT Psychiatry & Neurology Neurology with Special Qualifications in Child Neurology; ATTEND Psychiatry & Neurology Neurology with Special Qualifications in Child Neurology
PROC: 30233N1 Transfusion of Nonautologous Red Blood Cells into Peripheral Vein, Percutaneous Approach (ICD-10-PCS; principal; 2020-07-09)
DX: S72.001D Fracture of unspecified part of neck of right femur, subsequent encounter for closed fracture with routine healing (principal); J44.9 Chronic obstructive pulmonary disease, unspecified; D64.9 Anemia, unspecified; Z20.828 Contact with and (suspected) exposure to other viral communicable diseases; Z23 Encounter for immunization
CPT/HCPCS: 36415; 80048; 81001; 82040; 83735; 84134; 85014; 85018; 85025; 86850; 86900; 86901; 87077; 87086; 87088; 87186; 94010; 97110; 97116; 97162; 97530; 97535; 97542; J1650; J7030; J7050; J7605; P9016; U0002

== ENCOUNTER 2022-04-07 18:44 | Inpatient (IN) | payer OTHER ==
[2022-04-07] MEDS ORDERED: NA CHLORIDE 0.9% 1,000 ML ONE ×2 (19:34→23:24)
[2022-04-07 21:06] LABS: Absolute Lymphocytes (CBC) 0.3 K/uL (0.7-4.9); Lymphocytes % 1.5 % (15.3-44.8); MCV 66.7 fL (80-100); MPV 8.7 fL (7.6-11.3); RBC Red Blood Cell Count 6.01 M/uL (3.86-4.86)
[2022-04-07 21:13] LABS: Protime INR 1.19
[2022-04-07 21:24] LABS: Albumin 3.5 g/dL (3.4-5.0); Bilirubin Total 0.6 mg/dL (0.2-1.0); Potassium 3.7 mmol/L (3.5-5.1); Protein, Total 7.7 g/dL (6.4-8.2)
--- NOTE | 2022-04-07 21:58 | RAD REPORT ---
EXAM DESCRIPTION: Tonny Single View04/07/2022 7:57 pm CLINICAL HISTORY: tachypnea COMPARISON: 2019 FINDINGS: Prominent opacity overlies the right side of the heart. Lungs otherwise appear clear of ac ricky infiltrate. Lungs are hyperaerated. The lungs appear clear of acute infiltrate. The heart is normal size IMPRESSION: COPD Prominent opacity overlies the right side of the heart. On a CT chest 2019 there was no hiatal hernia . It is uncertain if this represents confluence of normal structures or a mass. CT chest is recommend ed.
[2022-04-07 22:14] LABS: White Blood Cell Scan OK (OK)
[2022-04-07 22:15] LABS: Blood Morphology Comment NOTED (NOT SEEN); Hypochromasia 1+; Platelet Estimate ADEQ
[2022-04-07 22:20] LABS: Urine Blood 1+ (Negative); Urine Glucose Negative (Negative); Urine Protein 2+ (Negative); Urine Specific Gravity >=1.030 (1.005-1.030)
--- NOTE | 2022-04-07 22:31 | EDPHYS ---
Physician Documentation [facility] Name: Demetrice Bedolla Age: 86 yrs Sex: Female : 1935 Arrival Date: 04/07/2022 Time: 18:48 Bed 8 Private MD: ED Physician Pj Sierra HPI: 04/07 19:28 This 86 yrs old Female presents to ER via EMS with complaints of generalized rn weakness. 19:28 Caregiver reports generalized weakness, not eating or drinking much for 2 weeks, no rn fever, no vomiting, + loose stool. No fall or trauma. EMS reported tachycardia, they believed to by Afib with RVR, given metoprolol prior to arrival, sinus tachycardia when arrived here. . Onset: The symptoms/episode began/occurred 2 week(s) ago. Severity of symptoms: At their worst the symptoms were moderate in the emergency department the symptoms are unchanged. The patient has not experienced similar symptoms in the past. The patient has not recently seen a physician. Historical: - Allergies: 04/08 12:14 Augmentin; jl7 - Home Meds: 12:14 levothyroxine 75 mcg oral tab once daily [Active]; Vitamin D Oral [Active]; furosemide jl7 20 mg Oral tab 1 tab once daily [Active]; alendronate 70 mg oral tab 1 tab once wkly [Active]; Trelegy Ellipta 100-62.5-25 mcg inhalation dsdv 1 puff once daily [Active]; - PMHx: 04/07 19:02 COPD; Hypothyroidism; thalassemia; jl7 04/08 12:17 Atrial fibrillation; Congestive heart failure; Recurrent UTI; jl7 - PSHx: 12:14 Right hip; jl7 - Immunization history:: Adult Immunizations unknown. - Social history:: Smoking status: unknown. - Family history:: not pertinent. - Hospitalizations: : No recent hospitalization is reported. ROS: 04/07 19:28 Constitutional: Negative for fever, chills, and weight loss, Eyes: Negative for injury, rn pain, redness, and discharge, Neck: Negative for injury, pain, and swelling, Cardiovascular: Negative for chest pain, palpitations, and edema, Respiratory: Negative for shortness of breath, cough, wheezing, and pleuritic chest pain, Abdomen/GI: Negative for abdominal pain, nausea, vomiting, and constipation Back: Negative for injury and pain, : Negative for injury, bleeding, discharge, and swelling, MS/Extremity: Negative for injury and deformity, Skin: Negative for injury, rash, and discoloration, Neuro: Negative for headache, numbness, tingling, and seizure. Exam: 19:28 Constitutional: Thin, cachectic female, somnolent, but awakens to voice and tactile rn stimulation Head/Face: Normocephalic, atraumatic. Eyes: Sunken eyes. Periorbital areas with no swelling, redness, or edema. ENT: very dry MM Cardiovascular: Tachycardic, regular Respiratory: + mild tachypnea Abdomen/GI: scaphoid abdomen, no focal tenderness, no masses Skin: Warm, dry MS/ Extremity: Pulses equal, no cyanosis. Neuro: Somnolent, awakens to voice and touch, moves all 4 extremities with 4/5 strength. 19:40 ECG was reviewed by the Attending Physician. rn Vital Signs: 18:56 BP 80 / 56; Pulse 116; Resp 18 S; Temp 97.1; Pulse Ox 95% on 4 lpm NC; jl7 19:18 Weight 36 kg; ke1 19:41 BP 92 / 65; Pulse 121; Resp 28; Pulse Ox 100% on 3 lpm NC; Pain 0/10; ke1 20:19 BP 103 / 71; Pulse 115; Resp 23; Pulse Ox 100% on 3 lpm NC; Pain 0/10; ke1 21:29 BP 111 / 62; Pulse 115; Resp 22; Pulse Ox 100% on 3 lpm NC; ke1 22:40 BP 91 / 61; Pulse 108; Resp 20; Pulse Ox 100% on NC; ke1 23:05 BP 104 / 82; Pulse 180; Resp 21; Pulse Ox 100% on 3 lpm NC; ke1 23:32 BP 92 / 78; Pulse 170; Resp 22; Pulse Ox 100% ; ke1 23:43 BP 125 / 76; Pulse 154; Resp 22; ke1 0910 00:55 BP 98 / 84; Pulse 118; Resp 22; Pulse Ox 100% on 3 lpm NC; ke1 04:46 BP 82 / 48; Pulse 97; Resp 23; Pulse Ox 100% ; ke1 05:55 BP 110 / 59; ke1 06:00 BP 124 / 52; ke1 06:15 BP 140 / 99; ke1 06:21 BP 140 / 99; Pulse 89; Resp 26; Pulse Ox 98% on 4 lpm NC; Pain 0/10; ke1 MDM: 04/07 18:59 Patient medically screened. rn 21:16 ED course: Pt at this time without a source of infection, has multiple SIRS criteria rn but no source. . 22:27 ED course: Pt now meets severe sepsis criteria: Source (A) is UTI; SIRS (B) is rn tachypnea and tachycardia as well as elevated WBC; end organ dysfunction (C) would be 1 systolic BP < 90. Normal lactate and does not currently meet criteria for septic shock. Will admit to hospitalist service.. 22:28 Differential Diagnosis sepsis, flu, dehydration, hypernatremia, UTI, sepsis. Data rn reviewed: vital signs, nurses notes, lab test result(s), EKG, radiologic studies, plain films, and as a result, I will admit patient. Counseling: I had a detailed discussion with the patient and/or guardian regarding: the historical points, exam findings, and any diagnostic results supporting the discharge/admit diagnosis, lab results, radiology results, the need for further work-up and treatment in the hospital. Response to treatment: the patient's symptoms have mildly improved after treatment, and as a result, I will admit patient. Admission orders: after a detailed discussion of the patient's condition and case, the admit orders are written by me. 04/08 03:18 ED course: CT chest obtained given recommendation on CXR, incidentally found fluid rn filled esophagus, had just been given some water to drink, was coughing, and then went into afib with rvr. Caregiver reported chronic problems eating/drinking, and this does not seem to be new problem. Will keep NPO until swallow eval.. 03:22 ED course: Pt has combination of severe sepsis and afib with RVR, also given metoprolol rn by EMS. Pt is hypotensive, but likely 2/2 combination of afib and sepsis. Given 30 ml/kg bolus, normal lactate. Current MAP > 65, will continue to observe closely. Sepsis reevaluation complete. . 05:22 ED course: Pt now has met severe sepsis with shock criteria, has had 2 BP with SBP < rn 90. Charge nurse placed midline catheter that can support pressors, will start on levophed. Has already completed 30ml/kg bolus. Sepsis reevaluation complete. . 04/07 19:08 Order name: Blood Culture Adult (2); Complete Time: 21:46 rn 04/07 19:08 Order name: CBC with Diff; Complete Time: 22:25 rn 04/07 19:08 Order name: CMP; Complete Time: 21:33 rn 04/07 19:08 Order name: Lactate; Complete Time: 21:15 rn 04/07 19:08 Order name: Protime (+inr); Complete Time: 21:15 rn 04/07 19:08 Order name: Ptt, Activated; Complete Time: 21:15 rn 04/07 19:08 Order name: Urine Culture rn 04/07 19:08 Order name: Urine Microscopic Only; Complete Time: 22:58 rn 04/07 19:08 Order name: SARS-COV-2 RT PCR (Document "Date of Onset" if Symptomatic); Complete Time: rn 20:55 04/07 19:08 Order name: Flu; Complete Time: 20:55 rn 04/07 19:08 Order name: BNP; Complete Time: 21:33 rn 04/07 22:15 Order name: CBC Smear Scan; Complete Time: 22:25 EDMS 04/07 22:21 Order name: Urine Dipstick-Ancillary; Complete Time: 22:25 EDMS 04/07 22:43 Order name: Glucose, Ancillary Testing; Complete Time: 22:58 EDMS 04/08 05:41 Order name: CBC with Automated Diff; Complete Time: 09:19 EDMS 04/08 06:09 Order name: Basic Metabolic Panel; Complete Time: 09:19 EDMS 04/08 06:09 Order name: Uric Acid; Complete Time: 09:19 EDMS 04/08 06:09 Order name: Phosphorus; Complete Time: 09:19 EDMS 04/08 06:09 Order name: Lipid Profile; Complete Time: 09:19 EDMS 04/08 06:09 Order name: T4 Free; Complete Time: 09:19 EDMS 04/08 06:09 Order name: Magnesium; Complete Time: 09:19 EDMS 04/08 06:09 Order name: Thyroid Stimulating Hormone; Complete Time: 09:19 EDMS 04/08 11:29 Order name: Urinalysis; Complete Time: 20:27 EDMS 04/08 11:33 Order name: UR CREAT; Complete Time: 20:27 [facility] 04/08 11:52 Order name: UR SODIUM; Complete Time: 20:27 [facility] 04/08 11:52 Order name: UR POTASSIUM; Complete Time: 20:27 [facility] 04/08 12:25 Order name: Osmolality, Serum; Complete Time: 20:27 [facility] 04/08 12:27 Order name: Osmolality, Urine; Complete Time: 20:27 [facility] 04/08 17:54 Order name: Basic Metabolic Panel; Complete Time: 20:27 [facility] 04/08 21:48 Order name: Basic Metabolic Panel; Complete Time: 21:48 [facility] 04/07 19:08 Order name: Accucheck; Complete Time: 22:31 rn 04/07 19:08 Order name: Cardiac monitoring; Complete Time: 19:50 rn 04/07 19:08 Order name: Cath; Complete Time: 22:23 rn 04/07 19:08 Order name: EKG - Nurse/Tech; Complete Time: 19:50 rn 04/07 19:08 Order name: IV Saline Lock - Large Bore; Complete Time: 22:23 rn 04/07 19:08 Order name: Labs collected and sent; Complete Time: 21:15 rn 04/07 19:08 Order name: O2 Per Protocol; Complete Time: 19:40 rn 04/07 19:08 Order name: O2 Sat Monitoring; Complete Time: 19:40 rn 04/07 19:08 Order name: Urine Dipstick-Ancillary (obtain specimen); Complete Time: 22:31 rn 04/07 19:32 Order name: Chest Single View; Complete Time: 22:05 [facility] 04/07 21:30 Order name: Straight Cath - Urine; Complete Time: 22:23 [facility] 04/07 22:06 Order name: CT Chest Wo Con rn EC/09 19:40 Rate is 102 beats/min. Rhythm is regular. QRS [place] is Normal. RI interval is normal. rn QRS interval is normal. QT interval is normal. No Q waves. T waves are Normal. No ST changes noted. Clinical impression: Sinus tachycardia. Interpreted by me. Reviewed by me. Administered Medications: 19:08 CANCELLED (Duplicate Order): NS 0.9% 1000 ml IV at 1000 ml once rn 19:30 Drug: NS 0.9% (20 ml/kg) 20 ml/kg Route: IV; Rate: 1 bolus; Site: left antecubital; ke1 22:39 Drug: Rocephin (cefTRIAXone) 1 grams Route: IV; Rate: calculated rate; Site: left [facility] antecubital; 23:19 Drug: Digoxin 0.25 mg Route: IVP; Site: left antecubital; ke1 23:21 Not Given (Physician Discretion): NS 0.9% 1 ml/kg IV at 1 bolus Per protocol ke1 23:22 Drug: NS 0.9% (30 ml/kg) 10 ml/kg Route: IV; Rate: bolus; Site: left antecubital; ke1 04/08 00:00 Follow up: IV Status: Completed infusion ke1 00:00 Drug: amiodarone 150 mg Volume: 100 ml; Route: IVPB; Infused Over: 10 mins; Site: left [facility] antecubital; 00:10 Follow up: Response: Cardiac rhythm is unchanged; IV Status: Completed infusion ke1 00:20 Drug: amiodarone 900 mg, D5W 500 ml Route: IVPB; Rate: 1 mg/min; Site: left antecubital;ke1 00:20 Follow up: Rate change 1 mg/min ke1 06:20 Follow up: Response: No adverse reaction; IV Status: Infusion continued upon admission ke1 07:15 Follow up: Rate change 0.5 mg/min ke1 04:16 Drug: D5-1/2 NS with KCl 20 mEq/L 1000 ml Route: IV; Rate: 100 ml/hr; Site: left [facility] antecubital; 06:00 Follow up: Response: No adverse reaction; IV Status: Infusion continued upon admission ke1 05:50 Drug: Levophed (norepinephrine) 0.1 mcg/kg/min {Note: 100/49.} Route: IV; Rate: ke1 calculated rate; Site: right forearm; 05:50 Follow up: Rate change 0.05 mcg/kg/min ke1 05:55 Follow up: BP 110 / 59 ke1 06:00 Follow up: BP 124 / 52; Response: No adverse reaction; IV Status: Infusion continued ke1 upon admission 06:15 Follow up: BP 140 / 99 ke1 Disposition Summary: 04/07/22 22:30 Hospitalization Ordered Hospitalization Status: Inpatient Admission rn Provider: Baidoo, Fuad rn Condition: Stable rn Problem: new rn Symptoms: have improved rn Bed/Room Type: Standard rn Location: Intensive Care Unit(04/08/22 20:14) dw Room Assignment: 3-(04/08/22 20:14) dw Diagnosis - UTI/ Urinary tract infection, site not specified rn - Hyperosmolality and hypernatremia rn - Dehydration rn - Unspecified atrial fibrillation rn - Severe sepsis with septic shock rn Forms: - Medication Reconciliation Form rn - SBAR form learning analyst time excluding procedures: 05:30 Critical care time: Bedside Care: 35 minutes, Consultation: 5 minutes. Total time: 40 rn minutes Signatures: Dispatcher [employer] EDMS Gi Gurrola, RN RN Matt Wolf MD MD cha Ballard, Brenda, RN RN Pj Goetz MD MD rn Leal, Jahala, RN RN Krystal Huang, RN RN Liya Izaguirre, CHERRIE PA sb3 Corrections: (The following items were deleted from the chart) 04/07 19:08 19:08 NS 0.9% 1000 ml IV at 1000 ml once ordered. rn rn 19:32 19:09 Chest Single View+RAD.RAD.BRZ ordered. EDAR EDAR 23:50 22:30 Telemetry/MedSurg (Inpatient) rn bb 23:50 22:30 rn hillary 04/08 05:30 04/07 22:30 Severe sepsis without septic shock rn rn 04/08 12:17 04/07 19:02 Allergies: Sulfa (Sulfonamide Antibiotics); jl7 jl7 04/08 20:14 04/07 23:50 BR ER HOLD bb kathleen 04/08 20:14 04/07 23:50 ERHOLD- bb dw
--- NOTE | 2022-04-07 22:31 | ER ---
Nurse's Notes [facility] Name: Demetrice Bedolla Age: 86 yrs Sex: Female : 1935 Arrival Date: 04/07/2022 Time: 18:48 Bed 8 Private MD: Diagnosis: UTI/ Urinary tract infection, site not specified;Hyperosmolality and hypernatremia;Dehydration;Unspecified atrial fibrillation;Severe sepsis with septic shock Presentation: 04/07 18:56 Chief complaint: EMS states: Toned out for syncopal episode, caregiver reports jl7 decreased appetite x 2 weeks, caregiver denies urinary symptoms, denies any new sores, denies fever. EMS noted AFib RVR, hr 180s, initial BP 150 systolic; gave 5 mg metoprolol IVP, HR down to 140s and BP decreased to 110 systolic. Uses home O2, 4 lpm via NC. Coronavirus screen: At this time, the client does not indicate any symptoms associated with coronavirus-19. Ebola Screen: No symptoms or risks identified at this time. Initial Sepsis Screen: Does the patient meet any 2 criteria? Systolic BP < 90 mmHg. HR > 90 bpm. Does the patient have a suspected source of infection? No. Patient's initial sepsis screen is negative. Risk Assessment: Do you want to hurt yourself or someone else? Patient reports no desire to harm self or others. Onset of symptoms was April 07, 2022. 18:56 Method Of Arrival: EMS: [facility] 18:56 Acuity: CHRIS 2 jl7 Triage Assessment: 19:02 General: Appears in no apparent distress. uncomfortable, Behavior is calm, cooperative, jl7 appropriate for age. Pain: Denies pain. Historical: - Allergies: 04/08 12:14 Augmentin; jl7 - Home Meds: 12:14 levothyroxine 75 mcg oral tab once daily [Active]; Vitamin D Oral [Active]; furosemide jl7 20 mg Oral tab 1 tab once daily [Active]; alendronate 70 mg oral tab 1 tab once wkly [Active]; Trelegy Ellipta 100-62.5-25 mcg inhalation dsdv 1 puff once daily [Active]; - PMHx: 04/07 19:02 COPD; Hypothyroidism; thalassemia; jl7 04/08 12:17 Atrial fibrillation; Congestive heart failure; Recurrent UTI; jl7 - PSHx: 12:14 Right hip; jl7 - Immunization history:: Adult Immunizations unknown. - Social history:: Smoking status: unknown. - Family history:: not pertinent. - Hospitalizations: : No recent hospitalization is reported. Screenin/09 19:18 Abuse screen: Denies threats or abuse. Nutritional screening: Had unintentional weight ke1 loss of 10 pounds or more. Tuberculosis screening: No symptoms or risk factors identified. Fall Risk. Assessment: 19:40 Reassessment: Unable to draw blood, lab called for blood draw. ke1 23:05 Cardiovascular: Rhythm is atrial fibrillation with rapid ventricular response. 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 ke1 Vital Signs: 04/07 18:56 BP 80 / 56; Pulse 116; Resp 18 S; Temp 97.1; Pulse Ox 95% on 4 lpm NC; jl7 19:18 Weight 36 kg; ke1 19:41 BP 92 / 65; Pulse 121; Resp 28; Pulse Ox 100% on 3 lpm NC; Pain 0/10; ke1 20:19 BP 103 / 71; Pulse 115; Resp 23; Pulse Ox 100% on 3 lpm NC; Pain 0/10; ke1 21:29 BP 111 / 62; Pulse 115; Resp 22; Pulse Ox 100% on 3 lpm NC; ke1 22:40 BP 91 / 61; Pulse 108; Resp 20; Pulse Ox 100% on NC; ke1 23:05 BP 104 / 82; Pulse 180; Resp 21; Pulse Ox 100% on 3 lpm NC; ke1 23:32 BP 92 / 78; Pulse 170; Resp 22; Pulse Ox 100% ; ke1 23:43 BP 125 / 76; Pulse 154; Resp 22; ke1 04/08 00:55 BP 98 / 84; Pulse 118; Resp 22; Pulse Ox 100% on 3 lpm NC; ke1 04:46 BP 82 / 48; Pulse 97; Resp 23; Pulse Ox 100% ; ke1 05:55 BP 110 / 59; ke1 06:00 BP 124 / 52; ke1 06:15 BP 140 / 99; ke1 06:21 BP 140 / 99; Pulse 89; Resp 26; Pulse Ox 98% on 4 lpm NC; Pain 0/10; ke1 ED Course: 04/07 18:48 Patient arrived in ED. jl7 18:49 Emily Sarah RN is Primary Nurse. jl7 18:59 Pj Sierra MD is Attending Physician. rn 19:00 Patient has correct armband on for positive identification. Client placed on continuous jl7 cardiac and pulse oximetry monitoring. NIBP monitoring applied. Warm blanket given. 19:00 Maintain EMS IV. Gauge \\T\\ site: 22 G LAC. ke1 19:02 Triage completed. jl7 19:02 Arm band placed on right wrist. jl7 19:16 Primary Nurse role handed off by Emily Sarah RN jl7 19:23 Krystal Gurrola RN is Primary Nurse. ke1 19:50 SARS-COV-2 RT PCR (Document "Date of Onset" if Symptomatic) Sent. ke1 19:50 Flu Sent. ke1 19:59 Chest Single View In Process Unspecified. EDMS 22:21 Straight cath inserted, using sterile technique, 16 Fr. Specimen obtained. Returned ke1 clear yellow urine. Patient tolerated had some pain going in but resolved after removing cath. 22:29 Fuad Chavez is Hospitalizing Provider. rn 04/08 03:33 Accessed peripheral vein via ultrasound, utilizing dynamic ultrasound technique bb Powerglide midline 20g 8cm inserted into right upper arm using hospital protocol with good blood return and flushes easily pt tolerated well. 07:00 No provider procedures requiring assistance completed. Patient admitted, IV remains in jl7 place. intact, No redness/swelling at site. 08:22 caregiver Alex called and would like the nurse to call back with and update on [place] [facility]. [phone]. 19:14 Primary Nurse role handed off by Krystal Gurrola RN as6 19:14 Nam Mederos RN is Primary Nurse. as6 Administered Medications: 04/07 19:08 CANCELLED (Duplicate Order): NS 0.9% 1000 ml IV at 1000 ml once rn 19:30 Drug: NS 0.9% (20 ml/kg) 20 ml/kg Route: IV; Rate: 1 bolus; Site: left antecubital; ke1 22:39 Drug: Rocephin (cefTRIAXone) 1 grams Route: IV; Rate: calculated rate; Site: left ke1 antecubital; 23:19 Drug: Digoxin 0.25 mg Route: IVP; Site: left antecubital; ke1 23:21 Not Given (Physician Discretion): NS 0.9% 1 ml/kg IV at 1 bolus Per protocol ke1 23:22 Drug: NS 0.9% (30 ml/kg) 10 ml/kg Route: IV; Rate: bolus; Site: left antecubital; ke1 04/08 00:00 Follow up: IV Status: Completed infusion ke1 00:00 Drug: amiodarone 150 mg Volume: 100 ml; Route: IVPB; Infused Over: 10 mins; Site: left [facility] antecubital; 00:10 Follow up: Response: Cardiac rhythm is unchanged; IV Status: Completed infusion ke1 00:20 Drug: amiodarone 900 mg, D5W 500 ml Route: IVPB; Rate: 1 mg/min; Site: left antecubital;ke1 00:20 Follow up: Rate change 1 mg/min ke1 06:20 Follow up: Response: No adverse reaction; IV Status: Infusion continued upon admission ke1 07:15 Follow up: Rate change 0.5 mg/min ke1 04:16 Drug: D5-1/2 NS with KCl 20 mEq/L 1000 ml Route: IV; Rate: 100 ml/hr; Site: left [facility] antecubital; 06:00 Follow up: Response: No adverse reaction; IV Status: Infusion continued upon admission ke1 05:50 Drug: Levophed (norepinephrine) 0.1 mcg/kg/min {Note: 100/49.} Route: IV; Rate: ke1 calculated rate; Site: right forearm; 05:50 Follow up: Rate change 0.05 mcg/kg/min ke1 05:55 Follow up: BP 110 / 59 ke1 06:00 Follow up: BP 124 / 52; Response: No adverse reaction; IV Status: Infusion continued ke1 upon admission 06:15 Follow up: BP 140 / 99 ke1 Medication: 12:14 VIS not applicable for this client. jl7 Outcome: 04/07 22:30 Decision to Hospitalize by Provider. rn 04/08 07:00 Admitted to ER Hold. Please see [facility] for further documentation. 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 22:10 Patient left the ED. kd3 Signatures: Dispatcher [employer] EDNC Yamilet Armas RN RN Pj Goetz MD MD rn Leal, Jahala, RN RN jl7 Trinity Merida Ashby, RN RN as6 Pilar Adorno RN RN kd3 Krystal Gurrola RN RN ke1 Corrections: (The following items were deleted from the chart) 04/07 19:32 19:12 In radiology for Chest Single View+[email or web address]. EDMS EDMS 04/08 07:15 06:20 Rate change 16.7 mg/min ke1 ke1 07:26 05:50 Levophed (norepinephrine) 0.1 mcg/kg/min IV at calculated rate in right forearm ke1 ke1 07:27 06:00 Response: No adverse reaction; IV Status: Infusion continued upon admission ke ke1 07:27 07:26 BP 124 / 52; Response: No adverse reaction; IV Status: Infusion continued upon [facility] admission ke1 12:17 04/07 19:02 Allergies: Sulfa (Sulfonamide Antibiotics); jl7 jl7
[2022-04-07 22:40] LABS: Urine Bacteria 20-50 /HPF (<20); Urine Granular Casts 0-5 /LPF (None Seen); Urine Mucus Slight /HPF (None Seen)
[2022-04-07] MEDS ORDERED: NA CHLORIDE 0.9% 50 ML ONE (22:43)
[2022-04-07] MEDS ORDERED: CEFTRIAXONE 1000 MG/VIAL ONE (22:43)
[2022-04-07] MEDS ORDERED: DIGOXIN 0.25 MG/ML AMP ONE (23:24)
--- NOTE | 2022-04-07 23:42 | P.HP ---
Certification for Inpatient Patient admitted to: Inpatient With expected LOS: >2 Midnights Patient will require the following post-hospital care: None Practitioner: I am a practitioner with admitting privileges, knowledge of patient current condition, hospital course, and medical plan of care. Services: Services provided to patient in accordance with Admission requirements found in Title 42 Section 412.3 of the Code of Federal Regulations Patient History Date of Service: 04/08/22 Primary Care Provider: Phuong Reason for admission: UTI, Severe Sepsis, Afib RVR, Hypernatremia History of Present Illness: Patient is an 86-year-old female with history of COPD, A. fib not on anticoagulation, and hypothyroidism who presented to the ED via EMS after subjective syncopal episode. Patient's caregiver states that she has had decreased PO intake and weakness for about 2 weeks now. She does have a history of recurrent UTIs. She was noted to be in A. fib RVR with rate in the 180s when EMS arrived. They gave her 5 mg IV Lopressor. BP 80 systolic and EKG showing sinus tach at 110 upon arrival to the ER. She was given 30ml/kg IVF. Her labs are significant for creatinine 1.7, WBC 18, sodium 160, chloride 120, CO2 35, BNP 2000, urine positive for UTI, COVID-negative. She was given Rocephin. Chest x-ray showed "Prominent opacity overlies the right side of the heart. On a CT chest 2019 there was no hiatal hernia. It is uncertain if this represents confluence of normal structures or a mass. CT chest is recommended." Chest CT pending. She later reverted back into A. fib RVR rate in the 170s, was given digoxin without conversion, and subsequently placed on amiodarone drip. BP has improved. Patient is admitted for further evaluation and treatment. Allergies No Known Allergies Allergy (Verified 07/11/20 13:39) Home medications list reviewed: Yes Home Medications: Alendronate Sodium 70 mg PO Q7D 06/24/20 Docusate [Colace Cap*] 100 mg PO DAILY 06/24/20 Fluticasone/Umeclidin/Vilanter [Trelegy Ellipta 100-62.5-25] 1 each IH DAILY 06/24/20 Levothyroxine Sodium 88 mcg PO DAILY 06/24/20 Ensure Enlive 237 ml PO BID #60 can 07/05/20 Folic Acid 1 mg PO DAILY #90 tablet 07/05/20 Thiamine HCl [Vitamin B-1*] 100 mg PO DAILY #90 tablet 07/05/20 Arformoterol Tartrate [Brovana] 15 mcg NEB BIDRESP #30 vial.neb 07/16/20 Cranberry Fruit Extract 400 mg PO BID #120 cap 07/16/20 Ferrous Sulfate [Ferrous Sulfate*] 325 mg PO DAILY #30 tab 07/16/20 Gabapentin [Neurontin*] 100 mg PO BID #60 cap 07/16/20 Iron/FA/Vit B-Com W/C [Hemocyte Plus*] 1 tab PO DAILY WITH BREAKFAST #30 tab 07/16/20 Lidocaine 4% Patch [Lidoderm 5% Patch*] 2 patch TOP DAILY patch 07/16/20 - Past Medical/Surgical History Diabetic: No -: Hypothyroidism -: 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 Lives at home - Family History Mother -: Heart disease Sister -: Cancer - Social History Smoking Status: Former smoker Alcohol use: No CD- Drugs: No Caffeine use: No Place of Residence: Home Review of Systems General: Weakness Physical Examination - Physical Exam General: Alert, In no apparent distress, Cachectic HEENT: Atraumatic, PERRLA, EOMI Neck: Supple, No LAD Respiratory: Clear to auscultation bilaterally, Normal air movement Cardiovascular: Irregular heart rate/rhythm Gastrointestinal: Normal bowel sounds, No tenderness Musculoskeletal: No tenderness Integumentary: No rashes Neurological: Normal speech, Normal strength at 5/5 x4 extr, Normal tone, Normal affect Urinary: Morin catheter - Studies Laboratory Data (last 24 hrs) 04/07/22 20:19: PT 13.1 H, INR 1.19, APTT 27.1 04/07/22 20:19: Sodium 160 H, Potassium 3.7, BUN 102 H, Creatinine 1.72 H, Glucose 164 H, Total Bilirubin 0.6, AST 16, ALT 30, Alkaline Phosphatase 62 04/07/22 20:19: WBC 18.80 H, Hgb 12.0, Hct 40.0, Plt Count 219 Microbiology Data (last 24 hrs): 04/07/22 19:35 Nasopharnyx Influenza Type A Antigen Screen - Final 04/07/22 19:35 Nasopharnyx Influenza Type B Antigen Screen - Final Assessment and Plan - Problems (Diagnosis) (1) Hypernatremia Current Visit: Yes Status: Acute (2) Anemia Current Visit: Yes Status: Chronic Qualifiers: Anemia type: other cause Other causes of anemia: other cause, not classified Qualified Code(s): D64.89 - Other specified anemias (3) Atrial fibrillation with RVR Current Visit: Yes Status: Acute (4) COPD (chronic obstructive pulmonary disease) Current Visit: Yes Status: Chronic Qualifiers: COPD type: unspecified COPD Qualified Code(s): J44.9 - Chronic obstructive pulmonary disease, unspecified (5) Severe sepsis Current Visit: No Status: Acute (6) UTI (urinary tract infection) Current Visit: Yes Status: Acute Qualifiers: Urinary tract infection type: acute cystitis Hematuria presence: with hematuria Qualified Code(s): N30.01 - Acute cystitis with hematuria (7) Hypothyroidism Current Visit: Yes Status: Chronic Qualifiers: Hypothyroidism type: acquired Qualified Code(s): E03.9 - Hypothyroidism, unspecified - Plan -Continue amiodarone drip. Cardiology consult. Monitor on telemetry. Echo ordered -D5 half NS at 75 cc/hr for hypernatremia correction. Repeat BMP in the morning. Nephrology consult -Continue Rocephin for UTI. Follow urine cultures. Patient meeting severe sepsis criteria at this time. Blood cultures obtained. Lactic acid within normal limit -Serum osmolality, urine osmolality, urine sodium, urine creatinine pending -Physical therapy consult -Titrate O2. Breathing treatments as needed -Monitor and replete electrolytes per protocol -Reconcile and continue home medications -Lovenox for VTE ppx (she is not on anticoagulation daily at home because of fall/bleeding risk) -Full code Discharge Plan: Home Plan to discharge in: Greater than 2 days - Advance Directives Does patient have a Living Will: Yes Does patient have a Durable POA for Healthcare: Yes - Code Status/Comfort Care Code Status Assessed: Yes (Full) Critical Care: No Time Spent Managing Pts Care (In Minutes): 50
[2022-04-08] MEDS ORDERED: AMIODARONE HCL 150 MG/3 ML INJ IV ONE (00:08)
[2022-04-08] MEDS ORDERED: AMIODARONE IN DEXTROSE,ISO-OSM 360 MG/200 ML BAG IV ONE ×3 (00:10→17:12)
[2022-04-08] MEDS ORDERED: D5W 100 ML IV ONE (00:14)
[2022-04-08] MEDS ORDERED: D5.45NS W/KCL 20MEQ 1,000 ML IV ONE ×2 (04:07→16:00)
[2022-04-08] MEDS: D5.45NS W/KCL 20MEQ 20 MEQ/1,000 ML BAG IV SCH (04:16)
[2022-04-08] MEDS ORDERED: ONDANSETRON 4 MG/2 ML VIAL IV PRN (04:42)
[2022-04-08] MEDS: D5 0.45 NS 1,000 ML IV SCH ×2 (04:42→07:00)
[2022-04-08] MEDS ORDERED: ALBUTEROL 2.5 MG/3 ML NEB SOL NEB PRN (04:42)
[2022-04-08] MEDS ORDERED: AMIODARONE HCL 900 MG in Dextrose 5%-Water 482 ML IV SCH (04:42)
[2022-04-08 05:38] LABS: Absolute Lymphocytes (CBC) 0.8 K/uL (0.7-4.9); Hematocrit 38.1 % (36.0-45.0); Lymphocytes % 4.6 % (15.3-44.8); MCV 66.3 fL (80-100); MPV 8.7 fL (7.6-11.3); RBC Red Blood Cell Count 5.74 M/uL (3.86-4.86)
[2022-04-08] MEDS ORDERED: NOREPINEPHRINE BITARTRATE/D5W 4 MG/250 ML BAG IV ONE (05:49)
[2022-04-08 06:09] LABS: Magnesium 2.4 mg/dL (1.8-2.4); Phosphorus 3.9 mg/dL (2.5-4.9); Potassium 3.1 mmol/L (3.5-5.1); Thyroid Stimulating Hormone 2.79 uIU/mL (0.360-3.740); Uric Acid 12.2 mg/dL (2.6-6.0)
[2022-04-08] MEDS: CEFTRIAXONE 1,000 MG in NA CHLORIDE 0.9% 50 ML IVPB SCH (09:00)
[2022-04-08] MEDS: ENOXAPARIN 30 MG/0.3 ML SQ SCH (09:00)
[2022-04-08] MEDS: ASPIRIN EC 81 MG TAB PO SCH (09:00)
[2022-04-08] MEDS ORDERED: ENOXAPARIN 30 MG/0.3 ML SQ ONE (09:01)
[2022-04-08] MEDS ORDERED: CEFTRIAXONE 1000 MG/VIAL ONE (09:01)
[2022-04-08] MEDS ORDERED: NA CHLORIDE 0.9% 50 ML ONE (09:02)
[2022-04-08] MEDS ORDERED: LIDOCAINE VISCOUS 2% SOLN 15 ML UDC ONE ×2 (10:24→20:56)
[2022-04-08 11:29] LABS: Specific Gravity 1.025 (1.005-1.030); Urine Bilirubin Negative (Negative); Urine Blood 2+ (Negative); Urine Clarity Clear (Clear); Urine Color Yellow (Yellow); Urine Glucose Negative (Negative); Urine Protein 1+ (Negative); Urine Urobilinogen 0.2 mg/dL (0.2-1.0)
[2022-04-08 12:06] LABS: Urine Bacteria >50 /HPF (<20)
[2022-04-08] MEDS ORDERED: LORazepam 2 MG/ML VIAL IV ONE (15:15)
--- NOTE | 2022-04-08 15:23 | P.PN ---
Subjective Date of Service: 04/08/22 Primary Care Provider: Phuong Chief Complaint: UTI, Severe Sepsis, Afib RVR, Hypernatremia Patient has no new complain and desires to go home. Heart rate improved on amiodarone drip. Blood pressure is borderline low on Levophed drip. Physical Examination - Vital Signs Temperature: 97.9 F Blood Pressure: 119/54 Pulse: 92 Respirations: 22 Pulse Ox (%): 95 - Studies Laboratory Data (last 24 hrs) 04/07/22 20:19: PT 13.1 H, INR 1.19, APTT 27.1 04/07/22 20:19: Sodium 160 H, Potassium 3.7, BUN 102 H, Creatinine 1.72 H, Glucose 164 H, Total Bilirubin 0.6, AST 16, ALT 30, Alkaline Phosphatase 62 04/07/22 20:19: WBC 18.80 H, Hgb 12.0, Hct 40.0, Plt Count 219 Microbiology Data (last 24 hrs): 04/07/22 19:35 Nasopharnyx Influenza Type A Antigen Screen - Final 04/07/22 19:35 Nasopharnyx Influenza Type B Antigen Screen - Final Assessment And Plan - Current Problems (Diagnosis) (1) Atrial fibrillation with RVR Current Visit: Yes Status: Acute (2) Hypernatremia Current Visit: Yes Status: Acute (3) Emphysema lung Current Visit: Yes Status: Acute (4) UTI (urinary tract infection) Current Visit: Yes Status: Acute Qualifiers: Urinary tract infection type: acute cystitis Hematuria presence: with h ematuria Qualified Code(s): N30.01 - Acute cystitis with hematuria (5) COPD (chronic obstructive pulmonary disease) Current Visit: Yes Status: Chronic Qualifiers: COPD type: unspecified COPD Qualified Code(s): J44.9 - Chronic obstructive pulmonary disease, unspecified (6) Severe sepsis Current Visit: No Status: Acute (7) Esophageal dysmotility Current Visit: Yes Status: Acute - Plan Physical Exam General: Alert, In no apparent distress, Cachectic HEENT: Atraumatic, PERRLA, EOMI Neck: Supple, No LAD Respiratory: Clear to auscultation bilaterally, Normal air movement Cardiovascular: Irregular heart rate/rhythm Gastrointestinal: Normal bowel sounds, No tenderness Musculoskeletal: No tenderness Integumentary: No rashes Neurological: Normal speech, Normal strength at 5/5 x4 extr, Normal tone, Normal affect Urinary: Morin catheter Plan: Continue amiodarone drip. Patient not anticoagulated for A. fib. IV fluid-D5 half 1/2 NS to treat hypotension and hypernatremia. Monitor BMP every 6 hours to follow hypernatremia. Change Levophed drip to phenylephrine drip given RVR. Continue aggressive antibiotics. Follow blood cultures and urine culture CT chest results reviewed and reported esophageal dysphagia secondary to dysmotility or stricture. Keep n.p.o. Barium swallow/esophagram. GI consult. Scheduled bronchodilators. Patient currently on baseline oxygen.
[2022-04-08] MEDS ORDERED: VANCOMYCIN 1 GM in NA CHLORIDE 0.9% 250 ML IVPB ONE (16:00)
[2022-04-08] MEDS ORDERED: Phenylephrine HCl 10 MG/ML 1 ML VIAL ONE (16:52)
[2022-04-08] MEDS ORDERED: LORazepam 2 MG/ML VIAL ONE (16:52)
[2022-04-08] MEDS ORDERED: VANCOMYCIN 1 GM/VIAL ONE (16:52)
[2022-04-08] MEDS ORDERED: NA CHLORIDE 0.9% 250 ML ONE (16:53)
[2022-04-08] MEDS ORDERED: D5W 250 ML IV ONE (16:53)
--- NOTE | 2022-04-08 17:43 | CON ---
Date of Consultation: 04/08/2022 Reason For Consultation: Atrial fibrillation with rapid ventricular response. History Of Present Illness: An 86-year-old female with history of COPD, atrial fibrillation, not on anticoagulation, presented to the emergency room after a syncopal episode. The patient's caregiver s tates that the patient has not been eating and drinking very well in the past 2 days. Once in the em ergency room, she was noted to be in atrial fibrillation with rapid ventricular response, rate 180. She was given 5 mg of IV metoprolol and slowed down her heart rate and then she converted to sinus rh ythm after amiodarone was started. The patient was evaluated by bedside and she said I do not know w hy I am here, I do not have any complaints. Past Medical History: As outlined above in the HPI. Medications: Refer to reconciliation sheet for detailed list. Allergies: AMOXICILLIN AND AUGMENTIN. Family History: No premature coronary artery disease, but there is history of cancer in the family. Social History: She is an ex-smoker. Does not drink or use any drugs. Review of Systems: All systems reviewed and they were negative except for what mentioned in the HPI. Physical Examination: Vital signs: Reviewed. Head and Neck: Pupils are equal, reactive to light. Intact eye movements. No JVD. No cervical lym phadenopathy. Neck is supple. Thyroid is not enlarged. Lungs: Decreased breathing sounds bilaterally. No accessory muscle use or muscle retraction. Heart: Regular rate and rhythm. No extra sounds. Abdomen: Soft, nontender. Bowel sounds positive. No organomegaly. No masses or hernia. No rigidi ty or rebound. Extremities: No clubbing or cyanosis. Intact pulses. Skin: No rash. Neurologic: Alert, awake. No acute focal deficits appreciated. Investigations: Sodium is 157 down from 160, creatinine is 1.45 down from 1.7 and her NT-proBNP is 2 040. TSH was 2.79. Assessment And Recommendations: 1.Atrial fibrillation with rapid ventricular response, now rate is controlled. Continue amiodarone for the full 24 hours and the patient is not a candidate for anticoagulation, so baby aspirin 81 mg i s recommended. 2.Severe dehydration. Hypotonic IV fluid as recommended like D5W on a slow rate and care for monito ring for fluid overload. 3.Congestive heart failure. This is chronic, but she appears to be dehydrated today. I will recomm end a hypotonic fluids as outlined above. 4.Acute renal failure due to dehydration. Recommendations above. SR/MODL Voice ID: [id number] Report ID: [id number]
[2022-04-08 17:52] LABS: Potassium 3.4 mmol/L (3.5-5.1)
[2022-04-08 21:35] LABS: Potassium 3.4 mmol/L (3.5-5.1)
[2022-04-09] MEDS ORDERED: D5 0.45 NS 1,000 ML IV SCH (00:15)
[2022-04-09] MEDS: D5.45NS W/KCL 20MEQ 20 MEQ/1,000 ML BAG IV SCH (03:16)
[2022-04-09 04:42] LABS: Absolute Lymphocytes (CBC) 0.9 K/uL (0.7-4.9); Hematocrit 34.6 % (36.0-45.0); Lymphocytes % 5.1 % (15.3-44.8); MCV 66.2 fL (80-100); MPV 8.4 fL (7.6-11.3); RBC Red Blood Cell Count 5.23 M/uL (3.86-4.86)
[2022-04-09 04:59] LABS: Potassium 3.4 mmol/L (3.5-5.1)
[2022-04-09] MEDS ORDERED: KCL 20 MEQ/100 mL IVPB 20 MEQ/100 ML BAG IV SCH ×2 (08:00→15:00)
[2022-04-09] MEDS: ASPIRIN EC 81 MG TAB PO SCH (09:00)
[2022-04-09] MEDS ORDERED: D5.45NS W/KCL 20MEQ 20 MEQ/1,000 ML BAG IV SCH (09:00)
[2022-04-09] MEDS ORDERED: AMIODARONE HCL 900 MG in Dextrose 5%-Water 482 ML IV SCH (09:00)
[2022-04-09] MEDS ORDERED: NA CHLORIDE 0.9% 1,000 ML IV ONE (09:09)
[2022-04-09] MEDS ORDERED: NA CHLORIDE 0.9% 500 ML IV ONE (10:00)
[2022-04-09] MEDS: ENOXAPARIN 30 MG/0.3 ML SQ SCH (10:12)
[2022-04-09] MEDS: CEFTRIAXONE 1,000 MG in NA CHLORIDE 0.9% 50 ML IVPB SCH (10:13)
[2022-04-09 10:48] LABS: Potassium 3.1 mmol/L (3.5-5.1)
--- NOTE | 2022-04-09 12:44 | P.PN ---
Subjective Date of Service: 04/09/22 Primary Care Provider: Phuong Chief Complaint: UTI, Severe Sepsis, Afib RVR, Hypernatremia Patient has no complaint. She refused NG tube insertion earlier Heart rate improved on amiodarone drip. Patient is still hypotensive. I suspect she has low blood pressure at baseline based on her body habitus. Still on phenylephrine drip. Physical Examination - Vital Signs Temperature: 97.9 F Blood Pressure: 111/43 Pulse: 75 Respirations: 24 Pulse Ox (%): 100 Assessment And Plan - Current Problems (Diagnosis) (1) Atrial fibrillation with RVR Current Visit: Yes Status: Acute (2) Hypernatremia Current Visit: Yes Status: Acute (3) Emphysema lung Current Visit: Yes Status: Acute (4) UTI (urinary tract infection) Current Visit: Yes Status: Acute Qualifiers: Urinary tract infection type: acute cystitis Hematuria presence: with hematuria Qualified Code(s): N30.01 - Acute cystitis with hematuria (5) COPD (chronic obstructive pulmonary disease) Current Visit: Yes Status: Chronic Qualifiers: COPD type: unspecified COPD Qualified Code(s): J44.9 - Chronic obstructive pulmonary disease, unspecified (6) Severe sepsis Current Visit: No Status: Acute (7) Esophageal dysmotility Current Visit: Yes Status: Acute (8) Severe protein-calorie malnutrition Current Visit: Yes Status: Acute - Plan Physical Exam General: Alert, In no apparent distress, Cachectic HEENT: Atraumatic, PERRLA, EOMI Neck: Supple, No LAD Respiratory: Clear to auscultation bilaterally, Normal air movement Cardiovascular: Irregular heart rate/rhythm Gastrointestinal: Normal bowel sounds, No tenderness Musculoskeletal: No tenderness Integumentary: No rashes Neurological: Normal speech, Normal strength at 5/5 x4 extr, Normal tone, Normal affect Urinary: Morin catheter Plan: On amiodarone drip. Patient not anticoagulated for A. fib. Sodium level is improving IV fluid-D5 half 1/2 NS to treat hypotension and hypernatremia. We will switch to D5 water as soon as hypotension is corrected. Monitor BMP every 6 hours to follow hypernatremia. Give normal saline bolus and wean off phenylephrine drip as possible. No change in leukocytosis. Blood cultures no growth to date. Urine culture: GNR. Continue aggressive antibiotics. Follow blood cultures and urine culture CT chest results reviewed and reported esophageal dysphagia secondary to dysmotility or stricture. Keep n.p.o. Barium swallow/esophagram. NG tube GI consulted. Dr. Ruiz was planning an EGD today but patient is unstable for any procedure at the moment Scheduled bronchodilators. Patient currently on baseline oxygen.
--- NOTE | 2022-04-09 14:08 | RAD REPORT ---
EXAM DESCRIPTION: RAD - Abdomen 1 View (KUB) - 04/09/2022 1:55 pm CLINICAL HISTORY: NG TUBE PLACEMENT Pain COMPARISON: Thorax Wo Con dated 04/08/2022 FINDINGS: Enteric tube tip appears to be within a distended stomach.
[2022-04-09] MEDS ORDERED: VANCOMYCIN 500 MG in NA CHLORIDE 0.9% 100 ML IVPB SCH (16:00)
[2022-04-09 16:21] LABS: Potassium 3.3 mmol/L (3.5-5.1)
[2022-04-09] MEDS: D5 0.2 NS 1,000 ML with POTASSIUM CL 40 MEQ IV SCH ×2 (16:31)
[2022-04-09] MEDS: CEFEPIME 2 GM in NA CHLORIDE 0.9% 100 ML IV SCH (16:33)
--- NOTE | 2022-04-09 16:59 | RAD REPORT ---
EXAM DESCRIPTION: CT - Thorax Wo Con - 04/08/2022 6:45 am CLINICAL HISTORY: Tachypnea TECHNIQUE: Axial computed tomography images of the chest without intravenous contrast. Sagittal an d coronal reformatted images were created and reviewed. This CT exam was performed using one or mor e of the following dose reduction techniques: automated exposure control, adjustment of the mA and/ or kV according to patient size, and/or use of iterative reconstruction technique. COMPARISON: CTA chest dated 06/26/2020 FINDINGS: Lungs: Centrilobular emphysema. Ill-defined left upper lobe nodule measuring 1 x 0.5 x 0 .8 cm (series 202 image 13 and series 203 image 90). Adjacent 6 mm nodule (series 202 image 15). Thes e are new from the prior. Bibasilar subsegmental atelectasis/pleural parenchymal scar. Pleural space: Unremarkable. No pneumothorax. No significant effusion. Heart: The heart is mildly to moderately enlarged. Coronary artery calcification. No significant pericardial effusion. Mediastinum: There is focal distention of the mid to distal esophagus with food bolus/debris measur ing approximately 4.2 x 2.5 x 3.8 cm (series 201 image 42 and series 203 image 89). The esophagus pro ximal to this level is mildly patulous and fluid-filled. Bones/joints: Multilevel spondylosis. Remote mid to distal sternal fracture. Remote T4 and T5 compr ession fractures. No dislocation. Soft tissues: Unremarkable. Vasculature: Moderate atherosclerotic disease. No thoracic aortic aneurysm. Lymph nodes: Unremarkable. No enlarged lymph nodes. Liver: Hepatic parenchymal calcification compatible with remote granulomatous organism exposure. Spleen: Splenic parenchymal calcifications compatible with remote granulomatous organism exposure. IMPRESSION: 1. Emphysema. Ill-defined left upper lobe nodules, the largest measuring 1 cm, new fro m the prior. Recommend a non-contrast Chest CT at 3-6 months, then another non-contrast Chest CT at 1 8-24 months. These guidelines do not apply to immunocompromised patients and patients with cancer. Fo llow up in patients with significant comorbidities as clinically warranted. For lung cancer screening , adhere to Lung-RADS guidelines. Reference: Radiology. 2017; 284(1):228-43. 2. Focal distention of the mid to distal esophagus with food bolus/debris. The esophagus proximal t o this is mildly patulous and fluid-filled. 3. Other findings as above. Electronically signed by: Ashely Cai MD 04/08/2022 2:42 AM CDT Due to temporary technical issues with the PACS/Fluency reporting system, reports are being signed by the in house radiologists without review as a courtesy to insure prompt reporting. The interpreting radiologist is fully responsible for the content of the report.
--- NOTE | 2022-04-09 17:04 | PN ---
Date of Progress Note: 04/09/2022 Subjective: Seen by bedside. Not able to take any food by mouth, but she is hemodynamically stable maintaining acceptable blood pressure and her heart is in regular rhythm. Review of Systems: No chest pain, shortness of breath, orthopnea, cough. No dysuria, polyuria, or urinary urgency. All other systems reviewed and they were negative. Physical Examination: Vital Signs: Reviewed. Head and Neck: Pupils are equal, reactive to light. Intact eye movements. No JVD. No cervical lym phadenopathy. Neck is supple. Thyroid is not enlarged. Lungs: Clear to auscultation bilaterally. No rhonchi, wheezing, or crackles. No accessory muscle u se. Heart: Regular rate and rhythm. No extra sounds. Abdomen: Soft, nontender. Bowel sounds positive. No organomegaly. No masses or hernia. No rigidi ty or rebound. Extremities: No clubbing or cyanosis. Intact pulses. Skin: No rash. Neurologic: Alert, awake. No acute focal deficits appreciated. Investigations: BUN is 38, creatinine 0.87, hemoglobin is 10.6. Assessment And Recommendations: 1.Atrial fibrillation with rapid ventricular response. She converted to sinus rhythm, currently is doing well. Continue amiodarone 0.5 mg/minute for another day. Please check liver function tests (L FTs) when she is able to take medications by mouth and change it to 200 daily and introduce beta-bloc ker. The patient is not a candidate for anticoagulation for stroke prevention and she will benefit f rom left atrial appendage closure in the future planning. 2.Severe dehydration, improving slowly. 3.Hypernatremia, high chloride level due to dehydration. Continue IV fluid management. SR/MODL Voice ID: [id number] Report ID: [id number]
--- NOTE | 2022-04-09 17:35 | CON ---
Date of Consultation: 04/09/2022 Requesting Provider: Dr. Fuad Chavez. Reason For Consultation: Renal insufficiency, electrolyte imbalance. History Of Present Illness: Ms. Bedolla is an 86-year-old female, who presented to the hospital wit h syncopal episode. The patient has been feeling ill for about 10 days with very poor p.o. intake. She has had admissions in the past for similar presentation. At this time noted to be with AFib with RVR and was admitted here to the ICU. The patient was hypotensive. The patient was found to have s evere dehydration as well as renal failure. Since admission, the patient has been treated with antia rrhythmics as well as pressor support. She also was started on D5 half normal saline. at the bedside with a caregiver. She is able to give a reliable history of recent events. She does ad elana to poor p.o. intake. Has poor p.o. intake as reported. Past Medical History: Significant for COPD, atrial fibrillation, hypothyroidism. Physical Examination: Vital Signs: Blood pressure 107/48, pulse 76, afebrile. General: Elderly, frail, in no acute distress. Heart: Irregularly irregular. No murmurs, rubs, gallops. Lungs: Diminished breath sounds bilaterally. Abdomen: Soft. Extremities: No edema. Laboratory Data: Sodium 154, potassium 3.1, chloride 120, CO2 32, BUN and creatinine 38/0.87, glucos e 164, calcium 7.7. Upon presentation; the patient found to have sodium of 160, chloride of 120, and CO2 of 35, BUN and creatinine were 102/1.72. Current Medications: Reviewed. Impression: 1.Acute kidney injury in the setting of volume depletion. 2.Electrolyte imbalance secondary to poor p.o. intake. 3.Dehydration. 4.Urinary tract infection. 5.Atrial fibrillation with rapid ventricular response. Plan: Given the patient's response to IV fluids, it is unlikely that the patient did have volume dep letion in the setting of her acute illness. She is currently receiving D5 half normal saline and her free water deficit is approximately 1 L. With her concurrent hypokalemia, IV fluids will be changed to D5 quarter normal saline with 40 mEq potassium chloride per L that will continue 100 mL/hour rate . The patient had 20 mEq of potassium supplement earlier today by the primary team and additional 20 mEq will be supplemented at this time. Continue monitoring serial electrolytes. Avoid NSAIDs and i odinated contrast and we will continue to follow. SE/MODL Voice ID: [id number] Report ID: [id number]
--- NOTE | 2022-04-09 18:53 | RAD REPORT ---
EXAM DESCRIPTION: RAD - Chest Single View - 04/09/2022 6:40 pm CLINICAL HISTORY: picc line placement COMPARISON: Abdomen 1 View (KUB) dated 04/09/2022; Chest Single View dated 04/07/2022; Chest Single Vie w dated 06/25/2020; Chest Single View dated 06/23/2020 FINDINGS: Portable chest was obtained following placement of a left upper extremity PICC line. The c atheter tip projects over the right atrium. Consider 2 cm of retraction..
--- NOTE | 2022-04-09 21:34 | CON ---
Date of Consultation: 04/09/2022 Reason For Consultation: Dysphagia to solids and liquids, abnormal CT scan revealing dilated esophagus with food in the distal esophagus. 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 Patient presented to hospital due to dysphagia with urosepsis. Patient has a history of recurrent UTIs and has a white count now of 18.5, down from 18.8 yesterday with sepsis. Patient was dehydrated and in atrial fibrillation with rapid ventricular response. Patient was converted using IV amiodarone and now in ICU due to continued hypotension even after conversion. Patient is on IV pressors at this current time. Patient states that she started having dysphagia to solids and liquids approximately 3 days ago, but it is not clear if she is an accurate historian, but that she reports now. She denies any hematemesis, coffee-grounds emesis, nausea, vomiting, abdominal pain, fevers, chills, night sweats, change in bowel habits, diarrhea, constipation, change in weight or other. 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 Medications At Home: Include alendronate, Colace, Trelegy Ellipta, levothyroxine, Ensure, folic acid, thiamine, Brovana, cranberry fruit extract, ferrous sulfate, iron supplement, gabapentin, Hemocyte Plus, and lidocaine. Allergies: NKDA. Social History: She is a . No children. No tobacco. Quit approximately in 1999. No alcohol. She is originally from [place], [place]. Family History: Father of myocardial infarction. She reports mother had dilated cardiomyopathy, tuberculosis, and it appears by chart review heart disease. Sister had cancer of some type. Review of Systems: The patient has dysphagia to solids and liquids, lethargy, fatigue, feeling weak at least on admission with atrial fibrillation with rapid ventricular response. Feels better with amiodarone, conversion in the sinus rhythm she reports. She denies any muscle aches, joint aches. She does have backaches that she reports. No chest pain. She does have shortness of breath she states, but not severe. Some anxiety and depression though it seems mild. Physical Examination: Vital Signs: Patient is 5 feet, 2 inches. 90 pounds, BMI of 16.9 kg/sq m. Temperature 97.9 degrees Fahrenheit; pulse 76; respirations 22; blood pressure 107/48 and previous one was 81/66; O2 saturation anywhere from 85% to 100% percent. General: She is a frail, thin, elderly female, lying in bed, slightly disheveled, talking, answered all questions appropriately. HEENT: Normocephalic, atraumatic. Anicteric. Pupils equal, round, and reactive to light. Anicteric. Oropharynx clear except for some poor dentition. Neck: Supple. No masses. Respirations: Clear to auscultation with decreased breath sounds. Cardiac: Regular rate and rhythm. No gallops or rubs. Abdomen: Positive bowel sounds. Soft, nontender, nondistended. No hepatosplenomegaly. Extremities: No clubbing, cyanosis, or edema. 2+ pulses. Mild clubbing. Neuro: Alert and oriented x3. Able to move all extremities well. Laboratory Data: Sodium is 154, down from 160 on admission; potassium today is 3.3; chloride 120; bicarb 131; BUN of 31; creatinine of 0.8; glucose 176; calcium of 7.6. Magnesium 1.9. Total bilirubin 0.6, AST of 16, ALT of 30, alkaline phosphatase 62. B-type natriuretic peptide 2040. Total protein 7.7, albumin 3.5, globulin 4.2, triglycerides 152, total cholesterol 159, LDL of 74, HDL of 55, TSH of 2.79, free T4 of 0.96. Phosphorus of 3.9, magnesium 2.4 yesterday. UA on admission was 1+ ketone, 1+ blood, positive nitrite, trace leukocyte esterase, 5-10 rbc's, greater than 50 white blood cells. Squamous epithelial cells, less than 5 seconds. Bacteria 20-50. PT of 31, INR of 1.19, PTT of 27.1. COVID-[address] of chest reveals food and debris in the distal esophagus. Mid to distal esophagus was dilated up to 4 cm. COPD was present and new 6 and 10 mm nodules in the left upper lobe were noted. Impression: 1. Dysphagia to solids and liquids for the past few days, could be due to mass or achalasia or other. 2. Abnormal CT of chest revealing food in the distal esophagus, dilated mid to distal esophagus to 4 cm, COPD, and a 10 and 6 mm new nodules in the left upper lobe compared to prior studies. 3. Hypotension, on IV pressors in ICU. 4. Urosepsis with white blood cell count of 18.8, down 18.5, on IV antibiotics with a history of recurrent UTIs. 5. Dehydration from sepsis. 6. Hyponatremia from sepsis with dehydration with sodium 160, now down to 154 with IV fluids. 7. Atrial fibrillation with rapid ventricular response on admission, converted on IV amiodarone, now in sinus rhythm. 8. 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 Recommendations: 1. Await cardiac stabilization and control of her atrial fibrillation with rapid ventricular response and resolved hypotension and improved hyponatremia before nonurgent esophagogastroduodenoscopy. 2. Consider timed esophagram. 3. NG tube to low intermittent with small suction for now. Consider tube feeds. 4. IV fluids patient with CHF. HANNA/YVETTE Voice ID: [id number] Report ID: [id number] MTDQueenie
[2022-04-10] MEDS: CEFEPIME 2 GM in NA CHLORIDE 0.9% 100 ML IV SCH ×2 (02:17→16:29)
[2022-04-10] MEDS: D5 0.2 NS 1,000 ML with POTASSIUM CL 40 MEQ IV SCH ×6 (04:26→22:16)
[2022-04-10 05:12] LABS: Absolute Lymphocytes (CBC) 1.1 K/uL (0.7-4.9); Hematocrit 30.4 % (36.0-45.0); Lymphocytes % 7.6 % (15.3-44.8); MPV 8.4 fL (7.6-11.3); RBC Red Blood Cell Count 4.61 M/uL (3.86-4.86)
[2022-04-10 05:18] LABS: MCV 65.9 fL (80-100)
[2022-04-10 05:36] LABS: Potassium 3.7 mmol/L (3.5-5.1)
[2022-04-10 05:37] VITALS: BMI 16.7
[2022-04-10 05:37] LABS: Magnesium 1.4 mg/dL (1.8-2.4)
[2022-04-10] MEDS ORDERED: Magnesium Sulfate 2gm IVPB 2 G/50 ML BAG IV ONE (05:38)
[2022-04-10] MEDS: ASPIRIN 81 MG CHEWABLE TABLET NG SCH (10:15)
[2022-04-10] MEDS: ENOXAPARIN 30 MG/0.3 ML SQ SCH (10:17)
--- NOTE | 2022-04-10 10:54 | P.PN ---
Subjective Date of Service: 04/10/22 Primary Care Provider: Phuong Chief Complaint: UTI, Severe Sepsis, Afib RVR, Hypernatremia Patient has no complaint. NG tube to suction inserted yesterday-no output Heart rate improved on amiodarone drip. I suspect she has low blood pressure at baseline based on her body habitus. Currently off phenylephrine drip will with systolic blood pressure in the 90s. Physical Examination - Vital Signs Temperature: 97.6 F Blood Pressure: 103/40 Pulse: 75 Respirations: 23 Pulse Ox (%): 93 - Studies Microbiology Data (last 24 hrs): 04/07/22 22:18 Catheterized Urine Geraldine Count - Final >100,000 CFU/ML. 04/07/22 22:18 Catheterized Urine - Final Escherichia Coli Assessment And Plan - Current Problems (Diagnosis) (1) Atrial fibrillation with RVR Current Visit: Yes Status: Acute (2) Hypernatremia Current Visit: Yes Status: Acute (3) Emphysema lung Current Visit: Yes Status: Acute (4) UTI (urinary tract infection) Current Visit: Yes Status: Acute Qualifiers: Urinary tract infection type: acute cystitis Hematuria presence: with hematuria Qualified Code(s): N30.01 - Acute cystitis with hematuria (5) COPD (chronic obstructive pulmonary disease) Current Visit: Yes Status: Chronic Qualifiers: COPD type: unspecified COPD Qualified Code(s): J44.9 - Chronic obstructive pulmonary disease, unspecified (6) Severe sepsis Current Visit: No Status: Acute (7) Esophageal dysmotility Current Visit: Yes Status: Acute (8) Severe protein-calorie malnutrition Current Visit: Yes Status: Acute - Plan Physical Exam General: Alert, In no apparent distress, Cachectic HEENT: Atraumatic, PERRLA, EOMI Neck: Supple, No LAD Respiratory: Clear to auscultation bilaterally, Normal air movement Cardiovascular: Irregular heart rate/rhythm Gastrointestinal: Normal bowel sounds, No tenderness Musculoskeletal: No tenderness Integumentary: No rashes Neurological: Normal speech, Normal strength at 5/5 x4 extr, Normal tone, Normal affect Urinary: Morin catheter Plan: On amiodarone drip. Patient not anticoagulated for A. fib. Sodium level improved with hypotonic IV fluid. Hypernatremia resolved. Nephrology input appreciated. Fluid management per nephrology. Currently off phenylephrine drip. Leukocytosis is improving on antibiotics. Blood cultures no growth to date. Urine culture: Pansensitive E. coli Continue IV cefepime. CT chest results reviewed and reported esophageal dysphagia secondary to dysmotility or stricture. GI Dr. Ruiz input appreciated. NG tube inserted to bypass possible stricture, but she also has gastric dilatation. Start NG tube feeding. Start oral amiodarone for rapid A. fib and wean off amiodarone drip Esophagram recommended by GI. Dr. Ruiz is planning EGD on Sunday Continue scheduled bronchodilators. Patient currently on baseline oxygen.
[2022-04-10] MEDS ORDERED: VITAL AF 1,000 ML BOT RTH SCH (11:00)
--- NOTE | 2022-04-10 20:25 | PN ---
Date of Progress Note: 04/10/2022 Subjective: Seen by bedside. Clinically doing well from cardiac standpoint. She is still in sinus rhythm and she had a PEG tube placed and feeding will be resumed today. Review of Systems: No chest pain, shortness of breath, orthopnea, cough. No nausea, vomiting, diarrhea. All other syst ems reviewed were negative. Physical Examination: Vital Signs: Temperature is 97.7, pulse 76, breathing at 18, blood pressure is 103/40, saturating 93 % on room air. General: Pleasant elderly female, no apparent distress. Head and Neck: Pupils are equal, reactive to light. Intact eye movements. No JVD. No cervical alexander nopathy. Neck supple. Thyroid not enlarged. Lungs: Decreased breathing sounds bilaterally. No accessory muscle use or muscle retraction. Heart: Regular rate and rhythm. No extra sounds. Abdomen: Soft, nontender. Bowel sounds positive. No organomegaly. No masses or hernia. No rigidi ty or rebound. Extremities: No clubbing or cyanosis. Intact pulses. Skin: No rash. Neurologic: Alert and awake. No acute focal deficits appreciated. Investigations: BUN 17, creatinine 0.6, hemoglobin is 9.4. Assessment And Recommendation: 1.Atrial fibrillation with rapid ventricular response converted to sinus rhythm on amiodarone drip. To discontinue IV amiodarone since she is able to take medicines through the PEG tube, to start her on amiodarone 200 mg daily. The patient will need appendage closure for stroke prevention as she is not a candidate for anticoagulation. 2.Severe dehydration, improving nicely with IV fluids. 3.Hypernatremia, improving gradually; in fact, it is within normal range. 4.Acute renal failure due to dehydration, this is resolved. SR/MODL Voice ID: [id number] Report ID: [id number]
--- NOTE | 2022-04-10 20:32 | P.PN ---
Date of Service: 04/10/22 Vital Signs Temp Pulse Resp BP Pulse Ox 98.5 F 84 32 H 107/42 L 95 04/10/22 20:00 04/10/22 20:00 04/10/22 20:00 04/10/22 20:00 04/10/22 20:00 Medications Acetaminophen (Acetaminophen 500 Mg Tab) 500 mg PO Q4HP PRN PRN Reason: Pain scale 2-4 (Mild) Albuterol Sulfate (Albuterol 2.5 Mg/3 Ml Neb Bisi) 2.5 mg NEB [id number] PRN PRN Reason: SHORTNESS OF BREATH Amiodarone HCl (Amiodarone Hcl 200 Mg Tab) 200 mg PO DAILY [facility] Last Admin: 04/10/22 16:30 Dose: 200 mg Aspirin (Aspirin 81 Mg Chewable Tablet) 81 mg NG DAILY [facility] Last Admin: 04/10/22 10:15 Dose: 81 mg Enoxaparin Sodium (Enoxaparin 30 Mg/0.3 Ml) 30 mg SQ DAILY [facility] Last Admin: 04/10/22 10:17 Dose: 30 mg Home Med (Fluticasone/Umeclidin/Vilanter [Trelegy Ellipta 100-62.5-25]) 1 each IH DAILY [facility] Amiodarone HCl 900 mg/ (Dextrose) 500 mls @ 15 mls/hr IV CONT [facility]; Protocol Last Admin: 04/09/22 08:54 Dose: 500 mls Cefepime HCl 2 gm/ Sodium (Chloride) 100 mls @ 200 mls/hr IV Q12H [facility] Last Admin: 04/10/22 16:29 Dose: 100 mls Potassium Chloride 40 meq/ (Dextrose/Sodium Chloride) 1,020 mls @ 100 mls/hr IV .[id number] [facility] Last Admin: 04/10/22 11:50 Dose: 1,020 mls Phenylephrine HCl 50 mg/ (Dextrose) 255 mls @ 6.357 mls/hr IV TITR [facility]; Protocol Nutritional Formula (Vital Af 1,000 Ml Bot) 1,000 ml RTH CONT [facility] Ondansetron HCl (Ondansetron 4 Mg/2 Ml Vial) 4 mg IV Q6HP PRN PRN Reason: NAUSEA / VOMITING Sodium Chloride (Flush Normal Saline 10 Ml) 10 ml IV BID [facility] Last Admin: 04/10/22 20:13 Dose: 10 ml Microbiology Results 09/09/22 22:18 Catheterized Urine Lenox Count - Final >100,000 CFU/ML. 04/07/22 22:18 Catheterized Urine - Final Escherichia Coli 04/07/22 20:31 Blood - Blood Aerobic Blood Culture - Preliminary No growth in 24 hours. 04/07/22 20:31 Blood - Blood Anaerobic Blood Culture - Preliminary No growth in 24 hours. 04/07/22 20:19 Blood - Blood Aerobic Blood Culture - Preliminary No growth in 24 hours. 04/07/22 20:19 Blood - Blood Anaerobic Blood Culture - Preliminary No growth in 24 hours. 04/07/22 19:35 Nasopharnyx Influenza Type A Antigen Screen - Final 04/07/22 19:35 Nasopharnyx Influenza Type B Antigen Screen - Final Assessment/ Plan: Nephrology No dyspnea No chest pain No acute events overnight Vitals, medications, blood work and imaging reviewed in the chart. NAD. Cachectic. MMM. Neck supple. Normal respiratory effort. RRR. Abd ND. No C/C/E. No rash. AAO. Normal speech. NGT. Morin with light urine. LEONILA in the setting of hypovolemia & hypotension, resolved Proteinuria -Continue hydration -No NSAIDs Hypernatremia, improving -Continue free water through NGT Hypokalemia -Replete prn Hypomagnesemia -Replete as ordered Mild malnutriton with cachexia -Continue tube feeds Anemia in chronic illness Microcytosis -Check iron levels Sepsis/ Septic Shock Acute E.coli Cystitis -Continue abx -Continue IVF -Pressor support prn Greater than 30min patient care.
[2022-04-10] MEDS ORDERED: AMIODARONE HCL 200 MG TAB PO SCH (21:00)
[2022-04-11] MEDS: CEFEPIME 2 GM in NA CHLORIDE 0.9% 100 ML IV SCH ×2 (02:10→15:42)
[2022-04-11 05:22] LABS: Absolute Lymphocytes (CBC) 0.8 K/uL (0.7-4.9); Hematocrit 28.6 % (36.0-45.0); Lymphocytes % 6.2 % (15.3-44.8); MPV 8.3 fL (7.6-11.3); RBC Red Blood Cell Count 4.42 M/uL (3.86-4.86)
[2022-04-11 05:26] LABS: MCV 64.7 fL (80-100)
[2022-04-11 05:35] LABS: Urine Bacteria <20 /HPF (<20); Urine Mucus Slight /HPF (None Seen); Urine RBC <5 /HPF (None Seen)
[2022-04-11 05:36] LABS: Specific Gravity 1.005 (1.005-1.030); Urine Bilirubin NEGATIVE (Negative); Urine Blood Trace (Negative); Urine Clarity Clear (Clear); Urine Color Colorless (Yellow); Urine Glucose NEGATIVE (Negative); Urine Protein NEGATIVE (Negative); Urine Urobilinogen Normal (Normal)
[2022-04-11 05:45] LABS: UR PROTEIN 13.4 mg/dL (<11.9)
[2022-04-11 05:47] LABS: UR CREAT < 18.0 mg/dL (20-320)
[2022-04-11 06:30] LABS: Magnesium 1.8 mg/dL (1.8-2.4); Potassium 4.2 mmol/L (3.5-5.1)
--- NOTE | 2022-04-11 07:10 | ECHO ---
HEIGHT: 5 ft 2 in WEIGHT: 91 lb 9.6 oz DATE OF STUDY: 04/10/[address]: Liya Lopez 2-DIMENSIONAL: YES M.MODE: YES DOPPLER: YES COLOR FLOW: YES TDS: YES PORTABLE: YES DEFINITY: NO BUBBLE STUDY: NO DIAGNOSIS: ATRIAL FIBRILLATION WITH RAPID VENTRICULAR RESPONSE CARDIAC HISTORY: CATHERIZATION: SURGERY: PROSTHETIC VALVE: PACEMAKER: MEASUREMENTS (cm) DIASTOLIC (NORMALS) SYSTOLIC (NORMALS) IVSd 1.0 (0.6-1.2) LA Diam (1.9-4.0) LVEF 55-60% LVIDd 3.3 (3.5-5.7) LVIDs 2.5 (2.0-3.5) %FS 25% LVPWd 1.0 (0.6-1.2) Ao Diam (2.0-3.7) 2 DIMENSIONAL ASSESSMENT: RIGHT ATRIUM: NORMAL LEFT ATRIUM: NORMAL RIGHT VENTRICLE: NORMAL LEFT VENTRICLE: NORMAL TRICUSPID VALVE: MILD TRICUSPID REGURGITATION MITRAL VALVE: MITRAL ANNULR CALCIFICATION, NO MITRAL STENOSIS PULMONIC VALVE: NORMAL AORTIC VALVE: MILDLY CALCIFIED PERICARDIAL EFFUSION: NONE AORTIC ROOT: NORMAL LEFT VENTRICULAR WALL MOTION: NORMAL. DOPPLER/COLOR FLOW: MILD TRICUSPID REGURGITATION. COMMENTS: NORMAL LEFT VENTRICULAR EJECTION FRACTION 55-60%. NORMAL WALL MOTION. CALCIFIED MITRAL VALVE, NO MITRAL STENOSIS. CALCIFIED AORTIC VALVE, NO AORTIC STENOSIS. MILD TRICUSPID REGURGITATION. TECHNOLOGIST: KEITH ACOSTA
[2022-04-11] MEDS: D5 0.2 NS 1,000 ML with POTASSIUM CL 40 MEQ IV SCH ×2 (08:18)
[2022-04-11] MEDS: HOME MED 1 EA UNK (Fluticasone/Umeclidin/Vilanter [Trelegy Ellipta 100-62.5-25] Blst.W.Dev IH SCH (09:00)
[2022-04-11] MEDS: ENOXAPARIN 30 MG/0.3 ML SQ SCH (09:50)
[2022-04-11] MEDS: AMIODARONE HCL 200 MG TAB PO SCH (09:50)
[2022-04-11] MEDS: ASPIRIN 81 MG CHEWABLE TABLET NG SCH (09:50)
--- NOTE | 2022-04-11 13:07 | P.PN ---
Subjective Date of Service: 04/11/22 Primary Care Provider: Phuong Chief Complaint: UTI, Severe Sepsis, Afib RVR, Hypernatremia Subjective: Doing well (Patient is feeling well. She is off pressors and amiodarone drip. She has been downgraded to floor today) Physical Examination - Vital Signs Temperature: 97.6 F Blood Pressure: 109/56 Pulse: 86 Respirations: 20 Pulse Ox (%): 95 - Physical Exam General: Cachectic HEENT: Atraumatic, Normocephalic, Other (NG tube) Respiratory: Clear to auscultation bilaterally, Normal air movement Cardiovascular: No edema, Normal pulses, Regular rate/rhythm, No murmurs Gastrointestinal: Soft and benign, Non-distended Musculoskeletal: No clubbing, No swelling, No contractures Neurological: Normal speech Assessment And Plan - Current Problems (Diagnosis) (1) Atrial fibrillation with RVR Current Visit: Yes Status: Acute (2) Emphysema lung Current Visit: Yes Status: Acute (3) Esophageal dysmotility Current Visit: Yes Status: Acute (4) Hypernatremia Current Visit: Yes Status: Acute (5) Severe protein-calorie malnutrition Current Visit: Yes Status: Acute (6) UTI (urinary tract infection) Current Visit: Yes Status: Acute Qualifiers: Urinary tract infection type: acute cystitis Hematuria presence: with hematuria Qualified Code(s): N30.01 - Acute cystitis with hematuria (7) Anemia Current Visit: Yes Status: Chronic Qualifiers: Anemia type: other cause Other causes of anemia: other cause, not classified Qualified Code(s): D64.89 - Other specified anemias (8) COPD (chronic obstructive pulmonary disease) Current Visit: Yes Status: Chronic Qualifiers: COPD type: unspecified COPD Qualified Code(s): J44.9 - Chronic obstructive pulmonary disease, unspecified (9) Hypothyroidism Current Visit: Yes Status: Chronic Qualifiers: Hypothyroidism type: acquired Qualified Code(s): E03.9 - Hypothyroidism, unspecified - Plan Assessment Patient is a 86 year old female who was admitted with rapid afib and hypotension. She was in the unit for pressors and amiodarone infusion. She has done well from a cardiac standpoint and has been transferred to telemetry. Her hospital course has been complicated by dysphagia. She currently has a NG tube through which she's getting tube feeds. Rapid atrial fibrillation Hypotension E. coli UTI - pansensitive Dysphagia - CT with esophageal swelling and gastric dilatation Chronic respiratory failure Hypokalemia-resolved PLAN: Transfer to telemetry now off pressors and amiodarone infusion Continue PO amiodarone Continue antibiotics She will have EGD tomorrow for dysphagia She is currently on 4L of O2, which is baseline for her DC IVF Continue tube feeds via NG tube
[2022-04-11] MEDS ORDERED: AMIODARONE HCL 200 MG TAB PO SCH (15:00)
[2022-04-11] MEDS ORDERED: NA CHLORIDE 0.9% 100 ML ONE (15:33)
--- NOTE | 2022-04-11 15:44 | EKG ---
Test Date: 2022-04-07 Test Time: 18:57:10 Account Clerk: TANIA MEASUREMENT RESULTS: Intervals: Rate: 102 MO: 130 QRSD: 88 QT: 360 QTc: 469 Luck: P: 80 MO: 130 QRS: 75 T: 61 INTERPRETIVE STATEMENTS: Sinus tachycardia Otherwise normal ECG Compared to ECG 06/25/2020 12:11:40 Atrial fibrillation no longer present ST (T wave) deviation no longer present Possible ischemia no longer present Electronically Signed On 04-11-22 15:41:30 CDT by Ho Montoya
--- NOTE | 2022-04-11 15:44 | EKG ---
Test Date: 2022-04-07 Test Time: 23:10:55 Real Estate Specialist: NAZIA MEASUREMENT RESULTS: Intervals: Rate: 175 MO: QRSD: 98 QT: 244 QTc: 416 [place]: P: MO: QRS: 78 T: -90 INTERPRETIVE STATEMENTS: Atrial fibrillation with rapid ventricular response Marked ST abnormality, possible inferior subendocardial injury Marked ST abnormality, possible anterior subendocardial injury Abnormal ECG Compared to ECG 04/07/2022 18:57:10 ST (T wave) deviation now present Sinus tachycardia no longer present Electronically Signed On 04-11-22 15:41:24 CDT by Ho Montoya
[2022-04-11 18:43] LABS: Folic Acid, (Folate) 19.3 ng/mL (3.1-17.5)
--- NOTE | 2022-04-11 22:31 | PN ---
Date of Progress Note: 04/11/2022 Subjective: Seen by bedside, doing clinically well from cardiology standpoint. No chest pain, short ness of breath, orthopnea, cough, nausea, vomiting, diarrhea. All other systems reviewed and negativ e. Physical Examination: Vital Signs: Temperature is 97.6, heart rate 77, breathing at 18, blood pressure 118/71, saturating 95% on room air. General: Pleasant, elderly female, in no distress. Head and Neck: Pupils are equal, reactive to light. Intact eye movements. No JVD. No cervical lym phadenopathy. Neck: Supple. Thyroid is not enlarged. Lungs: Clear to auscultation bilaterally. No wheezing, crackles. No accessory muscle use. Heart: Irregularly irregular. No extra sounds. Abdomen: Soft, nontender. Bowel sounds positive. No organomegaly. No masses or hernia. No rigidi ty or rebound. Extremities: No clubbing, cyanosis. Intact pulses. Skin: No rashes. Neurologic: Alert, awake. No acute focal deficits appreciated. Investigations: Creatinine 0.54. Hemoglobin is 9, white blood count 16.4. Assessment And Recommendations: Atrial fibrillation with rapid ventricular response. This has resol kierra now. She is in sinus. Continue amiodarone 100 mg daily by mouth and patient will need a formal stroke prevention if she is able to tolerate anticoagulant to start that with Eliquis 5 mg twice a da y and plan for outpatient appendage closure. SR/MODL Voice ID: [id number] Report ID: [id number]
--- NOTE | 2022-04-11 23:48 | P.PN ---
Date of Service: 04/11/22 Vital Signs Temp Pulse Resp BP Pulse Ox 98.6 F 82 17 116/56 L 90 L 04/11/22 20:00 04/11/22 20:00 04/11/22 20:00 04/11/22 20:00 04/11/22 20:00 Medications Acetaminophen (Acetaminophen 500 Mg Tab) 500 mg PO Q4HP PRN PRN Reason: Pain scale 2-4 (Mild) Albuterol Sulfate (Albuterol 2.5 Mg/3 Ml Neb Bisi) 2.5 mg NEB [id number] PRN PRN Reason: SHORTNESS OF BREATH Amiodarone HCl (Amiodarone Hcl 200 Mg Tab) 200 mg PO DAILY [facility] Last Admin: 04/11/22 09:50 Dose: 200 mg Aspirin (Aspirin 81 Mg Chewable Tablet) 81 mg NG DAILY [facility] Last Admin: 04/11/22 09:50 Dose: 81 mg Enoxaparin Sodium (Enoxaparin 30 Mg/0.3 Ml) 30 mg SQ DAILY [facility] Last Admin: 04/11/22 09:50 Dose: 30 mg Home Med (Fluticasone/Umeclidin/Vilanter [Trelegy Ellipta 100-62.5-25]) 1 each IH DAILY [facility] Last Admin: 04/11/22 09:00 Dose: Not Given Cefepime HCl 2 gm/ Sodium (Chloride) 100 mls @ 200 mls/hr IV Q12H [facility] Last Admin: 04/11/22 15:42 Dose: 100 mls Phenylephrine HCl 50 mg/ (Dextrose) 255 mls @ 6.357 mls/hr IV TITR NATI; Protocol Nutritional Formula (Vital Af 1,000 Ml Bot) 1,000 ml RTH CONT [facility] Ondansetron HCl (Ondansetron 4 Mg/2 Ml Vial) 4 mg IV Q6HP PRN PRN Reason: NAUSEA / VOMITING Sodium Chloride (Flush Normal Saline 10 Ml) 10 ml IV BID [facility] Last Admin: 04/11/22 09:51 Dose: 10 ml Microbiology Results 04/07/22 22:18 Catheterized Urine Gove Count - Final >100,000 CFU/ML. 04/07/22 22:18 Catheterized Urine - Final Escherichia Coli 04/07/22 20:31 Blood - Blood Aerobic Blood Culture - Preliminary No growth in 24 hours. 04/07/22 20:31 Blood - Blood Anaerobic Blood Culture - Preliminary No growth in 24 hours. 04/07/22 20:19 Blood - Blood Aerobic Blood Culture - Preliminary No growth in 24 hours. 04/07/22 20:19 Blood - Blood Anaerobic Blood Culture - Preliminary No growth in 24 hours. 04/07/22 19:35 Nasopharnyx Influenza Type A Antigen Screen - Final 04/07/22 19:35 Nasopharnyx Influenza Type B Antigen Screen - Final Assessment/ Plan: Nephrology No dyspnea No chest pain Fatigue and weakness No acute events overnight Vitals, medications, blood work and imaging reviewed in the chart. NAD. Cachectic. MMM. Neck supple. Normal respiratory effort. RRR. Abd ND. No C/C/E. No rash. AAO. Normal speech. NGT. Morin with light urine. LEONILA in the setting of hypovolemia & hypotension, resolved Proteinuria -Continue hydration -No NSAIDs Hypernatremia, improving -Continue free water through NGT Hypokalemia -Replete prn Hypomagnesemia -Replete as ordered Mild malnutriton with cachexia -Continue tube feeds Anemia in chronic illness Iron Deficiency 19% -Monitor H&H Sepsis/ Septic Shock Acute E.coli Cystitis -Continue abx -Continue IVF
[2022-04-12] MEDS: CEFEPIME 2 GM in NA CHLORIDE 0.9% 100 ML IV SCH ×2 (02:38→17:23)
[2022-04-12 06:12] LABS: Absolute Lymphocytes (CBC) 0.8 K/uL (0.7-4.9); Hematocrit 27.3 % (36.0-45.0); Lymphocytes % 6.9 % (15.3-44.8); MCV 64.3 fL (80-100); RBC Red Blood Cell Count 4.25 M/uL (3.86-4.86)
[2022-04-12 06:22] LABS: Potassium 3.8 mmol/L (3.5-5.1)
[2022-04-12] MEDS: ASPIRIN 81 MG CHEWABLE TABLET NG SCH (08:21)
[2022-04-12] MEDS: AMIODARONE HCL 200 MG TAB PO SCH (08:21)
[2022-04-12] MEDS: ENOXAPARIN 30 MG/0.3 ML SQ SCH (08:22)
[2022-04-12] MEDS: HOME MED 1 EA UNK (Fluticasone/Umeclidin/Vilanter [Trelegy Ellipta 100-62.5-25] Blst.W.Dev IH SCH (08:22)
--- NOTE | 2022-04-12 13:14 | P.PN ---
Subjective Date of Service: 04/12/22 Primary Care Provider: Phuong Chief Complaint: UTI, Severe Sepsis, Afib RVR, Hypernatremia Subjective: Improving (Patient is n.p.o. for EGD today. No acute events overnight.) Physical Examination - Vital Signs Temperature: 98.1 F Blood Pressure: 114/55 Pulse: 86 Respirations: 16 Pulse Ox (%): 98 - Physical Exam General: In no apparent distress HEENT: Atraumatic, Normocephalic Neck: Supple Respiratory: Clear to auscultation bilaterally, Normal air movement Cardiovascular: Regular rate/rhythm, Normal S1 S2 Gastrointestinal: Other (NG tube in place) Neurological: Normal speech, Sensation intact, Cranial nerves 3-12 intact Assessment And Plan - Current Problems (Diagnosis) (1) Atrial fibrillation with RVR Current Visit: Yes Status: Acute (2) Emphysema lung Current Visit: Yes Status: Acute (3) Esophageal dysmotility Current Visit: Yes Status: Acute (4) Hypernatremia Current Visit: Yes Status: Acute (5) Severe protein-calorie malnutrition Current Visit: Yes Status: Acute (6) UTI (urinary tract infection) Current Visit: Yes Status: Acute Qualifiers: Urinary tract infection type: acute cystitis Hematuria presence: with hematuria Qualified Code(s): N30.01 - Acute cystitis with hematuria (7) Anemia Current Visit: Yes Status: Chronic Qualifiers: Anemia type: other cause Other causes of anemia: other cause, not classified Qualified Code(s): D64.89 - Other specified anemias (8) COPD (chronic obstructive pulmonary disease) Current Visit: Yes Status: Chronic Qualifiers: COPD type: unspecified COPD Qualified Code(s): J44.9 - Chronic obstructive pulmonary disease, unspecified (9) Hypothyroidism Current Visit: Yes Status: Chronic Qualifiers: Hypothyroidism type: acquired Qualified Code(s): E03.9 - Hypothyroidism, unspecified - Plan Assessment Patient is a 86 year old female who was admitted with rapid afib and hypotension. She was in the unit for pressors and amiodarone infusion. She has done well from a cardiac standpoint and has been transferred to telemetry. Her hospital course has been complicated by dysphagia. She currently has a NG tube through which she's getting tube feeds. Rapid atrial fibrillation Hypotension E. coli UTI - pansensitive Dysphagia - CT with esophageal swelling and gastric dilatation Chronic respiratory failure Hypokalemia-resolved PLAN: N.p.o. for EGD today Will have to assess her ability to swallow and how well she can tolerate solid food. If she fails, will need alternative methods of feeding Continue antibiotics Continue supplemental oxygen. 4 L is her baseline Resume tube feeds after her EGD Follow GI recommendations. As far as her atrial fibrillation is concerned, she can be discharged on NOAC with a plan for outpatient watchman procedure.
[2022-04-12] MEDS ORDERED: Ringers Lactate 1,000 ML IV ONE (13:15)
[2022-04-12] MEDS ORDERED: propofoL 200 MG/20 ML VIAL IV ONE (13:47)
--- NOTE | 2022-04-12 14:16 | ENDO RPT ---
[address], [address] EGD PROCEDURE REPORT EXAM DATE: 04/12/2022 PATIENT NAME: Demetrice Bedolla MR#: [id number] BIRTHDATE: 1935 ATTENDING: Bret Ruiz Dr STATUS: inpatient - [facility] CONTESTANT COORDINATOR: Richard Zamudio RN and Latia Bates INDICATIONS: The patient is a 86 yr old Female here for an EGD due to dysphagia, abnormal CT chest -> food in distal esophagus and 4 cm dilated mid to distal esophagus PROCEDURE PERFORMED: EGD with foreign body removal MEDICATIONS: Per Anesthesia. TOPICAL ANESTHETIC: none CONSENT: The patient understands the risks and benefits of the procedure and understands that these risks include, but are not limited to: sedation, allergic reaction, infection, perforation and/or bleeding. Alternative means of evaluation and treatment include, among others: physical exam, x-rays, and/or surgical intervention. The patient elects to proceed with this endoscopic procedure. DESCRIPTION OF PROCEDURE: During intra-op preparation period all mechanical medical equipment was checked for proper function. Hand hygiene and appropriate measures for infection prevention was taken. Procedure, possible complications, and alternatives including but not limited to the possibility of bleeding, perforation, tear, infection, sepsis, need for surgery, need for blood transfusion, and anesthesia related complications were explained to the patient. After the risks, benefits and alternatives of the procedure were thoroughly explained, Informed consent was verified, confirmed and timeout was successfully executed by the treatment team. The patient was placed in the left lateral position. The patient was anesthetized with topical anesthesia. Through the anesthetized oropharyngeal area, the scope was passed without any difficulty. The [id number] ([id number]) endoscope was introduced through the mouth and advanced to the stomach antrum. Retroflexed views revealed a small hiatal hernia. The gastroscope was then slowly withdrawn and removed. A large 5 X 2 cm meat bolus was found in the lower esophagus. partial removal of 80-90% with push into stomach. Large 3 X 1 cm cavitating vertical ulcer was found in the lower esophagus. A small hiatal hernia was found. An 5 mm ulcer was found in the body of the stomach. Moderate gastritis was found in the antrum. ADVERSE EVENTS: There were no complications. IMPRESSIONS: 1. Large 5 X 2 cm meat bolus impacted in the lower esophagus, removed by pushing into stomach 2. Large 3 X 1 cm cavitating vertical ulcer was found in the lower esophagus 3. Small hiatal hernia 4. 5 mm ulcer in the body of the stomach 5. Moderate gastritis in the antrum RECOMMENDATIONS: 1. acid suppression therapy 2. timed esophagram REPEAT EXAM: Return in 1 week(s) for EGD. Bret Ruiz Dr eSigned: Bret Ruiz Dr 04/12/2022 2:15 PM cc: CPT CODES: ICD9 CODES: PATIENT NAME: Demetrice BedollaLarisa MR#: [id number]
[2022-04-12] MEDS ORDERED: ALBUTEROL 2.5 MG/3 ML NEB SOL ONE (14:42)
[2022-04-13] MEDS: CEFEPIME 2 GM in NA CHLORIDE 0.9% 100 ML IV SCH (04:16)
[2022-04-13] MEDS: D5 0.45 NS 1,000 ML IV SCH (06:00)
[2022-04-13] MEDS ORDERED: SODIUM CHLORIDE 0.9% 10ML INJ IV PRN ×2 (07:04→13:55)
[2022-04-13] MEDS: ALBUTEROL 2.5 MG/3 ML NEB SOL NEB PRN ×3 (08:40→20:20)
[2022-04-13] MEDS ORDERED: PANTOPRAZOLE 40 MG INJ IVP SCH (09:00)
[2022-04-13] MEDS ORDERED: MAGNESIUM SULFATE 1 gm IVPB 1 GM/100 ML BAG IV ONE (09:00)
[2022-04-13] MEDS ORDERED: KCL 20 MEQ/100 mL IVPB 20 MEQ/100 ML BAG IV SCH (09:00)
[2022-04-13] MEDS: HOME MED 1 EA UNK (Fluticasone/Umeclidin/Vilanter [Trelegy Ellipta 100-62.5-25] Blst.W.Dev IH SCH (09:00)
--- NOTE | 2022-04-13 09:21 | RAD REPORT ---
EXAM DESCRIPTION: Tonny Single View04/13/2022 9:03 am CLINICAL HISTORY: Sepsis COMPARISON: April 09 2022 FINDINGS: Right base is mildly hazy. Small left upper lobe opacity unchanged Lungs are moderately to markedly hyperaerated. Cardiomegaly. Nasogastric tube within the stomach. IMPRESSION: Right base is mildly hazy which may indicate mild pneumonia
[2022-04-13] MEDS: ENOXAPARIN 30 MG/0.3 ML SQ SCH (09:41)
[2022-04-13] MEDS: ASPIRIN 81 MG CHEWABLE TABLET NG SCH (09:41)
[2022-04-13] MEDS: AMIODARONE HCL 200 MG TAB PO SCH (09:41)
[2022-04-13] MEDS ORDERED: levoFLOXacin 750 MG TAB PO SCH (10:00)
[2022-04-13 11:08] LABS: Absolute Lymphocytes (CBC) 0.8 K/uL (0.7-4.9); Hematocrit 28.4 % (36.0-45.0); Lymphocytes % 7.7 % (15.3-44.8); MCV 64.7 fL (80-100); MPV 8.8 fL (7.6-11.3)
[2022-04-13 12:53] LABS: Anisocytosis 1+; Blood Morphology Comment NOTED (NOT SEEN); Hypochromasia 1+; Platelet Estimate ADEQ; Teardrop Cell 1+; White Blood Cell Scan OK (OK)
--- NOTE | 2022-04-13 13:54 | P.PN ---
Subjective Date of Service: 04/13/22 Primary Care Provider: Phuong Chief Complaint: UTI, Severe Sepsis, Afib RVR, Hypernatremia Subjective: Other (Patient was short of breath this morning. O2 sat dropped to 88% while on 4L. Her O2 sats improved after nebulizer treatment.) Physical Examination - Vital Signs Temperature: 98.6 F Blood Pressure: 111/58 Pulse: 87 Respirations: 16 Pulse Ox (%): 93 - Physical Exam General: Alert, In no apparent distress, Cooperative HEENT: Atraumatic, Normocephalic Respiratory: Clear to auscultation bilaterally, Normal air movement Cardiovascular: No edema, Normal pulses, Regular rate/rhythm, Normal S1 S2 - Studies Microbiology Data (last 24 hrs): 04/07/22 20:19 Blood - Blood Aerobic Blood Culture - Final No growth in 5 days. 04/07/22 20:19 Blood - Blood Anaerobic Blood Culture - Final No growth in 5 days. 04/07/22 20:31 Blood - Blood Aerobic Blood Culture - Final No growth in 5 days. 04/07/22 20:31 Blood - Blood Anaerobic Blood Culture - Final No growth in 5 days. Assessment And Plan - Current Problems (Diagnosis) (1) Atrial fibrillation with RVR Current Visit: Yes Status: Acute (2) Emphysema lung Current Visit: Yes Status: Acute (3) Esophageal dysmotility Current Visit: Yes Status: Acute (4) Hypernatremia Current Visit: Yes Status: Acute (5) Severe protein-calorie malnutrition Current Visit: Yes Status: Acute (6) UTI (urinary tract infection) Current Visit: Yes Status: Acute Qualifiers: Urinary tract infection type: acute cystitis Hematuria presence: with hematuria Qualified Code(s): N30.01 - Acute cystitis with hematuria (7) Anemia Current Visit: Yes Status: Chronic Qualifiers: Anemia type: other cause Other causes of anemia: other cause, not classified Qualified Code(s): D64.89 - Other specified anemias (8) COPD (chronic obstructive pulmonary disease) Current Visit: Yes Status: Chronic Qualifiers: COPD type: unspecified COPD Qualified Code(s): J44.9 - Chronic obstructive pulmonary disease, unspecified (9) Hypothyroidism Current Visit: Yes Status: Chronic Qualifiers: Hypothyroidism type: acquired Qualified Code(s): E03.9 - Hypothyroidism, unspecified - Plan Assessment Patient is a 86 year old female who was admitted with rapid afib and hypotension. She was in the unit for pressors and amiodarone infusion. She has done well from a cardiac standpoint and has been transferred to telemetry. Her hospital course has been complicated by dysphagia. She currently has a NG tube through which she's getting tube feeds. EGD on 914 showed food impaction, large esphogeal ulcer and moderate gastritis Dysphagia - CT with esophageal swelling and gastric dilatation Acute on chronic hypoxemic respiratory failure Rapid atrial fibrillation Hypotension E. coli UTI - pansensitive Hypokalemia-resolved PLAN: Start acid suppression therapy GI recommends esophagram. This will happen tomorrow Continue TF via NGT until midnight. Start levofloxacin for possible aspiration PNA Continue supplemental oxygen. 4 L is her baseline As far as her atrial fibrillation is concerned, she can be discharged on NOAC with a plan for outpatient watchman procedure.
[2022-04-13] MEDS: PANTOPRAZOLE 40 MG INJ IVP SCH (14:00)
[2022-04-14] MEDS: ALBUTEROL 2.5 MG/3 ML NEB SOL NEB PRN (01:38)
[2022-04-14 06:01] LABS: Magnesium 1.8 mg/dL (1.8-2.4); Potassium 3.5 mmol/L (3.5-5.1)
[2022-04-14] MEDS ORDERED: PANTOPRAZOLE 40MG TABLET PO SCH (06:30)
[2022-04-14] MEDS ORDERED: KCL 20 MEQ/100 mL IVPB 20 MEQ/100 ML BAG IV SCH (09:00)
--- NOTE | 2022-04-14 10:09 | P.PN ---
Subjective Date of Service: 04/14/22 Primary Care Provider: Phuong Chief Complaint: UTI, Severe Sepsis, Afib RVR, Hypernatremia Subjective: Improving (Improving no complaints patient is tolerating nasogastric tube feeds) Review of Systems General: Weakness Respiratory: Shortness of Breath Physical Examination - Vital Signs Temperature: 98.0 F Blood Pressure: 103/70 Pulse: 79 Respirations: 16 Pulse Ox (%): 99 - Physical Exam General: Alert, In no apparent distress, Oriented x3 Respiratory: Clear to auscultation bilaterally, Diminished Cardiovascular: No edema, Regular rate/rhythm Assessment And Plan - Current Problems (Diagnosis) (1) UTI (urinary tract infection) Current Visit: Yes Status: Acute Plan: Patient has E. coli in the urine and is pansensitive Qualifiers: Urinary tract infection type: acute cystitis Hematuria presence: with hematuria Qualified Code(s): N30.01 - Acute cystitis with hematuria (2) Esophageal dysmotility Current Visit: Yes Status: Acute Plan: Patient has esophageal dysmotility apparently food got stuck in her throat is scheduled for an esophageal gram today has an NG tube patient has chronic microcytic anemia patient's white count is now normal (3) Iron deficiency anemia Current Visit: Yes Status: Acute Plan: Patient has a chronic microcytic anemia presumed iron deficiency low transferrin saturation patient has an esophageal ulcer presumed chronic blood loss we will also give IV iron (4) Atrial fibrillation with RVR Current Visit: Yes Status: Acute - Plan Patient developed atrial fibrillation currently on amiodarone drip back in normal sinus rhythm
[2022-04-14] MEDS: PANTOPRAZOLE 40 MG INJ IVP SCH (10:15)
[2022-04-14] MEDS: AMIODARONE HCL 200 MG TAB PO SCH (10:15)
[2022-04-14] MEDS: ENOXAPARIN 30 MG/0.3 ML SQ SCH (10:15)
[2022-04-14] MEDS: ASPIRIN 81 MG CHEWABLE TABLET NG SCH (10:15)
[2022-04-14] MEDS: HOME MED 1 EA UNK (Fluticasone/Umeclidin/Vilanter [Trelegy Ellipta 100-62.5-25] Blst.W.Dev IH SCH (10:22)
[2022-04-14] MEDS: D5 0.45 NS 1,000 ML IV SCH (10:27)
--- NOTE | 2022-04-14 11:16 | RAD REPORT ---
EXAM DESCRIPTION: RAD - Esophagram Only - 04/14/2022 9:50 am CLINICAL HISTORY: r/o achalasia..... COMPARISON: Abdomen Pelvis W Contrast dated 07/31/2019 TECHNIQUE: Esophagram procedure was performed with the patient in semi upright supine position on th e fluoroscopic table. The patient was unable to tolerate full upright position or right lateral decub itus positioning. FINDINGS: NG tube is in place. Patient showed good bolus formation and good initiation of swallowing . Pooling was seen in the valleculae and piriform sinuses. No aspiration was observed. The esophagus is not dilated. There was decreased primary peristalsis with mild tertiary contractions observed. No diffuse esophageal spasm. There was delayed clearing of contrast from the esophagus. No stricture or focal abnormality seen at the GE junction. There was a cluster of filling defects in th e distal esophagus near the GE junction believed to be food material that has not passed across the G E junction. These filling defects are not seen as esophageal mass lesions. There were 6 fluoroscopic screen capture images obtained along with 5 fluoroscopic cine loop imaging sequences. Fluoro time was 2 minutes 56 seconds. Cumulative dose was 11.08 mGy. IMPRESSION: Decreased primary peristalsis with mild tertiary contractions noted. There was delayed c learing of contrast from the esophagus. No esophageal dilatation. Multiple small filling defects are present in the distal esophagus. These mobile filling defects are believed be food boluses that have not across the GE junction.
[2022-04-14] MEDS: SOD FERRIC GLUC COMPLX/SUCROSE 250 MG in NA CHLORIDE 0.9% 250 ML IV SCH (13:03)
[2022-04-14] MEDS: SMZ./TMP. 800/160 MG TABLET PO SCH (21:05)
--- NOTE | 2022-04-14 22:42 | P.PN ---
Date of Service: 04/14/22 Vital Signs Temp Pulse Resp BP Pulse Ox 97.8 F 73 20 125/55 L 93 04/14/22 20:00 04/14/22 20:00 04/14/22 20:00 04/14/22 20:00 04/14/22 20:00 Medications Acetaminophen (Acetaminophen 500 Mg Tab) 500 mg PO Q4HP PRN PRN Reason: Pain scale 2-4 (Mild) Albuterol Sulfate (Albuterol 2.5 Mg/3 Ml Neb Bisi) 2.5 mg NEB [id number] PRN PRN Reason: SHORTNESS OF BREATH Last Admin: 04/14/22 01:38 Dose: 2.5 mg Amiodarone HCl (Amiodarone Hcl 200 Mg Tab) 200 mg PO DAILY [facility] Last Admin: 04/14/22 10:15 Dose: 200 mg Aspirin (Aspirin 81 Mg Chewable Tablet) 81 mg NG DAILY [facility] Last Admin: 04/14/22 10:15 Dose: 81 mg Enoxaparin Sodium (Enoxaparin 30 Mg/0.3 Ml) 30 mg SQ DAILY [facility] Last Admin: 04/14/22 10:15 Dose: 30 mg Home Med (Fluticasone/Umeclidin/Vilanter [Trelegy Ellipta 100-62.5-25]) 1 each IH DAILY [facility] Last Admin: 04/14/22 10:22 Dose: 1 each Dextrose/Sodium Chloride (Dextrose 5% O.45% Saline) 1,000 mls @ 50 mls/hr IV .Q20H [facility] Last Admin: 04/14/22 10:27 Dose: 1,000 mls Ferric Sodium Gluconate Complex 250 mg/ Sodium Chloride 270 mls @ 135 mls/hr IV DAILY [facility] Stop: 04/17/22 10:59 Last Admin: 04/14/22 13:03 Dose: 270 mls Nutritional Formula (Vital Af 1,000 Ml Bot) 1,000 ml RTH CONT [facility] Last Admin: 04/13/22 12:32 Dose: 1,000 ml Ondansetron HCl (Ondansetron 4 Mg/2 Ml Vial) 4 mg IV Q6HP PRN PRN Reason: NAUSEA / VOMITING Pantoprazole Sodium ([facility]t) [facility]; Protocol Sodium Chloride (Flush Normal Saline 10 Ml) 10 ml IV BID [facility] Last Admin: 04/14/22 21:00 Dose: 10 ml Sodium Chloride (Sodium Chloride 0.9% 10ml Inj) 10 ml IV UD PRN PRN Reason: Diluant Sodium Chloride (Sodium Chloride 0.9% 10ml Inj) 10 ml IV UD PRN PRN Reason: Diluant Trimethoprim/Sulfamethoxazole (Smz./Tmp. 800/160 Mg Tablet) 1 tab PO BID [facility]; Protocol Last Admin: 04/14/22 21:05 Dose: 1 tab Microbiology Results 04/07/22 20:19 Blood - Blood Aerobic Blood Culture - Final No growth in 5 days. 04/07/22 20:19 Blood - Blood Anaerobic Blood Culture - Final No growth in 5 days. 04/07/22 20:31 Blood - Blood Aerobic Blood Culture - Final No growth in 5 days. 04/07/22 20:31 Blood - Blood Anaerobic Blood Culture - Final No growth in 5 days. 04/07/22 22:18 Catheterized Urine [place] Count - Final >100,000 CFU/ML. 04/07/22 22:18 Catheterized Urine - Final Escherichia Coli 04/07/22 19:35 Nasopharnyx Influenza Type A Antigen Screen - Final 04/07/22 19:35 Nasopharnyx Influenza Type B Antigen Screen - Final Assessment/ Plan: Nephrology No dyspnea No chest pain Fatigue and weakness No acute events overnight Vitals, medications, blood work and imaging reviewed in the chart. NAD. Cachectic. MMM. Neck supple. Normal respiratory effort. RRR. Abd ND. No C/C/E. No rash. AAO. Normal speech. NGT. Morin with light urine. LEONILA in the setting of hypovolemia & hypotension, resolved Proteinuria -No NSAIDs Hypernatremia, resolved -Maintain hydration Hypokalemia -Replete prn Hypomagnesemia -Replete prn Mild malnutriton with cachexia -Advance diet as tolerated Anemia in chronic illness Iron Deficiency 19% -Monitor H&H Sepsis/ Septic Shock Acute E.coli Cystitis -Continue abx
[2022-04-15] MEDS: D5 0.45 NS 1,000 ML IV SCH (01:28)
[2022-04-15 04:42] LABS: Potassium 3.4 mmol/L (3.5-5.1)
[2022-04-15] MEDS: KCL 20 MEQ/100 mL IVPB 20 MEQ/100 ML BAG IV SCH ×2 (06:28→10:11)
[2022-04-15] MEDS ORDERED: PANTOPRAZOLE 40MG TABLET PO SCH (06:30)
[2022-04-15] MEDS: HOME MED 1 EA UNK (Fluticasone/Umeclidin/Vilanter [Trelegy Ellipta 100-62.5-25] Blst.W.Dev IH SCH (09:00)
--- NOTE | 2022-04-15 09:21 | P.PN ---
Subjective Date of Service: 04/15/22 Primary Care Provider: Phuong Chief Complaint: Atrial fibrillation dysphagia Subjective: Improving (Patient is improving complaining of a sore throat) Review of Systems General: Weakness Respiratory: Shortness of Breath Physical Examination - Vital Signs Temperature: 98.3 F Blood Pressure: 112/56 Pulse: 77 Respirations: 18 Pulse Ox (%): 90 - Physical Exam General: Alert, In no apparent distress, Mild distress Respiratory: Clear to auscultation bilaterally, Diminished Cardiovascular: No edema, Regular rate/rhythm, Normal S1 S2 Assessment And Plan - Current Problems (Diagnosis) (1) UTI (urinary tract infection) Current Visit: Yes Status: Acute Plan: Patient has E. coli in the urine and is pansensitive Qualifiers: Urinary tract infection type: acute cystitis Hematuria presence: with hematuria Qualified Code(s): N30.01 - Acute cystitis with hematuria (2) Esophageal dysmotility Current Visit: Yes Status: Acute Plan: Barium swallow done will start on liquids and advance (3) Iron deficiency anemia Current Visit: Yes Status: Acute Plan: Continue with IV iron (4) Atrial fibrillation with RVR Current Visit: Yes Status: Acute (5) COPD (chronic obstructive pulmonary disease) Current Visit: Yes Status: Acute Plan: Patient has a history of COPD continue with bronchodilators still hypoxic - Plan P patient in normal sinus rhythm on p.o. amiodarone
[2022-04-15] MEDS: AMIODARONE HCL 200 MG TAB PO SCH (10:11)
[2022-04-15] MEDS: SMZ./TMP. 800/160 MG TABLET PO SCH ×2 (10:11→20:52)
[2022-04-15] MEDS: ENOXAPARIN 30 MG/0.3 ML SQ SCH (10:11)
[2022-04-15] MEDS: SOD FERRIC GLUC COMPLX/SUCROSE 250 MG in NA CHLORIDE 0.9% 250 ML IV SCH (10:12)
[2022-04-15] MEDS: ASPIRIN 81 MG CHEWABLE TABLET NG SCH (10:12)
[2022-04-15] MEDS ORDERED: SOD FERRIC GLUC COMPLX/SUCROSE 250 MG in NA CHLORIDE 0.9% 250 ML IV SCH (13:00)
--- NOTE | 2022-04-15 22:46 | P.PN ---
Date of Service: 04/15/22 Vital Signs Temp Pulse Resp BP Pulse Ox 98.1 F 74 18 110/53 L 96 04/15/22 15:52 04/15/22 15:52 04/15/22 15:52 04/15/22 15:52 04/15/22 15:52 Medications Acetaminophen (Acetaminophen 500 Mg Tab) 500 mg PO Q4HP PRN PRN Reason: Pain scale 2-4 (Mild) Albuterol Sulfate (Albuterol 2.5 Mg/3 Ml Neb Bisi) 2.5 mg NEB [id number] PRN PRN Reason: SHORTNESS OF BREATH Last Admin: 04/14/22 01:38 Dose: 2.5 mg Amiodarone HCl (Amiodarone Hcl 200 Mg Tab) 200 mg PO DAILY [facility] Last Admin: 04/15/22 10:11 Dose: 200 mg Aspirin (Aspirin 81 Mg Chewable Tablet) 81 mg NG DAILY [facility] Last Admin: 04/15/22 10:12 Dose: 81 mg Enoxaparin Sodium (Enoxaparin 30 Mg/0.3 Ml) 30 mg SQ DAILY [facility] Last Admin: 04/15/22 10:11 Dose: 30 mg Home Med (Fluticasone/Umeclidin/Vilanter [Trelegy Ellipta 100-62.5-25]) 1 each IH DAILY [facility] Last Admin: 04/15/22 09:00 Dose: Not Given Ferric Sodium Gluconate Complex 250 mg/ Sodium Chloride 270 mls @ 135 mls/hr IV DAILY [facility] Stop: 04/17/22 10:59 Last Admin: 04/15/22 10:12 Dose: 270 mls Nutritional Formula (Vital Af 1,000 Ml Bot) 1,000 ml RTH CONT [facility] Last Admin: 04/13/22 12:32 Dose: 1,000 ml Ondansetron HCl (Ondansetron 4 Mg/2 Ml Vial) 4 mg IV Q6HP PRN PRN Reason: NAUSEA / VOMITING Pantoprazole Sodium (P[facility]oprazole 40mg Tablet) [facility] Protocol Last Admin: 04/15/22 06:28 Dose: 40 mg Sodium Chloride (Flush Normal Saline 10 Ml) 10 ml IV BID [facility] Last Admin: 04/15/22 20:52 Dose: 10 ml Sodium Chloride (Sodium Chloride 0.9% 10ml Inj) 10 ml IV UD PRN PRN Reason: Diluant Sodium Chloride (Sodium Chloride 0.9% 10ml Inj) 10 ml IV UD PRN PRN Reason: Diluant Trimethoprim/Sulfamethoxazole (Smz./Tmp. 800/160 Mg Tablet) 1 tab PO BID [facility]; Protocol Last Admin: 04/15/22 20:52 Dose: 1 tab Microbiology Results 04/07/22 20:19 Blood - Blood Aerobic Blood Culture - Final No growth in 5 days. 04/07/22 20:19 Blood - Blood Anaerobic Blood Culture - Final No growth in 5 days. 04/07/22 20:31 Blood - Blood Aerobic Blood Culture - Final No growth in 5 days. 04/07/22 20:31 Blood - Blood Anaerobic Blood Culture - Final No growth in 5 days. 04/07/22 22:18 Catheterized Urine [place] Count - Final >100,000 CFU/ML. 04/07/22 22:18 Catheterized Urine - Final Escherichia Coli 04/07/22 19:35 Nasopharnyx Influenza Type A Antigen Screen - Final 04/07/22 19:35 Nasopharnyx Influenza Type B Antigen Screen - Final Assessment/ Plan: Nephrology No dyspnea No chest pain Fatigue and weakness No acute events overnight Vitals, medications, blood work and imaging reviewed in the chart. NAD. Cachectic. MMM. Neck supple. Normal respiratory effort. RRR. Abd ND. No C/C/E. No rash. AAO. Normal speech. NGT. Morin with light urine. LEONILA in the setting of hypovolemia & hypotension, resolved Proteinuria -No NSAIDs Hypernatremia, resolved -Maintain hydration Hypokalemia -Replete prn Hypomagnesemia -Replete prn Mild malnutriton with cachexia -Advance diet as tolerated Anemia in chronic illness Iron Deficiency 19% -Monitor H&H Sepsis/ Septic Shock Acute E.coli Cystitis -Continue abx
[2022-04-16] MEDS: PANTOPRAZOLE 40 MG INJ IVP SCH (06:28)
[2022-04-16 07:05] LABS: Albumin 2.2 g/dL (3.4-5.0); Bilirubin Total 0.2 mg/dL (0.2-1.0); Potassium 4.1 mmol/L (3.5-5.1)
[2022-04-16] MEDS ORDERED: LEVALBUTEROL 1.25 MG/3 ML NEB ONE (07:44)
[2022-04-16] MEDS ORDERED: IPRATROPIUM BROM 0.5MG/2.5ML ONE (07:47)
[2022-04-16] MEDS: ENOXAPARIN 30 MG/0.3 ML SQ SCH (09:00)
[2022-04-16] MEDS: SMZ./TMP. 800/160 MG TABLET PO SCH (09:00)
[2022-04-16] MEDS: ASPIRIN 81 MG CHEWABLE TABLET NG SCH (09:00)
[2022-04-16] MEDS: AMIODARONE HCL 200 MG TAB PO SCH (09:00)
[2022-04-16] MEDS: HOME MED 1 EA UNK (Fluticasone/Umeclidin/Vilanter [Trelegy Ellipta 100-62.5-25] Blst.W.Dev IH SCH (09:00)
--- NOTE | 2022-04-16 09:21 | P.PN ---
Subjective Date of Service: 04/16/22 Primary Care Provider: Phuong Chief Complaint: Atrial fibrillation dysphagia Patient is not doing well condition deteriorating still requiring significant concentrations of oxygen complaining of a sore throat Review of Systems General: Weakness Respiratory: Shortness of Breath Physical Examination - Vital Signs Temperature: 98.4 F Blood Pressure: 114/55 Pulse: 75 Respirations: 16 Pulse Ox (%): 96 - Physical Exam General: Alert, Mild distress Respiratory: Clear to auscultation bilaterally, Diminished Cardiovascular: No edema, Regular rate/rhythm Assessment And Plan - Current Problems (Diagnosis) (1) Esophageal dysmotility Current Visit: Yes Status: Acute Plan: Barium swallow done will start on liquids and advance (2) Iron deficiency anemia Current Visit: Yes Status: Acute Plan: Continue with IV iron (3) Atrial fibrillation with RVR Current Visit: Yes Status: Acute (4) COPD (chronic obstructive pulmonary disease) Current Visit: Yes Status: Acute Plan: Patient has terminal COPD respiratory failure now on high flow oxygen patient wants to be a DNR Comfort comfortable NG tube or Dobbhoff elevated Xopenex antibiotics DC'd very weak prognosis poor DNR decision was witnessed and in the presence of the nurses otherwise very responsive alert oriented cooperative answering appropriately after discussed with the caregiver regarding for the placement Qualifiers: Chronic bronchitis type: unspecified - Plan P patient in normal sinus rhythm on p.o. amiodarone
[2022-04-16] MEDS: SOD FERRIC GLUC COMPLX/SUCROSE 250 MG in NA CHLORIDE 0.9% 250 ML IV SCH (11:04)
[2022-04-16] MEDS: LEVALBUTEROL 0.63 MG/3 ML NEB NEB SCH ×2 (14:15→19:55)
--- NOTE | 2022-04-16 19:24 | PN ---
Date of Progress Note: 04/14/2022 Subjective: Ms. Bedolla has no specific complaint. Objective: Vital Signs: Her vital signs are stable. Blood pressure of 105/54 with a pulse was 61, sinus rhythm. Her temperature was 98.9. O2 saturation was 100% on nasal cannula. Laboratory Data: Last creatinine was 0.51. Last potassium was 3.4. Her last glucose was 294. Medications: She is presently on amiodarone, aspirin, Lovenox, iron, potassium, metoprolol, as well as antibiotics. Nephrology continues to follow her. Endoscopy was done, report is pending. The patient's main probl em remains atrial fibrillation, but she is in sinus rhythm, on amiodarone. She has hypernatremia. S he is being hydrated. Hypokalemia that is being replaced. Hypomagnesemia that is being replaced. S he is on antibiotics for E coli. We will sign off her case. Continue amiodarone. KIRILL/YVETTE Voice ID: [id number] Report ID: [id number]
[2022-04-17] MEDS: LEVALBUTEROL 0.63 MG/3 ML NEB NEB SCH ×4 (01:05→20:50)
[2022-04-17] MEDS: PANTOPRAZOLE 40 MG INJ IVP SCH (06:31)
[2022-04-17] MEDS: HOME MED 1 EA UNK (Fluticasone/Umeclidin/Vilanter [Trelegy Ellipta 100-62.5-25] Blst.W.Dev IH SCH (09:00)
[2022-04-17] MEDS: AMIODARONE HCL 200 MG TAB PO SCH (09:47)
[2022-04-17] MEDS: ASPIRIN 81 MG CHEWABLE TABLET NG SCH (09:47)
[2022-04-17] MEDS: ENOXAPARIN 30 MG/0.3 ML SQ SCH (09:47)
[2022-04-17] MEDS: SOD FERRIC GLUC COMPLX/SUCROSE 250 MG in NA CHLORIDE 0.9% 250 ML IV SCH (10:18)
[2022-04-17] MEDS: ACETAMINOPHEN 500 MG TAB PO PRN ×2 (13:09→21:56)
--- NOTE | 2022-04-17 14:38 | P.PN ---
Subjective Date of Service: 04/17/22 Primary Care Provider: Phuong Chief Complaint: Atrial fibrillation dysphagia Patient has no new complaint. She pulled her NG tube out. She is tolerating clear liquid diet. Heart is rate controlled on oral amiodarone.. Physical Examination - Vital Signs Temperature: 98.0 F Blood Pressure: 128/60 Pulse: 83 Respirations: 16 Pulse Ox (%): 91 Assessment And Plan - Current Problems (Diagnosis) (1) Atrial fibrillation with RVR Current Visit: Yes Status: Acute (2) Hypernatremia Current Visit: Yes Status: Acute (3) Emphysema lung Current Visit: Yes Status: Acute (4) UTI (urinary tract infection) Current Visit: Yes Status: Resolved Qualifiers: Urinary tract infection type: acute cystitis Hematuria presence: with hematuria Qualified Code(s): N30.01 - Acute cystitis with hematuria (5) COPD (chronic obstructive pulmonary disease) Current Visit: Yes Status: Chronic Qualifiers: COPD type: unspecified COPD Qualified Code(s): J44.9 - Chronic obstructive pulmonary disease, unspecified (6) Severe sepsis Current Visit: No Status: Acute (7) Esophageal dysmotility Current Visit: Yes Status: Acute (8) Severe protein-calorie malnutrition Current Visit: Yes Status: Acute - Plan Physical Exam General: Alert, In no apparent distress, Cachectic Respiratory: Clear to auscultation bilaterally, Normal air movement Cardiovascular: Irregular heart rate/rhythm Gastrointestinal: Normal bowel sounds, No tenderness Musculoskeletal: No tenderness Integumentary: No rashes Neurological: Normal speech, Normal strength at 5/5 x4 extr, Normal tone, Normal affect Urinary: Morin catheter Plan: Heart rate controlled on oral amiodarone. Patient not anticoagulated for A. fib. Hypernatremia resolved Nephrology is following. Status post phenylephrine drip. Leukocytosis resolved on antibiotics. Blood cultures no growth to date. Urine culture: Pansensitive E. coli Patient completed antibiotics for UTI. CT chest results reviewed and reported esophageal dysphagia secondary to dysmotility or stricture. GI Dr. Ruiz input appreciated. NG tube inserted to bypass possible stricture, but she also has gastric dilatation. EGD showed meat stuck in the esophagus and multiple ulcers. Patient removed her NG tube and refused another NGT insertion. She is currently on clear liquid diet. Esophagram report esophageal dysmotility-impaired peristalsis. Dr. Ruiz to follow. Speech therapy consulted. Patient may need PEG tube. Continue scheduled bronchodilators. Patient currently on baseline oxygen.
[2022-04-17] MEDS: METOCLOPRAMIDE 10 MG/2mL INJ IV SCH ×2 (15:10→20:58)
[2022-04-18] MEDS: ACETAMINOPHEN 500 MG TAB PO PRN ×2 (01:31→06:59)
[2022-04-18] MEDS: LEVALBUTEROL 0.63 MG/3 ML NEB NEB SCH ×4 (02:00→19:40)
[2022-04-18] MEDS: METOCLOPRAMIDE 10 MG/2mL INJ IV SCH ×4 (03:08→22:27)
[2022-04-18] MEDS ORDERED: FENTANYL CITR 100 MCG/2 ML IV ONE (03:22)
[2022-04-18 05:18] LABS: Hematocrit 23.7 % (36.0-45.0); Lymphocytes % 8.4 % (15.3-44.8); MCV 64.7 fL (80-100); MPV 6.6 fL (7.6-11.3); RBC Red Blood Cell Count 3.67 M/uL (3.86-4.86)
[2022-04-18] MEDS: PANTOPRAZOLE 40 MG INJ IVP SCH (05:29)
[2022-04-18 05:43] LABS: Potassium 3.8 mmol/L (3.5-5.1)
[2022-04-18 06:47] LABS: Magnesium 1.5 mg/dL (1.8-2.4)
[2022-04-18] MEDS ORDERED: Magnesium Sulfate 2gm IVPB 2 G/50 ML BAG IV ONE (06:53)
[2022-04-18 07:36] LABS: Anisocytosis 1+; Blood Morphology Comment NOTED (NOT SEEN); Hypochromasia 2+; Ovalocytes 1+; Platelet Estimate ADEQ; Teardrop Cell 1+
[2022-04-18] MEDS ORDERED: POTASSIUM 25 MEQ EFFERV TAB PO ONE (09:00)
[2022-04-18] MEDS: HOME MED 1 EA UNK (Fluticasone/Umeclidin/Vilanter [Trelegy Ellipta 100-62.5-25] Blst.W.Dev IH SCH (09:00)
[2022-04-18] MEDS: ENOXAPARIN 30 MG/0.3 ML SQ SCH (10:38)
[2022-04-18] MEDS: AMIODARONE HCL 200 MG TAB PO SCH (10:38)
[2022-04-18] MEDS: ASPIRIN 81 MG CHEWABLE TABLET NG SCH (10:39)
[2022-04-18] MEDS: POLYETHYL GLY 3350 17 GM/DOSE PO SCH (10:39)
[2022-04-18] MEDS ORDERED: ALPRAZOLAM 0.25 MG TABLET PO ONE (12:45)
[2022-04-19] MEDS ORDERED: HYDROMORPHONE HCL 0.5 MG/0.5 ML INJ IV ONE (00:19)
[2022-04-19] MEDS: LEVALBUTEROL 0.63 MG/3 ML NEB NEB SCH ×4 (01:00→19:55)
[2022-04-19] MEDS: METOCLOPRAMIDE 10 MG/2mL INJ IV SCH ×3 (03:41→14:56)
[2022-04-19] MEDS: PANTOPRAZOLE 40 MG INJ IVP SCH (06:48)
[2022-04-19] MEDS: HOME MED 1 EA UNK (Fluticasone/Umeclidin/Vilanter [Trelegy Ellipta 100-62.5-25] Blst.W.Dev IH SCH (09:00)
[2022-04-19] MEDS: AMIODARONE HCL 200 MG TAB PO SCH (09:11)
[2022-04-19] MEDS: ASPIRIN 81 MG CHEWABLE TABLET NG SCH (09:11)
[2022-04-19] MEDS: POLYETHYL GLY 3350 17 GM/DOSE PO SCH (09:12)
[2022-04-19] MEDS: ENOXAPARIN 30 MG/0.3 ML SQ SCH (09:12)
--- NOTE | 2022-04-19 09:32 | P.PN ---
Subjective Date of Service: 04/19/22 Primary Care Provider: Phuong Chief Complaint: Atrial fibrillation, dysphagia Subjective: New changes (Esophagram revealed small pieces of food still in esophagus but no definitive signs of achalasia; primary peristalsis abnormalities noted. Tolerated CLs yesterday. NG tube out.) Review of Systems 10-point ROS is otherwise unremarkable General: Weakness, Malaise (Improved) Physical Examination - Vital Signs Temperature: 98.6 F Blood Pressure: 109/45 Pulse: 82 Respirations: 14 Pulse Ox (%): 95 - Physical Exam General: Alert, In no apparent distress, Oriented x3, Cooperative HEENT: Atraumatic, Normocephalic, PERRLA, EOMI Neck: Supple Respiratory: Normal air movement Cardiovascular: Normal pulses Gastrointestinal: Soft and benign, No tenderness, No rebound, No guarding Neurological: Normal speech, Normal strength at 5/5 x4 extr Assessment And Plan - Current Problems (Diagnosis) (1) Dysphagia Current Visit: Yes Status: Acute (2) Abnormal esophagram Current Visit: Yes Status: Acute (3) Atrial fibrillation with RVR Current Visit: Yes Status: Acute (4) COPD (chronic obstructive pulmonary disease) Current Visit: Yes Status: Acute Qualifiers: Chronic bronchitis type: unspecified (5) Esophageal dysmotility Current Visit: Yes Status: Acute (6) Severe protein-calorie malnutrition Current Visit: Yes Status: Acute (7) Anemia Current Visit: Yes Status: Chronic Qualifiers: Anemia type: other cause Other causes of anemia: other cause, not classified Qualified Code(s): D64.89 - Other specified anemias - Plan REC: 1) CLs to Full liquid diet 2) Xanax 0.25 mg po qAM (relax esophageal muscles & promote swallowing of food into stomach) 3) esophageal motility study at tertiary center -> if achalasia diagnosed, then will have therapeutic large esophageal balloon dilatation procedure
--- NOTE | 2022-04-19 14:24 | P.PN ---
Subjective Date of Service: 04/19/22 Primary Care Provider: Phuong Chief Complaint: Atrial fibrillation, dysphagia Patient has no new complaint. She is still maintained on high flow oxygen. She has tolerating clear liquid diet. No vomiting. Heart is rate controlled on oral amiodarone.. Physical Examination - Vital Signs Temperature: 98.6 F Blood Pressure: 109/45 Pulse: 82 Respirations: 14 Pulse Ox (%): 95 Assessment And Plan - Current Problems (Diagnosis) (1) Atrial fibrillation with RVR Current Visit: Yes Status: Acute (2) Hypernatremia Current Visit: Yes Status: Acute (3) Emphysema lung Current Visit: Yes Status: Acute (4) UTI (urinary tract infection) Current Visit: Yes Status: Resolved Qualifiers: Urinary tract infection type: acute cystitis Hematuria presence: with hematuria Qualified Code(s): N30.01 - Acute cystitis with hematuria (5) COPD (chronic obstructive pulmonary disease) Current Visit: Yes Status: Chronic Qualifiers: COPD type: unspecified COPD Qualified Code(s): J44.9 - Chronic obstructive pulmonary disease, unspecified (6) Severe sepsis Current Visit: No Status: Acute (7) Esophageal dysmotility Current Visit: Yes Status: Acute (8) Severe protein-calorie malnutrition Current Visit: Yes Status: Acute - Plan Physical Exam General: Alert, In no apparent distress, Cachectic Respiratory: Clear to auscultation bilaterally, Normal air movement Cardiovascular: Irregular heart rate/rhythm Gastrointestinal: Normal bowel sounds, No tenderness Musculoskeletal: No tenderness Integumentary: No rashes Neurological: Normal speech, Normal strength at 5/5 x4 extr, Normal tone, Normal affect Urinary: Morin catheter Plan: Heart rate controlled on oral amiodarone. Patient not anticoagulated for A. fib. Hypernatremia resolved Nephrology is following. Status post phenylephrine drip. Leukocytosis resolved on antibiotics. Blood cultures no growth to date. Urine culture: Pansensitive E. coli Patient completed antibiotics for UTI. CT chest results reviewed and reported esophageal dysphagia secondary to dysmotility or stricture. GI Dr. Ruiz input appreciated. EGD showed meat stuck in the esophagus and multiple ulcers. Patient removed her NG tube and refused another NGT insertion. She has tolerated full liquid diet. Esophagram report esophageal dysmotility-impaired peristalsis. Dr. Ruiz recommend transfer to tertiary center for motility studies but at this point patient wants to pursue hospice at home and does not want anything done. Her MPOA confirmed request for hospice. Social service consulted for hospice evaluation. Patient was to go home as soon as possible but the challenge will be weaning her off oxygen to a level she can use at home. Continue scheduled bronchodilators.
[2022-04-19] MEDS: ACETAMINOPHEN 500 MG TAB PO PRN (14:55)
--- NOTE | 2022-04-19 15:41 | RAD REPORT ---
EXAM DESCRIPTION: RAD - Chest Single View - 04/19/2022 3:32 pm CLINICAL HISTORY: Hypoxia COMPARISON: Chest Single View dated 04/13/2022; Chest Single View dated 04/09/2022; Abdomen 1 View ([facility]) dated 04/09/2022; Chest Single View dated 04/07/2022 FINDINGS: Portable chest was obtained following placement of a left upper extremity PICC line. The c atheter tip projects over the SVC near the junction with the right atrium..
[2022-04-19] MEDS: ENSURE ENLIVE 237 ML CAN PO SCH (20:09)
[2022-04-20] MEDS: LEVALBUTEROL 0.63 MG/3 ML NEB NEB SCH ×3 (02:00→14:11)
[2022-04-20] MEDS: PANTOPRAZOLE 40 MG INJ IVP SCH (06:07)
[2022-04-20] MEDS: ENOXAPARIN 30 MG/0.3 ML SQ SCH (08:46)
[2022-04-20] MEDS: ACETAMINOPHEN 500 MG TAB PO PRN (08:49)
[2022-04-20] MEDS: POLYETHYL GLY 3350 17 GM/DOSE PO SCH (08:49)
[2022-04-20] MEDS: AMIODARONE HCL 200 MG TAB PO SCH (08:49)
[2022-04-20] MEDS: HOME MED 1 EA UNK (Fluticasone/Umeclidin/Vilanter [Trelegy Ellipta 100-62.5-25] Blst.W.Dev IH SCH (08:49)
[2022-04-20] MEDS: ENSURE ENLIVE 237 ML CAN PO SCH ×2 (08:50→13:18)
[2022-04-20] MEDS: ASPIRIN 81 MG CHEWABLE TABLET NG SCH (08:50)
--- NOTE | 2022-04-20 12:30 | P.DS ---
Admission Date: 04/07/22 Discharge Date: 04/20/22 Primary Care Provider: Phuong Disposition: HOSPICE-HOME Discharge Condition: FAIR Reason for Admission: Atrial fibrillation, dysphagia - Problems (1) Atrial fibrillation with RVR Current Visit: Yes Status: Acute (2) Hypernatremia Current Visit: Yes Status: Acute (3) Emphysema lung Current Visit: Yes Status: Acute (4) UTI (urinary tract infection) Current Visit: Yes Status: Resolved Qualifiers: Urinary tract infection type: acute cystitis Hematuria presence: with hematuria Qualified Code(s): N30.01 - Acute cystitis with hematuria (5) COPD (chronic obstructive pulmonary disease) Current Visit: Yes Status: Chronic Qualifiers: COPD type: unspecified COPD Qualified Code(s): J44.9 - Chronic obstructive pulmonary disease, unspecified (6) Severe sepsis Current Visit: No Status: Acute (7) Esophageal dysmotility Current Visit: Yes Status: Acute (8) Severe protein-calorie malnutrition Current Visit: Yes Status: Acute Brief History of Present Illness: Patient is an 86-year-old female with history of COPD, A. fib not on anticoagulation, and hypothyroidism who presented to the ED via EMS after subjective syncopal episode. Patient's caregiver stated that she has had decreased PO intake and weakness for about 2 weeks now. She does have a history of recurrent UTIs. She was noted to be in A. fib RVR with rate in the 180s when EMS arrived. They gave her 5 mg IV Lopressor. BP 80 systolic and EKG showing sinus tach at 110 upon arrival to the ER. She was given 30ml/kg IVF. Her labs are significant for creatinine 1.7, WBC 18, sodium 160, chloride 120, CO2 35, BNP 2000, urine positive for UTI, COVID-negative. She was given Rocephin. Chest x-ray showed "Prominent opacity overlies the right side of the heart. On a CT chest 2019 there was no hiatal hernia. It is uncertain if this represents confluence of normal structures or a mass. She later reverted back into A. fib RVR rate in the 170s, was given digoxin without much improvement and subsequently placed on amiodarone drip. BP improved. Patient was admitted for further evaluation and treatment. Hospital Course: Patient admitted to the intensive care unit on amiodarone drip. Her blood pressure running low and was on phenylephrine drip briefly. Patient also had hyponatremia secondary to dehydration. Her heart rate improved and patient was was subsequently transitioned to oral amiodarone. She is not anticoagulated for A. fib. Hypernatremia resolved Nephrology saw and assisted with management. She had leukocytosis. Patient suspected to have pneumonia. She was treated with broad-spectrum antibiotics. Leukocytosis resolved on antibiotics. Blood cultures no growth to date. Urine culture: Pansensitive E. coli Patient completed antibiotics for UTI. CT chest reported esophageal dilatation secondary to dysmotility or stricture. Patient seen by GI Dr. Ruiz who performed EGD EGD showed meat stuck in the esophagus which were removed, and multiple ulcers. NG tube was inserted to bypass the GE junction. Patient was fed with NG tube for several days. She later pulled out the NG tube and refused another NGT insertion. Esophagram done reported esophageal dysmotility-impaired peristalsis. Her diet was advanced to full liquid which she tolerated t. Dr. Ruiz recommend transfer to tertiary center for motility studies but at this point patient wants to pursue hospice at home and does not want anything done. Her MPOA confirmed request for hospice. Social service consulted for hospice evaluation. Patient has been accepted to home with hospice. She was initially requiring high flow oxygen which was weaned down to 5 L oxygen by nasal cannula. She is discharged to home with hospice. Vital Signs/Physical Exam: Temp Pulse Resp BP Pulse Ox 97.7 F 92 H 18 124/58 L 91 04/20/22 09:00 04/20/22 09:00 04/20/22 09:00 04/20/22 09:00 04/20/22 09:00 General: Alert, Cachectic, Moderate distress HEENT: Other (Oxygen by nasal cannula) Neck: JVD not distended Respiratory: Diminished Cardiovascular: No edema, Irregular heart rate/rhythm Gastrointestinal: Soft and benign, Non-distended, No tenderness Musculoskeletal: No swelling Neurological: Other (No focal motor deficit.) Laboratory Data at Discharge: WBC 11.50 K/uL (4.3-10.9) H 04/18/22 05:04 Hgb 7.6 g/dL (12.0-15.0) L 04/18/22 05:04 Hct 23.7 % (36.0-45.0) L 04/18/22 05:04 Plt Count 234 K/uL (152-406) 04/18/22 05:04 PT 13.1 SECONDS (9.5-12.5) H 04/07/22 20:19 INR 1.19 04/07/22 20:19 APTT 27.1 SECONDS (24.3-36.9) 04/07/22 20:19 Sodium 134 mmol/L (136-145) L 04/18/22 05:04 Potassium 3.8 mmol/L (3.5-5.1) 04/18/22 05:04 BUN 11 mg/dL (7-18) 04/18/22 05:04 Creatinine 0.41 mg/dL (0.55-1.3) L 04/18/22 05:04 Glucose 94 mg/dL (74-106) 04/18/22 05:04 Uric Acid 3.0 mg/dL (2.6-6.0) D 04/11/22 05:05 Phosphorus 3.9 mg/dL (2.5-4.9) 04/08/22 05:19 Magnesium 1.5 mg/dL (1.8-2.4) L 04/18/22 05:04 Total Bilirubin 0.2 mg/dL (0.2-1.0) 04/16/22 06:20 AST 9 U/L (15-37) L 04/16/22 06:20 ALT 18 U/L (12-78) 04/16/22 06:20 Alkaline Phosphatase 56 U/L (45-117) 04/16/22 06:20 Triglycerides 152 mg/dL (<150) H 04/08/22 05:19 Cholesterol 159 mg/dL (<200) 04/08/22 05:19 HDL Cholesterol 55 mg/dL (40-60) 04/08/22 05:19 Cholesterol/HDL Ratio 2.89 04/08/22 05:19 Home Medications: Docusate [Colace Cap*] 100 mg PO DAILY 06/24/20 Fluticasone/Umeclidin/Vilanter [Trelegy Ellipta 100-62.5-25] 1 each IH DAILY 06/24/20 Iron/FA/Vit B-Com W/C [Hemocyte Plus*] 1 tab PO DAILY WITH BREAKFAST #30 tab 07/16/20 Albuterol Neb [Proventil 0.083% Neb Soln] 2.5 mg IH Q6H PRN #120 amp 04/20/22 Amiodarone HCl [Cordarone*] 200 mg PO DAILY #30 tab 04/20/22 Aspirin Chewable [Aspirin Chewable*] 81 mg NG DAILY #30 tab.chew 04/20/22 Ensure Enlive 237 ml PO TID #30 can 04/20/22 Ipratropium Neb [Atrovent*] 0.5 mg IH Q6H PRN #120 amp 04/20/22 Nebulizer [Aeroneb Go Nebulizer] 1 each MC Q6H #1 unit 04/20/22 Polyethyl Gly 3350 [Glycolax*] 17 gm PO DAILY #30 udbot 04/20/22 New Medications: Nebulizer [Aeroneb Go Nebulizer] 1 each MC Q6H #1 unit Aspirin Chewable [Aspirin Chewable*] 81 mg NG DAILY #30 tab.chew Ipratropium Neb [Atrovent*] 0.5 mg IH Q6H PRN #120 amp PRN Reason: Shortness Of Breath Amiodarone HCl [Cordarone*] 200 mg PO DAILY #30 tab Ensure Enlive 237 ml PO TID #30 can Polyethyl Gly 3350 [Glycolax*] 17 gm PO DAILY #30 udbot Albuterol Neb [Proventil 0.083% Neb Soln] 2.5 mg IH Q6H PRN #120 amp PRN Reason: Shortness Of Breath Physician Discharge Instructions: Full liquid diet. Eat slowly. Diet: Activity: Fall precautions Followup: Nidhi Baca DO [Primary Care Provider] - Time spent managing pt's care (in minutes): 35
[2022-04-20 15:07] VITALS: O2SAT 92
[2022-04-20 17:07] VITALS: BP 122/55; TEMP 97.9
== END 2022-04-20 18:45 | disposition hospice, home (50) | DRG 871 ==
LOC: ER 18:44 → ERHOLD 23:32 → 3RD-ICU 04-08 20:33 → 4TH 04-11 10:45
PROVIDERS: ADMIT Internal Medicine; ATTEND Internal Medicine
PROC: 02HV33Z Insertion of Infusion Device into Superior Vena Cava, Percutaneous Approach (ICD-10-PCS; 2022-04-09)
PROC: 0DC38ZZ Extirpation of Matter from Lower Esophagus, Via Natural or Artificial Opening Endoscopic (ICD-10-PCS; principal; 2022-04-12 13:30)
PROC: 5A09557 Assistance with Respiratory Ventilation, Greater than 96 Consecutive Hours, Continuous Positive Airway Pressure (ICD-10-PCS; 2022-04-13)
DX: A41.51 Sepsis due to Escherichia coli [E. coli] (principal); R65.21 Severe sepsis with septic shock; E43 Unspecified severe protein-calorie malnutrition; J18.9 Pneumonia, unspecified organism; N17.9 Acute kidney failure, unspecified; E87.0 Hyperosmolality and hypernatremia; N30.01 Acute cystitis with hematuria; R64 Cachexia; Z68.1 Body mass index [BMI] 19.9 or less, adult; J96.11 Chronic respiratory failure with hypoxia; I48.91 Unspecified atrial fibrillation; J43.9 Emphysema, unspecified; K22.89 Other specified disease of esophagus; D64.89 Other specified anemias; E86.0 Dehydration; F41.9 Anxiety disorder, unspecified; E87.6 Hypokalemia; F03.90 Unspecified dementia, unspecified severity, without behavioral disturbance, psychotic disturbance, mood disturbance, and anxiety; E83.42 Hypomagnesemia; D63.8 Anemia in other chronic diseases classified elsewhere; K31.89 Other diseases of stomach and duodenum; D56.9 Thalassemia, unspecified; K44.9 Diaphragmatic hernia without obstruction or gangrene; K29.70 Gastritis, unspecified, without bleeding; I50.9 Heart failure, unspecified; K25.9 Gastric ulcer, unspecified as acute or chronic, without hemorrhage or perforation; D50.9 Iron deficiency anemia, unspecified; E03.9 Hypothyroidism, unspecified; R13.10 Dysphagia, unspecified; T18.128A Food in esophagus causing other injury, initial encounter; Z51.5 Encounter for palliative care; Z88.1 Allergy status to other antibiotic agents; Z99.81 Dependence on supplemental oxygen; Z79.890 Hormone replacement therapy; Z79.899 Other long term (current) drug therapy; Z96.641 Presence of right artificial hip joint; Z87.891 Personal history of nicotine dependence; Z20.822 Contact with and (suspected) exposure to COVID-19
CPT/HCPCS: 36415; 36569; 51702; 71045; 71250; 74018; 74220; 80048; 80053; 80061; 81001; 81003; 81015; 82570; 82607; 82746; 82947; 83540; 83605; 83735; 83880; 83930; 83935; 84100; 84132; 84145; 84156; 84300; 84439; 84443; 84466; 84550; 85025; 85610; 85730; 87040; 87077; 87086; 87088; 87186; 87804; 93005; 93306; 94002; 94003; 94640; 94760; 99285; C9113; J0282; J0692; J1160; J1170; J1650; J2370; J2704; J2765; J2916; J3010; J3370; J3475; J3480; J7030; J7040; J7050; J7060; J7120; J7614; J7799; U0003